=== PATIENT | male | born 1965 | race Caucasian/White ===

== ENCOUNTER → 2016-04-11 | Outpatient (REF) | payer MEDICARE, MEDICAID ==
[~2016-04-11] MED LIST: /MOXI40TA PO; /SODI15SS PO; ASPI81TA83 PO; ASPI81TA85 PO; CENTTAB16 PO; CLOP75TA2 PO; CORE12.5 PO; CORE25TA PO; HYDR-4267 PO; INSUN SC; INSUNSD SC; KAYE1POW5 PO; KAYEPOW; LASI80TA PO; LEVO175T2 PO; LIPI20TA PO; LIPI80TA PO; LOSA25TA8 PO; MULTTAB50 PO; MVI PO; NEXI40GR PO; NIAS1TAB PO; NIASPAN PO; NITR0.4D6 SL; NITR0.4D6 TD; NOVOLIN; NOVOLIN N; NPH INSULIN; PLAV75TA38 PO; RANI150C; SYNT175T PO; THERGRAN; TRIC145T PO; TRIC145T19 PO; TYLE325T5 PO; VITA500046 PO; VITAMIN D50000 UNT PO; ZANTTAB9 PO; [UNRECOGNIZED DRUG - CODE] PO; [UNRECOGNIZED DRUG - OTHER]; [UNRECOGNIZED DRUG - OTHER] SC
== END ==
LOC: M LAB REF 12:46
PROVIDERS: ATTEND Internal Medicine Nephrology
DX: N18.9 Chronic kidney disease, unspecified (principal); D63.1 Anemia in chronic kidney disease

== ENCOUNTER 2016-05-26 21:39 | Inpatient (IN) | payer MEDICARE, MEDICAID ==
[~2016-05-26] VITALS: Ht 172.7 cm; Wt 78.6 kg
[2016-05-26] MEDS ORDERED: NS 1,000 ML IV ONE (22:15)
[2016-05-26] MEDS ORDERED: TORS20TA2 PO (22:25)
[2016-05-26] MEDS ORDERED: CHLO25TA PO (22:25)
[2016-05-26] MEDS ORDERED: AMLO5TAB2 PO (22:25)
[2016-05-26] MEDS ORDERED: INSUH10VL SC (22:25)
[2016-05-26 22:38] LABS: BASO # 0.1 K/mm3 (0.0-0.2); BASO % 0.8 % (0.0-1.0); EOS # 0.5 K/mm3 (0.0-0.50); EOS % 3.7 % (0.0-3.0); LARGE UNSTAINED CELL # 0.1 K/mm3 (0.0-0.4); LYMPH # 0.5 K/mm3 (1.5-4.5); LYMPH % 3.8 % (24.0-44.0); MEAN CORPUSCULAR HEMOGLOBIN 29.6 pg (27.0-33.0); MEAN CORPUSCULAR HGB CONC 34.5 g/dl (32.0-36.5); MEAN CORPUSCULAR VOLUME 85.9 fl (80.0-96.0); MONO # 0.5 K/mm3 (0.0-0.8); MONO % 3.3 % (0.0-5.0); NEUTROPHILS % 87.5 % (36.0-66.0); PLATELET COUNT, AUTOMATED 259 k/mm3 (150-450); RED CELL DISTRIBUTION WIDTH 12.7 % (11.5-14.5); WHITE BLOOD COUNT 13.7 K/mm3 (4.0-10.0)
--- NOTE | 2016-05-26 22:40 | REPUSA ---
CLINICAL HISTORY: Altered mental status TECHNIQUE: Head CT without contrast COMPARISON: March 19, 2010. Brain: No intracranial hemorrhage, hydrocephalus, acute parenchymal edema or evident mass. Calvarium: Unremarkable. Sinuses (partially visualized): Mild ethmoid air cells mucosal thickening. Intracranial vessels: Atherosclerotic calcification of the anterior and posterior circulation. IMPRESSION: No acute intracranial findings. Premature atherosclerotic calcification of the carotid si phons. Consider further evaluation with carotid ultrasound on an outpatient basis.
[2016-05-26] MEDS ORDERED: ACETAMINOPHEN TAB 650MG DOSE (2X325MG) PO ONE (22:45)
[2016-05-26] MEDS ORDERED: ONDANSETRON 4MG/2ML VIAL (J2405) IV ONE (22:45)
[2016-05-26 22:51] LABS: ALBUMIN 3.4 GM/DL (3.2-5.2); ALBUMIN/GLOBULIN RATIO 1.21 (1.00-1.93); ALKALINE PHOSPHATASE 207 U/L (45-117); ALT/SGPT 77 U/L (12-78); ANION GAP 10 MEQ/L (8-16); AST/SGOT 59 U/L (15-37); BILIRUBIN,DIRECT 0.1 MG/DL (0.0-0.2); BILIRUBIN,TOTAL 0.4 MG/DL (0.2-1.0); BLOOD UREA NITROGEN 64 MG/DL (7-18); CARBON DIOXIDE LEVEL 25 MEQ/L (21-32); CHLORIDE LEVEL 102 MEQ/L (98-107); CREATININE FOR GFR 2.47 MG/DL (0.70-1.30); GLOMERULAR FILTRATION RATE 29.7 (>56); GLUCOSE, FASTING 377 MG/DL (70-105); OSMOLALITY SERUM 315 MOSM/KG (275-295); POTASSIUM SERUM 3.7 MEQ/L (3.5-5.1); SODIUM LEVEL 137 MEQ/L (136-145); TOTAL PROTEIN 6.2 GM/DL (6.4-8.2)
[2016-05-26 22:57] LABS: VENOUS BASE EXCESS 0.1 (-2.0-2.0); VENOUS O2 SATURATION 99.1 % (60.0-80.0); VENOUS PARTIAL PRESSURE CO2 34.2 mmHg (38.0-50.0); VENOUS STANDARD HCO3 24.6 MEQ/L; VENOUS TOTAL CO2 24.6 MEQ/L (24.0-28.0)
[2016-05-27 00:12] LABS: METHADONE URINE NEGATIVE (NEGATIVE)
[2016-05-27 01:46] LABS: GLUCOSE CSF 161 MG/DL (40-75)
[2016-05-27 01:50] LABS: APPEARANCE, CSF CLEAR (CLEAR); COLOR, CSF COLORLESS (COLORLESS); CSF DILUENT LOT # 6165; CSF TUBE# CELL CNT TUBE 4
[2016-05-27 01:56] LABS: RBC CSF AUTO 12 /mm3 (0-0); WBC CSF AUTO 1 /mm3 (0-10)
[2016-05-27 01:58] LABS: CSF DIFF IF INDICATED? NO (NO)
[2016-05-27] MEDS ORDERED: NS 1,000 ML IV ONE (03:30)
[2016-05-27] MEDS: NS 1,000 ML IV SCH ×2 (04:15→15:44)
[2016-05-27] MEDS ORDERED: DEXTROSE 50% 50 ML SYRINGE IV PRN (04:15)
[2016-05-27] MEDS ORDERED: NITROGLYCERIN 0.4 MG/HR PATCH TD PRN (04:15)
[2016-05-27] MEDS ORDERED: ACETAMINOPHEN 325 MG TAB PO PRN (04:15)
[2016-05-27] MEDS ORDERED: GLUCAGON FOR INJ 1 MG VIAL (J1610) SC PRN (04:15)
[2016-05-27] MEDS ORDERED: GLUCOSE 4 GM CHEW TABLET PO PRN (04:15)
[2016-05-27] MEDS ORDERED: ONDANSETRON 4MG/2ML VIAL (J2405) IV PRN (04:15)
[2016-05-27] MEDS ORDERED: GASTROGRAFIN SOLUTION 30ML (Q9963) PO ONE ×2 (04:30→05:10)
[2016-05-27] MEDS ORDERED: VITA50003 PO (04:31)
[2016-05-27] MEDS ORDERED: HYDR-4266 PO (04:33)
[2016-05-27] MEDS ORDERED: VITMTA PO (04:33)
[2016-05-27] MEDS ORDERED: NITR0.4S14 SL (05:08)
[2016-05-27] MEDS ORDERED: NITROGLYCERIN 0.4 MG SUBL TABLET SL PRN ×2 (05:30)
[2016-05-27] MEDS ORDERED: LEVOTHYROXINE 0.1 MG TAB (100 MCG) PO SCH (06:00)
[2016-05-27] MEDS ORDERED: LEVOTHYROXINE 0.075 MG TAB (75 MCG) PO SCH (06:00)
--- NOTE | 2016-05-27 06:07 | HPE ---
DATE OF ADMISSION: 05/27/2016 PRIMARY CARE PROVIDER: Dr. Deshawn Cano PROMPT CARE RN: Dr. Evan Barreto ACCOUNTS RECEIVABLE EXECUTIVE: Dr. Vaishali Otto CHIEF COMPLAINT: Fever. HISTORY OF PRESENT ILLNESS: The patient is a 50-year-old man who reports that he was in his usual state of health, his and his family went to [place] to eat dinner at [facility], shortly after returning, he began having rigors, having chills. He tried wrapping himself up with a blanket. He felt possibly that his blood sugar was low. He checked his fingerstick and it was actually 400. He progressively felt worse and worse with the chills and then feeling hot, covering himself with many blankets to the point that his family became concerned and his called an ambulance. Emergency medical services (EMS) brought the patient to the hospital here. Otherwise, the patient states that earlier in the day he was in his usual state of health. He denies change in urinary habits, cough, fevers prior to this. No other complaints prior to this episode. As per report from the emergency room doctor, he was rather slow and lethargic upon arrival, but has improved after receiving Tylenol. As per the , the patient does get slow and lethargic any time he feels this ill. At the present time, she states that he is back to his baseline. The patient, himself is awake, alert, oriented times three and feels just tired. The patient reported one episode of nausea and vomiting while in the emergency room. PAST MEDICAL HISTORY: 1. Chronic kidney disease. 2. Type 2 diabetes. 3. Coronary artery disease status post coronary artery bypass graft (CABG). 4. Peripheral vascular disease status post balloon. 5. Hypothyroidism. 6. Celiac disease. PAST SURGICAL HISTORY: 1. Carpal tunnel release bilaterally. 2. Tonsillectomy. 3. Appendectomy. 4. CABG. 5. Right cataract surgery. 6. Right shoulder surgery. SOCIAL HISTORY: He is a nonsmoker. His last alcoholic beverage was six months ago. He lives with his and son. FAMILY HISTORY: Noncontributory. REVIEW OF SYSTEMS: Negative other than history of present illness (HPI). ALLERGIES: SAIDA INHIBITORS, GLUTEN. HOME MEDICATIONS: - Norvasc 5 mg daily - chlorthalidone 25 mg daily - vitamin D 50,000 units once a week - hydralazine 25 mg by mouth twice a day - NovoLog sliding scale with meals - Novolin NPH 22 units in the morning, 55 units in the evening - torsemide 20 mg daily - Synthroid 175 mcg daily - Tylenol 650 mg every four hours as needed - aspirin 81 mg daily - atorvastatin 80 mg daily - Coreg 12.5 mg twice a day - Plavix 75 mg daily - multivitamin one tablet daily - niacin 500 mg at bedtime - nitroglycerin 0.4 mg/hour dissolvable patch daily as needed chest pain PHYSICAL EXAMINATION: T-max 101.8, heart rate 111, blood pressure 159/72, oxygen saturation 98% in room air. GENERAL: He is a middle-aged man lying flat in bed. He appears tired, but in no acute distress. HEENT: Cranial nerves II-XII are grossly intact. He has moist mucous membranes. No elevation of central venous pressure (CVP). CARDIOVASCULAR: S1, S2, tachycardic, but regular. RESPIRATORY EXAM: Clear. ABDOMEN: Soft, bowel sounds positive. There is some mild distention, but no obvious tenderness to palpation. EXTREMITIES: No clubbing, cyanosis, or edema. LABORATORY STUDIES: WBC 13.7, hemoglobin 11.5, hematocrit 33.3, platelet count 259. Chemistry panel: Sodium 137, potassium 3.7, chloride 102, bicarbonate 25, BUN 64, creatinine 2.4, baseline creatinine appears to be approximately 2, glucose 377, elevated AST of 59, CK elevated at 917, TSH slightly elevated at 4.3. ABG reveals a pH of 7.45, pCO2 of 34.2, and an pO2 of 157. Toxicology is negative. UA is positive for protein and glucose. CSF reveals 1 WBC, 12 RBC, glucose 161, and total protein 62.7. Blood cultures are pending. Urine culture is pending. Influenza swab is negative. CSF culture and gram stain is pending. IMAGING: The patient did have a CT scan of the head which reveals no acute intracranial findings. Premature atherosclerotic calcification in the product siphons and can consider outpatient ultrasound evaluation. A chest x-ray which report is unavailable, but there is no obvious infiltrate. ASSESSMENT AND PLAN: This is a 50-year-old man with sudden onset of sepsis syndrome with fever, tachycardia, leukocytosis, associated with nausea and vomiting. 1. Sepsis syndrome. At this time, it appears as though this may be a gastrointestinal (GI) illness. I will empirically cover him with metronidazole and levofloxacin. We will check a GI polymerase chain reaction (PCR) panel. Also check a respiratory PCR panel and a CT scan of the abdomen as at this time there is no clear source for his infection. I will also check a lipase and trend his troponin. He did receive IV fluids. I will continue with gentle IV fluid hydration and Tylenol as needed. We will provide him with IV Zofran as needed as well. For the time being, we will keep him nothing by mouth. He does not appear to be in significant pain. I will also check a serum alcohol level given that he has some mild liver function tests (LFT) abnormalities fairly chronically. 2. Chronic kidney disease, [id number] kidney injury. We will hold his diuretic and provide him with very gentle IV fluids. 3. Hypertension. We will monitor closely for the time being. We will continue his Coreg. If needed, we will provide him with his amlodipine and hydralazine. 4. Type 2 diabetes. Sliding scale insulin. He is nothing by mouth. We will check fingersticks every six hours, and insulin protocol. 5. Hypothyroidism. We will place him on Synthroid. 6. Coronary artery disease. The patient is on aspirin, statin, and beta sarabjit. We will admit him to the progressive care unit (PCU) and trend his cardiac enzymes. The patient is on Plavix and as needed nitroglycerin. 7. Dyslipidemia. He is on a statin and niacin. 8. Deep vein thrombosis (DVT) prophylaxis. The patient will be on heparin. DISPOSITION: The patient will be admitted to the progressive care unit (PCU). We will continue to follow this patient closely.
[2016-05-27] MEDS: HumaLOG INSULIN (NovoLOG) PER UNIT SC SCH ×4 (06:45→21:28)
--- NOTE | 2016-05-27 06:46 | ECGEPIP ---
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
--- NOTE | 2016-05-27 07:00 | REPUSA ---
CLINICAL HISTORY: Abdominal pain. TECHNIQUE: Multiple axial, sagittal and coronal CT images were obtained through the abdomen and pelvi s after administration of oral but not IV contrast material. COMMENTS: The liver is of uniform attenuation without mass or defect. There is no intra or extrahepatic biliary ductal dilatation. The spleen is normal. The gallbladder is within normal limits. The pancreas is of normal contour and attenuation characteristics. There is no evidence of adrenal mass. The kidneys are normal in size, shape and configuration. No renal or ureteral calculi are identified. There is no hydroureter or hydronephrosis. There is no evidence for appendicitis. There is severe wall thickening noted invoving small bowel seg ments compatibe with enteritis. No evidence for small or large bowel obstruction. There is no evidenc e of abdominal ascites or lymphadenopathy. There is no evidence of intrinsic or extrinsic bladder mass. There is no pelvic ascites or lymphadeno karon. Images of the lung bases show bibasilar consolidations compatible with pneumonia. There are no pleura l effusions. The bony structures are free of lytic or blastic lesions. Multilevel degenerative changes are seen in volving the thoracolumbar spine. Scattered calcifications are seen involving the aorta and major branches compatible with atherosclero sis. IMPRESSION: Severe enteritis. Consultation with GI service is recommended. Bibasilar pneumonia. Thank you for your kind referral of this patient.
[2016-05-27 07:40] LABS: MEAN CORPUSCULAR HEMOGLOBIN 30.4 pg (27.0-33.0); MEAN CORPUSCULAR VOLUME 86.9 fl (80.0-96.0); RED CELL DISTRIBUTION WIDTH 12.6 % (11.5-14.5); WHITE BLOOD COUNT 13.7 K/mm3 (4.0-10.0)
[2016-05-27 07:59] LABS: ALBUMIN 2.7 GM/DL (3.2-5.2); ALBUMIN/GLOBULIN RATIO 1.04 (1.00-1.93); ALKALINE PHOSPHATASE 193 U/L (45-117); ALT/SGPT 80 U/L (12-78); ANION GAP 12 MEQ/L (8-16); AST/SGOT 83 U/L (15-37); BILIRUBIN,TOTAL 0.4 MG/DL (0.2-1.0); BLOOD UREA NITROGEN 56 MG/DL (7-18); CALCIUM LEVEL 7.3 MG/DL (8.5-10.1); CARBON DIOXIDE LEVEL 20 MEQ/L (21-32); CHLORIDE LEVEL 106 MEQ/L (98-107); CREATININE FOR GFR 2.24 MG/DL (0.70-1.30); GLOMERULAR FILTRATION RATE 33.2 (>56); GLUCOSE, FASTING 375 MG/DL (70-105); POTASSIUM SERUM 3.5 MEQ/L (3.5-5.1); SODIUM LEVEL 138 MEQ/L (136-145); TOTAL PROTEIN 5.3 GM/DL (6.4-8.2)
[2016-05-27] MEDS: LevoFLOXacin IV 500 MG in APPROPRIATE DILUENT 1 EA IV SCH (08:15)
[2016-05-27] MEDS ORDERED: amLODIPine 5 MG TAB PO SCH (09:00)
[2016-05-27] MEDS ORDERED: CHLORTHALIDONE 25 MG TAB PO SCH (09:00)
[2016-05-27] MEDS ORDERED: MULTIVITAMINS/MINERALS THERAP 1 TAB PO SCH (09:00)
[2016-05-27] MEDS: HEPARIN SOD (PORCINE) 5000 UNITS/ML VIAL SC SCH ×3 (09:00→21:26)
[2016-05-27] MEDS ORDERED: **hydrALAZINE HCL** 25 MG TAB PO SCH (09:00)
[2016-05-27] MEDS: metroNIDAZOLE 500 MG in APPROPRIATE DILUENT 1 EA IV SCH ×2 (09:16→17:52)
--- NOTE | 2016-05-27 10:49 | REP ---
REASON: Altered mental status. COMPARISON: 07/09/2015 The technique utilized in obtaining the radiograph has magnified the cardiac silhouette and accentuated the interstitial markings. Note is again made of previous median sternotomy. The cardiomediastinal silhouette is unchanged. The lung celaya are hypo-expanded. No acute patchy parenchymal opacities or pleural effusions have developed. There is no change in the osseous structures. IMPRESSION: No evidence of acute disease. Technique as described above. Signed by George Blank DO 05/27/2016 11:25 A
[2016-05-27] MEDS: ACETAMINOPHEN 500 MG TAB PO SCH ×3 (12:06→21:26)
[2016-05-27] MEDS: CARVedilol 12.5 MG TAB PO SCH ×2 (12:14→21:27)
[2016-05-27] MEDS: CLOPIDOGREL 75 MG TAB PO SCH (12:22)
[2016-05-27] MEDS: amLODIPine 5 MG TAB PO SCH ×2 (12:26→21:27)
[2016-05-27 15:00] VITALS: BP 148/71
[2016-05-27] MEDS ORDERED: HumuLIN N INSULIN (NovoLIN N) PER UNIT SC SCH (21:00)
[2016-05-27] MEDS ORDERED: NIACIN SR (NIASPAN) 500 MG TAB PO SCH (21:00)
[2016-05-27] MEDS ORDERED: **NOTE PATIENT COMMENT** MISC XX SCH (21:00)
[2016-05-27] MEDS: ATORVASTATIN 20 MG TAB PO SCH (21:26)
[2016-05-27] MEDS: LEVOTHYROXINE 0.075 MG TAB (75 MCG) PO SCH (21:27)
[2016-05-27] MEDS: LEVOTHYROXINE 0.1 MG TAB (100 MCG) PO SCH (21:27)
[2016-05-27] MEDS: ASPIRIN 81 MG ENTERIC TAB PO SCH (21:27)
[2016-05-27 22:00] VITALS: BP 162/77
[2016-05-28] MEDS: metroNIDAZOLE 500 MG in APPROPRIATE DILUENT 1 EA IV SCH ×3 (00:49→16:38)
[2016-05-28] MEDS: NS 1,000 ML IV SCH ×3 (02:42→21:06)
[2016-05-28 06:00] VITALS: BP 159/78
[2016-05-28 07:25] LABS: MEAN CORPUSCULAR HEMOGLOBIN 30.2 pg (27.0-33.0); MEAN CORPUSCULAR HGB CONC 34.8 g/dl (32.0-36.5); MEAN CORPUSCULAR VOLUME 86.9 fl (80.0-96.0); RED CELL DISTRIBUTION WIDTH 12.9 % (11.5-14.5)
[2016-05-28 07:28] LABS: CREATININE FOR GFR 1.64 MG/DL (0.70-1.30); GLOMERULAR FILTRATION RATE 47.6 (>56); POTASSIUM SERUM 3.6 MEQ/L (3.5-5.1)
--- NOTE | 2016-05-28 07:44 | IPNPDOC ---
Subjective Date Seen The patient was seen on 05/28/16. Subjective Chief Complaint/HPI The patient is a 50-year-old male admitted with a reason for visit of Sepsis. Events since last encounter patient became hypoglycemic this am down to 44 will hold am insulin. no fever or chills, no chest pain or sob , no abdominal pain or nausea or vomiting. Objective Physical Examination General Exam: Positive: Alert, No Acute Distress Eye Exam: Positive: Conjunctiva & lids normal, EOMI, PERRLA, Negative: Sclera icteric ENT Exam: Positive: Atraumatic, Mucous membr. moist/pink, Pharynx Normal Neck Exam: Positive: Supple, Negative: JVD, thyromegaly Chest Exam: Positive: Clear to auscultation, Normal air movement Heart Exam: Positive: Normal S1, Normal S2, Rate Normal, Regular Rhythm, Negative: Murmurs, Rubs Abdomen Exam: Positive: Normal bowel sounds, Soft, Negative: Hepatospenomegaly, Tenderness Extremity Exam: Positive: Normal pulses, Negative: Clubbing, Cyanosis, Edema Skin Exam: Positive: Nl turgor and temperature, Negative: Breakdown, Rash Assessment /Plan Problems (1) Gastroenteritis Status: Acute Problem Text: will continue with metronidazole and levofloxacin. Blood cultures in progress, No further diarrhea so no GI panel available. Had CSF study did not no any meningitis. Cells 3 had mildly elevated protein of 65. (2) Acute kidney injury superimposed on CKD Status: Acute Problem Text: will continue with gentle hydration. (3) Diabetes Status: Chronic Problem Text: Had hypoglycemia this am will reduce dose of nph insulin in pm and hold moring NPH dose. continue with the sliding scale. (4) CAD (coronary artery disease) Status: Chronic (5) Hx of CABG Status: Chronic (6) PVD (peripheral vascular disease) Status: Chronic (7) Hypertension Status: Chronic (8) Hyperlipidemia Status: Chronic (9) Hypothyroid Status: Chronic (10) Celiac disease Status: Chronic Plan/VTE VTE Prophylaxis Ordered?: Yes VS, I&O, 24H, Fishbone Vital Signs/I&O Vital Signs Date Time Temp Pulse Resp B/P Pulse Ox O2 Delivery O2 Flow Rate FiO2 05/28/16 06:00 97.1 61 20 159/78 96 Room Air I&O- Last 24 Hours up to 6 AM 05/28/16 06:00 Intake Total 1160 ml Output Total 500 ml Balance 660 ml Laboratory Data 24H LABS Laboratory Tests 2 05/27/16 12:03: Bedside Glucose (Misc Panel) 302H 05/27/16 17:46: Bedside Glucose (Misc Panel) 439H 05/27/16 21:16: Bedside Glucose (Misc Panel) 480H 05/28/16 06:51: Microbiology Microbiology 05/26/16 Blood Culture - Preliminary, Resulted No growth after 24 hours . All specim... 05/26/16 Blood Culture - Preliminary, Resulted No growth after 24 hours . All specim... 05/27/16 Gram Stain - Final, Resulted 05/27/16 CSF Culture, Resulted Pending 05/28/16 Gastrointestinal Tract Panel (PCR), Received Pending 05/26/16 Respiratory Virus Panel (PCR) (DORENE) - Final, Complete 05/26/16 Influenza Virus Type A Antigen - Final, Complete 05/26/16 Influenza Virus Type B Antigen - Final, Complete 05/26/16 Urine Culture, Received Pending BRYSON HOOKS MD May 28, 2016 07:44
[2016-05-28 08:25] LABS: CALCIUM LEVEL 8.5 MG/DL (8.5-10.1)
[2016-05-28] MEDS: HEPARIN SOD (PORCINE) 5000 UNITS/ML VIAL SC SCH ×2 (09:00→21:00)
[2016-05-28] MEDS: LevoFLOXacin IV 500 MG in APPROPRIATE DILUENT 1 EA IV SCH (09:51)
[2016-05-28] MEDS: HumaLOG INSULIN (NovoLOG) PER UNIT SC SCH ×4 (09:51→21:05)
[2016-05-28] MEDS: ACETAMINOPHEN 500 MG TAB PO SCH ×3 (09:52→21:03)
[2016-05-28] MEDS: CARVedilol 12.5 MG TAB PO SCH ×2 (09:52→21:04)
[2016-05-28] MEDS: CLOPIDOGREL 75 MG TAB PO SCH (09:53)
[2016-05-28] MEDS: amLODIPine 5 MG TAB PO SCH ×2 (09:53→21:04)
[2016-05-28 10:00] VITALS: BP 165/74
[2016-05-28 14:00] VITALS: BP 164/79
[2016-05-28] MEDS: ATORVASTATIN 20 MG TAB PO SCH (21:03)
[2016-05-28] MEDS: ASPIRIN 81 MG ENTERIC TAB PO SCH (21:04)
[2016-05-28] MEDS: LEVOTHYROXINE 0.1 MG TAB (100 MCG) PO SCH (21:04)
[2016-05-28] MEDS: LEVOTHYROXINE 0.075 MG TAB (75 MCG) PO SCH (21:04)
[2016-05-28] MEDS: HumuLIN N INSULIN (NovoLIN N) PER UNIT SC SCH (21:05)
[2016-05-28 22:00] VITALS: BP 162/70
[2016-05-29] MEDS: metroNIDAZOLE 500 MG in APPROPRIATE DILUENT 1 EA IV SCH ×2 (01:21→09:41)
[2016-05-29 06:00] VITALS: BP 162/75
[2016-05-29 07:10] LABS: MEAN CORPUSCULAR HEMOGLOBIN 30.8 pg (27.0-33.0); MEAN CORPUSCULAR VOLUME 88.2 fl (80.0-96.0); RED CELL DISTRIBUTION WIDTH 13.2 % (11.5-14.5); WHITE BLOOD COUNT 6.1 K/mm3 (4.0-10.0)
[2016-05-29 07:30] LABS: CALCIUM LEVEL 8.1 MG/DL (8.5-10.1); CREATININE FOR GFR 1.59 MG/DL (0.70-1.30); GLOMERULAR FILTRATION RATE 49.3 (>56); POTASSIUM SERUM 3.8 MEQ/L (3.5-5.1)
[2016-05-29] MEDS: HumaLOG INSULIN (NovoLOG) PER UNIT SC SCH ×4 (07:30→21:00)
[2016-05-29] MEDS: LevoFLOXacin IV 500 MG in APPROPRIATE DILUENT 1 EA IV SCH (08:25)
[2016-05-29] MEDS: ACETAMINOPHEN 500 MG TAB PO SCH ×4 (08:26→20:56)
[2016-05-29] MEDS: amLODIPine 5 MG TAB PO SCH ×2 (08:27→20:55)
[2016-05-29] MEDS: CARVedilol 12.5 MG TAB PO SCH ×2 (08:27→20:54)
[2016-05-29] MEDS: HumuLIN N INSULIN (NovoLIN N) PER UNIT SC SCH ×2 (08:28→20:56)
[2016-05-29] MEDS: NS 1,000 ML IV SCH (08:42)
[2016-05-29] MEDS: HEPARIN SOD (PORCINE) 5000 UNITS/ML VIAL SC SCH ×2 (09:00→21:00)
[2016-05-29] MEDS: CLOPIDOGREL 75 MG TAB PO SCH (09:00)
[2016-05-29 14:00] VITALS: BP 169/78
[2016-05-29] MEDS ORDERED: CHLORTHALIDONE 25 MG TAB PO ONE (15:45)
[2016-05-29] MEDS: metroNIDAZOLE (FLAGYL) 500 MG TAB PO SCH ×2 (16:21→21:03)
[2016-05-29] MEDS: TORSEMIDE 20 MG TAB PO SCH (16:21)
--- NOTE | 2016-05-29 18:06 | REP ---
Bilateral lower extremity deep vein duplex ultrasound: The deep veins demonstrate normal compression, normal Doppler color flow and normal Doppler waveforms with respiration and augmentation at multiple levels from the popliteal veins to the common femoral veins. There is no evidence of deep vein thrombus on the right on the left. Bilateral inguinal lymph nodes are incidentally noted. Soft tissue edema is noted in the soft tissues posterior to the left knee. Signed by Kraig Palmer MD 05/29/2016 05:58 P
--- NOTE | 2016-05-29 19:04 | IPNPDOC ---
Subjective Date Seen The patient was seen on 05/29/16. Subjective Chief Complaint/HPI The patient is a 50-year-old male admitted with a reason for visit of Sepsis. Objective Physical Examination General Exam: Positive: Alert, No Acute Distress Eye Exam: Positive: Conjunctiva & lids normal, EOMI, PERRLA, Negative: Sclera icteric ENT Exam: Positive: Atraumatic, Mucous membr. moist/pink, Pharynx Normal Neck Exam: Positive: Supple, Negative: JVD, thyromegaly Chest Exam: Positive: Clear to auscultation, Normal air movement Heart Exam: Positive: Normal S1, Normal S2, Rate Normal, Regular Rhythm, Negative: Murmurs, Rubs Abdomen Exam: Positive: Normal bowel sounds, Soft, Negative: Hepatospenomegaly, Tenderness Extremity Exam: Positive: Normal pulses, Negative: Clubbing, Cyanosis, Edema Skin Exam: Positive: Nl turgor and temperature, Negative: Breakdown, Rash Assessment /Plan Problems (1) Gastroenteritis Status: Acute Problem Text: will continue with metronidazole and levofloxacin. Blood cultures in progress, No further diarrhea so no GI panel available. Had CSF study did not no any meningitis. Cells 3 had mildly elevated protein of 65. (2) Acute kidney injury superimposed on CKD Status: Acute Problem Text: will continue with gentle hydration. (3) Diabetes Status: Chronic Problem Text: Had hypoglycemia this am will reduce dose of nph insulin in pm and hold moring NPH dose. continue with the sliding scale. (4) CAD (coronary artery disease) Status: Chronic (5) Hx of CABG Status: Chronic (6) PVD (peripheral vascular disease) Status: Chronic (7) Hypertension Status: Chronic (8) Hyperlipidemia Status: Chronic (9) Hypothyroid Status: Chronic (10) Celiac disease Status: Chronic Plan/VTE VTE Prophylaxis Ordered?: Yes VS, I&O, 24H, Fishbone Vital Signs/I&O Vital Signs Date Time Temp Pulse Resp B/P Pulse Ox O2 Delivery O2 Flow Rate FiO2 05/29/16 14:00 99.4 78 16 169/78 96 Room Air I&O- Last 24 Hours up to 6 AM 05/29/16 06:00 Intake Total 3380 ml Output Total 2100 ml Balance 1280 ml Laboratory Data 24H LABS Laboratory Tests 2 05/28/16 20:13: Bedside Glucose (Misc Panel) 327H 05/29/16 06:43: Anion Gap 11, Blood Urea Nitrogen 31H, Creatinine 1.59H, Sodium Level 145, Potassium Level 3.8, Chloride Level 114H, Carbon Dioxide Level 20L, Calcium Level 8.1L, Glomerular Filtration Rate 49.3L 05/29/16 11:53: Bedside Glucose (Misc Panel) 225H 05/29/16 16:16: Bedside Glucose (Misc Panel) 115H CBC/BMP Laboratory Tests 05/29/16 06:43 Calcium Level 8.1 L, Red Blood Count 3.42 L, Mean Corpuscular Volume 88.2, Mean Corpuscular Hemoglobin 30.8, Mean Corpuscular Hemoglobin Concent 35.0, Red Cell Distribution Width 13.2 Microbiology Microbiology 05/26/16 Blood Culture - Preliminary, Resulted No Growth after 48 hours. All Specime... 05/26/16 Blood Culture - Preliminary, Resulted No Growth after 48 hours. All Specime... 05/27/16 Gram Stain - Final, Complete 05/27/16 CSF Culture - Final, Complete 05/28/16 Gastrointestinal Tract Panel (PCR) - Final, Complete 05/26/16 Respiratory Virus Panel (PCR) (DORENE) - Final, Complete 05/26/16 Influenza Virus Type A Antigen - Final, Complete 05/26/16 Influenza Virus Type B Antigen - Final, Complete 05/26/16 Urine Culture - Final, Complete HELIO FLORES DO May 29, 2016 19:04
[2016-05-29] MEDS: ATORVASTATIN 20 MG TAB PO SCH (20:54)
[2016-05-29] MEDS: ASPIRIN 81 MG ENTERIC TAB PO SCH (20:55)
[2016-05-29] MEDS: LEVOTHYROXINE 0.1 MG TAB (100 MCG) PO SCH (21:03)
[2016-05-29] MEDS: LEVOTHYROXINE 0.075 MG TAB (75 MCG) PO SCH (21:04)
[2016-05-29 22:00] VITALS: BP 142/88
[2016-05-30] MEDS: metroNIDAZOLE (FLAGYL) 500 MG TAB PO SCH ×2 (05:26→13:24)
[2016-05-30 06:00] VITALS: BP 167/82
[2016-05-30] MEDS ORDERED: LevoFLOXacin 500 MG TABLET PO SCH (06:00)
[2016-05-30] MEDS: HumaLOG INSULIN (NovoLOG) PER UNIT SC SCH ×2 (07:30→12:27)
[2016-05-30 08:30] LABS: CREATININE FOR GFR 1.6 MG/DL (0.70-1.30); POTASSIUM SERUM 3.7 MEQ/L (3.5-5.1)
[2016-05-30] MEDS: HumuLIN N INSULIN (NovoLIN N) PER UNIT SC SCH (08:41)
[2016-05-30] MEDS: CLOPIDOGREL 75 MG TAB PO SCH (08:41)
[2016-05-30 08:42] VITALS: BP 167/82
[2016-05-30] MEDS: TORSEMIDE 20 MG TAB PO SCH (08:42)
[2016-05-30] MEDS: CARVedilol 12.5 MG TAB PO SCH (08:42)
[2016-05-30] MEDS: amLODIPine 5 MG TAB PO SCH (08:42)
[2016-05-30] MEDS: HEPARIN SOD (PORCINE) 5000 UNITS/ML VIAL SC SCH (08:43)
[2016-05-30 08:53] LABS: MEAN CORPUSCULAR HEMOGLOBIN 30.3 pg (27.0-33.0); MEAN CORPUSCULAR HGB CONC 34.8 g/dl (32.0-36.5); RED CELL DISTRIBUTION WIDTH 13.1 % (11.5-14.5); WHITE BLOOD COUNT 5.1 K/mm3 (4.0-10.0)
[2016-05-30] MEDS ORDERED: LEVA500T PO (11:18)
[2016-05-30] MEDS ORDERED: FLAG500T PO (11:18)
--- NOTE | 2016-06-07 12:15 | DSES ---
DATE OF ADMISSION: 05/27/2016 DATE OF DISCHARGE: 05/30/2016 REASON FOR ADMISSION: Questionable sepsis. FINAL DIAGNOSES: 1. Gastroenteritis. 2. Severe enteritis. 3. Inguinal lymph node. 4. Hypoglycemia. 5. Acute on chronic kidney disease. 6. History of CABG. 7. History of peripheral vascular disease. 8. Hypertension. 9. Hyperlipidemia. 10. Hypothyroidism. 11. Celiac disease. HISTORY OF PRESENT ILLNESS (HPI): Patient is a 50-year-old male, presented to the emergency room after going to eat at [employer] and then started to have shaking and chills, wrapping himself in blanket. He thought he had low blood sugar; however, his blood sugar was 400. He continued to feel worse and presented to the emergency room. He denied any worsening urinary habits, cough, fevers or chills. He had no prior episodes. He was admitted under hospitalist service. HOSPITAL COURSE: CT scan of the abdomen and pelvis showed severe enteritis. Patient was started on antibiotics, initially intravenous (IV) and then it was switched to oral. Once the patient's symptoms had improved, he was started on metronidazole and Levaquin, as well as IV fluids. Blood and urine were negative. Cerebrospinal fluid (CSF) was also done and it was negative. Urine culture was negative. Gastrointestinal (GI) panel was negative. Once the patient's symptoms had resolved, he was discharged home. He is to followup with primary care provider in 1 week. He is to repeat ultrasound of inguinal lymph nodes. Diet is regular. Activity is as tolerated. Discharge medications include: - Levaquin 500 mg by mouth daily for seven more days - Flagyl 500 mg by mouth every 8 hours for seven more days - Tylenol 650 mg every four hours as needed - amlodipine 5 mg by mouth daily - aspirin 81 mg by mouth at night - Lipitor 80 mg at night - carvedilol 12.5 mg by mouth twice a day - chlorthalidone 25 mg by mouth daily - Plavix 75 mg by mouth daily - vitamin D 50,000 units by mouth - hydralazine 25 mg by mouth twice a day - insulin sliding scale and NPH 22 units in the morning and 55 units at night - Synthroid 175 at night - multivitamin one tablet by mouth daily - niacin 500 mg at bedtime - nitroglycerin as needed for angina - torsemide 20 mg by mouth daily Patient has a primary care appointment on 06/08/2016 at 2:30 p.m. Discharge condition was stable.
== END 2016-05-30 13:50 | disposition home or self-care (01) | DRG 392 ==
LOC: M ED 21:56 → M ED INP 05-27 04:15 → M MS5PR 05-27 14:55
PROVIDERS: ADMIT Internal Medicine; ATTEND Internal Medicine Nephrology
DX: K52.9 Noninfective gastroenteritis and colitis, unspecified (principal); N17.9 Acute kidney failure, unspecified; E03.9 Hypothyroidism, unspecified; E78.5 Hyperlipidemia, unspecified; K90.0 Celiac disease; I12.9 Hypertensive chronic kidney disease with stage 1 through stage 4 chronic kidney disease, or unspecified chronic kidney disease; I73.9 Peripheral vascular disease, unspecified; Z79.899 Other long term (current) drug therapy; Z79.4 Long term (current) use of insulin; N18.9 Chronic kidney disease, unspecified; E11.65 Type 2 diabetes mellitus with hyperglycemia; Z88.8 Allergy status to other drugs, medicaments and biological substances; Z79.82 Long term (current) use of aspirin

== ENCOUNTER → 2016-06-13 | Outpatient (CLI) | payer MEDICARE, MEDICAID ==
[~2016-06-13] MED LIST changes: +AMLO5TAB2 PO; +CHLO25TA PO; +FLAG500T PO; +HYDR-4266 PO; +INSUH10VL SC; +LEVA500T PO; +NITR0.4S14 SL; +TORS20TA2 PO; +VITA50003 PO; +VITMTA PO
== END ==
LOC: M SMT 11:08
PROVIDERS: ATTEND Internal Medicine Gastroenterology
DX: K90.0 Celiac disease (principal)

== ENCOUNTER → 2016-06-18 | Outpatient (CLI) | payer MEDICARE, MEDICAID ==
[~2016-06-18] MED LIST changes: +E-Z PAQUE 60% w/v SUSP 355ML BOTTLE As Ordered ONE; +ENTERO VU 24% w/v SUSP BTL 600ML As Ordered ONE
--- NOTE | 2016-06-18 13:34 | REP ---
SMALL BOWEL SERIES: [facility] film of abdomen and pelvis demonstrates diffuse vascular calcifications without an obstructive bowel gas pattern. Single contrast barium was ingested. Stomach and duodenal bulb appear well distended on initial images. The jejunum and ileum display normal mucosal folds with no thickening or nodularity. There are no persistent filling defects or strictures seen. There is normal transit time of barium through the small bowel, with the right colon visualized between 130 and 160 minutes. Terminal ileum demonstrates no stricture or other abnormality. Manual compression under fluoroscopy demonstrate freely mobile small bowel loops with no tethering or fistula. IMPRESSION: Unremarkable small bowel series. Fluoroscopy time 5 minutes. Signed by Kraig Hyatt MD 06/18/2016 03:55 P
== END ==
LOC: M RAD 08:30
PROVIDERS: ATTEND Internal Medicine Gastroenterology
DX: K90.0 Celiac disease (principal)

== ENCOUNTER → 2016-06-29 | Outpatient (CLI) | payer MEDICARE, MEDICAID ==
[~2016-06-29] VITALS: Ht 172.7 cm; Wt 69.4 kg
[~2016-06-29] MED LIST changes: -E-Z PAQUE 60% w/v SUSP 355ML BOTTLE As Ordered ONE; -ENTERO VU 24% w/v SUSP BTL 600ML As Ordered ONE; +NS 1,000 ML IV SCH; +PROPOFOL 200 MG/20 ML VIAL As Ordered ONE
--- NOTE | 2016-06-29 15:01 | ROOR ---
Patient Name: Jonny Aguilera Procedure Date: 06/29/2016 2:46 PM Date of : 1965 Age: 50 Room: [facility] Gender: Male Note Status: Finalized Procedure: Upper GI endoscopy Indications: Surveillance procedure, , Epigastric abdominal distress, Follow-up of celiac disease. (normal serology ttg IgA) with [facility] strict gluten free diet. abdominal pain has resolved. Providers: Jose BOTELLO MD Referring MD: ALEJANDRA BHAKTA MD Requesting Provider: Medicines: Monitored Anesthesia Care Complications: No immediate complications. Procedure: Pre-Anesthesia Assessment: - The heart rate, respiratory rate, oxygen saturations, blood pressure, adequacy of pulmonary ventilation, and response to care were monitored throughout the procedure. The Endoscope was introduced through the mouth, and advanced to the second part of duodenum. The upper GI endoscopy was accomplished without difficulty. The patient tolerated the procedure well. Findings: The esophagus was normal. The stomach was normal. The examined duodenum was normal. Biopsies for histology were taken with a cold forceps for evaluation of celiac disease. Impression: - Normal esophagus. - Normal stomach. - Normal examined duodenum. Biopsied. Recommendation: - Gluten free diet. - Telephone endoscopist for pathology results in 2 weeks. - Return to my office PRN. Jose Botello MD Jose BOTELLO MD 06/29/2016 3:01:46 PM This report has been signed electronically. Number of Addenda: 0 Note Initiated On: 06/29/2016 2:46 PM Estimated Blood Loss: Estimated blood loss: none.
[2016-06-29 15:20] VITALS: BP 160/72
== END | disposition home or self-care (01) ==
LOC: M OPP 13:10
PROVIDERS: ATTEND Internal Medicine Gastroenterology
DX: K90.0 Celiac disease (principal); I25.10 Atherosclerotic heart disease of native coronary artery without angina pectoris; I25.2 Old myocardial infarction; I12.9 Hypertensive chronic kidney disease with stage 1 through stage 4 chronic kidney disease, or unspecified chronic kidney disease; E78.5 Hyperlipidemia, unspecified; R60.0 Localized edema; I99.9 Unspecified disorder of circulatory system; E10.9 Type 1 diabetes mellitus without complications; E03.9 Hypothyroidism, unspecified; K31.84 Gastroparesis; R12 Heartburn; N18.9 Chronic kidney disease, unspecified; Z95.1 Presence of aortocoronary bypass graft; Z88.8 Allergy status to other drugs, medicaments and biological substances; Z88.5 Allergy status to narcotic agent; Z91.018 Allergy to other foods; Z79.82 Long term (current) use of aspirin; Z79.4 Long term (current) use of insulin; Z79.899 Other long term (current) drug therapy; Z79.01 Long term (current) use of anticoagulants

== ENCOUNTER → 2016-07-31 | Outpatient (REF) ==
[~2016-07-31] MED LIST changes: -NS 1,000 ML IV SCH; -PROPOFOL 200 MG/20 ML VIAL As Ordered ONE
--- NOTE | 2016-07-31 15:17 | REP ---
RIGHT SHOULDER SERIES: Four views. HISTORY: Degenerative disease. Comparison study March 29, 2006. FINDINGS: The right glenohumeral and acromioclavicular joints are normally aligned. Periarticular soft tissues are unremarkable. No bony erosive or destructive lesion is seen. IMPRESSION: Negative right shoulder views. Signed by Franco Frankel MD 07/31/2016 03:17 P
== END ==
LOC: M SMT 14:34
PROVIDERS: ATTEND Internal Medicine
DX: M54.5 Low back pain (principal)

== ENCOUNTER → 2016-09-04 | Outpatient (CLI) | payer MEDICARE, MEDICAID ==
[2016-09-04 12:29] LABS: PERCENT SATURATION 27.2 % (19.7-37.4); TOTAL IRON BINDING CAPACITY 305 UG/DL (250-450)
== END ==
LOC: M LAB 11:19
PROVIDERS: ATTEND Internal Medicine Gastroenterology
DX: R74.8 Abnormal levels of other serum enzymes (principal)

== ENCOUNTER → 2016-10-01 | Outpatient (CLI) | payer MEDICARE, MEDICAID ==
[~2016-10-01] MED LIST changes: +HYDR-3910 PO; +HYDR-3911 PO; -HYDR-4266 PO; -HYDR-4267 PO; +LEVA1TAB2 PO; -LEVA500T PO; +PLAV1TAB2 PO; -PLAV75TA38 PO; +TERA2CAP3 PO; -TRIC145T PO; +TRIC145T22 PO; +VITA1CAP40 PO; -VITA50003 PO
[2016-10-01 13:48] LABS: ALBUMIN 3.5 GM/DL (3.2-5.2); ALBUMIN/GLOBULIN RATIO 1.25 (1.00-1.93); ALKALINE PHOSPHATASE 220 U/L (45-117); ALT/SGPT 63 U/L (12-78); AST/SGOT 37 U/L (15-37); BILIRUBIN,DIRECT < 0.1 MG/DL (0.0-0.2); BILIRUBIN,TOTAL 0.4 MG/DL (0.2-1.0); GAMMA GLUTAMYLTRANSPEPTIDASE 419 U/L (15-85); TOTAL PROTEIN 6.3 GM/DL (6.4-8.2)
== END ==
LOC: M SMT 09:34
PROVIDERS: ATTEND Internal Medicine Gastroenterology
DX: R74.8 Abnormal levels of other serum enzymes (principal)

== ENCOUNTER → 2016-10-11 | Outpatient (CLI) | payer MEDICARE, MEDICAID ==
[2016-10-11 14:16] LABS: BASO # 0.1 K/mm3 (0.0-0.2); BASO % 1.7 % (0.0-1.0); EOS # 0.4 K/mm3 (0.0-0.50); EOS % 5.2 % (0.0-3.0); LARGE UNSTAINED CELL # 0.1 K/mm3 (0.0-0.4); LARGE UNSTAINED CELL % 1.2 % (0.0-4.0); LYMPH # 1.2 K/mm3 (1.5-4.5); LYMPH % 14.5 % (24.0-44.0); MEAN CORPUSCULAR HEMOGLOBIN 29.9 pg (27.0-33.0); MEAN CORPUSCULAR HGB CONC 33.6 g/dl (32.0-36.5); MEAN CORPUSCULAR VOLUME 88.9 fl (80.0-96.0); MONO # 0.5 K/mm3 (0.0-0.8); MONO % 6.2 % (0.0-5.0); NEUTROPHILS # 5.3 K/mm3 (1.8-7.7); NEUTROPHILS % 71.2 % (36.0-66.0); PLATELET COUNT, AUTOMATED 283 k/mm3 (150-450); RED CELL DISTRIBUTION WIDTH 12.7 % (11.5-14.5); WHITE BLOOD COUNT 7.5 K/mm3 (4.0-10.0)
[2016-10-11 14:21] LABS: INR 0.91
== END ==
LOC: M SMT 10:13
PROVIDERS: ATTEND Internal Medicine Gastroenterology
DX: R74.8 Abnormal levels of other serum enzymes (principal)

== ENCOUNTER → 2016-10-16 | Outpatient (CLI) | payer MEDICARE, MEDICAID ==
[~2016-10-16] MED LIST changes: +LIDOCAINE 1% MDV 20ML VIAL As Ordered ONE
--- NOTE | 2016-10-16 14:07 | REP ---
ULTRASOUND-GUIDED LIVER BIOPSY: The procedure was performed under the direct supervision of Dr. Blood. The risks and benefits of the procedure were explained to the patient, and informed consent was obtained. The left lobe of the liver was localized using ultrasound guidance. The skin was prepped and draped in a sterile fashion. 1% lidocaine was used as a local anesthetic. Using ultrasound guidance, a 19/20-gauge coaxial needle biopsy system was inserted and advanced into the liver. Three core biopsy samples were obtained and sent to the lab. The patient tolerated the procedure well, and there were no immediate complications. After the appropriate amount of monitored convalescence, the patient was discharged from the department. Reviewed by GUERA Grullon 10/16/2016 03:03 PEdited and Signed by Art Blood MD 10/16/2016 07:16 P
== END ==
LOC: M RADPRO 08:40
PROVIDERS: ATTEND Internal Medicine Gastroenterology
DX: R74.8 Abnormal levels of other serum enzymes (principal); I25.2 Old myocardial infarction; Z95.1 Presence of aortocoronary bypass graft; Z79.899 Other long term (current) drug therapy; Z88.8 Allergy status to other drugs, medicaments and biological substances; Z91.018 Allergy to other foods

== ENCOUNTER → 2016-12-20 | Outpatient (REF) | payer MEDICARE, MEDICAID ==
[~2016-12-20] MED LIST changes: -LIDOCAINE 1% MDV 20ML VIAL As Ordered ONE
[2016-12-20 14:38] LABS: FOLATE 18.6 NG/ML
[2016-12-20 14:47] LABS: PERCENT SATURATION 36.9 % (19.7-50.0)
== END ==
LOC: M LAB REF 13:35
PROVIDERS: ATTEND Internal Medicine Nephrology
DX: N18.9 Chronic kidney disease, unspecified (principal); D63.1 Anemia in chronic kidney disease

== ENCOUNTER 2017-02-06 12:45 | Inpatient (IN) | payer MEDICARE, MEDICAID ==
[~2017-02-06] VITALS: Ht 172.7 cm; Wt 70.2 kg
[2017-02-06] MEDS ORDERED: NS 1,000 ML IV SCH (14:06)
[2017-02-06] MEDS ORDERED: LABETALOL HCL 100 MG/20 ML VIAL IV STA (14:15)
[2017-02-06] MEDS ORDERED: METOCLOPRAMIDE INJ 10MG/2ML VIAL (J2765) IV ONE (14:15)
--- NOTE | 2017-02-06 14:48 | REP ---
Clinical: Hypertension and abdominal pain. Comparison: 05/27/2016. Findings: Lung bases demonstrate minimal dependent changes. Visualized portions of the heart and pericardium are grossly normal. Liver, spleen, pancreas, gallbladder, bilateral adrenal glands and kidneys are normal for noncontrast evaluation. Mild renovascular calcifications are noted bilaterally along with atherosclerotic changes to the aorta and branch vessels without aneurysm. The enteric system is without obstruction or acute inflammatory process. Moderate fecal stasis cannot be excluded. Pelvis demonstrates normal bladder. The prostate gland is mildly enlarged measuring approximately 5 cm transverse diameter. No ascites. No adenopathy. No free air. Musculoskeletal structures demonstrate age-related degenerative changes. Impression: 1. Moderate atherosclerotic disease including renovascular calcifications. 2. Mildly prominent prostate gland. 3. No acute abdominopelvic pathology appreciated. Signed by Cordell Mehta MD 02/06/2017 02:39 P
[2017-02-06 15:20] LABS: BASO # 0.1 10^3/uL (0.0-0.2); BASO % 1.8 % (0.0-1.0); EOS # 0.3 10^3/uL (0.0-0.50); EOS % 4.8 % (0.0-3.0); IMMATURE GRANULOCYTE % 0.2 % (0-0); LYMPH # 1.1 10^3/uL (1.5-4.5); LYMPH % 17.4 % (24.0-44.0); MEAN CORPUSCULAR HEMOGLOBIN 29.5 pg (27.0-33.0); MEAN CORPUSCULAR HGB CONC 35.2 g/dl (32.0-36.5); MONO # 0.5 10^3/uL (0.0-0.8); MONO % 8.7 % (0.0-5.0); NEUTROPHILS # 4.2 10^3/uL (1.8-7.7); NEUTROPHILS % 67.1 % (36.0-66.0); PLATELET COUNT, AUTOMATED 289 10^3/uL (150-450); RED CELL DISTRIBUTION WIDTH 11.9 % (11.5-14.5); WHITE BLOOD COUNT 6.2 10^3/uL (4.0-10.0)
[2017-02-06 15:47] LABS: ALBUMIN 3.2 GM/DL (3.2-5.2); ALBUMIN/GLOBULIN RATIO 1.23 (1.00-1.93); ALKALINE PHOSPHATASE 184 U/L (45-117); ALT/SGPT 40 U/L (12-78); ANION GAP 9 MEQ/L (8-16); AST/SGOT 27 U/L (7-37); BILIRUBIN,DIRECT 0.1 MG/DL (0.0-0.2); BILIRUBIN,TOTAL 0.4 MG/DL (0.2-1.0); BLOOD UREA NITROGEN 71 MG/DL (7-18); CALCIUM LEVEL 8.8 MG/DL (8.5-10.1); CARBON DIOXIDE LEVEL 26 MEQ/L (21-32); CHLORIDE LEVEL 100 MEQ/L (98-107); CREATININE FOR GFR 3.26 MG/DL (0.70-1.30); GLOMERULAR FILTRATION RATE 21.4 (>56); GLUCOSE, FASTING 345 MG/DL (70-105); SODIUM LEVEL 135 MEQ/L (136-145); TOTAL PROTEIN 5.8 GM/DL (6.4-8.2)
[2017-02-06 15:48] LABS: METHADONE URINE NEGATIVE (NEGATIVE)
[2017-02-06] MEDS ORDERED: SYNT100T PO (16:43)
[2017-02-06] MEDS ORDERED: TERA10CA3 PO (16:43)
[2017-02-06] MEDS ORDERED: SYNT88TA2 PO (16:43)
[2017-02-06] MEDS ORDERED: PERCOCET 5MG/325MG TAB PO PRN (16:45)
[2017-02-06] MEDS ORDERED: traMADol 50 MG TAB PO PRN (16:45)
[2017-02-06] MEDS ORDERED: ONDANSETRON 4MG/2ML VIAL (J2405) IV PRN (16:45)
[2017-02-06] MEDS: NS 1,000 ML IV SCH (17:00)
[2017-02-06] MEDS ORDERED: GLUCAGON FOR INJ 1 MG VIAL (J1610) SC PRN (17:00)
[2017-02-06] MEDS ORDERED: GLUCOSE 4 GM CHEW TABLET PO PRN (17:00)
[2017-02-06] MEDS ORDERED: DEXTROSE 50% 50 ML SYRINGE IV PRN (17:00)
--- NOTE | 2017-02-06 17:35 | HPE ---
DATE OF ADMISSION: 02/06/2017 PRIMARY CARE PROVIDER: Dr. Deshawn Cano MAGICIAN/ILLUSIONIST: Dr. Evan Barreto BACK END WEB DEVELOPER: Dr. Vaishali Otto, covered by Dr. Beavers CHIEF COMPLAINT: Headache and hypertension. HISTORY OF PRESENT ILLNESS: This is a 51-year-old male patient with underlying medical history of chronic kidney disease (CKD), stage IV, type 2 diabetes, coronary artery disease with coronary artery bypass graft (CABG) year 1999, peripheral vascular disease with balloon angioplasty, hypothyroidism, celiac disease. As per patient, has been developing headache. As per patient, occipital and temporal, consistent, constant for the past 3 weeks that is progressively worsening, at its worst 6/10, worsened with bending forward or lying flat. No relieving factor. Taking Tylenol at home with no improvement. Found to have BP of 217 today over 100. Subsequently presented to the emergency department (ED). In the emergency room patient was found to have worsening of kidney function, acute on chronic renal failure with increasing creatinine. Patient making urine. Denies any sick contact. Reported chills but no fever. Reported generalized weakness with throbbing headache and reported wobbly when ambulating. Denies any nausea, vomiting, coughing, urinary complaints, dysuria, hematuria. No sick contacts. No recent travel. Patient given labetalol in the emergency room with improvement of blood pressure. C-reactive protein has been negative. Denies any chest pain, pressure, or discomfort, vision change, hearing change. ALLERGIES: Allergic to ANGIOTENSIN-CONVERTING ENZYME (SAIDA) INHIBITORS and gluten. PAST MEDICAL HISTORY: 1. CKD, stage IV. 2. Type 2 diabetes. 3. Coronary artery disease with CABG, year 1999. 4. Peripheral vascular disease with balloon angioplasty. 5. Hypothyroidism. 6. Celiac disease. PAST SURGICAL HISTORY: 1. Carpal tunnel release bilaterally. 2. Tonsillectomy. 3. Appendectomy. 4. CABG, year 1999. 5. Right cataract. 6. Right shoulder surgery. 7. Angioplasty. SOCIAL HISTORY: Patient does not smoke, drinks alcoholic beverages only a few times a year. Lives at home with . FAMILY HISTORY: Reported grandfather with heart disease in age 60s; otherwise negative. REVIEW OF SYSTEMS: Report of throbbing occipital and bitemporal headache that is not photosensitive and generalized weakness, wobbly when ambulating. Also report of hypertension. All other review of systems has been negative. HOME MEDICATIONS: - acetaminophen 650 mg by mouth every 4 hours as needed - aspirin 81 mg by mouth at bedtime - Lipitor 20 mg by mouth at bedtime - Coreg 12.5 mg by mouth twice a day - chlorthalidone 12.5 mg by mouth daily - Plavix 75 mg by mouth daily - vitamin D 50,000 units by mouth every weekly on Saturday - hydralazine 50 mg by mouth twice a day - NovoLog insulin before meals and at bedtime - NPH insulin 10 units subcutaneous in the morning and 50 units subcutaneous at bedtime - levothyroxine 188 mcg by mouth at bedtime - multivitamin one tablet by mouth daily - sublingual nitroglycerine 0.4 as needed - terazosin 10 mg by mouth at bedtime - torsemide 20 mg by mouth daily VITAL SIGNS: Temperature 98.7, pulse 76, respirations 16, blood pressure 165/90, pulse oximetry 97% on room air. GENERAL: Patient alert and oriented times three in no acute distress. HEENT: Normocephalic, atraumatic. PULMONARY: Bilaterally clear to auscultation. CARDIAC: Regular rate and rhythm. Normal S1, S2. A 2/6 systolic murmur. ABDOMEN: Soft and nontender. Positive bowel sounds. EXTREMITIES: No clubbing, cyanosis, or edema. NEUROLOGIC: Cranial nerves II-XII grossly intact. [id number] intact. Able to move bilateral upper and lower extremities. Follows commands. Alert and oriented times three. No focal deficits. Sensation to light touch intact. EKG pending. LABORATORY DATA: WBC 6.2, hemoglobin and hematocrit 10.9/31.0, platelets 289. Chemistry: Sodium 135, potassium 4, chloride 100, bicarbonate 26, BUN 71, creatinine 3.26, lactic acid negative. C-reactive protein negative. Cardiac enzymes negative. Lipase negative. CT of the head that was done on January [address] of the abdomen appreciated showing calcification of renal artery. Renal vasculature calcification. ASSESSMENT AND PLAN: This is a 51-year-old male patient with underlying medical history of chronic kidney disease (CKD), stage IV, type 2 diabetes, coronary artery disease with coronary artery bypass graft (CABG), peripheral vascular disease with balloon angioplasty, hypothyroidism, celiac disease, admitted with hypertension, headache, and acute on chronic renal failure. 1. Acute on chronic renal failure, unknown etiology. Possibly diabetic nephropathy, hypertensive nephropathy. Consulted nephrology. Urine study has been sent. Renal ultrasound with Doppler has been ordered. Will continue to follow. Holding diuretics. Intravenous (IV) fluids for gentle hydration. Patient currently euvolemic to hypovolemic. Avoiding angiotensin receptor blockers (ARBs). Continue to monitor strict intake and output, daily weight, monitor electrolytes. 2. Hypertensive urgency. Hydralazine has been increased. Blood pressure has much improved. Blood pressure systolic in the 140s to 160s. Continue Coreg. Hydralazine dose is increased. Additional labetalol as needed. Pain medication is prescribed. 3. Type 2 diabetes. Insulin basal bolus. Will give Levemir 20 units subcutaneous twice a day, adjust as needed, along with mealtime protocol, adjust as needed. Followup A1c. 4. Coronary artery disease with CABG. Will get EKGs, serial cardiac enzymes. Continue beta blockers, statin, aspirin, Plavix, and hydralazine. Avoid nitrate given headache and avoid SAIDA and ARBs given elevated kidney function. Will continue to monitor. Telemetry monitoring. 5. Headache, unknown etiology, possible sinusitis versus cluster headache. Symptoms are not consistent with migraine. Pain medication as prescribed. Will get MRI/MRA of the brain, carotid Dopplers. C-reactive protein negative. Will get erythrocyte sedimentation rate (ESR), control blood pressure, respiratory panel. Possibly secondary to sinusitis. Will place the patient on Flonase and saline nasal spray. 6. Hypothyroidism. Followup thyroid panel. Continue Synthroid. 7. Celiac disease. Outpatient followup. Continue to monitor. 8. Deep vein thrombosis (DVT) prophylaxis. Heparin subcutaneous. DISPOSITION PLANNING: Pending improved blood pressure control, resolution of headache, workup for headache, and workup for acute on chronic renal failure. Nephrology has been consulted. OCTAVIA
[2017-02-06] MEDS: HumaLOG INSULIN (NovoLOG) PER UNIT SC SCH ×2 (19:40→21:00)
--- NOTE | 2017-02-06 20:30 | REPUSA ---
CLINICAL HISTORY: Headache, hypertension. TECHNIQUE: MRI of the Brain without gadolinium. Multiplanar T1 and T2 weighted images of the brain we re obtained. COMPARISON: CT head May 26, 2016. T1 and T2: No hydrocephalus, mass effect or midline shift. FLAIR: No foci of parenchymal edema to suggest ischemic disease or encephalomalacia Vascular flow voids: Preserved, without visible stricture or aneurysm on this non-angiographic exam. Midline: Pituitary normal size. Brain stem and corpus callosum appear normal. Sinuses: Partially visualized sinuses and mastoid aircells are clear. Diffusion Imaging: No regions of abnormal hyperintensity to suggest acute ischemia. Gradient Echo: No evidence of calcium or sequelae of hemorrhagic blood products. IMPRESSION: No acute intracranial abnormalities.
--- NOTE | 2017-02-06 20:40 | REPUSA ---
CLINICAL HISTORY: Headache, hypertension. TECHNIQUE: Head MRA without contrast COMPARISON: No study for comparison is available at the time of interpretation. Right anterior circulation: Right carotid siphon is narrowed by atherosclerosis but otherwise patent. Right anterior cerebral artery is patent. Right middle cerebral artery is patent. No aneurysms are s een. The right posterior communicating artery is patent. Left anterior circulation: Left carotid siphon is narrowed by atherosclerosis but otherwise patent. L eft anterior cerebral artery is patent. Left middle cerebral artery is patent. No aneurysms are seen. The left posterior communicating artery is diminutive but patent. Right posterior circulation: Right brainstem arteries are patent. The right posterior inferior cerebe llar artery is dominant, and contributes to the left cerebellar circulation. The right anterior infer ior cerebellar artery is diminutive. Right posterior cerebral artery is patent. Left posterior circulation: The left posterior inferior cerebellar artery is diminutive. The left ant erior inferior cerebellar artery is dominant. The left brainstem arteries are otherwise patent. Left posterior cerebral artery is patent. IMPRESSION: Bilateral atherosclerotic narrowing of the carotid siphons. Normal variants noted in the posterior circulation. Otherwise patent intracranial vasculature without aneurysm or critical strictu re.
[2017-02-06] MEDS ORDERED: CARVedilol 12.5 MG TAB PO SCH (21:00)
[2017-02-06] MEDS: LEVEMIR (INSULIN DETEMIR) 1 UNITS/0.01ML SC SCH (21:00)
[2017-02-06] MEDS: SODIUM CHLORIDE NASAL 0.65% SPRAY BTL (OCEAN) SCH (21:00)
[2017-02-06] MEDS: FLUTICASONE PROP 0.05% NASAL SPRAY 16 GM (FLONASE) SCH (21:00)
[2017-02-06] MEDS ORDERED: HumuLIN R (REGULAR) INSULIN (NovoLIN R) **100U/ML** PER UNIT IV ONE (21:15)
--- NOTE | 2017-02-06 21:46 | ECGEPIP ---
Stationary ECG Study [facility] Test Date: 2017-02-06 Pat Name: BRYAN AMBRIZ Department: Room: [place] [address] Gender: M Outreach Team Member: ZELDA : 1965 Requested By: CHASE SCRUGGS Order Number: [id number] Reading MD: Alvaro Ozuna Measurements Intervals [place] Rate: 85 P: 73 MT: 171 QRS: 45 QRSD: 94 T: 72 QT: 393 QTc: 468 Interpretive Statements Normal sinus rhythm Delayed anterior R wave progression No significant change when compared to prior tracing of 01/18/2017 Electronically Signed On 02-06-2017 21:45:53 EST by Alvaro Ozuna
[2017-02-06] MEDS: HEPARIN SOD (PORCINE) 5000 UNITS/ML VIAL SC SCH (22:29)
[2017-02-06] MEDS: ASPIRIN 81 MG ENTERIC TAB PO SCH (22:30)
[2017-02-06] MEDS: **hydrALAZINE HCL** 25 MG TAB PO SCH (22:31)
[2017-02-06] MEDS: ATORVASTATIN 20 MG TAB PO SCH (22:31)
[2017-02-06] MEDS: SENOKOT S TAB PO SCH (22:31)
[2017-02-06] MEDS: ACETAMINOPHEN TAB 650MG DOSE (2X325MG) PO PRN (22:36)
[2017-02-06] MEDS: LEVOTHYROXINE 100MCG TABLET (0.1MG) PO SCH (22:50)
[2017-02-06] MEDS: LEVOTHYROXINE 88MCG TABLET (0.088 MG) PO SCH (22:50)
[2017-02-06] MEDS: TERAZOSIN 5 MG CAP PO SCH (22:51)
[2017-02-07 03:25] LABS: MEAN CORPUSCULAR HEMOGLOBIN 29.2 pg (27.0-33.0); MEAN CORPUSCULAR HGB CONC 34.4 g/dl (32.0-36.5); MEAN CORPUSCULAR VOLUME 84.9 fl (80.0-96.0); PLATELET COUNT, AUTOMATED 244 10^3/uL (150-450); RED CELL DISTRIBUTION WIDTH 11.9 % (11.5-14.5); WHITE BLOOD COUNT 5.4 10^3/uL (4.0-10.0)
[2017-02-07 03:49] LABS: ALBUMIN 2.6 GM/DL (3.2-5.2); ALBUMIN/GLOBULIN RATIO 0.9 (1.00-1.93); BILIRUBIN,TOTAL 0.3 MG/DL (0.2-1.0); CALCIUM LEVEL 7.9 MG/DL (8.5-10.1); CREATININE FOR GFR 3.27 MG/DL (0.70-1.30); GLOMERULAR FILTRATION RATE 21.4 (>56); MAGNESIUM LEVEL 2.2 MG/DL (1.8-2.4); PHOSPHORUS LEVEL 5.1 MG/DL (2.5-4.9); POTASSIUM SERUM 3.5 MEQ/L (3.5-5.1); TOTAL PROTEIN 5.5 GM/DL (6.4-8.2)
[2017-02-07] MEDS: NS 1,000 ML IV SCH (05:30)
--- NOTE | 2017-02-07 06:08 | IPNPDOC ---
Text Note Date of Service NOTE Patient with very High glucose at beginning of Night, > 500 before any insulin Tx. Received ordered doses + 24 Units extra before midnight. Trended Down Overnight. Now at 250 VS,Jomarbone, I+O VS, Fishbone, I+O Laboratory Tests 02/06/17 15:11 Red Blood Count 3.69 L, Mean Corpuscular Volume 84.0, Mean Corpuscular Hemoglobin 29.5, Mean Corpuscular Hemoglobin Concent 35.2, Red Cell Distribution Width 11.9, Neutrophils (%) (Auto) 67.1 H, Lymphocytes (%) (Auto) 17.4 L, Monocytes (%) (Auto) 8.7 H, Eosinophils (%) (Auto) 4.8 H, Basophils (%) (Auto) 1.8 H, Neutrophils # (Auto) 4.2, Lymphocytes # (Auto) 1.1 L, Monocytes # (Auto) 0.5, Eosinophils # (Auto) 0.3, Basophils # (Auto) 0.1 02/07/17 03:11 Red Blood Count 3.25 L, Mean Corpuscular Volume 84.9, Mean Corpuscular Hemoglobin 29.2, Mean Corpuscular Hemoglobin Concent 34.4, Red Cell Distribution Width 11.9, Calcium Level 7.9 L, Phosphorus Level 5.1 H, Aspartate Amino Transf (AST/SGOT) 22, Alanine Aminotransferase (ALT/SGPT) 34, Total Creatine Kinase 188, Alkaline Phosphatase 160 H, Total Bilirubin 0.3, Total Protein 5.5 L, Albumin 2.6 L Vital Signs Date Time Temp Pulse Resp B/P (MAP) Pulse Ox O2 Delivery O2 Flow Rate FiO2 02/07/17 05:24 20 99 Room Air 02/07/17 05:22 70 02/07/17 03:43 97.6 I&O- Last 24 Hours up to 6 AM 02/08/17 06:00 Intake Total 1000 ml Balance 1000 ml TOBIAS TRIANA MD Feb 07, 2017 06:08
[2017-02-07 09:00] VITALS: BP 190/90
[2017-02-07] MEDS: FLUTICASONE PROP 0.05% NASAL SPRAY 16 GM (FLONASE) SCH ×2 (09:00→21:00)
[2017-02-07] MEDS: SODIUM CHLORIDE NASAL 0.65% SPRAY BTL (OCEAN) SCH ×2 (09:00→21:00)
--- NOTE | 2017-02-07 09:35 | REP ---
Clinical: Headache and hypertension. Comparison: 01/02/2013. Technique: Hyatt scale and color Doppler evaluation using linear high frequency transducer Findings: Two-dimensional hyatt scale and color images demonstrate normal arterial lumen with laminar flow and no appreciable narrowing. Color Doppler interrogation demonstrates normal arterial wave patterns and velocities with no significant spectral broadening. Normal flow direction is appreciated in the bilateral vertebral arteries. RIGHT (cm/s) LEFT (cm/s) ICA peak systolic velocity 58.7 63.4 ICA diastolic velocity 18.1 22.4 ECA peak systolic velocity 134.0 128.7 CCA peak systolic velocity 133.3 101.7 ICA/CCA ratio 0.44 0.62 Impression: No hemodynamically significant areas of narrowing or stenosis appreciated. Based on set standards narrowing falls within the less than 50% range. Signed by Cordell Mehta MD 02/07/2017 09:27 A
[2017-02-07] MEDS: CARVedilol 12.5 MG TAB PO SCH ×2 (09:47→22:05)
[2017-02-07] MEDS: SENOKOT S TAB PO SCH ×2 (09:47→22:08)
[2017-02-07] MEDS: MULTIVITAMINS/MINERALS THERAP 1 TAB PO SCH (09:47)
[2017-02-07] MEDS: CLOPIDOGREL 75 MG TAB PO SCH (09:47)
[2017-02-07] MEDS: **hydrALAZINE HCL** 25 MG TAB PO SCH (09:48)
[2017-02-07] MEDS: HumaLOG INSULIN (NovoLOG) PER UNIT SC SCH ×4 (09:48→21:00)
[2017-02-07] MEDS: LEVEMIR (INSULIN DETEMIR) 1 UNITS/0.01ML SC SCH ×2 (09:49→22:10)
[2017-02-07] MEDS: HEPARIN SOD (PORCINE) 5000 UNITS/ML VIAL SC SCH ×2 (09:49→21:00)
[2017-02-07 11:03] VITALS: BP 157/72
[2017-02-07] MEDS: ACETAMINOPHEN TAB 650MG DOSE (2X325MG) PO PRN (11:08)
[2017-02-07] MEDS ORDERED: POTASSIUM CHLORIDE 10 MEQ SR TABLET PO ONE (11:45)
[2017-02-07 12:00] VITALS: BP 168/76
[2017-02-07 12:22] LABS: PERCENT SATURATION 45.3 % (19.7-50.0); THYROXINE (T4) 10.4 UG/DL (4.5-12.0)
[2017-02-07] MEDS: MINOXIDIL 2.5 MG TAB PO SCH ×2 (13:39→22:07)
[2017-02-07 16:00] VITALS: BP 143/67
[2017-02-07] MEDS: cloNIDine 0.1 MG TAB PO SCH ×2 (16:13→22:04)
[2017-02-07 18:06] LABS: FREE T4 1.36 NG/DL (0.76-1.46)
[2017-02-07 20:30] VITALS: BP 134/62
[2017-02-07] MEDS: SLF 3 ML SYR IV SCH (20:39)
[2017-02-07 21:45] VITALS: BP 148/70
[2017-02-07] MEDS: ASPIRIN 81 MG ENTERIC TAB PO SCH (22:05)
[2017-02-07] MEDS: TERAZOSIN 5 MG CAP PO SCH (22:07)
[2017-02-07] MEDS: ATORVASTATIN 20 MG TAB PO SCH (22:07)
[2017-02-07] MEDS: LEVOTHYROXINE 100MCG TABLET (0.1MG) PO SCH (22:08)
[2017-02-07] MEDS: LEVOTHYROXINE 88MCG TABLET (0.088 MG) PO SCH (22:08)
[2017-02-08] VITALS (7 sets, daily range): BP systolic 120–142; BP diastolic 62–78
--- NOTE | 2017-02-08 01:25 | IPN ---
DATE OF SERVICE: 02/07/2017 SUBJECTIVE: Patient seen and examined in the room today. Patient stated he is continuing to have the headache from the bilateral suboccipital region radiating to the bilateral temporal region. Since admission, patient also noted there is a trend whenever he has an elevated blood pressure, he will have those kinds of headaches. Blood pressure is under better control. His headache will improve. Patient stated he has been measuring blood pressure at home and he started to have uncontrolled blood pressure in the last approximately 3 weeks. OBJECTIVE: VITAL SIGNS: Temperature is 98.3, pulse 80, respirations 20, blood pressure 190/90, pulse oximetry is 97% in room air. GENERAL: No sign of acute distress. Alert and oriented times three. HEENT: Normocephalic, atraumatic. Extraocular motor grossly intact. CARDIOVASCULAR: Positive S1, S2, regular rate. Positive systolic murmur. LUNGS: Clear to auscultation bilaterally. ABDOMEN: Soft, nontender, nondistended, bowel sounds present. EXTREMITIES: No edema. No cyanosis. LABORATORY DATA: WBC 5.4, hemoglobin 9.5, hematocrit 27.6, platelet count is 244. Sodium is 137, potassium 3.5, chloride 102, carbon dioxide 27, BUN 71, creatinine 3.27, GFR is 21.4, fasting glucose 333, calcium 7.9, phosphorus 5.1, magnesium 2.2. Iron is 102, TIBC is 225. AST 22, ALT 34, alkaline phosphatase 160, troponin I is 0.05, total protein 5.5, albumin 2.6. TSH is 15, free T4 index is 4.7, T4 is 10.4. ASSESSMENT AND PLAN: 1. Hypertensive urgency. Patient's blood pressure medication is being adjusted. Dr. Otto, the concrete mason, has been assisting adjusting the patient's blood pressure medications. Patient continuing monitoring on telemetry. 2. Acute on chronic kidney disease. At the baseline, patient has chronic kidney disease (CKD) stage IV. Currently, patient has a creatinine of 3.27 with a glomerular filtration rate (GFR) 21.4. Patient does have uncontrolled diabetes with A1c of 9.4. Patient also has uncontrolled blood pressure for several weeks. Currently, we have been adjusting patient's blood pressure medications. Patient is on sliding scale for his glucose control. Radar Technician, Dr. Otto, has been assisting on the case. 3. Hypothyroidism. On Synthroid. Patient does have elevated thyroid-stimulating hormone (TSH). 4. Type 2 diabetes, uncontrolled. On consistent carbohydrate diet. On insulin sliding scale. 5. Coronary artery disease status post coronary artery bypass graft (CABG) in 1999. 6. Peripheral vascular disease with balloon angioplasty. 7. History of celiac disease. 8. Deep venous thrombosis (DVT) prophylaxis. On heparin.
[2017-02-08] MEDS: SLF 3 ML SYR IV SCH ×3 (04:39→21:23)
[2017-02-08 05:21] LABS: MEAN CORPUSCULAR HEMOGLOBIN 30.1 pg (27.0-33.0); MEAN CORPUSCULAR VOLUME 86.1 fl (80.0-96.0); PLATELET COUNT, AUTOMATED 239 10^3/uL (150-450); WHITE BLOOD COUNT 5.5 10^3/uL (4.0-10.0)
[2017-02-08 05:47] LABS: ALBUMIN 2.4 GM/DL (3.2-5.2); ALBUMIN/GLOBULIN RATIO 0.89 (1.00-1.93); BILIRUBIN,TOTAL 0.3 MG/DL (0.2-1.0); CALCIUM LEVEL 7.9 MG/DL (8.5-10.1); CREATININE FOR GFR 3.28 MG/DL (0.70-1.30); GLOMERULAR FILTRATION RATE 21.3 (>56); MAGNESIUM LEVEL 2.3 MG/DL (1.8-2.4); POTASSIUM SERUM 3.6 MEQ/L (3.5-5.1); TOTAL PROTEIN 5.1 GM/DL (6.4-8.2)
[2017-02-08] MEDS: HumaLOG INSULIN (NovoLOG) PER UNIT SC SCH ×4 (07:30→21:20)
[2017-02-08] MEDS: ACETAMINOPHEN TAB 650MG DOSE (2X325MG) PO PRN (08:48)
[2017-02-08] MEDS: SODIUM CHLORIDE NASAL 0.65% SPRAY BTL (OCEAN) SCH ×3 (09:00→21:00)
[2017-02-08] MEDS: FLUTICASONE PROP 0.05% NASAL SPRAY 16 GM (FLONASE) SCH ×2 (09:00→21:00)
[2017-02-08] MEDS: HEPARIN SOD (PORCINE) 5000 UNITS/ML VIAL SC SCH ×2 (09:00→21:00)
[2017-02-08] MEDS ORDERED: METOCLOPRAMIDE INJ 10MG/2ML VIAL (J2765) IV PRN (09:30)
[2017-02-08] MEDS ORDERED: MORPHINE 2 MG/ML 1ML SYRINGE IV PRN (09:30)
[2017-02-08] MEDS ORDERED: SUMAtriptan SUCCINATE 6 MG/0.5 ML VIAL SC PRN (09:45)
[2017-02-08] MEDS: MINOXIDIL 2.5 MG TAB PO SCH ×2 (10:35→21:15)
[2017-02-08] MEDS: LEVEMIR (INSULIN DETEMIR) 1 UNITS/0.01ML SC SCH ×2 (10:36→21:19)
[2017-02-08] MEDS: CARVedilol 12.5 MG TAB PO SCH ×2 (11:05→21:14)
[2017-02-08] MEDS: CLOPIDOGREL 75 MG TAB PO SCH (11:05)
[2017-02-08] MEDS: MULTIVITAMINS/MINERALS THERAP 1 TAB PO SCH (11:05)
[2017-02-08] MEDS: SENOKOT S TAB PO SCH ×2 (11:05→21:14)
--- NOTE | 2017-02-08 11:08 | CR ---
DATE OF CONSULTATION: 02/07/2017 REQUESTING PHYSICIAN: Huyen Sloan DO REASON FOR CONSULTATION: Hypertensive crisis and acute renal failure. HISTORY OF PRESENT ILLNESS: Mr. Aguilera is a 51-year-old gentleman with multiple chronic medical problems including a history of hypertension, type 2 diabetes, peripheral vascular disease with lower extremity angioplasty, coronary artery disease with prior history of coronary artery bypass grafting (CABG) in year the 1999, hypothyroidism and celiac disease. He is admitted to [facility] with a complaint of uncontrolled hypertension for 2 weeks and severe headache. His blood pressure on admission was about 217/100 mmHg. He was also noticed to have worsening kidney function. A nephrology consultation was requested last evening and the patient is seen this morning in the progressive care unit. The patient still has headache, but denies any dyspnea or chest pain. PAST MEDICAL AND SURGICAL HISTORY: Significant for 1. Longstanding hypertension. 2. Type 2 diabetes. 3. Stage IV chronic kidney disease. 4. Coronary artery disease with prior CABG. 5. Peripheral vascular disease. 6. Hypothyroidism. 7. History of celiac disease. 8. Hypercholesterolemia. 9. History of congestive heart failure. PAST SURGICAL HISTORY: Significant for: 1. Carpal tunnel release. 2. Tonsillectomy. 3. Appendectomy. 4. CABG. 5. Cataract with right eye surgery. 6. Right shoulder surgery. 7. Lower extremity angioplasty. PERSONAL AND SOCIAL HISTORY: The patient does not smoke. He drinks alcohol occasionally. He denies any recreational drug use. He is and lives with his . FAMILY HISTORY: There is a significant history of heart disease in the family; otherwise, there is no known history of kidney disease in the family. MEDICATIONS: His home medications include: - aspirin 81 mg daily - Lipitor 20 mg daily - Coreg 12.5 mg twice a day - chlorthalidone 12.5 mg daily - Plavix 75 mg daily - vitamin D 50,000 units once a week - hydralazine 50 mg twice a day - NovoLog insulin per sliding scale - NPH insulin 10 units in the morning and 50 units at bedtime - levothyroxine 188 mcg daily - multivitamin one tablet daily - terazosin 10 mg at bedtime - torsemide 20 mg daily ALLERGIES: 1. There is reported allergy to SAIDA INHIBITOR, however, the patient tells me SAIDA inhibitors cause hyperkalemia, but he does not have any allergy to it. REVIEW OF SYSTEMS: The patient reports headache 7/10 on the scale, but denies any sinus problems or nosebleed. Ears, eyes, throat are unremarkable. Cardiovascular system is significant for uncontrolled hypertension and lower extremity edema. He denies any chest pain or dyspnea. Respiratory system is negative for cough or hemoptysis. Gastrointestinal (GI) system is negative for nausea, vomiting, diarrhea, abdominal pain, rectal bleeding or black colored stools. Genitourinary () system is negative for dysuria, hematuria, kidney stones. Endocrine system is significant for type 2 diabetes and hypothyroidism. Musculoskeletal system is significant for lower extremity edema, but denies any arthritis. Skin has no rash or ulcers. Neurological system is negative for seizures or stroke. He does report headache. Psychosocial system is negative for depression or anxiety. PHYSICAL EXAMINATION: Patient is awake and alert at the time of my visit. He is sitting in the bed with head end elevated at about 60 degrees. His is present in the room. Blood pressure 190/90 mmHg and heart rate 72 per minute. Respiratory rate 16 per minute and temperature 97 degrees Fahrenheit. Oxygen saturation is 97% on room air. Head is atraumatic. Pupils are equal and reactive to light and sclera is anicteric. Ears, nose and throat are unremarkable. Tongue is moist and without any thrush or ulcers. Neck is supple and without any JVD or thyroid enlargement. Carotids are equal bilaterally and without any bruit. Heart sounds are regular with a systolic murmur grade 1/6. There is no pericardial friction rub. Lungs sound clear to auscultation bilaterally without any wheezing or rales. Abdomen is soft and nontender and without any palpable organomegaly. Bowel sounds are normal. A distended urinary bladder is not palpable. Extremities have no cyanosis or clubbing. Skin has no rash or ulcers. Neurologically, he is awake, alert and oriented times three without a focal deficit. Musculoskeletal system is negative for any rash or lower extremity edema. He has no joint effusions. LABORATORY DATA: On admission WBC count was 6.2, hemoglobin 10.9 and hematocrit 31. Today, WBC 5.4, hemoglobin 9.5 and hematocrit 27.6. Sodium is 137 and potassium 3.5. BUN 71 and creatinine 3.27. Glucose 333 and hemoglobin A1c 9.4%. Calcium 7.9 and phosphorus 5.1. Urinalysis showed 2+ protein and 1+ glucose, but no blood. Toxicology screen showed ethyl alcohol level less 0.003, acetaminophen 3.4 and salicylate less than 1.7. The patient had a CAT scan of abdomen and pelvis done which did not show any significant problems other than moderate atherosclerotic disease and mildly prominent prostate gland. Brain MRI was negative for acute infarct or significant vascular problem. PROBLEMS: 1. Hypertensive crisis. The patient did come in with very high blood pressure and headache for about 2 weeks duration. He still has headache, which he rates at about 7/10. Most likely, this is related to uncontrolled hypertension and we will try to control the blood pressure as quickly and has effectively as possible. I am going to switch his hydralazine to minoxidil 5 mg twice a day for better compliance with taking only twice a day. We will add clonidine 0.1 mg t.i.d. for now with a plan to switch him to transdermal clonidine patch later on. We will continue with labetalol and terazosin at the same dose. Further adjustments in his antihypertensives will be made over next 24 hours. His IV fluid is being stopped as this may also be contributing to his uncontrolled hypertension. He is not dehydrated clinically. 2. Acute renal failure superimposed on chronic kidney disease. The patient is known to have stage III to stage IV chronic kidney disease at baseline. Slight worsening kidney function is most likely related to hypertensive issue. He is certainly not dehydrated. On CAT scan of abdomen and pelvis his bladder was distended; however, I do not feel a distended bladder now on clinical exam. The patient denies any difficulty voiding. We will continue to monitor his kidney function closely. Electrolytes are stable and there is no emergent indication for dialysis. 3. Hypokalemia most likely related to poor oral intake and diuretic use. Currently his diuretic is on hold and I will replace his potassium with oral dose of 40 mEq. 4. Anemia. His anemia is moderate in severity and probably related to advanced renal dysfunction. We will check iron studies to ensure adequate iron stores. Once his blood pressure is better controlled then we can consider adding Aranesp. If iron deficiency identified, then the patient will be treated with iron supplement. 5. Diabetes. His diabetes seems to be reasonable now in the hospital though still had high readings. On admission his blood sugar was above 500. His A1c level is elevated at 9.4, which indicates poor control of over the last several months. It is important for the patient to control his diabetes optimally in order to protect his kidney function. We will continue with diabetic education and aggressive control efforts. 6. Possible urinary retention. The patient is now on high-dose terazosin. If clinically indicated, then we can consider a bladder scan to assess for postvoid residual. I thank you for involving me in the care of Mr. Aguilera. We will follow him along with you.
--- NOTE | 2017-02-08 17:11 | IPNPDOC ---
Text Note Date of Service The patient was seen on 02/08/17. NOTE SUBJECTIVE: Patient seen and examined in the room today. This morning patient is complaining about recurrence of severe headache while the blood pressure is in satisfactory range (measure BP 140/80). Patient also experience severe nausea and vomiting resulted poor oral intake. OBJECTIVE: VITAL SIGNS: Listed below GENERAL: Moderate to severe acute distress from headache.. Alert and oriented times three. HEENT: Normocephalic, atraumatic. Extraocular motor grossly intact. CARDIOVASCULAR: Positive S1, S2, regular rate. Positive systolic murmur. LUNGS: Clear to auscultation bilaterally. ABDOMEN: Soft, nontender, nondistended, bowel sounds present. EXTREMITIES: No edema. No cyanosis. LABORATORY DATA: Listed below ASSESSMENT AND PLAN: 1. Severe headache. Patient presented with severe headache since admission. MRI and MRA on 02/06/17 were negative for any acute finding. Initially headache showed significant improvement with better BP control. However, this morning patient has recurrence of headache while BP was in good range. Per patient, patient had average SBP of 180-200 for at least 3 weeks prior to current hospitalization. Will loosen the BP control. Will use PRN pain medication for symptomatic control. 2. Nausea and vomiting. Patient does have diabetes with A1C of 9.4. IV zofran did not help patient this AM. Will start trial of IV reglan. 3. Hypertensive urgency. Patient's blood pressure medication is being adjusted. Dr. Otto, the landman, has been assisting adjusting the patient's blood pressure medications. Blood pressure has been improving. Will adjust holding parameter according to patient's clinical symptoms. 4. Acute on chronic kidney disease. At the baseline, patient has chronic kidney disease (CKD) stage IV. Currently, patient has a creatinine of 3.27 with a glomerular filtration rate (GFR) 21.4. Patient does have uncontrolled diabetes with A1c of 9.4. Patient also has uncontrolled blood pressure for several weeks. Currently, we have been adjusting patient's blood pressure medications. Patient is on sliding scale for his glucose control. Road Driver, Dr. Otto, has been assisting on the case. 5. Hypothyroidism. On Synthroid. Patient does have elevated thyroid-stimulating hormone (TSH). 6. Type 2 diabetes, uncontrolled. On consistent carbohydrate diet. On insulin sliding scale. 7. Coronary artery disease status post coronary artery bypass graft (CABG) in 1999. 8. Peripheral vascular disease with balloon angioplasty. 9. History of celiac disease. 10. Deep venous thrombosis (DVT) prophylaxis. On heparin. VS,Fishbone, I+O VS, Fishbone, I+O Laboratory Tests 02/08/17 04:55 Red Blood Count 3.02 L, Mean Corpuscular Volume 86.1, Mean Corpuscular Hemoglobin 30.1, Mean Corpuscular Hemoglobin Concent 35.0, Red Cell Distribution Width 12.0, Calcium Level 7.9 L, Aspartate Amino Transf (AST/SGOT) 26, Alanine Aminotransferase (ALT/SGPT) 31, Alkaline Phosphatase 149 H, Total Bilirubin 0.3, Total Protein 5.1 L, Albumin 2.4 L Vital Signs Date Time Temp Pulse Resp B/P (MAP) Pulse Ox O2 Delivery O2 Flow Rate FiO2 02/08/17 16:00 Room Air 02/08/17 12:00 98.0 67 16 128/67 (53) 98 I&O- Last 24 Hours up to 6 AM 02/09/17 06:00 Output Total 100 ml Balance -100 ml JOSELITO FERNANDO DO Feb 08, 2017 17:11
[2017-02-08] MEDS: LEVOTHYROXINE 88MCG TABLET (0.088 MG) PO SCH (21:12)
[2017-02-08] MEDS: LEVOTHYROXINE 100MCG TABLET (0.1MG) PO SCH (21:12)
[2017-02-08] MEDS: ASPIRIN 81 MG ENTERIC TAB PO SCH (21:14)
[2017-02-08] MEDS: ATORVASTATIN 20 MG TAB PO SCH (21:14)
[2017-02-08] MEDS: TERAZOSIN 5 MG CAP PO SCH (21:16)
[2017-02-09] VITALS (7 sets, daily range): BP systolic 121–168; BP diastolic 58–70
[2017-02-09 05:26] LABS: MEAN CORPUSCULAR HEMOGLOBIN 29.9 pg (27.0-33.0); MEAN CORPUSCULAR HGB CONC 34.3 g/dl (32.0-36.5); PLATELET COUNT, AUTOMATED 246 10^3/uL (150-450); RED CELL DISTRIBUTION WIDTH 11.9 % (11.5-14.5)
[2017-02-09] MEDS: SLF 3 ML SYR IV SCH ×3 (05:45→21:26)
[2017-02-09 05:48] LABS: ALBUMIN 2.5 GM/DL (3.2-5.2); ALBUMIN/GLOBULIN RATIO 1.04 (1.00-1.93); BILIRUBIN,TOTAL 0.2 MG/DL (0.2-1.0); CALCIUM LEVEL 8.1 MG/DL (8.5-10.1); CREATININE FOR GFR 3.34 MG/DL (0.70-1.30); GLOMERULAR FILTRATION RATE 20.9 (>56); MAGNESIUM LEVEL 2.4 MG/DL (1.8-2.4); POTASSIUM SERUM 4.1 MEQ/L (3.5-5.1); TOTAL PROTEIN 4.9 GM/DL (6.4-8.2)
[2017-02-09] MEDS: HumaLOG INSULIN (NovoLOG) PER UNIT SC SCH ×4 (07:30→21:23)
[2017-02-09] MEDS: MINOXIDIL 2.5 MG TAB PO SCH ×2 (09:00→21:24)
[2017-02-09] MEDS: HEPARIN SOD (PORCINE) 5000 UNITS/ML VIAL SC SCH ×2 (09:00→21:00)
[2017-02-09] MEDS: CARVedilol 12.5 MG TAB PO SCH ×2 (09:00→21:26)
[2017-02-09] MEDS: SODIUM CHLORIDE NASAL 0.65% SPRAY BTL (OCEAN) SCH ×3 (09:00→21:00)
[2017-02-09] MEDS: FLUTICASONE PROP 0.05% NASAL SPRAY 16 GM (FLONASE) SCH ×2 (09:00→21:00)
[2017-02-09] MEDS: CLOPIDOGREL 75 MG TAB PO SCH (09:01)
[2017-02-09] MEDS: SENOKOT S TAB PO SCH ×2 (09:01→21:25)
[2017-02-09] MEDS: MULTIVITAMINS/MINERALS THERAP 1 TAB PO SCH (09:01)
[2017-02-09] MEDS: LEVEMIR (INSULIN DETEMIR) 1 UNITS/0.01ML SC SCH ×2 (10:11→21:00)
[2017-02-09] MEDS ORDERED: MIRALAX *UNIT DOSE* 17GM PACKET PO PRN (13:00)
--- NOTE | 2017-02-09 15:40 | IPN ---
DATE: 02/08/2017 Mr. Aguilera is seen this morning on his bedside. He is not feeling well and is currently sitting at the edge of bed. He seems quite confused and reports severe headache. He also reports some numbness in his right hand, which was transient and had already improved. The patient is also quite nauseated and received a dose of Zofran, which did not help much. He is very weak and just does not feel well. He has no fever or chills and denies any dyspnea or chest pain. He received first dose of minoxidil last evening along with clonidine, and blood pressure has improved significantly since. PHYSICAL EXAMINATION: His temperature is 98 degrees Fahrenheit, heart rate 68 per minute, respiratory rate 16 per minute, blood pressure 142/78 mm of mercury, and oxygen saturation 98% on room air. Intake and output records from yesterday show total intake 2320 and output 1550 mL. Head is atraumatic. Neck is supple and without jugular venous distention (JVD) or thyroid enlargement. Pupils equal and reactive to light, and sclerae are anicteric. Nose and throat are unremarkable. Heart sounds are regular, and lungs sound clear to auscultation. Abdomen soft and nontender and without a palpable organomegaly. Bowel sounds are normal. Extremities have no cyanosis or clubbing. Skin has no rash or ulcers. Neurologically, he is awake, alert and without a focal neurological deficit. Today's labs show WBC count 5.5, hemoglobin 9.1, and hematocrit 26.0. Sodium 142 and potassium 3.6. BUN 71 and creatinine 3.28. PROBLEMS: 1. Acute renal failure superimposed on chronic kidney disease. No significant change in kidney function over last 24 hours. We anticipate slow improvement in his kidney function over next several days. The patient has no uremic symptoms at this point. 2. Uncontrolled hypertension. Blood pressure control has improved significantly since yesterday. He did receive minoxidil and clonidine. There is a concern that his symptoms might be related to too rapid drop in his blood pressure while he has history of very high blood pressure previously. I will cut down his minoxidil dose to 2.5 mg three times a day and stop the clonidine for now. We will continue with Coreg and use clonidine 0.1 mg only as needed. Will also put a hold parameter on the dose of minoxidil 2.5 mg three times a day. 3. Headache and weakness. His headache does not seem to be related to hypertension, as blood pressure has improved significantly. This could be medication side effect though, and minoxidil can cause it. We are we are cutting down the dose of minoxidil 2.5 mg three times a day. 4. Anemia. No significant change, and anemia remained stable. No intervention is indicated at this point.
--- NOTE | 2017-02-09 16:32 | IPNPDOC ---
Text Note Date of Service The patient was seen on 02/09/17. NOTE SUBJECTIVE: Patient seen and examined in the room today. Patient states his headache showed significant improvement. Nausea and vomiting were also resolved. Oral intake improves after the resolution of nausea and vomiting. Blood pressure remains in satisfactory range. No event is recorded on cardiac telemetry. OBJECTIVE: VITAL SIGNS: Listed below GENERAL: No acute distress. Alert and oriented times three. HEENT: Normocephalic, atraumatic. Extraocular motor grossly intact. CARDIOVASCULAR: Positive S1, S2, regular rate. Positive systolic murmur. LUNGS: Clear to auscultation bilaterally. ABDOMEN: Soft, nontender, nondistended, bowel sounds present. EXTREMITIES: No edema. No cyanosis. LABORATORY DATA: Listed below ASSESSMENT AND PLAN: 1. Severe headache. Patient presented with severe headache since admission. MRI and MRA on 02/06/17 were negative for any acute finding. Initially headache showed significant improvement with better BP control. However, this morning patient has recurrence of headache while BP was in good range. Per patient, patient had average SBP of 180-200 for at least 3 weeks prior to current hospitalization. Headache improved. 2. Nausea and vomiting and lightheadedness. Patient does have diabetes with A1C of 9.4. IV zofran did not help patient this AM. On PRN IV reglan. Improved in the last 24 hours. 3. Hypertensive urgency. Patient's blood pressure medications are being adjusted. Dr. Otto, the table worker, has been assisting adjusting the patient 's blood pressure medications. Blood pressure has been improving. Will adjust holding parameter according to patient's clinical symptoms. 4. Acute on chronic kidney disease. At the baseline, patient has chronic kidney disease (CKD) stage IV. Currently, patient has a creatinine of 3.27 with a glomerular filtration rate (GFR) 21.4. Patient does have uncontrolled diabetes with A1c of 9.4. Patient also has uncontrolled blood pressure for several weeks. Currently, we have been adjusting patient's blood pressure medications. Patient is on sliding scale for his glucose control. Cattle Producers, Dr. Otto, has been assisting on the case. 5. Hypothyroidism. On Synthroid. Patient does have elevated thyroid-stimulating hormone (TSH). 6. Type 2 diabetes, uncontrolled. On consistent carbohydrate diet. On insulin sliding scale. 7. Coronary artery disease status post coronary artery bypass graft (CABG) in 1999. 8. Peripheral vascular disease with balloon angioplasty. 9. History of celiac disease. 10. Deep venous thrombosis (DVT) prophylaxis. On heparin. VS,Fishbone, I+O VS, Fishbone, I+O Laboratory Tests 02/09/17 04:58 Red Blood Count 3.08 L, Mean Corpuscular Volume 87.0, Mean Corpuscular Hemoglobin 29.9, Mean Corpuscular Hemoglobin Concent 34.3, Red Cell Distribution Width 11.9, Calcium Level 8.1 L, Aspartate Amino Transf (AST/SGOT) 28, Alanine Aminotransferase (ALT/SGPT) 33, Alkaline Phosphatase 144 H, Total Bilirubin 0.2, Total Protein 4.9 L, Albumin 2.5 L Vital Signs Date Time Temp Pulse Resp B/P (MAP) Pulse Ox O2 Delivery O2 Flow Rate FiO2 02/09/17 12:00 98.1 70 18 164/70 (101) 98 Room Air I&O- Last 24 Hours up to 6 AM 02/10/17 06:00 Intake Total 600 ml Output Total 600 ml Balance 0 ml JOSELITO FERNANDO DO Feb 09, 2017 16:32
--- NOTE | 2017-02-09 18:34 | IPN ---
DATE: 02/09/2017 Mr. Aguilera is seen this morning on his bedside. He is feeling much better today compared to yesterday. His headache has resolved and nausea and vomiting has also completely resolved. He is looking very comfortable in the bed today. He denies any fever or chills. PHYSICAL EXAMINATION: Temperature 98 degrees Fahrenheit, heart rate 70 per minute and respiratory rate 18 per minute. Blood pressure 152/68 mmHg and oxygen saturation 97% on room air. Head is atraumatic. Pupils equal and reactive to light and sclerae is anicteric. Ears, nose and throat are unremarkable. Neck is supple and without JVD or thyroid enlargement. Heart sounds are regular and lungs sound clear to auscultation. Abdomen soft and nontender and bowel sounds are normal. There is no palpable organomegaly. Extremities have no cyanosis or clubbing. Skin has no rash or ulcers. Neurologically he is awake, alert and oriented times three. Today's labs show WBC count 6.0, hemoglobin 9.2 and hematocrit 26.8. Sodium 142 and potassium 4.1. BUN 80 and creatinine 3.34. Glucose 99 and calcium 8.1. PROBLEMS: 1. Uncontrolled hypertension. The patient was admitted with uncontrolled hypertension. However, blood pressure has improved and remained stable for the last 36 hours. Yesterday we cut back on his antihypertensive medications due to worsening symptoms and he seems to be doing much better. At present we will continue with current antihypertensive medications and consider increasing his minoxidil dose if needed later on. 2. Acute renal failure superimposed on chronic kidney disease. Most likely related to uncontrolled hypertensive episode. Slight worsening is noted over the last 24 hours. No changes are being made today. We will not put him on SAIDA inhibitor or angiotensin receptor sarabjit at this point. His diuretic has been on hold. 3. Headache. Most likely this was related to uncontrolled hypertension and medication side effects. Headache has completely resolved now. We will continue with current antihypertensives and monitor him for next 24 hours. 4. Anemia, probably related to advanced chronic kidney disease. His iron studies were appropriate and now his blood pressure has improved. We will give him a dose of Aranesp 100 mcg on Saturday morning. This will be further managed as an outpatient. DISPOSITION: The patient is likely to be ready for discharge in next 24 hours. I will discuss with hospitalist service about his medication adjustments and followup in the clinic.
[2017-02-09] MEDS: LEVOTHYROXINE 100MCG TABLET (0.1MG) PO SCH (21:24)
[2017-02-09] MEDS: ASPIRIN 81 MG ENTERIC TAB PO SCH (21:25)
[2017-02-09] MEDS: ATORVASTATIN 20 MG TAB PO SCH (21:25)
[2017-02-09] MEDS: LEVOTHYROXINE 88MCG TABLET (0.088 MG) PO SCH (21:25)
[2017-02-09] MEDS: TERAZOSIN 5 MG CAP PO SCH (21:25)
[2017-02-10] MEDS: SLF 3 ML SYR IV SCH ×3 (05:12→22:00)
[2017-02-10 06:00] VITALS: BP 172/79
[2017-02-10 06:06] LABS: MEAN CORPUSCULAR HEMOGLOBIN 29.5 pg (27.0-33.0); MEAN CORPUSCULAR HGB CONC 34.5 g/dl (32.0-36.5); MEAN CORPUSCULAR VOLUME 85.7 fl (80.0-96.0); PLATELET COUNT, AUTOMATED 234 10^3/uL (150-450); RED CELL DISTRIBUTION WIDTH 12.1 % (11.5-14.5); WHITE BLOOD COUNT 4.5 10^3/uL (4.0-10.0)
[2017-02-10 06:29] LABS: ALBUMIN 2.6 GM/DL (3.2-5.2); ALBUMIN/GLOBULIN RATIO 1.08 (1.00-1.93); BILIRUBIN,TOTAL 0.3 MG/DL (0.2-1.0); CALCIUM LEVEL 7.9 MG/DL (8.5-10.1); CREATININE FOR GFR 3.02 MG/DL (0.70-1.30); GLOMERULAR FILTRATION RATE 23.4 (>56); MAGNESIUM LEVEL 2.4 MG/DL (1.8-2.4); POTASSIUM SERUM 4.4 MEQ/L (3.5-5.1)
[2017-02-10] MEDS: HumaLOG INSULIN (NovoLOG) PER UNIT SC SCH ×4 (07:30→20:57)
[2017-02-10] MEDS: MULTIVITAMINS/MINERALS THERAP 1 TAB PO SCH (08:41)
[2017-02-10] MEDS: CLOPIDOGREL 75 MG TAB PO SCH (08:41)
[2017-02-10] MEDS: MINOXIDIL 2.5 MG TAB PO SCH ×2 (08:42→21:00)
[2017-02-10] MEDS: SENOKOT S TAB PO SCH ×2 (08:42→20:59)
[2017-02-10] MEDS: CARVedilol 12.5 MG TAB PO SCH ×2 (08:43→21:01)
[2017-02-10] MEDS: HEPARIN SOD (PORCINE) 5000 UNITS/ML VIAL SC SCH ×2 (08:44→21:00)
[2017-02-10] MEDS: LEVEMIR (INSULIN DETEMIR) 1 UNITS/0.01ML SC SCH ×2 (08:45→20:58)
[2017-02-10] MEDS: ACETAMINOPHEN TAB 650MG DOSE (2X325MG) PO PRN (08:47)
[2017-02-10] MEDS: FLUTICASONE PROP 0.05% NASAL SPRAY 16 GM (FLONASE) SCH ×2 (09:00→21:00)
[2017-02-10] MEDS ORDERED: DARBEPOETIN 100 MCG/0.5 ML *NON-DIALYSIS* SYRINGE (J0881) SC SCH (09:00)
[2017-02-10] MEDS: SODIUM CHLORIDE NASAL 0.65% SPRAY BTL (OCEAN) SCH ×3 (09:00→21:00)
[2017-02-10] MEDS ORDERED: MINOXIDIL 2.5 MG TAB PO ONE (10:00)
--- NOTE | 2017-02-10 11:02 | REP ---
Clinical: Transaminase. Technique: Real time samuel scale ultrasound examination using curved array transducer. Findings: Mild fatty infiltration to the liver suggested without focal hepatic lesion. The pancreas is incompletely evaluated due to interposed bowel gas but visualized portions appear normal. Gallbladder demonstrates benign cholesterolosis without gallstones, wall thickening, or pericholecystic fluid. No biliary ductal dilatation is appreciated and the common bile duct measures 3.6 mm diameter. The right kidney demonstrates renovascular calcifications without hydronephrosis and measures 11.8 x 7.8 x 5.4 cm. Small amount of perihepatic ascites. Impression: Mild fatty infiltration to the liver without focal hepatic lesion identified. Signed by Cordell Mehta MD 02/10/2017 10:54 A
[2017-02-10 11:30] VITALS: BP 178/88
[2017-02-10] MEDS ORDERED: TORSEMIDE 20 MG TAB PO ONE (13:00)
[2017-02-10 14:00] VITALS: BP 129/68
--- NOTE | 2017-02-10 15:12 | IPN ---
DATE: 02/10/2017 Mr. Aguilera is seen this afternoon on his bedside. He reports mild headache this morning which has now improved. He denies any nausea or vomiting. He has no dyspnea or chest pain. He does have some leg edema. He has been off his diuretic due to acute renal failure. PHYSICAL EXAMINATION: Temperature 98.8 degrees Fahrenheit, heart rate 78 per minute and respiratory rate 18 per minute. Blood pressure 172/79 mmHg and oxygen saturation 97% on room air. His head is atraumatic. Neck is supple and without JVD or thyroid enlargement. Pupils equal and reactive to light and sclerae is anicteric. Heart sounds are regular and lungs clear to auscultation. Abdomen soft and nontender and bowel sounds are normal. Extremities have no cyanosis or clubbing. Musculoskeletal system show 1+ leg edema. There is no rash. There is no joint effusions. Skin has no rash or ulcers. Neurological system is negative for any acute deficit. He is awake, alert and oriented times three. Today's labs show WBC count 4.5, hemoglobin 9.1 and hematocrit 26.4. Sodium 143 and potassium 4.4. BUN 75 and creatinine 3.02. His AST went up to 510, ALT 356 and alkaline phosphatase 252. Total bilirubin is 0.3. PROBLEMS: 1. Acute renal failure superimposed on chronic kidney disease. Improvement in kidney function is noticed. The patient has no uremic symptoms and electrolytes are within normal range. Renal profile will be checked again tomorrow morning. 2. Uncontrolled hypertension. His blood pressure control is suboptimal once again. He did respond very well to minoxidil and I am going to increase the dose to 5 mg twice a day. I will also add torsemide 20 mg daily that he was taking at home prior to admission. 3. Anemia. His anemia is stable and we already gave him a dose of Aranesp this morning. We will continue to monitor. 4. Abnormal LFTs. The patient has sudden increase in transaminases. He did have liver ultrasound this morning which showed mild fatty infiltration and no hepatic lesions. We will monitor his LFTs again tomorrow morning.
--- NOTE | 2017-02-10 16:52 | IPNPDOC ---
Text Note Date of Service The patient was seen on 02/10/17. NOTE SUBJECTIVE: Patient seen and examined in the room today. Patient had episode of headache exacerbation this morning. Since the BP med adjustments, his headache is completely resolved. Denies any abdominal pain. OBJECTIVE: VITAL SIGNS: Listed below GENERAL: No acute distress. Alert and oriented times three. HEENT: Normocephalic, atraumatic. Extraocular motor grossly intact. CARDIOVASCULAR: Positive S1, S2, regular rate. Positive systolic murmur. LUNGS: Clear to auscultation bilaterally. ABDOMEN: Soft, nontender, nondistended, bowel sounds present. EXTREMITIES: No edema. No cyanosis. LABORATORY DATA: Listed below ASSESSMENT AND PLAN: 1. Severe headache. Patient presented with severe headache since admission. MRI and MRA on 02/06/17 were negative for any acute finding. Initially headache showed significant improvement with better BP control. However, this morning patient has recurrence of headache while BP was in good range. Per patient, patient had average SBP of 180-200 for at least 3 weeks prior to current hospitalization. Headache improved with BP med adjustments. 2. Hypertensive urgency. Patient's blood pressure medications are being adjusted. Dr. Otto, the jewelry racker, has been assisting adjusting the patient 's blood pressure medications. This morning blood pressure became very uncontrolled. SBP increased to 180. Medications were adjusted. Later blood pressure stay in normal range. 3. Elevated liver enzyme. etiology is unknown at this moment. Liver US is ordered. Will follow with repeated liver profile tomorrow. Current medications are reviewed. 4. Acute on chronic kidney disease. At the baseline, patient has chronic kidney disease (CKD) stage IV. Currently, patient has a creatinine of 3.27 with a glomerular filtration rate (GFR) 21.4. Patient does have uncontrolled diabetes with A1c of 9.4. Patient also has uncontrolled blood pressure for several weeks. Currently, we have been adjusting patient's blood pressure medications. Patient is on sliding scale for his glucose control. Linoleum Layer Apprentice, Dr. Otto, has been assisting on the case. 5. Hypothyroidism. On Synthroid. Patient does have elevated thyroid-stimulating hormone (TSH). 6. Type 2 diabetes, uncontrolled. On consistent carbohydrate diet. On insulin sliding scale. 7. Coronary artery disease status post coronary artery bypass graft (CABG) in 1999. 8. Peripheral vascular disease with balloon angioplasty. 9. History of celiac disease. 10. Deep venous thrombosis (DVT) prophylaxis. On heparin. VS,Fishbone, I+O VS, Fishbone, I+O Laboratory Tests 02/10/17 05:39 Red Blood Count 3.08 L, Mean Corpuscular Volume 85.7, Mean Corpuscular Hemoglobin 29.5, Mean Corpuscular Hemoglobin Concent 34.5, Red Cell Distribution Width 12.1, Calcium Level 7.9 L, Aspartate Amino Transf (AST/SGOT) 510 H, Alanine Aminotransferase (ALT/SGPT) 356 H, Alkaline Phosphatase 252 H, Total Bilirubin 0.3, Total Protein 5.0 L, Albumin 2.6 L Vital Signs Date Time Temp Pulse Resp B/P (MAP) Pulse Ox O2 Delivery O2 Flow Rate FiO2 02/10/17 14:00 99.0 76 18 129/68 (88) 97 Room Air I&O- Last 24 Hours up to 6 AM 02/11/17 06:00 Intake Total 240 ml Output Total 750 ml Balance -510 ml JOSELITO FERNANDO DO Feb 10, 2017 16:52
[2017-02-10] MEDS: LEVOTHYROXINE 100MCG TABLET (0.1MG) PO SCH (20:58)
[2017-02-10] MEDS: ASPIRIN 81 MG ENTERIC TAB PO SCH (20:59)
[2017-02-10] MEDS: ATORVASTATIN 20 MG TAB PO SCH (20:59)
[2017-02-10] MEDS: LEVOTHYROXINE 88MCG TABLET (0.088 MG) PO SCH (20:59)
[2017-02-10] MEDS: TERAZOSIN 5 MG CAP PO SCH (20:59)
[2017-02-10 22:00] VITALS: BP 152/79
[2017-02-11 06:00] VITALS: BP 132/62
[2017-02-11] MEDS: SLF 3 ML SYR IV SCH (06:00)
[2017-02-11 06:39] LABS: MEAN CORPUSCULAR HEMOGLOBIN 29.6 pg (27.0-33.0); MEAN CORPUSCULAR VOLUME 85.2 fl (80.0-96.0); WHITE BLOOD COUNT 3.4 10^3/uL (4.0-10.0)
[2017-02-11 06:40] LABS: MEAN CORPUSCULAR HGB CONC 34.7 g/dl (32.0-36.5); PLATELET COUNT, AUTOMATED 235 10^3/uL (150-450)
[2017-02-11 07:01] LABS: ALBUMIN 2.7 GM/DL (3.2-5.2); ALBUMIN/GLOBULIN RATIO 0.96 (1.00-1.93); BILIRUBIN,TOTAL 0.2 MG/DL (0.2-1.0); CALCIUM LEVEL 8.1 MG/DL (8.5-10.1); CREATININE FOR GFR 2.96 MG/DL (0.70-1.30); MAGNESIUM LEVEL 2.3 MG/DL (1.8-2.4); POTASSIUM SERUM 3.9 MEQ/L (3.5-5.1); TOTAL PROTEIN 5.5 GM/DL (6.4-8.2)
[2017-02-11] MEDS: HumaLOG INSULIN (NovoLOG) PER UNIT SC SCH ×2 (07:30→11:28)
[2017-02-11] MEDS: LEVEMIR (INSULIN DETEMIR) 1 UNITS/0.01ML SC SCH (09:00)
[2017-02-11] MEDS: FLUTICASONE PROP 0.05% NASAL SPRAY 16 GM (FLONASE) SCH (09:00)
[2017-02-11] MEDS ORDERED: TORSEMIDE 20 MG TAB PO SCH (09:00)
[2017-02-11] MEDS: SODIUM CHLORIDE NASAL 0.65% SPRAY BTL (OCEAN) SCH (09:00)
--- NOTE | 2017-02-11 09:13 | REP ---
Clinical: Hypertension. Technique: Hyatt scale and color Doppler evaluation of the kidneys and renal vasculature using curved array transducer. Findings: The kidneys are essentially normal in contour size and echogenicity and reniform shape without hydronephrosis, nephrolithiasis, cystic or renal mass lesion. Right kidney measures 10.8 x 5.4 x 5.0 cm. Left kidney measures 11.8 x 4.8 x 5.3 cm. Bladder is incompletely distended and grossly normal by current evaluation. Prostate gland measures 4.8 x 3.6 x 4.8 cm. Color Doppler evaluation of the renal vasculature demonstrates normal arterial wave patterns, intra-renal velocities, and acceleration time. Elevated left renal arterial velocity and renal aortic ratio were demonstrated. Renal vein is patent. Right Kidney: Peak arterial velocity: 114.8 cm/sec . Renal aortic ratio: 1.41 . Resistive indices: 0.79 - 0.85 . Acceleration times: 0.03 - 0.04 . Left kidney: Peak arterial velocity: 299 . Renal aortic ratio: 3.7 . Resistive indices: 0.79 - 0.85 . Acceleration times: 0.03 - 0.056 . Impression: 1. Mildly elevated renal resistive indices as well as elevated left renal aortic ratio and left renal arterial velocity suggest left renal arterial stenosis. Signed by Cordell Mehta MD 02/11/2017 09:05 A
[2017-02-11] MEDS ORDERED: CARV12.5 PO (10:21)
[2017-02-11] MEDS ORDERED: MINO2.5T PO (10:21)
[2017-02-11] MEDS: MINOXIDIL 2.5 MG TAB PO SCH (10:42)
[2017-02-11 10:43] VITALS: BP 132/62
[2017-02-11] MEDS: CARVedilol 12.5 MG TAB PO SCH (10:43)
[2017-02-11] MEDS: MULTIVITAMINS/MINERALS THERAP 1 TAB PO SCH (10:43)
[2017-02-11] MEDS: CLOPIDOGREL 75 MG TAB PO SCH (10:43)
[2017-02-11] MEDS: SENOKOT S TAB PO SCH (10:43)
[2017-02-11] MEDS: HEPARIN SOD (PORCINE) 5000 UNITS/ML VIAL SC SCH (10:44)
--- NOTE | 2017-02-11 12:08 | IPN ---
DATE: 02/11/2017 Mr. Aguilera is seen this morning on his bedside. He is feeling better and denies any headache, dyspnea or chest pain. His blood pressure has been well controlled since his medications were adjusted yesterday. The patient had abnormal liver enzymes for which he underwent ultrasound which did not show any significant problems other than fatty infiltration. On physical exam 98.6 degrees Fahrenheit, heart is 76 per minute and respiratory of 18 per minute. Blood pressure 132/62 mmHg and oxygen saturation 97% on room air. His head is atraumatic. Neck is supple and without jugular venous distention or thyroid enlargement. Heart sounds are regular. Lungs clear to auscultation. Abdomen soft and benign. Extremities without any cyanosis or clubbing. Skin without any rash or ulcers. Neurologically he is awake, alert, and oriented times three. TODAY'S LABS: Show a WBC count 3.4, hemoglobin 9.4, and hematocrit 27.1. Sodium 143, potassium 3.9. BUN 73 and creatinine 2.96. AST 456, ALT 422 and alkaline phosphatase 333. Total protein 5.5 and albumin 2.7. Total bilirubin 0.2. PROBLEMS: 1. Acute renal failure super imposed on chronic kidney disease. Kidney function is improving nicely and is almost back to baseline. 2. Uncontrolled hypertension: Blood pressure control has improved with adjustment in his medications. I recommend to continue with current antihypertensives until the patient follows up in our office in the first week of February. 3. Anemia: Most likely related to chronic kidney disease as his iron studies are adequate. The patient was given Aranesp 100 mcg on Saturday. He might need to continue Procrit as an outpatient. 4. Abnormal liver enzymes: The patient has significant increase in transaminases. Otherwise, he is asymptomatic. I do not feel that any of the hypertensive medications are causing the problem. The patient is going to followup with his primary physician as an outpatient. DISPOSITION: The patient is going to be discharged to home today and will followup in the outpatient clinic.
--- NOTE | 2017-02-11 19:00 | DSES ---
DATE OF ADMISSION: 02/06/2017 DATE OF DISCHARGE: 02/11/2017 CONSULTANTS: Nephrology. PROCEDURES: None. PRIMARY CARE PROVIDER: Deshawn Cano MD DISCHARGE DIAGNOSES: 1. Severe headache secondary to hypertensive urgency. 2. Acute on chronic kidney disease. 3. Elevated liver functions. 4. Hypothyroidism. 5. Uncontrolled type 2 diabetes. 6. Coronary artery disease status post bypass. 7. Peripheral vascular disease, status post balloon angioplasty. 8. History of celiac disease. HOSPITALIZATION COURSE: The patient is a 51-year-old male who presented to [facility] with excruciating headache with hypertensive urgency. The patient was also found to have acute on chronic renal failure. Therefore, the patient was admitted to the progressive care unit (PCU). Nephrology consulted. The patient was started on multiple blood pressure agents and initially with better blood pressure control. The patient showed briefly resolution of the headache. Later on the patient started to feel lightheadedness and dizziness. The blood pressure medication was continued to be adjusted based on the patient's symptoms. Later, the patient was able to maintain good blood pressure control and severe headaches completely resolved with resolution of the hypertensive urgency. The patient's renal function was continued to be monitored and started to show little improvement with better control of the blood pressures. In the last few days of the hospitalization, the patient acute peak of the liver enzymes without any clinical symptoms. Imaging studies were performed, which came back negative. It was suspected that the patient's acute elevated liver enzymes were due to medication induced. The patient's medication was also being adjusted. On 02/11/2017, the patient is determined medically stable for discharge with recommendations to follow with primary care provider in 1 week. The patient is recommended to follow with science analyst in 1 week. The patient's repeat blood tests include complete blood count (CBC), basic metabolic panel (BMP), liver function tests and TSH, which was given to the patient. The patient is instructed to have laboratory tests performed before the physician's visit. OBJECTIVE: VITAL SIGNS: Temperature 98.6, pulse 76, respirations 18, blood pressure is 132/62, pulse oximetry is 97% on room air. Blood pressure on the day of admission is 209/96. LABORATORY DATA: On the day of discharge, WBC is 3.4, hemoglobin 9.4, hematocrit 37.1, platelet count is 235. Sodium is 143, potassium 3.9, chloride 107, carbon dioxide 27, BUN is 73, creatinine is 2.96, GFR is 24, fasting glucose is 86, calcium is 8.1, magnesium 2.3, A1/c is 9.4, AST is 456, ALT is 422, alkaline phosphatase 333, total protein 5.5, albumin 2.7. Hepatitis panel is negative. Microbiology: Blood cultures with no growth after 5 days. Respiratory panel is negative. IMAGING STUDIES: CT of the abdomen and pelvis without contrast on 02/06/2017 showed moderate atherosclerotic disease, including renal vascular calcifications. Mildly prominent prostate gland. No acute abdominal or pelvic pathology. Carotid duplex on 02/06/2017 showed no hemodynamically significant area of narrowing or stenosis appreciated. MRA of the brain without contrast on 02/06/2017 showed bilateral atherosclerotic narrowing of the carotid siphons. No variant noted in the posterior circulation. Otherwise, patent intracranial vasculature without aneurysm or critical strictures. MRI of the brain without contrast on 02/06/2017 showed no acute intracranial abnormalities. Renal ultrasound on 02/07/2017 showed mildly elevated renal resistive index, as well as elevated left renal aortic ratio and left renal arterial velocity, suggestive of renal arterial stenosis. Liver ultrasound on 02/10/2017 showed mild fatty infiltrate to the liver without focal hepatic lesion. DISCHARGE MEDICATIONS: - Carvedilol 25 mg by mouth every 12 hours - minoxidil 5 mg by mouth twice a day - aspirin 81 mg by mouth at night - Plavix 75 mg by mouth daily - vitamin D 50,000 units by mouth weekly - NovoLog subcutaneously before food and nightly - Novolin 10 units subcutaneous daily - Novolin 15 units subcutaneous at night - Synthroid 188 mcg by mouth at night - multivitamin one tablet by mouth daily - terazosin 10 mg by mouth at night - torsemide 20 mg by mouth daily DISCHARGE INSTRUCTIONS: Discontinue line. Discharge home. Activity as tolerated. Low salt, consistent carbohydrate diet as tolerated. The patient should follow with primary care provider, Deshawn Cano, on 02/15/2017. The patient will follow with Dr. Beavers on 02/15/2017. The patient was instructed on obtaining the repeat laboratories prior to the primary care provider's visit and laboratory results will be sent the science analyst and primary care provider's office. Discharge condition is stable. Discharge time was greater than 30 minutes.
[2017-02-13] MEDS ORDERED: VITAMIN D 50,000 UNITS CAPSULE (ERGOCALCIFEROL 1.25MG) PO SCH (09:00)
== END 2017-02-11 12:04 | disposition home or self-care (01) | DRG 305 ==
LOC: M ED 12:45 → M ED INP 16:43 → M PCU 02-07 09:00 → M MSPAV 02-09 16:46
PROVIDERS: ADMIT Hospitalist; ATTEND Internal Medicine
DX: I16.0 Hypertensive urgency (principal); N17.9 Acute kidney failure, unspecified; N18.4 Chronic kidney disease, stage 4 (severe); K90.41 Non-celiac gluten sensitivity; I13.10 Hypertensive heart and chronic kidney disease without heart failure, with stage 1 through stage 4 chronic kidney disease, or unspecified chronic kidney disease; R51 Headache; I73.9 Peripheral vascular disease, unspecified; E03.9 Hypothyroidism, unspecified; I25.10 Atherosclerotic heart disease of native coronary artery without angina pectoris; E11.65 Type 2 diabetes mellitus with hyperglycemia; K90.0 Celiac disease; R74.8 Abnormal levels of other serum enzymes; Z79.899 Other long term (current) drug therapy; Z79.82 Long term (current) use of aspirin; Z79.4 Long term (current) use of insulin; Z88.8 Allergy status to other drugs, medicaments and biological substances; E87.6 Hypokalemia; D63.8 Anemia in other chronic diseases classified elsewhere

== ENCOUNTER → 2017-02-14 | Outpatient (CLI) | payer MEDICARE, MEDICAID ==
[~2017-02-14] MED LIST changes: +CARV12.5 PO; +MINO2.5T PO; +SYNT100T PO; +SYNT88TA2 PO; +TERA10CA3 PO
[2017-02-14 13:46] LABS: MEAN CORPUSCULAR HEMOGLOBIN 29.9 pg (27.0-33.0); MEAN CORPUSCULAR HGB CONC 34.1 g/dl (32.0-36.5); MEAN CORPUSCULAR VOLUME 87.6 fl (80.0-96.0); PLATELET COUNT, AUTOMATED 319 10^3/uL (150-450); RED CELL DISTRIBUTION WIDTH 12.4 % (11.5-14.5); WHITE BLOOD COUNT 6.4 10^3/uL (4.0-10.0)
[2017-02-14 14:27] LABS: ALBUMIN 2.9 GM/DL (3.2-5.2); BILIRUBIN,TOTAL 0.3 MG/DL (0.2-1.0); CALCIUM LEVEL 8.5 MG/DL (8.5-10.1); CREATININE FOR GFR 3.32 MG/DL (0.70-1.30); FREE T4 1.32 NG/DL (0.76-1.46); POTASSIUM SERUM 4.7 MEQ/L (3.5-5.1); TOTAL PROTEIN 5.8 GM/DL (6.4-8.2)
== END ==
LOC: M SMT 08:54
PROVIDERS: ATTEND Internal Medicine
DX: N17.9 Acute kidney failure, unspecified (principal); K72.00 Acute and subacute hepatic failure without coma; Z79.899 Other long term (current) drug therapy

== ENCOUNTER 2017-02-27 17:15 | Inpatient (IN) | payer MEDICARE, MEDICAID ==
[~2017-02-27] VITALS: Ht 172.7 cm; Wt 70.9 kg
[2017-02-27 18:24] LABS: SPECIFIC GRAVITY UR AUTO RFX 1.011 (1.002-1.035); SQUAM EPITHELIAL CELL UR AURFX 0 /HPF (0-6)
[2017-02-27 18:39] LABS: BASO % 0.6 % (0.0-1.0); EOS # 0.3 10^3/uL (0.0-0.50); EOS % 4.7 % (0.0-3.0); IMMATURE GRANULOCYTE % 0.1 % (0-0); LYMPH # 0.6 10^3/uL (1.5-4.5); LYMPH % 9.2 % (24.0-44.0); MEAN CORPUSCULAR HEMOGLOBIN 28.4 pg (27.0-33.0); MEAN CORPUSCULAR HGB CONC 33.3 g/dl (32.0-36.5); MEAN CORPUSCULAR VOLUME 85.1 fl (80.0-96.0); MONO # 0.7 10^3/uL (0.0-0.8); MONO % 9.9 % (0.0-5.0); NEUTROPHILS # 5.2 10^3/uL (1.8-7.7); NEUTROPHILS % 75.5 % (36.0-66.0); PLATELET COUNT, AUTOMATED 271 10^3/uL (150-450); RED CELL DISTRIBUTION WIDTH 12.4 % (11.5-14.5); WHITE BLOOD COUNT 6.9 10^3/uL (4.0-10.0)
[2017-02-27 19:06] LABS: ALBUMIN 3.3 GM/DL (3.2-5.2); ALBUMIN/GLOBULIN RATIO 1.03 (1.00-1.93); ALKALINE PHOSPHATASE 332 U/L (45-117); ALT/SGPT 110 U/L (12-78); ANION GAP 14 MEQ/L (8-16); AST/SGOT 85 U/L (7-37); BILIRUBIN,DIRECT 0.2 MG/DL (0.0-0.2); BILIRUBIN,TOTAL 0.6 MG/DL (0.2-1.0); BLOOD UREA NITROGEN 85 MG/DL (7-18); CALCIUM LEVEL 8.4 MG/DL (8.5-10.1); CARBON DIOXIDE LEVEL 24 MEQ/L (21-32); CHLORIDE LEVEL 99 MEQ/L (98-107); CREATININE FOR GFR 4.21 MG/DL (0.70-1.30); GLUCOSE, FASTING 397 MG/DL (70-105); MAGNESIUM LEVEL 2.2 MG/DL (1.8-2.4); PHOSPHORUS LEVEL 4.2 MG/DL (2.5-4.9); SODIUM LEVEL 137 MEQ/L (136-145); TOTAL PROTEIN 6.5 GM/DL (6.4-8.2)
[2017-02-27] MEDS ORDERED: CARV12.5 PO (20:43)
[2017-02-27] MEDS ORDERED: MINO2.5T PO (20:43)
[2017-02-27] MEDS ORDERED: MINO10TA PO (20:44)
[2017-02-27] MEDS: HumuLIN N INSULIN (NovoLIN N) PER UNIT SC SCH (21:00)
[2017-02-27] MEDS: ASPIRIN 81 MG ENTERIC TAB PO SCH ×2 (21:00→23:54)
[2017-02-27] MEDS: MINOXIDIL 10 MG TAB PO SCH (21:00)
[2017-02-27] MEDS: CARVedilol 12.5 MG TAB PO SCH ×2 (21:00→23:56)
[2017-02-27] MEDS ORDERED: DEXTROSE 50% 50 ML SYRINGE IV PRN (21:30)
[2017-02-27] MEDS ORDERED: GLUCOSE 4 GM CHEW TABLET PO PRN (21:30)
[2017-02-27] MEDS ORDERED: GLUCAGON FOR INJ 1 MG VIAL (J1610) SC PRN (21:30)
[2017-02-27] MEDS: NS 1,000 ML IV SCH (21:42)
[2017-02-27 23:12] VITALS: BP 160/64
[2017-02-27] MEDS: LEVOTHYROXINE 88MCG TABLET (0.088 MG) PO SCH (23:54)
[2017-02-27] MEDS: LEVOTHYROXINE 100MCG TABLET (0.1MG) PO SCH (23:54)
[2017-02-27] MEDS: HumaLOG INSULIN (NovoLOG) PER UNIT SC SCH (23:57)
[2017-02-28] VITALS (10 sets, daily range): BP systolic 138–172; BP diastolic 62–77
[2017-02-28] MEDS: NORCO, ANEXSIA 5/325MG TABLET (HYDROcodone/ACETAMINOPHEN) PO PRN ×2 (00:03→22:32)
[2017-02-28] MEDS: HumuLIN N INSULIN (NovoLIN N) PER UNIT SC SCH ×3 (02:44→20:27)
[2017-02-28] MEDS: MINOXIDIL 10 MG TAB PO SCH ×3 (03:15→20:29)
--- NOTE | 2017-02-28 04:49 | ECGEPIP ---
Stationary ECG Study 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
[2017-02-28 07:07] LABS: CREATININE FOR GFR 4.07 MG/DL (0.70-1.30); GLOMERULAR FILTRATION RATE 16.6 (>56); POTASSIUM SERUM 4.8 MEQ/L (3.5-5.1)
--- NOTE | 2017-02-28 07:55 | HPE ---
DATE OF ADMISSION: 02/27/2017 PRIMARY CARE PROVIDER: Dr. Deshawn Cano COMMUNITY CULTURAL DEVELOPMENT OFFICER: Dr. Evan Barreto CORN CUTTER: Dr. Vaishali Otto ATTENDING PHYSICIAN: Dr. Rasta Leavitt CHIEF COMPLAINT: Abnormal blood test. HISTORY OF PRESENT ILLNESS: The patient is a 51-year-old white male with several chronic medical conditions including chronic kidney disease (CKD) stage IV, who came to the emergency room (ER) for evaluation of increased and worsening creatinine. The history is provided by himself as well as by review of the chart. Per the medical record, the patient had been hospitalized here recently due to poorly controlled blood pressure at that time his creatinine was about 3. After discharge from the hospital 2 days ago, he went to followup with his primary care provider, Dr. Deshawn Cano, and underwent blood tests. He was called and asked him to come to the ER for a full evaluation due to his increased creatinine, worsened per patient, so he saw Dr. Dominguez, the vascular surgeon, in the office today and set up the angioplasty for renal artery stenosis next week. In the ER, his repeated creatinine is up to 4.3 and sonography technician machine baster was contacted per ER provider and recommended to admit to the hospital for the full evaluation and machine baster will consult tomorrow. Otherwise, he does not have any other symptoms. REVIEW OF SYSTEMS: Denies fever. No chills. No headache. No blurred vision. No shortness of breath. No chest pain. No cough. No abdominal pain. No diarrhea. No tingling, numbness, or weakness in the arms or lower extremities. He also mentioned he may have sinus infection on his right side. All other systems reviewed, but negative. PAST MEDICAL HISTORY: 1. CKD stage IV. His baseline creatinine is around 3. 2. Type 1 diabetes. 3. Coronary artery disease. Coronary artery bypass graft (CABG) in 1999. 4. Peripheral vascular disease with bilateral angioplasty in bilateral lower extremities. 5. Hypertension. 6. Dyslipidemia. 7. Hypothyroidism. 8. Celiac disease. PAST SURGICAL HISTORY: 1. Carpal tunnel surgery. 2. Tonsillectomy. 3. Appendectomy. 4. CABG in 1999. 5. Bilateral lower extremities angioplasty. ALLERGIES: Allergic to ANGIOTENSIN-CONVERTING ENZYME (SAIDA) INHIBITOR. SOCIAL HISTORY: Denies tobacco abuse. Denies alcohol abuse. Denies illicit drug abuse. He is on disability and living at home with a . FAMILY HISTORY: His father had a history of diabetes and hypertension. MEDICATIONS: Reviewed. PHYSICAL EXAMINATION: VITAL SIGNS: Temperature 98.9, pulse 93, respirations 16, blood pressure 166/76, oxygen saturation 99% on room air. GENERAL: He is awake and alert, oriented times three. He is not in acute distress. HEENT: Atraumatic. Pupils equal, round, reactive to light. No jaundice. Orbital muscles are intact. Ears, nose, and throat are normal. Mouth mucus a little bit dry. NECK: No jugular venous distention (JVD), but positive bruits bilateral. LUNGS: Clear. No wheezing. No crackles. HEART: S1, S2, regular, no murmur. ABDOMEN: Soft. Bowel sounds positive. Nontender. There is a positive murmur in the left kidney area and also there is a positive murmur in his right groin area. SKIN: No rash. LOWER EXTREMITIES: Trace edema in bilateral lower extremities. NEUROLOGIC: Nonfocal. PSYCHOLOGICAL: No acute psychosis. DIAGNOSTIC AND LABORATORY STUDIES: Include the following: CBC and differential: WBC 6.9, hemoglobin and hematocrit 11.2/33.3, platelets 271. Sodium 137, potassium 5.0, chloride 99, bicarbonate 24, BUN 85, creatinine 4.2, glucose 397. IMPRESSION: 1. Acute on chronic kidney disease (CKD) stage IV. 2. Type 1 diabetes. 3. Hypertension. 4. Peripheral vascular disease. 5. Coronary artery disease. 6. Hypothyroidism. PLAN: He will be admitted to medical/surgical floor. I will hold his torsemide and will gentle hydrate him with normal saline at 75 mL/hour. Will repeat basic metabolic profile tomorrow morning. Will continue his home medications except torsemide. Manager Account Management will consult tomorrow.
[2017-02-28] MEDS: HumaLOG INSULIN (NovoLOG) PER UNIT SC SCH ×4 (08:34→20:28)
[2017-02-28] MEDS: CARVedilol 12.5 MG TAB PO SCH ×2 (08:34→20:28)
[2017-02-28] MEDS: CLOPIDOGREL 75 MG TAB PO SCH (08:34)
[2017-02-28] MEDS: MULTIVITAMINS/MINERALS THERAP 1 TAB PO SCH (08:34)
[2017-02-28] MEDS: AUGMENTIN 500 MG TAB PO SCH ×2 (08:34→20:29)
[2017-02-28] MEDS: NS 1,000 ML IV SCH (10:40)
--- NOTE | 2017-02-28 11:53 | CR ---
DATE OF CONSULTATION: 02/28/2017 REQUESTING PHYSICIAN: Dr. Rasta Leavitt CONSULTING PHYSICIAN: Dr. Beavers REASON FOR CONSULTATION: Management of acute kidney injury superimposed on chronic kidney disease Stage IV. CHIEF COMPLAINT: Patient was sent from primary care physician's office yesterday to the emergency room because of abnormal labs. HISTORY OF PRESENT ILLNESS: Mr. Jonny Aguilera is a 51-year-old male with past medical history of diabetes mellitus type 1 for many years, chronic kidney disease Stage IV with a best baseline creatinine of around 2.7 as of early last month, history of peripheral vascular disease, and history of coronary artery disease status post coronary artery bypass graft (CABG) with multiple other comorbidities as mentioned below. The patient was admitted last month to the hospital because of worsening renal function. His nephrotoxic medications were held. He got an ultrasound with a Doppler done which showed stenosis of the left renal artery. The patient was referred to Dr. Dominguez as an outpatient for angiogram and possible stenting of the left renal artery; however, that angiogram has been scheduled for next week and patient got his labs done at the primary care physician's office and he was found to have worsening renal function. On arrival in the emergency room, he was found to have a creatinine of 4.2 with a GFR of 16. The patient also reported that he has been feeling weak, tired, fatigued with decreased appetite. The patient also reported that he possibly has sinus infection on the right side. He was having sinus heaviness and pain and some postnasal drip for the last few days. The patient's labs were discussed by me with the emergency room (ER) physician yesterday and the patient was admitted overnight for further management and observation because of rapidly worsening renal function. I saw the patient today morning. He was on IV fluid hydration. There is very little improvement in his renal function as compared with yesterday. Creatinine is 4 with a GFR of still around 16. PAST MEDICAL HISTORY (Patient has a past medical history of): 1. chronic kidney disease Stage IV, best baseline creatinine as of last month is 2.7. 2. Diabetes mellitus type 1. 3. Coronary artery disease status post coronary artery bypass grafting in 1999. 4. Peripheral vascular disease. 5. History of angioplasty to bilateral lower extremities. 6. Hypertension. 7. Hyperlipidemia. 8. Hypothyroidism. 9. Celiac disease. 10. Diabetic retinopathy. PAST SURGICAL HISTORY: 1. Status post carpal tunnel surgery. 2. Status post tonsillectomy. 3. History of appendectomy. 4. CABG in 1999. 5. Bilateral lower extremity angioplasty. ALLERGIES (Patient is allergic to): - SAIDA INHIBITORS - GLUTEN - OXYCODONE FAMILY HISTORY: No significant family history of end stage renal disease requiring hemodialysis. Positive history of diabetes and hypertension in the father. SOCIAL HISTORY: Patient is disabled at this time. He denies any illicit drug abuse or alcohol abuse. The patient lives with his . REVIEW OF SYSTEMS: CONSTITUTIONAL: The patient reports low grade temperatures because of his sinusitis. He reports feeling weak and tired. EYES: He denies any blurry vision or double vision. ENT: He denies any dysphagia, odynophagia or ear discharge. The patient reports right sided sinus tenderness. CARDIOVASCULAR: He denies any chest pain or palpitations. He reports minimal lower extremity edema. RESPIRATORY: He denies any shortness of breath or wheezing. ABDOMEN: The patient reports decreased appetite. He did not feel like eating yesterday. He denies any constipation or diarrhea. MUSCULOSKELETAL: The patient denies any muscle aches and pains. CENTRAL NERVOUS SYSTEM: He denies any seizures or strokes. He does report mild weakness. PSYCHIATRIC: He denies any depression or anxiety. SKIN: He denies any rashes or ulcers. ENDOCRINE: Patient is type 1 diabetic. He has history of hypothyroidism. HEMATOLOGIC/ONCOLOGIC: He denies any easy bleeding or bruising tendency. All other review of systems is negative. PHYSICAL EXAMINATION: GENERAL: The patient is awake, alert and oriented times three, sitting in the bed, in no apparent distress. VITAL SIGNS: Temperature 98.9 degrees Fahrenheit, blood pressure 138/63, pulse 85, respiratory rate 16, saturating 96% on room air. INTAKE AND OUTPUT: Urine output is not recorded. Weight 70.9 kg yesterday. HEAD AND NECK EXAM: Extraocular muscles intact. Pupils equally round and reactive to light. Mucous membranes are moist. Neck is supple. There is no jugular venous distention (JVD). Patient has right sided maxillary sinus tenderness. CARDIOVASCULAR: S1, S2, regular rate. No murmur, rub or gallop. There is very trace edema of the bilateral lower extremities. RESPIRATORY: Chest is clear to auscultation bilaterally. Bilateral equal air entry. No rales. No rhonchi. ABDOMEN: Soft. Positive bowel sounds. Nontender. The patient has a left renal bruit. MUSCULOSKELETAL: No clubbing or cyanosis. Pulses are 2+. SKIN: No rashes or ulcers. PSYCHIATRIC: Normal mood and affect. LYMPH NODES: No significant cervical, axillary or inguinal lymphadenopathy. LAB REVIEW: CBC showed a WBC of 6.9, hemoglobin 11.2 and platelets of 271. Urinalysis done yesterday showed 3+ protein, 2+ glucose, trace ketones. BMP today morning showed sodium 135, potassium 4.8, chloride 102, bicarbonate 17, BUN 91, creatinine 4, GFR 16.6, glucose 373, A1c 7.9, calcium 8. CURRENT IMAGING: There is no imaging available from this admission. CURRENT INPATIENT MEDICATIONS: Patient was on IV normal saline at 75 mL/hr. I have stopped the fluids this morning. He is on [place] as needed. He has been started on Augmentin 500 mg by mouth twice a day. Aspirin 81 mg daily. Coreg 25 mg by mouth twice a day. Plavix 75 mg daily. Humalog sliding scale. Insulin NPH 45 units at night and 13 units in the morning. He is on levothyroxine 188 mcg daily. Minoxidil 10 mg by mouth twice a day. Multivitamin. Vitamin D 50,000 units once a week. I have started the patient on sodium bicarbonate 325 mg by mouth twice a day. Home medications included torsemide 20 mg by mouth daily as well which has been stopped on admission. ASSESSMENT: 51-year-old male with past medical history of chronic kidney disease Stage IV with a best baseline creatinine of 2.7, insulin dependent diabetes, hypertension, peripheral vascular disease, and recently diagnosed left renal artery stenosis admitted at this time because of acute renal failure and right sided sinusitis. PLAN: 1. Acute renal failure superimposed on chronic kidney disease Stage IV. Patient's creatinine has bumped up to 4 now. His baseline creatinine was 2.7 about one and a half months ago. Most likely, it is a combination of left renal artery stenosis and natural progression of his diabetic nephropathy. The patient's diuretics have been held. He was given gentle IV hydration overnight. There is no significant improvement in the renal function. I do not see any utility of further IV fluid hydration. It will make his edema worse. I would get in touch with vascular surgery to see if we can get his left renal artery stenting done during this admission. If not, will have to wait for another week. There is no urgent need to start hemodialysis in his patient; however, if I do not see any signs of improvement of his renal function after the renal artery stenting, then patient would have to get AV fistula and tunneled hemodialysis catheter placed to start hemodialysis in the next few weeks. 2. Metabolic acidosis. It is secondary to acute renal failure. I have started the patient on sodium bicarbonate 325 mg by mouth twice a day. 3. Hyponatremia. It is secondary to hypervolemia. Patient was given IV fluid hydration overnight. I am stopping the IV fluids now. 4. Right sided maxillary sinusitis. Patient was started on Augmentin 500 mg by mouth twice a day which is helping with his sinusitis. 5. Hypertension. Blood pressure is acceptable at this time. Continue current dose of Coreg 25 mg by mouth twice a day and minoxidil 10 mg by mouth twice a day. 6. Lower extremity edema. Patient was on torsemide 20 mg daily. Because of worsening renal function, diuretics are on hold. Continue to monitor the patient off diuretics for now. 7. Type 1 diabetes mellitus. Continue insulin sliding scale and insulin NPH as per home regimen. A1c is within acceptable range. 8. Coronary artery disease. Continue aspirin 81 mg daily, Plavix 75 mg by mouth daily. 9. Hypothyroidism. Continue home dose of levothyroxine 188 mcg by mouth daily. 10. Peripheral vascular disease. Patient has history of angioplasty of the lower extremities as well. Continue aspirin and Plavix. Dr. Dominguez also plans to do angiogram of the lower extremities sometime in the future as well. Thank you for involving us in the care of this patient. We shall be happy to follow the patient along with you tomorrow morning. Plan of care was discussed with the hospitalist team, Dr. Rasta Leavitt, today morning.
[2017-02-28] MEDS: SODIUM BICARBONATE 325 MG TAB PO SCH ×2 (13:24→20:28)
--- NOTE | 2017-02-28 14:42 | IPNPDOC ---
Date Seen The patient was seen on 02/28/17. Progress Note HISTORY OF PRESENT ILLNESS: The patient is a 51-year-old white male past medical history of diabetes type 1, chronic kidney disease stage IV, coronary artery disease, hypertension, dyslipidemia, hypothyroidism, and left renal artery stenosis. Presents to the ED with instructions from his PCP due to increasing creatinine levels. Review records indicate the patient had been hospitalized recently due to poorly controlled blood on02/07/2017 On that visit his creatinine was 3. Patient was diagnosed with left renal artery stenosis via ultrasound and has an appointment with the vascular surgeon, Dr. Dominguez for angioplasty for his renal stenosis next week. Patient is also followed by photolith operator Dr. Otto for his kidney disease, most likely stemming from his left renal artery stenosis or diabetic nephropathy PHYSICAL EXAMINATION: VITAL SIGNS: See below GENERAL: He is awake and alert,He is not in acute distress. NECK: No jugular venous distention (JVD), LUNGS: Clear. No wheezing. No crackles. HEART: S1, S2, regular, no murmur. ABDOMEN: Soft. Bowel sounds positive. Nontender. SKIN: No rash. LOWER EXTREMITIES: Trace edema in bilateral lower extremities. NEUROLOGIC: Nonfocal. PSYCHOLOGICAL: No acute psychosis. IMAGING Renal ultrasound: Left renal artery stenosis Assessment: An 51-year-old male presenting with chronic kidney disease stage IV. Chronic kidney disease stage -Nephrology has been consulted, Dr. Beavers - Creatinine 4, his baseline was 2.7. -IV hydration has been discontinued. Diabetes type 1 -Management insulin.. -Is a contributing factor to patient's chronic kidney disease Renal artery stenosis -Contacted Dr. Dominguez to see if restenosis surgery could be performed on admission. If not patient will follow-up with him as an outpatient basis Metabolic acidosis. -It is secondary to acute renal failure. -sodium bicarbonate 325 mg by mouth twice a day. Hyponatremia. -Fluids administered overnight fluids have been discontinued Right sided maxillary sinusitis. -Augmentin 500 mg Hypertension. -Coreg 25 mg by mouth twice a day and minoxidil 10 mg by mouth twice a day. Lower extremity edema. - hold diuretics Type 1 diabetes mellitus. -Insulin sliding scale regiment Coronary artery disease. -Continue aspirin 81 mg daily, Plavix 75 mg by mouthdaily. Hypothyroidism. -Continue home dose of levothyroxine 188 mcg by mouth daily. Peripheral vascular disease. -Continue aspirin and Plavix. VS, I&O, 24H, Fishbone Vital Signs/I&O Vital Signs Date Time Temp Pulse Resp B/P (MAP) Pulse Ox O2 Delivery O2 Flow Rate FiO2 02/28/17 08:34 85 138/63 02/28/17 06:00 98.9 16 96 Room Air I&O- Last 24 Hours up to 6 AM 03/01/17 06:00 Intake Total 1240 ml Output Total 500 ml Balance 740 ml Laboratory Data 24H LABS Laboratory Tests 2 02/27/17 18:05: Urine Color YELLOW, Urine Appearance HAZY, Urine pH 5.0, Urine Specific [place] 1.011, Urine Protein 3+H, Urine Glucose (UA) 2+H, Urine Ketones TRACEH, Urine Blood NEGATIVE, Urine Nitrite NEGATIVE, Urine Bilirubin NEGATIVE, Urine Urobilinogen 0.2, Urine Leukocyte Esterase NEGATIVE, Urine WBC (Auto) 1, Urine RBC (Auto) 1, Urine Hyaline Casts (Auto) 0, Urine Bacteria (Auto) NEGATIVE, Urine Squamous Epithelial Cells 0, Urine Sperm (Auto) 02/27/17 18:27: Immature Granulocyte % (Auto) 0.1H, White Blood Count 6.9, Red Blood Count 3.95L , Hemoglobin 11.2L, Hematocrit 33.6L, Mean Corpuscular Volume 85.1, Mean Corpuscular Hemoglobin 28.4, Mean Corpuscular Hemoglobin Concent 33.3, Red Cell Distribution Width 12.4, Platelet Count 271, Neutrophils (%) (Auto) 75.5H, Lymphocytes (%) (Auto) 9.2L, Monocytes (%) (Auto) 9.9H, Eosinophils (%) (Auto) 4.7H, Basophils (%) (Auto) 0.6, Neutrophils # (Auto) 5.2, Lymphocytes # (Auto) 0.6L, Monocytes # (Auto) 0.7, Eosinophils # (Auto) 0.3, Basophils # (Auto) 0.0, Immature Granulocyte # (Auto) 0.0, Nucleated Red Blood Cells % (auto) 0.0, Anion Gap 14, Glomerular Filtration Rate 16.0L, Calcium Level 8.4L, Phosphorus Level 4.2, Magnesium Level 2.2, Aspartate Amino Transf (AST/SGOT) 85H, Alanine Aminotransferase (ALT/SGPT) 110H, Alkaline Phosphatase 332H, Total Bilirubin 0.6 , Direct Bilirubin 0.2, Total Creatine Kinase 231, Creatine Kinase MB 7.1H, Creatine Kinase MB Relative Index 3.07, Troponin I < 0.02, Total Protein 6.5, Albumin 3.3, Albumin/Globulin Ratio 1.03 02/27/17 23:24: Bedside Glucose (Misc Panel) 435H 02/28/17 06:35: Anion Gap 16, Glomerular Filtration Rate 16.6L, Calcium Level 8.0L, Estimated Mean Plasma Glucose 180H, Hemoglobin A1c 7.9, Blood Urea Nitrogen 91H, Creatinine 4.07H, Sodium Level 135L, Potassium Level 4.8, Chloride Level 102, Carbon Dioxide Level 17L, Triglycerides Level 224H, LDL Cholesterol 72.2, Total Cholesterol 146, Non-HDL Cholesterol (LDL + VLDL) 117, Total HDL Cholesterol 29L , Cholesterol/HDL Ratio 5.034H 02/28/17 11:39: Bedside Glucose (Misc Panel) 439H CBC/BMP Laboratory Tests 02/27/17 18:27 Red Blood Count 3.95 L, Mean Corpuscular Volume 85.1, Mean Corpuscular Hemoglobin 28.4, Mean Corpuscular Hemoglobin Concent 33.3, Red Cell Distribution Width 12.4, Neutrophils (%) (Auto) 75.5 H, Lymphocytes (%) (Auto) 9.2 L, Monocytes (%) (Auto) 9.9 H, Eosinophils (%) (Auto) 4.7 H, Basophils (%) ( Auto) 0.6, Neutrophils # (Auto) 5.2, Lymphocytes # (Auto) 0.6 L, Monocytes # ( Auto) 0.7, Eosinophils # (Auto) 0.3, Basophils # (Auto) 0.0 02/28/17 06:35 Calcium Level 8.0 L GME ATTESTATION GME ATTESTATION My faculty preceptor for this patient encounter was physically present during the encounter and was fully available. All aspects of the patient interview, examination, medical decision making process, and medical care plan development were reviewed and approved by the faculty preceptor. The faculty preceptor is aware and concurs with the plan as stated in the body of this note and will attest to such by his/her cosignature. VIVIAN ANDRES DO Feb 28, 2017 14:42
[2017-02-28] MEDS ORDERED: fentaNYL 100 MCG/2 ML INJECTION (J3010) As Ordered ONE (16:26)
[2017-02-28] MEDS ORDERED: ISOVUE-300 61% 50ML VIAL (Q9967) As Ordered ONE (16:27)
[2017-02-28] MEDS ORDERED: MIDAZOLAM INJ 2 MG/2 ML VIAL (J2250) As Ordered ONE (16:27)
[2017-02-28] MEDS ORDERED: HEPARIN 1,000 UNITS/ML 10ML VIAL (FOR RADIOLOGY& DIALYSIS ONLY) As Ordered ONE (16:27)
[2017-02-28] MEDS: LEVOTHYROXINE 88MCG TABLET (0.088 MG) PO SCH (20:28)
[2017-02-28] MEDS: LEVOTHYROXINE 100MCG TABLET (0.1MG) PO SCH (20:28)
[2017-02-28] MEDS: ASPIRIN 81 MG ENTERIC TAB PO SCH (20:28)
[2017-02-28] MEDS ORDERED: HumaLOG INSULIN (NovoLOG) PER UNIT SC SCH (21:00)
[2017-03-01] VITALS (8 sets, daily range): BP systolic 120–173; BP diastolic 52–78
[2017-03-01] MEDS: NORCO, ANEXSIA 5/325MG TABLET (HYDROcodone/ACETAMINOPHEN) PO PRN ×2 (06:25→17:38)
[2017-03-01] MEDS: AUGMENTIN 500 MG TAB PO SCH ×2 (08:19→20:56)
[2017-03-01] MEDS: MINOXIDIL 10 MG TAB PO SCH ×2 (08:19→20:55)
[2017-03-01] MEDS: CLOPIDOGREL 75 MG TAB PO SCH (08:20)
[2017-03-01] MEDS: SODIUM BICARBONATE 325 MG TAB PO SCH ×2 (08:20→20:55)
[2017-03-01] MEDS: CARVedilol 12.5 MG TAB PO SCH ×2 (08:20→20:56)
[2017-03-01] MEDS: HumaLOG INSULIN (NovoLOG) PER UNIT SC SCH ×4 (08:20→20:58)
[2017-03-01] MEDS: MULTIVITAMINS/MINERALS THERAP 1 TAB PO SCH (08:20)
[2017-03-01 08:26] LABS: MEAN CORPUSCULAR HEMOGLOBIN 28.4 pg (27.0-33.0); MEAN CORPUSCULAR HGB CONC 33.8 g/dl (32.0-36.5); MEAN CORPUSCULAR VOLUME 84.1 fl (80.0-96.0); PLATELET COUNT, AUTOMATED 266 10^3/uL (150-450); RED CELL DISTRIBUTION WIDTH 12.4 % (11.5-14.5)
[2017-03-01 08:53] LABS: CALCIUM LEVEL 8.2 MG/DL (8.5-10.1); CREATININE FOR GFR 3.79 MG/DL (0.70-1.30); MAGNESIUM LEVEL 2.4 MG/DL (1.8-2.4); POTASSIUM SERUM 4.2 MEQ/L (3.5-5.1)
[2017-03-01 10:37] LABS: HEPATITIS B SURFACE ANTIBODY NEGATIVE (POSITIVE)
[2017-03-01] MEDS: HumuLIN N INSULIN (NovoLIN N) PER UNIT SC SCH ×2 (10:46→20:57)
--- NOTE | 2017-03-01 13:52 | IPNPDOC ---
Date Seen The patient was seen on 03/01/17. Progress Note SUBJECTIVE: Patient is a 51-year-old male with acute on chronic renal failure. He is evaluated at bedside this morning. His is present during my evaluation. He underwent an abdominal angiogram yesterday with patient reporting that renal vessels were patent and without stenosis. According to the patient no stenting was required. With patient's worsening renal function he is aware that a fistula will need to be placed for impending dialysis. Patient states that he should be undergoing fistula placement in the beginning of 2018 with the vascular surgeon. The patient currently offers no complaints. Renal function actually improved slightly. REVIEW OF SYSTEMS: Denies chest pain, shortness of breath, fever, night sweats , chills, abdominal pain, peripheral edema, numbness, tingling, nausea, vomiting. OBJECTIVE PHYSICAL EXAMINATION: VITAL SIGNS: Please see below. GENERAL: Pleasant male, appears stated age, well nourished, well developed, no acute distress HEENT: Atraumatic, normocephalic, PERRL, EOMI, wear spectacles, oral mucosa appears pink and moist, nasal septum appears midline, nares are patent CARDIOVASCULAR: Regular rate and rhythm, normal S1 and S2, no murmur, rub, click RESPIRATORY: Clear to auscultation bilaterally, adequate inspiratory and expiratory airway excursion, no wheeze, rhonchi, crackles ABDOMINAL: Flat, soft, non-tender, non-distended, bowel sounds appreciated EXTREMITIES: Warm, dry, intact, pulses equal and symmetrical, without peripheral edema NEUROLOGICAL: CN II-XII grossly intact PSYCHOLOGICAL: Alert and conversant, pleasant LABORATORY DATA: Please see below. CURRENT INPATIENT MEDICATIONS: All medications were reviewed by myself and my attending. No changes were made at this time. ASSESSMENT AND PLAN: 51-year-old male with past medical history of chronic kidney disease Stage IV with a best baseline creatinine of 2.7, insulin dependent diabetes, hypertension, peripheral vascular disease, and recently diagnosed left renal artery stenosis admitted at this time because of acute renal failure and right sided sinusitis. PROBLEMS: 1. Acute renal failure superimposed on chronic kidney disease Stage IV: Creatinine today is 3.97, slightly improved from yesterday, but still not close to baseline of 2.7 Abdominal angiogram performed yesterday did not reveal any strictures of stenosis. Worsening renal function likely a result of patient's diabetic nephropathy. No urgent need for hemodialysis at this time; however, have advised patient to proceed with placement of AV fistula for possible hemodialysis in the near future as an outpatient. Have discontinued IV access in right antecubital region. Patient had vein graft along left forearm so AV fistula placement would potentially be on the right. Recommend no peripheral access/lab draws from the right arm as this would be the potential site for future AV fistula. Obtaining bilateral venous doppler ultrasounds of the upper extremities. Would recommend follow-up with nephrology after AV fistula placement. Continue to hold diuretics at this time. 2. Metabolic acidosis: It is secondary to acute renal failure. Continue with sodium bicarbonate 325mg orally twice a day. Bicarbonate level has improved to 22. 3. Hyponatremia: It is secondary to hypervolemia. Normalized. 4. Right sided maxillary sinusitis: Remains of oral Augmentin 500mg twice a day. 5. Hypertension: Blood pressure is acceptable at this time. Continue current dose of Coreg 25 mg by mouth twice a day and minoxidil 10 mg by mouth twice a day. 6. Lower extremity edema: On Torsemide outpatient. Currently on hold due to worsening renal function. Monitor with daily BMP. 7. Type 1 diabetes mellitus: Continue insulin sliding scale and insulin NPH as per home regimen. A1c is within acceptable range. 8. Coronary artery disease: Continue aspirin 81 mg daily, Plavix 75 mg by mouth daily. 9. Hypothyroidism: Continue home dose of levothyroxine 188 mcg by mouth daily. 10. Peripheral vascular disease: Patient has history of angioplasty of the lower extremities as well. Continue aspirin and Plavix. Abdominal angiogram performed yesterday which did not reveal stenosis or stricture of renal vessels. Will obtain duplex ultrasound of bilateral upper extremities to evaluate for AV fistular placement. DISPOSITION: Bilateral upper extremities duplex ultrasound. Improving renal function. Continue to hold diuretics. VS, I&O, 24H, Fishbone Vital Signs/I&O Vital Signs Date Time Temp Pulse Resp B/P (MAP) Pulse Ox O2 Delivery O2 Flow Rate FiO2 03/01/17 08:20 76 118/60 03/01/17 06:56 18 03/01/17 06:30 98.7 96 Room Air Laboratory Data 24H LABS Laboratory Tests 2 02/28/17 18:00: Bedside Glucose (Misc Panel) 456H 02/28/17 20:14: Bedside Glucose (Misc Panel) 423H 03/01/17 07:14: Bedside Glucose (Misc Panel) 51L 03/01/17 07:59: Bedside Glucose (Misc Panel) 73 03/01/17 08:05: Nucleated Red Blood Cells % (auto) 0.0, Anion Gap 9, Glomerular Filtration Rate 18.0L, Blood Urea Nitrogen 87H, Creatinine 3.79H, Sodium Level 139, Potassium Level 4.2, Chloride Level 108H, Carbon Dioxide Level 22, Calcium Level 8.2L, Magnesium Level 2.4 CBC/BMP Laboratory Tests 03/01/17 08:05 Red Blood Count 3.52 L, Mean Corpuscular Volume 84.1, Mean Corpuscular Hemoglobin 28.4, Mean Corpuscular Hemoglobin Concent 33.8, Red Cell Distribution Width 12.4, Calcium Level 8.2 L CATERINA ESPOSITO DO Mar 01, 2017 13:52
[2017-03-01] MEDS ORDERED: INSUN SC (14:24)
[2017-03-01] MEDS ORDERED: TORS20TA2 PO (14:24)
--- NOTE | 2017-03-01 17:34 | REP ---
BILATERAL UPPER EXTREMITY DUPLEX DOPPLER VENOUS ULTRASOUND WITH VEIN MAPPING: Real-time compression and duplex Doppler interrogation of bilateral upper extremity deep vein systems is performed. Bilaterally, the jugular, subclavian, axillary, brachial, cephalic and basilic veins are fully compressible with transducer pressure and demonstrate normal spontaneous and phasic flow without evidence of deep venous thrombosis. Vein mapping on the right demonstrates the basilic vein to measure 4 mm at the level of the humerus, 3 mm at the antecubital region and throughout the forearm to the wrist, median cubital vein 2 mm. The right cephalic vein measures 2 mm at the upper humerus and 1 mm distal to that. Right axillary artery measures 6 mm, brachial artery 5 mm, radial artery 3 mm and ulnar artery 4 mm with normal flow velocities. On the left, basilic vein at the upper humerus measures 7 mm, at the lower humerus 5 mm, antecubital region 3 mm, upper forearm 2 mm, lower forearm and wrist 3 mm, median cubital vein 3 mm. Left cephalic vein measures 1 mm from upper humerus to upper forearm and is not seen distal to that. Right axillary artery measures 6 mm, brachial artery 5 mm and ulnar artery 3 mm. The left radial artery has been previously surgically removed. Normal flow velocities are seen in the arteries of the left upper extremity. Signed by Kraig Hyatt MD 03/04/2017 05:52 P
[2017-03-01] MEDS: ASPIRIN 81 MG ENTERIC TAB PO SCH (20:55)
[2017-03-01] MEDS: LEVOTHYROXINE 88MCG TABLET (0.088 MG) PO SCH (20:55)
[2017-03-01] MEDS: LEVOTHYROXINE 100MCG TABLET (0.1MG) PO SCH (20:55)
[2017-03-02 02:00] VITALS: BP 122/62
[2017-03-02 05:46] LABS: MEAN CORPUSCULAR HEMOGLOBIN 27.9 pg (27.0-33.0); MEAN CORPUSCULAR HGB CONC 33.1 g/dl (32.0-36.5); MEAN CORPUSCULAR VOLUME 84.2 fl (80.0-96.0); PLATELET COUNT, AUTOMATED 235 10^3/uL (150-450); RED CELL DISTRIBUTION WIDTH 12.6 % (11.5-14.5); WHITE BLOOD COUNT 4.7 10^3/uL (4.0-10.0)
[2017-03-02] MEDS: NORCO, ANEXSIA 5/325MG TABLET (HYDROcodone/ACETAMINOPHEN) PO PRN (05:55)
[2017-03-02 06:00] VITALS: BP 138/58
[2017-03-02 06:05] LABS: CALCIUM LEVEL 8.4 MG/DL (8.5-10.1); CREATININE FOR GFR 3.28 MG/DL (0.70-1.30); GLOMERULAR FILTRATION RATE 21.3 (>56); MAGNESIUM LEVEL 2.5 MG/DL (1.8-2.4); POTASSIUM SERUM 4.3 MEQ/L (3.5-5.1)
[2017-03-02] MEDS: HumaLOG INSULIN (NovoLOG) PER UNIT SC SCH (07:30)
[2017-03-02] MEDS: HumuLIN N INSULIN (NovoLIN N) PER UNIT SC SCH (08:06)
[2017-03-02] MEDS: MINOXIDIL 10 MG TAB PO SCH (08:14)
[2017-03-02] MEDS: MULTIVITAMINS/MINERALS THERAP 1 TAB PO SCH (08:14)
[2017-03-02] MEDS: SODIUM BICARBONATE 325 MG TAB PO SCH (08:14)
[2017-03-02 08:15] VITALS: BP 138/58
[2017-03-02] MEDS: AUGMENTIN 500 MG TAB PO SCH (08:15)
[2017-03-02] MEDS: CLOPIDOGREL 75 MG TAB PO SCH (08:15)
[2017-03-02] MEDS: CARVedilol 12.5 MG TAB PO SCH (08:15)
[2017-03-02] MEDS ORDERED: MOXI1TAB PO (08:31)
[2017-03-02] MEDS ORDERED: SODIUM CHLORIDE NASAL 0.65% SPRAY BTL (OCEAN) SCH (09:00)
[2017-03-02 10:00] VITALS: BP 153/70
--- NOTE | 2017-03-02 14:00 | IPNPDOC ---
Date Seen The patient was seen on 03/02/17. Progress Note HISTORY OF PRESENT ILLNESS: The patient is a 51-year-old white male past medical history of diabetes type 1, chronic kidney disease stage IV, coronary artery disease, hypertension, dyslipidemia, hypothyroidism, and left renal artery stenosis. Presents to the ED with instructions from his PCP due to increasing creatinine levels. She was assessed by vascular surgeon, neurologist as well as medicine team. Was determined that his chronic kidney disease was most likely stemming from his diabetic retinopathy after Abdominal angiography yesterday did not reveal any strictures or stenosis. At that time it was determined that there was no need for urgent hemodialysis however he was advised to proceed with placement of AV fistula for possible hemodialysis in the future as an outpatient. Patient subsequently had a vein graft along the left forearm for placement of AV fistula on the right. Patient remained in hospital for 1 more night. This morning he complained of increase in symptoms of nasal congestion, and sinus pain. This was attributed to bacterial sinusitis. PHYSICAL EXAMINATION: VITAL SIGNS: See below GENERAL: He is awake and alert,He is not in acute distress. Pleasant HEENT: Maxillofacial tenderness pain to palpation on left lower ear NECK: No jugular venous distention (JVD), supple LUNGS: Clear. No wheezing. No crackles. HEART: S1, S2, regular, no murmur. ABDOMEN: Soft. Bowel sounds positive. Nontender. LOWER EXTREMITIES: Trace edema in bilateral lower extremities. PSYCHOLOGICAL: No acute psychosis. IMAGING Renal ultrasound: Left renal artery stenosis Assessment: An 51-year-old male presenting with chronic kidney disease stage IV. Chronic kidney disease stage -Nephrology has been consulted, Dr. Beavers - Creatinine 4, his baseline was 2.7. -IV hydration has been discontinued. Sinusitis -Switch from Augmentin to meloxicam 400 mg by mouth for 7 days. -Also instructed to use Flonase daily for congestion Renal artery stenosis (resolved) - abdominal angiogram did not find any stenosis or strictures Metabolic acidosis. -It is secondary to acute renal failure. -sodium bicarbonate 325 mg by mouth twice a day. Hyponatremia. -Fluids administered overnight fluids have been discontinued Right sided maxillary sinusitis. -Augmentin 500 mg Hypertension. -Coreg 25 mg by mouth twice a day and minoxidil 10 mg by mouth twice a day. Lower extremity edema. - hold diuretics Type 1 diabetes mellitus. -Insulin sliding scale regiment Coronary artery disease. -Continue aspirin 81 mg daily, Plavix 75 mg by mouthdaily. Hypothyroidism. -Continue home dose of levothyroxine 188 mcg by mouth daily. Peripheral vascular disease. -Continue aspirin and Plavix. Disposition Patient was discharged see discharge summary from 03/01/2017 VS, I&O, 24H, Fishbone Vital Signs/I&O Vital Signs Date Time Temp Pulse Resp B/P (MAP) Pulse Ox O2 Delivery O2 Flow Rate FiO2 03/02/17 10:00 97.9 74 20 153/70 (97) 97 Room Air I&O- Last 24 Hours up to 6 AM 03/03/17 06:00 Intake Total 240 ml Output Total 0 ml Balance 240 ml Laboratory Data 24H LABS Laboratory Tests 2 03/02/17 05:33: Nucleated Red Blood Cells % (auto) 0.0, Anion Gap 5L, Glomerular Filtration Rate 21.3L, Blood Urea Nitrogen 85H, Creatinine 3.28H, Sodium Level 142, Potassium Level 4.3, Chloride Level 109H, Carbon Dioxide Level 28, Calcium Level 8.4L, Magnesium Level 2.5H CBC/BMP Laboratory Tests 03/02/17 05:33 Red Blood Count 3.48 L, Mean Corpuscular Volume 84.2, Mean Corpuscular Hemoglobin 27.9, Mean Corpuscular Hemoglobin Concent 33.1, Red Cell Distribution Width 12.6, Calcium Level 8.4 L GME ATTESTATION GME ATTESTATION My faculty preceptor for this patient encounter was physically present during the encounter and was fully available. All aspects of the patient interview, examination, medical decision making process, and medical care plan development were reviewed and approved by the faculty preceptor. The faculty preceptor is aware and concurs with the plan as stated in the body of this note and will attest to such by his/her cosignature. VIVIAN ANDRES DO Mar 02, 2017 13:31
--- NOTE | 2017-03-03 17:22 | DSES ---
DATE OF ADMISSION: 02/27/2017 DATE OF DISCHARGE: 03/02/2017 PRIMARY CARE PROVIDER: Dr. Deshawn Cano SUPERVISOR DITCHING: Dr. Evan Barreto METAL FURNITURE ASSEMBLER: Dr. Vaishali Otto ATTENDING PHYSICIAN: Dr. Rasta Leavitt DISCHARGE DIAGNOSES: 1. Chronic kidney disease stage IV. 2. Type 1 diabetes. 3. Coronary artery disease. 4. Hypertension. HISTORY OF PRESENT ILLNESS/HOSPITAL COURSE: The patient is a 51-year-old male with several medical conditions, including chronic kidney disease stage IV, who came to the emergency department for evaluation for increasing worsening creatinine levels. The patient's creatinine level was baseline of 3, but the patient presented to the emergency department with a creatinine level of 4.07. At the time of presentation, the patient had a standing appointment with Dr. Dominguez, the vascular surgeon, for angioplasty for his renal artery stenosis next week. The patient is also being followed by nephrology for his chronic kidney disease. On day one of admission, nephrology was consulted, and vascular surgery was also consulted. Nephrology recommended discontinuing of his overnight gentle hydration because there was improvement in his renal function. We also attempted to get a hold of vascular surgeon to determine if his vascular restenosis could be done inpatient during this admission, with a contingency planned for the following week. On initial assessment, there was no need urgent desire to start hemodialysis as the plan was to have the patient undergo vascular restenosis. The patient was started on bicarbonate 325 mg by mouth to correct the patient's metabolic acidosis that was secondary to his renal failure. He was also started on torsemide 20 mg daily for lower extremity edema; however, that was discontinued by nephrology due to the worsening of his renal function. On day two of admission, the patient was reassessed and it was determined that his creatinine was 3.9, so slight improvement from the previous day, but it was no where near his baseline. An abdominal angiogram performed did not reveal any stricture or stenosis of the renal arteries. It was determined that the worsening of the renal function was most likely due to the patient's diabetic nephropathy as opposed to a non existent renal artery stenosis. The patient was told that there was no urgent need for hemodialysis at this time, however, he was advised to proceed with the placement of AV fistula for possible hemodialysis in the near future as an outpatient. His IV in his right arm was discontinued. The patient had a vein graft along the left forearm so AV fistula placement could be placed. The patient was discharged in high spirits with instruction to followup with nephrology after the placement of the AV fistula. He was also instructed to hold his diuretics at home. PHYSICAL EXAMINATION: On discharge: GENERAL: The patient is alert, oriented, and in no apparent distress. CARDIOVASCULAR: Regular rate and rhythm. No rubs. No murmurs. No gallops. RESPIRATORY: Clear to auscultation bilaterally. No wheeze, rales or rhonchi. ABDOMEN: Soft, nontender. Bowel sounds present in all four quadrants. No tenderness to palpation. EXTREMITIES: No clubbing or edema noted. 2+ pulses bilaterally. DISPOSITION: The patient will be discharged to home in stable condition with instructions to followup with nephrology and vascular surgeon. DISCHARGE INSTRUCTIONS: Followup with primary care provider in 2 to 3 weeks. Also, followup with Dr. Dominguez and Dr. Beavers, the vascular surgeon and senior interactive developer as directed. Return to the emergency department if symptoms worsen. DISCHARGE MEDICATIONS: Continue taking: - aspirin 81 mg tablet at night - carvedilol 12.5 mg tablet - clopidogrel bisulfate 75 mg tablet - vitamin D - NovoLog 100 unit injection - Novolin 13 units subcutaneous daily - levothyroxine 88 mcg by mouth at night - levothyroxine 100 mcg - minoxidil 10 mcg tablets by mouth daily - multivitamin - nitroglycerin 0.4 mg sublingual New medication: - Novolin 1 mL dispense 45 units subcutaneous at night - torsemide 20 mg tablet Items for outpatient followup: Chronic kidney disease: Followup with nephrology. My faculty preceptor for this patient encounter was physically present during the encounter and was fully available. All aspects of the patient interview, examination, medical decision making process, and medical care plan development were reviewed and approved by the faculty preceptor. The faculty preceptor is aware and concurs with the plan as stated in the body of this note and will attest to such by his/her co-signature.
[2017-03-06] MEDS ORDERED: VITAMIN D 50,000 UNITS CAPSULE (ERGOCALCIFEROL 1.25MG) PO SCH (09:00)
--- NOTE | 2017-03-07 08:54 | REPIR ---
DATE OF PROCEDURE: 02/28/2017 ATTENDING SURGEON: Dr. Karine Dominguez AUXILIARY POWERPLANT OPERATOR: Noa Barakat PREOPERATIVE DIAGNOSIS: Chronic renal insufficiency nearing end-stage renal disease, left renal artery stenosis via ultrasound evaluation. POSTOPERATIVE DIAGNOSIS: Chronic renal insufficiency nearing end-stage renal disease, left renal artery stenosis via ultrasound evaluation. PROCEDURE: Selective left renal artery catheter placement with angiogram and pressure measurements, Selective right renal artery catheter placement with angiogram and pressure measurements, selective common femoral arterial cannulation, Mynx closure of the right femoral arteriotomy. INDICATION: Patient is a 51-year-old male with chronic renal insufficiency nearing end-stage renal disease who underwent an ultrasound which showed high grade stenosis of the left renal artery. The patient has had worsening renal function and the request was made to perform and angiogram with possible angioplasty and stent in order to flow and possibly reverse the worsening renal function. Risks, benefits, and alternative treatment options have been discussed with the patient. Alternative treatment options included, but were not limited to no intervention. Benefits included, but were not limited to treatment of the renal artery stenosis with possible improvement of renal function. Risks included, but were not limited to infection, bleeding, worsening renal failure requiring hemodialysis, possible need for further open surgical intervention, cerebrovascular accident, myocardial infarction, pulmonary embolism, deep venous thrombosis (DVT), loss of limb, loss of life, retroperitoneal hematoma and poor outcome. Patient's questions were answered. Patient voices understands of these risks, benefits, and alternative treatment options and excepts these risks and agrees to proceed. I discussed in detail with the patient that even he did have renal artery stenosis and it was treated that it may not resolve in improvement in his renal function and may actually result in worsening his need for hemodialysis. ANESTHESIA: Was local with sedation with 2 mg versed, 100 mcg of fentanyl and 10 mL of 2% lidocaine. SEDATION TIME: Was from 1705 to 1735 for a total of 30 minutes with the sedation and cardiopulmonary monitoring performed by the RN in the room under my direct supervision. I was present for and directed the entire case. FLUOROSCOPIC TIME: 2.1 minutes. CONTRAST: 1 mL. HEPARIN: None. COMPLICATIONS: None. DRAINS: None. SPECIMENS: None. IMPLANTS: Right femoral arteriotomy closed with Mynx closure devise. PROCEDURE: Patient was taken to the angiography suite, placed supine on the angiography room table and then prepped and draped in a standard surgical fashion. A time-out was performed confirming the correct patient, procedure, and laterality. The right common femoral artery was then cannulated with a micropuncture needle after anesthetizing the overlying skin with 2% lidocaine. The micropuncture wire was advanced through the micropuncture needle which was upsized to a micropuncture sheath. A Bentson wire was advanced through the micropuncture sheath which was upsized to a 5-Comor[place] sheath. The catheter was then used to selectively cannulate the left renal artery and the angiogram was performed showing no renal artery stenosis. Pressure measurements were obtained which showed the pressure in the left renal artery to be 169 over 69 with a mean of 104 while the catheter was then placed into the aorta and the aorta pressure was 159 over 70 with a mean of 104. The right renal artery was then selectively cannulated and angiogram performed showing no stenosis noted by angiogram and again pressure measurements were obtained in the right renal artery showing the right renal artery pressure to be 159 over 70 with a mean of 105. The catheter was again taken from the renal artery and placed in the aorta and the aortic pressure at that time was 160 over 70 with a mean of 106. Catheters and wires were removed and a Mynx closure devise was used to close the arteriotomy and the right femoral artery with an additional 10 minutes for adjunctive pressure applied for hemostasis. Dressings were then applied. Patient tolerated the procedure well. All instruments, sponge, and needle counts were correct at the end of the case. There were no complications. Dr. Dominguez was present for and directed the entire case. The patient was transferred to the holding area and then subsequently discharged to the floor in stable condition. RADIOLOGIC SUPERVISION INTERPRETATION: The right common femoral artery was cannulated and catheter was placed in the aort and then selectively placed within the left renal artery. Angiography showed no evidence of stenosis and pressure measurements showed no significant gradient across the origin of the left renal artery. The right renal artery was then selectively cannulated and angiogram performed showing no stenosis and again pressure measurements were obtained and the renal artery and the aorta showing no significant pressure gradient across the origin of the right renal artery. A Mynx closure devise was used to close the arteriotomy in the right common femoral artery.
== END 2017-03-02 11:52 | disposition home or self-care (01) | DRG 699 ==
LOC: M ED 17:15 → M ED INP 21:14 → M MSPAV 23:11
PROVIDERS: ADMIT Hospitalist; ATTEND Internal Medicine
PROC: B418YZZ Fluoroscopy of Bilateral Renal Arteries using Other Contrast (ICD-10-PCS; principal; 2017-02-28)
DX: I70.1 Atherosclerosis of renal artery (principal); N18.4 Chronic kidney disease, stage 4 (severe); E87.2 Acidosis; N17.9 Acute kidney failure, unspecified; K90.41 Non-celiac gluten sensitivity; E87.1 Hypo-osmolality and hyponatremia; I25.10 Atherosclerotic heart disease of native coronary artery without angina pectoris; I12.9 Hypertensive chronic kidney disease with stage 1 through stage 4 chronic kidney disease, or unspecified chronic kidney disease; E10.9 Type 1 diabetes mellitus without complications; Z79.82 Long term (current) use of aspirin; Z79.899 Other long term (current) drug therapy; Z79.4 Long term (current) use of insulin; I73.9 Peripheral vascular disease, unspecified; E78.5 Hyperlipidemia, unspecified; E03.9 Hypothyroidism, unspecified; K90.0 Celiac disease; Z88.8 Allergy status to other drugs, medicaments and biological substances; E10.319 Type 1 diabetes mellitus with unspecified diabetic retinopathy without macular edema; Z88.5 Allergy status to narcotic agent; J32.0 Chronic maxillary sinusitis; E87.70 Fluid overload, unspecified

== ENCOUNTER 2017-03-23 16:47 | Inpatient (IN) | payer MEDICARE, MEDICAID ==
[2017-03-23 17:13] LABS: ABG BASE EXCESS -7.3 (-2.0-2.0); ABG HCO3 16.9 MEQ/L (22.0-26.0); ABG O2 SATURATION 99.3 % (95.0-99.0); ABG PARTIAL PRESSURE CO2 29.7 mmHg (35.0-45.0); ABG STANDARD HCO3 18.5 MEQ/L (22.0-26.0); ABG TOTAL CO2 17.8 MEQ/L (22.0-29.0); ABG pH (ARTERIAL) 7.372 UNITS (7.350-7.450)
[2017-03-23 17:17] LABS: BASO % 0.3 % (0.0-1.0); EOS # 0.4 10^3/uL (0.0-0.50); EOS % 4.7 % (0.0-3.0); HEMATOCRIT 29.5 % (42.0-52.0); HEMOGLOBIN 9.9 g/dl (14.0-18.0); IMMATURE GRANULOCYTE % 0.4 % (0-0); LYMPH # 0.8 10^3/uL (1.5-4.5); LYMPH % 10.2 % (24.0-44.0); MEAN CORPUSCULAR HEMOGLOBIN 27.7 pg (27.0-33.0); MEAN CORPUSCULAR HGB CONC 33.6 g/dl (32.0-36.5); MEAN CORPUSCULAR VOLUME 82.6 fl (80.0-96.0); MONO # 0.6 10^3/uL (0.0-0.8); MONO % 7.9 % (0.0-5.0); NEUTROPHILS # 5.7 10^3/uL (1.8-7.7); NEUTROPHILS % 76.5 % (36.0-66.0); PLATELET COUNT, AUTOMATED 271 10^3/uL (150-450); RED BLOOD COUNT 3.57 10^6/uL (4.30-6.10); RED CELL DISTRIBUTION WIDTH 12.6 % (11.5-14.5); WHITE BLOOD COUNT 7.5 10^3/uL (4.0-10.0)
[2017-03-23] MEDS: IPRATROPIUM 0.5MG/ALBUTEROL 2.5MG INH SOL UD 3ML (DUONEB)(J7620) NEB (17:22)
[2017-03-23 17:28] LABS: INR 0.94; PROTHROMBIN TIME 12.6 SECONDS (12.4-14.5)
[2017-03-23 17:38] LABS: LACTIC ACID SEPSIS PROTOCOL 0.8 MMOL/L (0.4-2.0)
[2017-03-23 17:41] LABS: ALBUMIN 3.1 GM/DL (3.2-5.2); ALBUMIN/GLOBULIN RATIO 1.07 (1.00-1.93); ALKALINE PHOSPHATASE 266 U/L (45-117); ALT/SGPT 33 U/L (12-78); ANION GAP 10 MEQ/L (8-16); AST/SGOT 30 U/L (7-37); BILIRUBIN,DIRECT < 0.1 MG/DL (0.0-0.2); BILIRUBIN,TOTAL 0.3 MG/DL (0.2-1.0); BLOOD UREA NITROGEN 68 MG/DL (7-18); CALCIUM LEVEL 7.7 MG/DL (8.5-10.1); CARBON DIOXIDE LEVEL 21 MEQ/L (21-32); CHLORIDE LEVEL 107 MEQ/L (98-107); CPK CREATINE PHOSPHOKINASE 253 U/L (39-308); GLOMERULAR FILTRATION RATE 19.1 (>56); GLUCOSE, FASTING 223 MG/DL (70-105); MAGNESIUM LEVEL 2.1 MG/DL (1.8-2.4); PHOSPHORUS LEVEL 4.3 MG/DL (2.5-4.9); SODIUM LEVEL 138 MEQ/L (136-145); TROPONIN I < 0.02 NG/ML (< 0.10)
[2017-03-23 17:46] LABS: CK-MB VALUE MASS 2.3 NG/ML (0.0-3.6); NT-PRO BNP 2179 PG/ML (<125)
[2017-03-23] MEDS ORDERED: cefTRIAXone SOD 1 GM VIAL (J0696) As Ordered (18:06)
[2017-03-23] MEDS: CEFTRIAXONE SOD 1 GM in APPROPRIATE DILUENT 1 EA IV (18:13)
[2017-03-23] MEDS: ACETAMINOPHEN TAB 650MG DOSE (2X325MG) PO (18:35)
[2017-03-23] MEDS: AZITHROMYCIN INJ 500 MG, VIAL MATE ADAPTER 1 EACH in D5W 250 ML IV (18:45)
[2017-03-23] MEDS ORDERED: DEXTROSE 50% 50 ML SYRINGE IV (19:00)
[2017-03-23] MEDS ORDERED: GLUCOSE 4 GM CHEW TABLET PO (19:00)
[2017-03-23] MEDS ORDERED: GLUCAGON FOR INJ 1 MG VIAL (J1610) SC (19:00)
[2017-03-23] MEDS ORDERED: ONDANSETRON 4MG/2ML VIAL (J2405) IV (19:00)
[2017-03-23] MEDS ORDERED: IPRATROPIUM 0.5MG/ALBUTEROL 2.5MG INH SOL UD 3ML (DUONEB)(J7620) NEB (19:15)
[2017-03-23 19:37] LABS: BEDSIDE GLUCOSE 266 MG/DL (70-105)
[2017-03-23] MEDS: FUROSEMIDE 100 MG/10 ML VIAL (J1940) IV (19:40)
[2017-03-23] MEDS: HEPARIN SOD (PORCINE) 5000 UNITS/ML VIAL SC ×2 (21:49→21:59)
[2017-03-23] MEDS: ASPIRIN 81 MG ENTERIC TAB PO (21:49)
[2017-03-23] MEDS: LEVOTHYROXINE 88MCG TABLET (0.088 MG) PO (21:51)
[2017-03-23] MEDS: CARVedilol 12.5 MG TAB PO (21:51)
[2017-03-23] MEDS: LEVOTHYROXINE 100MCG TABLET (0.1MG) PO (21:51)
[2017-03-23] MEDS: LEVEMIR (INSULIN DETEMIR) 1 UNITS/0.01ML SC (21:53)
[2017-03-23] MEDS: HumaLOG INSULIN (NovoLOG) PER UNIT SC (21:57)
[2017-03-23] MEDS: SENOKOT S TAB PO (21:59)
[2017-03-23] MEDS: MINOXIDIL 10 MG TAB PO (22:16)
[2017-03-23 22:23] LABS: CK-MB VALUE MASS 1.2 NG/ML (0.0-3.6); CPK CREATINE PHOSPHOKINASE 221 U/L (39-308); MB/CK RELATIVE INDEX 0.54 (< OR =4); TROPONIN I < 0.02 NG/ML (< 0.10)
[2017-03-23 22:26] LABS: BEDSIDE GLUCOSE 412 MG/DL (70-105)
[2017-03-24 05:38] LABS: HEMATOCRIT 27.8 % (42.0-52.0); HEMOGLOBIN 9.3 g/dl (14.0-18.0); MEAN CORPUSCULAR HEMOGLOBIN 27.8 pg (27.0-33.0); MEAN CORPUSCULAR HGB CONC 33.5 g/dl (32.0-36.5); PLATELET COUNT, AUTOMATED 228 10^3/uL (150-450); RED BLOOD COUNT 3.35 10^6/uL (4.30-6.10); RED CELL DISTRIBUTION WIDTH 12.4 % (11.5-14.5)
[2017-03-24 06:00] LABS: ALBUMIN 2.7 GM/DL (3.2-5.2); ANION GAP 6 MEQ/L (8-16); BLOOD UREA NITROGEN 77 MG/DL (7-18); C REACTIVE PROTEIN QUANTITATIV 3.39 MG/DL (0.00-0.30); CALCIUM LEVEL 7.7 MG/DL (8.5-10.1); CARBON DIOXIDE LEVEL 24 MEQ/L (21-32); CHLORIDE LEVEL 109 MEQ/L (98-107); CREATININE FOR GFR 4.29 MG/DL (0.70-1.30); FREE THYROXINE INDEX 3.7 % (1.4-3.8); GLOMERULAR FILTRATION RATE 15.6 (>56); GLUCOSE, FASTING 183 MG/DL (70-105); MAGNESIUM LEVEL 2.2 MG/DL (1.8-2.4); PHOSPHORUS LEVEL 5.4 MG/DL (2.5-4.9); SODIUM LEVEL 139 MEQ/L (136-145); T UPTAKE 37 % (33-40)
[2017-03-24 07:52] LABS: ESTIMATED AVERAGE GLUCOSE 180 MG/DL (60-110); HEMOGLOBIN A1c 7.9 %
[2017-03-24] MEDS: IPRATROPIUM 0.5MG/ALBUTEROL 2.5MG INH SOL UD 3ML (DUONEB)(J7620) NEB ×3 (08:39→20:48)
[2017-03-24] MEDS: HEPARIN SOD (PORCINE) 5000 UNITS/ML VIAL SC ×2 (09:00→20:20)
[2017-03-24] MEDS: SENOKOT S TAB PO ×2 (09:00→20:20)
[2017-03-24] MEDS: LEVEMIR (INSULIN DETEMIR) 1 UNITS/0.01ML SC ×2 (09:08→20:19)
[2017-03-24] MEDS: HumaLOG INSULIN (NovoLOG) PER UNIT SC ×4 (09:08→20:19)
[2017-03-24] MEDS: MULTIVITAMINS/MINERALS THERAP 1 TAB PO (09:09)
[2017-03-24] MEDS: CLOPIDOGREL 75 MG TAB PO (09:09)
[2017-03-24] MEDS: MINOXIDIL 10 MG TAB PO ×2 (09:09→20:26)
[2017-03-24] MEDS: TORSEMIDE 20 MG TAB PO (09:09)
[2017-03-24] MEDS: CARVedilol 12.5 MG TAB PO ×2 (09:10→20:27)
[2017-03-24 11:16] LABS: CHOLESTEROL LEVEL 120 MG/DL (<200); FERRITIN 65 NG/ML (26-388); HDL CHOLESTEROL 25 MG/DL (>40); IRON (FE) 12 UG/DL (65-175); LDL CHOLESTEROL 65.8 MG/DL (<100); NON-HDL-C 95 MG/DL; PERCENT SATURATION 5.7 % (19.7-50.0); TOTAL IRON BINDING CAPACITY 211 UG/DL (250-450); TRIGLYCERIDES LEVEL 146 MG/DL (<150)
[2017-03-24 12:14] LABS: BEDSIDE GLUCOSE 188 MG/DL (70-105)
[2017-03-24] MEDS ORDERED: IRON SUCROSE 100MG 5ML VIAL (J1756 PER 1MG) IV (14:15)
[2017-03-24] MEDS: IRON SUCROSE 100 MG in NS 100 ML IV (15:39)
[2017-03-24] MEDS: CEFTRIAXONE SOD 1 GM in APPROPRIATE DILUENT 1 EA IV (17:47)
[2017-03-24 17:59] LABS: BEDSIDE GLUCOSE 158 MG/DL (70-105)
[2017-03-24] MEDS: ASPIRIN 81 MG ENTERIC TAB PO (20:20)
[2017-03-24] MEDS: AZITHROMYCIN INJ 500 MG, VIAL MATE ADAPTER 1 EACH in D5W 250 ML IV (20:21)
[2017-03-24] MEDS: LEVOTHYROXINE 100MCG TABLET (0.1MG) PO (20:26)
[2017-03-24] MEDS: LEVOTHYROXINE 88MCG TABLET (0.088 MG) PO (20:26)
[2017-03-24 21:20] LABS: BEDSIDE GLUCOSE 129 MG/DL (70-105)
[2017-03-25] MEDS: IPRATROPIUM 0.5MG/ALBUTEROL 2.5MG INH SOL UD 3ML (DUONEB)(J7620) NEB ×3 (02:00→13:49)
[2017-03-25 04:03] LABS: HEMATOCRIT 29.3 % (42.0-52.0); HEMOGLOBIN 9.8 g/dl (14.0-18.0); MEAN CORPUSCULAR HEMOGLOBIN 27.3 pg (27.0-33.0); MEAN CORPUSCULAR HGB CONC 33.4 g/dl (32.0-36.5); MEAN CORPUSCULAR VOLUME 81.6 fl (80.0-96.0); PLATELET COUNT, AUTOMATED 264 10^3/uL (150-450); RED BLOOD COUNT 3.59 10^6/uL (4.30-6.10); RED CELL DISTRIBUTION WIDTH 12.3 % (11.5-14.5); WHITE BLOOD COUNT 6.1 10^3/uL (4.0-10.0)
[2017-03-25 04:14] LABS: BEDSIDE GLUCOSE CONFIRMATION 44 MG/DL (LESS THAN 200)
[2017-03-25 04:19] LABS: ALBUMIN 2.8 GM/DL (3.2-5.2); ANION GAP 7 MEQ/L (8-16); BLOOD UREA NITROGEN 77 MG/DL (7-18); C REACTIVE PROTEIN QUANTITATIV 3.78 MG/DL (0.00-0.30); CALCIUM LEVEL 7.9 MG/DL (8.5-10.1); CARBON DIOXIDE LEVEL 23 MEQ/L (21-32); CHLORIDE LEVEL 111 MEQ/L (98-107); CREATININE FOR GFR 4.03 MG/DL (0.70-1.30); GLOMERULAR FILTRATION RATE 16.8 (>56); GLUCOSE, FASTING 44 MG/DL (70-105); MAGNESIUM LEVEL 2.2 MG/DL (1.8-2.4); PHOSPHORUS LEVEL 4.9 MG/DL (2.5-4.9); SODIUM LEVEL 141 MEQ/L (136-145)
[2017-03-25 04:24] LABS: BEDSIDE GLUCOSE 43 MG/DL (70-105)
[2017-03-25 04:24] LABS: BEDSIDE GLUCOSE 39 MG/DL (70-105)
[2017-03-25 04:24] LABS: BEDSIDE GLUCOSE 70 MG/DL (70-105)
[2017-03-25 04:24] LABS: BEDSIDE GLUCOSE 60 MG/DL (70-105)
[2017-03-25 06:56] LABS: BEDSIDE GLUCOSE 102 MG/DL (70-105)
[2017-03-25] MEDS: HumaLOG INSULIN (NovoLOG) PER UNIT SC ×2 (07:30→12:46)
[2017-03-25 08:31] LABS: PTH INTACT 118.8 PG/ML (14.0-72.0)
[2017-03-25 08:56] LABS: HEPATITIS B SURFACE ANTIBODY NEGATIVE (POSITIVE)
[2017-03-25] MEDS: SENOKOT S TAB PO (09:00)
[2017-03-25] MEDS: HEPARIN SOD (PORCINE) 5000 UNITS/ML VIAL SC (09:00)
[2017-03-25 09:02] LABS: HEPATITIS B SURFACE ANTIGEN NEGATIVE (NEGATIVE)
[2017-03-25] MEDS: MULTIVITAMINS/MINERALS THERAP 1 TAB PO (09:15)
[2017-03-25] MEDS: CLOPIDOGREL 75 MG TAB PO (09:16)
[2017-03-25] MEDS: CARVedilol 12.5 MG TAB PO (09:16)
[2017-03-25] MEDS: TORSEMIDE 20 MG TAB PO (09:18)
[2017-03-25] MEDS: MINOXIDIL 10 MG TAB PO (09:19)
[2017-03-25 09:28] LABS: HEPATITIS B CORE ANTIBODY IGM NEGATIVE (NEGATIVE); HEPATITIS C VIRUS ABY INDEX 0.1 INDEX (<0.8)
[2017-03-25] MEDS: LEVEMIR (INSULIN DETEMIR) 1 UNITS/0.01ML SC (09:28)
[2017-03-25 12:01] LABS: BEDSIDE GLUCOSE 329 MG/DL (70-105)
[2017-03-25] MEDS: IRON SUCROSE 100 MG in NS 100 ML IV (13:40)
[2017-03-26 08:10] LABS: HEPATITIS B CORE ANTIBODY IGG Negative (Negative)
[2017-03-26] MEDS ORDERED: FERROUS GLUCONATE 324 MG TAB PO (09:00)
[2017-03-27] MEDS ORDERED: VITAMIN D 50,000 UNITS CAPSULE (ERGOCALCIFEROL 1.25MG) PO (09:00)
== END 2017-03-25 17:25 | disposition home or self-care (01) | DRG 194 ==
LOC: M ED 16:47 → M ED INP 18:53 → M PCU 20:06
DX: J18.9 Pneumonia, unspecified organism (principal); N18.4 Chronic kidney disease, stage 4 (severe); N17.9 Acute kidney failure, unspecified; K90.41 Non-celiac gluten sensitivity; E10.9 Type 1 diabetes mellitus without complications; E87.70 Fluid overload, unspecified; E03.9 Hypothyroidism, unspecified; I25.10 Atherosclerotic heart disease of native coronary artery without angina pectoris; I73.9 Peripheral vascular disease, unspecified; I12.9 Hypertensive chronic kidney disease with stage 1 through stage 4 chronic kidney disease, or unspecified chronic kidney disease; K90.0 Celiac disease; E78.5 Hyperlipidemia, unspecified; Z79.4 Long term (current) use of insulin; Z79.899 Other long term (current) drug therapy; Z79.82 Long term (current) use of aspirin; Z88.5 Allergy status to narcotic agent; Z88.8 Allergy status to other drugs, medicaments and biological substances; D50.9 Iron deficiency anemia, unspecified

== ENCOUNTER → 2017-05-07 | Outpatient (CLI) | payer MEDICARE, MEDICAID ==
[2017-05-07 17:43] LABS: ALBUMIN 3.7 GM/DL (3.2-5.2); ANION GAP 7 MEQ/L (8-16); BLOOD UREA NITROGEN 84 MG/DL (7-18); CALCIUM LEVEL 8.8 MG/DL (8.5-10.1); CARBON DIOXIDE LEVEL 26 MEQ/L (21-32); CHLORIDE LEVEL 105 MEQ/L (98-107); CREATININE FOR GFR 3.94 MG/DL (0.70-1.30); GLOMERULAR FILTRATION RATE 17.2 (>56); GLUCOSE, FASTING 332 MG/DL (70-100); PHOSPHORUS LEVEL 4.2 MG/DL (2.5-4.9); POTASSIUM SERUM 5.1 MEQ/L (3.5-5.1); SODIUM LEVEL 138 MEQ/L (136-145)
== END ==
LOC: M SMT 11:14
DX: I50.32 Chronic diastolic (congestive) heart failure (principal)
CPT/HCPCS: 80069

== ENCOUNTER → 2017-05-13 | Outpatient (REF) | payer MEDICARE, MEDICAID | LOC: M LAB REF 15:57 | DX: N18.6 End stage renal disease (principal) | CPT/HCPCS: 87507 ==

== ENCOUNTER 2017-05-14 10:34 | Day surgery (SDC) | payer MEDICARE, MEDICAID ==
[2017-05-14] MEDS ORDERED: LIDOCAINE 1% SDV INJ 30 ML VIAL As Ordered (11:08)
[2017-05-14] MEDS ORDERED: BUPIVACAINE HCL 0.5% 30 ML VIAL As Ordered (11:08)
[2017-05-14] MEDS ORDERED: HEPARIN SOD (PORCINE) 5000 UNITS/ML VIAL As Ordered (11:08)
[2017-05-14] MEDS: D5W/0.2% SODIUM CHLORIDE 1,000 ML IV (11:10)
[2017-05-14 11:44] LABS: BEDSIDE GLUCOSE 139 MG/DL (70-105)
[2017-05-14] MEDS ORDERED: PROPOFOL 200 MG/20 ML VIAL As Ordered ×2 (11:46→12:33)
[2017-05-14] MEDS ORDERED: LIDOCAINE 2% INJ 100 MG/5 ML SDV (FOR ANES.) As Ordered (11:47)
[2017-05-14] MEDS ORDERED: MIDAZOLAM INJ 2 MG/2 ML VIAL (J2250) As Ordered (11:48)
[2017-05-14] MEDS ORDERED: fentaNYL 100 MCG/2 ML INJECTION (J3010) As Ordered (11:50)
[2017-05-14 11:53] LABS: POTASSIUM SERUM 4.9 MEQ/L (3.5-5.1)
== END 2017-05-14 14:30 | disposition home or self-care (01) ==
LOC: M SDC 10:34
DX: N18.5 Chronic kidney disease, stage 5 (principal); E03.9 Hypothyroidism, unspecified; I13.2 Hypertensive heart and chronic kidney disease with heart failure and with stage 5 chronic kidney disease, or end stage renal disease; I50.32 Chronic diastolic (congestive) heart failure; E78.5 Hyperlipidemia, unspecified; E10.22 Type 1 diabetes mellitus with diabetic chronic kidney disease; I25.10 Atherosclerotic heart disease of native coronary artery without angina pectoris; I25.2 Old myocardial infarction; R60.0 Localized edema; I73.9 Peripheral vascular disease, unspecified; D64.9 Anemia, unspecified; R51 Headache; R56.9 Unspecified convulsions; N40.0 Benign prostatic hyperplasia without lower urinary tract symptoms; Z88.5 Allergy status to narcotic agent; Z88.8 Allergy status to other drugs, medicaments and biological substances; Z91.018 Allergy to other foods; Z79.899 Other long term (current) drug therapy; Z79.82 Long term (current) use of aspirin; Z79.4 Long term (current) use of insulin; Z79.01 Long term (current) use of anticoagulants; Z87.19 Personal history of other diseases of the digestive system; Z96.1 Presence of intraocular lens
CPT/HCPCS: 36821

== ENCOUNTER 2017-06-29 15:09 | Emergency (ER) | payer MEDICARE, MEDICAID ==
[2017-06-29 16:30] LABS: BASO # 0.1 10^3/uL (0.0-0.2); BASO % 0.8 % (0.0-1.0); EOS # 0.5 10^3/uL (0.0-0.50); EOS % 3.3 % (0.0-3.0); HEMATOCRIT 30.3 % (42.0-52.0); HEMOGLOBIN 10.3 g/dl (13.5-17.5); IMMATURE GRANULOCYTE % 0.3 % (0-3.0); LYMPH # 0.8 10^3/uL (1.5-4.5); LYMPH % 5.7 % (24.0-44.0); MEAN CORPUSCULAR HEMOGLOBIN 27.8 pg (27.0-33.0); MEAN CORPUSCULAR VOLUME 81.9 fl (80.0-96.0); MONO # 0.7 10^3/uL (0.0-0.8); MONO % 5.1 % (0.0-5.0); NEUTROPHILS # 11.8 10^3/uL (1.8-7.7); NEUTROPHILS % 84.8 % (36.0-66.0); PLATELET COUNT, AUTOMATED 269 10^3/uL (150-450); RED CELL DISTRIBUTION WIDTH 14.3 % (11.5-14.5); WHITE BLOOD COUNT 13.9 10^3/uL (4.0-10.0)
[2017-06-29 16:44] LABS: VENOUS HCO3 29.6 MEQ/L (23.0-27.0); VENOUS O2 SATURATION 83.2 % (60.0-80.0); VENOUS PARTIAL PRESSURE CO2 55.2 mmHg (38.0-50.0); VENOUS PARTIAL PRESSURE O2 50.5 mmHg (30.0-50.0); VENOUS PH 7.347 UNITS (7.330-7.430); VENOUS STANDARD HCO3 26.9 MEQ/L; VENOUS TOTAL CO2 31.3 MEQ/L (24.0-28.0)
[2017-06-29 16:47] LABS: ANION GAP 5 MEQ/L (8-16); BLOOD UREA NITROGEN 78 MG/DL (7-18); CALCIUM LEVEL 8.6 MG/DL (8.5-10.1); CARBON DIOXIDE LEVEL 30 MEQ/L (21-32); CHLORIDE LEVEL 105 MEQ/L (98-107); CREATININE FOR GFR 4.33 MG/DL (0.70-1.30); GLOMERULAR FILTRATION RATE 15.5 (>56); GLUCOSE, FASTING 174 MG/DL (70-100); LIPASE 143 U/L (73-393); SODIUM LEVEL 140 MEQ/L (136-145)
[2017-06-29 16:51] LABS: ETHYL ALCOHOL (ETHANOL) < 0.003 % (0.000-0.010)
[2017-06-29 17:02] LABS: ESTIMATED AVERAGE GLUCOSE 157 MG/DL (60-110); HEMOGLOBIN A1c 7.1 %
[2017-06-29 17:30] LABS: BEDSIDE GLUCOSE 94 MG/DL (70-105)
[2017-06-29 19:14] LABS: BEDSIDE GLUCOSE 167 MG/DL (70-105)
== END 2017-06-29 18:17 | disposition home or self-care (01) ==
LOC: M ED 15:09
DX: B34.9 Viral infection, unspecified (principal); E11.649 Type 2 diabetes mellitus with hypoglycemia without coma; I10 Essential (primary) hypertension; Z95.1 Presence of aortocoronary bypass graft; Z79.82 Long term (current) use of aspirin; Z79.4 Long term (current) use of insulin; Z79.899 Other long term (current) drug therapy; Z88.8 Allergy status to other drugs, medicaments and biological substances; Z88.5 Allergy status to narcotic agent; Z91.018 Allergy to other foods
CPT/HCPCS: G0480

== ENCOUNTER → 2017-08-02 | Outpatient (CLI) | payer MEDICARE, MEDICAID ==
[~2017-08-02] MED LIST changes: -/MOXI40TA PO; -/SODI15SS PO; -AMLO5TAB2 PO; -ASPI81TA83 PO; -ASPI81TA85 PO; -CARV12.5 PO; -CENTTAB16 PO; -CHLO25TA PO; -CLOP75TA2 PO; -CORE12.5 PO; -CORE25TA PO; -FLAG500T PO; -HYDR-3910 PO; -HYDR-3911 PO; -INSUH10VL SC; -INSUN SC; -INSUNSD SC; +ISOVUE-300 61% 50ML VIAL (Q9967) As Ordered; -KAYE1POW5 PO; -KAYEPOW; -LASI80TA PO; -LEVA1TAB2 PO; -LEVO175T2 PO; -LIPI20TA PO; -LIPI80TA PO; -LOSA25TA8 PO; +MIDAZOLAM INJ 2 MG/2 ML VIAL (J2250) As Ordered; -MINO2.5T PO; -MULTTAB50 PO; -MVI PO; -NEXI40GR PO; -NIAS1TAB PO; -NIASPAN PO; -NITR0.4D6 SL; -NITR0.4D6 TD; -NITR0.4S14 SL; -NOVOLIN; -NOVOLIN N; -NPH INSULIN; -PLAV1TAB2 PO; -RANI150C; -SYNT100T PO; -SYNT175T PO; -SYNT88TA2 PO; -TERA10CA3 PO; -TERA2CAP3 PO; -THERGRAN; -TORS20TA2 PO; -TRIC145T19 PO; -TRIC145T22 PO; -TYLE325T5 PO; -VITA1CAP40 PO; -VITA500046 PO; -VITAMIN D50000 UNT PO; -VITMTA PO; -ZANTTAB9 PO; -[UNRECOGNIZED DRUG - CODE] PO; -[UNRECOGNIZED DRUG - OTHER]; -[UNRECOGNIZED DRUG - OTHER] SC; +fentaNYL 100 MCG/2 ML INJECTION (J3010) As Ordered
== END | disposition home or self-care (01) ==
LOC: M IRPRO 07:46
DX: T82.590A Other mechanical complication of surgically created arteriovenous fistula, initial encounter (principal); I82.611 Acute embolism and thrombosis of superficial veins of right upper extremity; N18.9 Chronic kidney disease, unspecified
CPT/HCPCS: 36901

== ENCOUNTER 2017-08-13 11:39 | Day surgery (SDC) | payer MEDICARE, MEDICAID ==
[2017-08-13 12:35] LABS: POTASSIUM SERUM 5.1 MEQ/L (3.5-5.1)
[2017-08-13 12:37] LABS: BEDSIDE GLUCOSE 132 MG/DL (70-105)
[2017-08-13] MEDS ORDERED: MIDAZOLAM INJ 2 MG/2 ML VIAL (J2250) As Ordered (12:59)
[2017-08-13] MEDS ORDERED: fentaNYL 100 MCG/2 ML INJECTION (J3010) As Ordered (12:59)
[2017-08-13] MEDS ORDERED: ROCURONIUM BROMIDE 50 MG/5 ML VIAL As Ordered (13:00)
[2017-08-13] MEDS ORDERED: ONDANSETRON 4MG/2ML VIAL (J2405) As Ordered (13:01)
[2017-08-13] MEDS ORDERED: dexameTHASONE 4 MG/ML 1ML VIAL (J1100) As Ordered (13:01)
[2017-08-13] MEDS ORDERED: PROPOFOL 200 MG/20 ML VIAL As Ordered (13:01)
[2017-08-13] MEDS ORDERED: LIDOCAINE 2% INJ 100 MG/5 ML SDV (FOR ANES.) As Ordered (13:01)
[2017-08-13] MEDS: HEPARIN SOD (PORCINE) 5000 UNITS/ML VIAL As Ordered (13:19)
[2017-08-13] MEDS: LIDOCAINE 1% SDV INJ 30 ML VIAL As Ordered (13:53)
[2017-08-13] MEDS: BUPIVACAINE HCL 0.5% 30 ML VIAL As Ordered (13:53)
[2017-08-13] MEDS ORDERED: SUGAMMADEX SODIUM 500 MG/5 ML VIAL (BRIDION) As Ordered (13:59)
[2017-08-13 14:40] LABS: BEDSIDE GLUCOSE 137 MG/DL (70-105)
[2017-08-13] MEDS ORDERED: NS 1,000 ML IV (14:45)
[2017-08-13] MEDS ORDERED: ONDANSETRON 4MG/2ML VIAL (J2405) IV (14:45)
[2017-08-13] MEDS: NORCO, ANEXSIA 5/325MG TABLET (HYDROcodone/ACETAMINOPHEN) PO ×2 (14:50→15:33)
[2017-08-13] MEDS: fentaNYL 100 MCG/2 ML INJECTION (J3010) IV ×4 (15:05→15:25)
== END 2017-08-13 17:44 | disposition home or self-care (01) ==
LOC: M SDC 11:39
DX: N18.6 End stage renal disease (principal); T82.590S Other mechanical complication of surgically created arteriovenous fistula, sequela; E10.9 Type 1 diabetes mellitus without complications; Z79.4 Long term (current) use of insulin; Z79.82 Long term (current) use of aspirin; Z79.02 Long term (current) use of antithrombotics/antiplatelets; Z88.8 Allergy status to other drugs, medicaments and biological substances; E03.9 Hypothyroidism, unspecified; N40.0 Benign prostatic hyperplasia without lower urinary tract symptoms; Z79.899 Other long term (current) drug therapy; D64.9 Anemia, unspecified; Z95.1 Presence of aortocoronary bypass graft
CPT/HCPCS: 49324

== ENCOUNTER → 2017-08-22 | Outpatient (REF) | payer MEDICARE, MEDICAID ==
[2017-08-23 13:43] LABS: HEPATITIS B SURFACE ANTIBODY NEGATIVE (POSITIVE)
[2017-08-23 13:53] LABS: CHOLESTEROL LEVEL 110 MG/DL (<200); CHOLESTEROL RISK RATIO 3.666 (<5); HDL CHOLESTEROL 30 MG/DL (>40); HEPATITIS B SURFACE ANTIGEN NEGATIVE (NEGATIVE); LDL CHOLESTEROL 54.4 MG/DL (<100); NON-HDL-C 80 MG/DL; TRIGLYCERIDES LEVEL 128 MG/DL (<150)
[2017-08-23 14:19] LABS: ESTIMATED AVERAGE GLUCOSE 169 MG/DL (60-110); HEMOGLOBIN A1c 7.5 %
[2017-08-23 14:22] LABS: HEPATITIS B CORE ANTIBODY IGM NEGATIVE (NEGATIVE)
== END ==
LOC: M LAB REF 13:14
DX: N18.5 Chronic kidney disease, stage 5 (principal); E10.22 Type 1 diabetes mellitus with diabetic chronic kidney disease; I15.0 Renovascular hypertension

== ENCOUNTER 2017-08-23 07:15 | Inpatient (IN) | payer MEDICARE, MEDICAID ==
[2017-08-23 08:00] LABS: BASO % 0.3 % (0.0-1.0); EOS # 0.2 10^3/uL (0.0-0.50); EOS % 1.5 % (0.0-3.0); HEMATOCRIT 30.8 % (42.0-52.0); HEMOGLOBIN 10.6 g/dl (13.5-17.5); IMMATURE GRANULOCYTE % 0.3 % (0-3.0); LYMPH # 0.8 10^3/uL (1.5-4.5); LYMPH % 8.4 % (24.0-44.0); MEAN CORPUSCULAR HEMOGLOBIN 28.6 pg (27.0-33.0); MEAN CORPUSCULAR HGB CONC 34.4 g/dl (32.0-36.5); MONO # 0.6 10^3/uL (0.0-0.8); NEUTROPHILS # 8.2 10^3/uL (1.8-7.7); NEUTROPHILS % 83.5 % (36.0-66.0); PLATELET COUNT, AUTOMATED 263 10^3/uL (150-450); RED BLOOD COUNT 3.71 10^6/uL (4.30-6.10); RED CELL DISTRIBUTION WIDTH 13.1 % (11.5-14.5); WHITE BLOOD COUNT 9.9 10^3/uL (4.0-10.0)
[2017-08-23] MEDS: ACETAMINOPHEN 325 MG TAB PO (08:04)
[2017-08-23] MEDS: ONDANSETRON 4MG/2ML VIAL (J2405) IV ×2 (08:05→08:41)
[2017-08-23] MEDS: MORPHINE 2 MG/ML 1ML SYRINGE (J2270) IV (08:06)
[2017-08-23] MEDS: PIPERACILLIN/TAZOBACTAM SOD 3.375 GM in D5W MINI-BAG PLUS 50 ML IV (08:13)
[2017-08-23 08:20] LABS: LACTIC ACID SEPSIS PROTOCOL 0.7 MMOL/L (0.4-2.0)
[2017-08-23 08:22] LABS: ALBUMIN 4.1 GM/DL (3.2-5.2); ALBUMIN/GLOBULIN RATIO 1.05 (1.00-1.93); ALKALINE PHOSPHATASE 297 U/L (45-117); ALT/SGPT 60 U/L (12-78); AMYLASE 59 U/L (25-115); ANION GAP 11 MEQ/L (8-16); AST/SGOT 39 U/L (7-37); BILIRUBIN,DIRECT 0.2 MG/DL (0.0-0.2); BILIRUBIN,TOTAL 0.7 MG/DL (0.2-1.0); BLOOD UREA NITROGEN 96 MG/DL (7-18); CALCIUM LEVEL 9.2 MG/DL (8.5-10.1); CARBON DIOXIDE LEVEL 24 MEQ/L (21-32); CHLORIDE LEVEL 103 MEQ/L (98-107); CPK CREATINE PHOSPHOKINASE 135 U/L (39-308); CREATININE FOR GFR 4.69 MG/DL (0.70-1.30); GLUCOSE, FASTING 159 MG/DL (70-100); INR 0.83; LIPASE 146 U/L (73-393); POTASSIUM SERUM 4.2 MEQ/L (3.5-5.1); PROTHROMBIN TIME 11.4 SECONDS (12.4-14.5); SODIUM LEVEL 138 MEQ/L (136-145); TROPONIN I 0.02 NG/ML (< 0.10)
[2017-08-23 08:23] LABS: CK-MB VALUE MASS 1.5 NG/ML (<3.6); MB/CK RELATIVE INDEX 1.11 (< OR =4)
[2017-08-23] MEDS: MINOXIDIL 10 MG TAB PO ×2 (09:00→21:47)
[2017-08-23] MEDS: FEBUXOSTAT 40 MG TABLET (ULORIC) PO (09:00)
[2017-08-23] MEDS: NS 1,000 ML IV (09:10)
[2017-08-23 09:26] LABS: KETONE, URINE AUTO RFX TRACE mg/dL (NEGATIVE); LEUKOCYTE ESTERASE UR AUTO RFX NEGATIVE (NEGATIVE); NITRITE, URINE AUTO RFX NEGATIVE (NEGATIVE); RBC, URINE AUTO RFX 3 /HPF (0-3); SPECIFIC GRAVITY UR AUTO RFX 1.008 (1.002-1.035); SQUAM EPITHELIAL CELL UR AURFX 0 /HPF (0-6); WBC, URINE AUTO RFX 1 /HPF (0-3)
[2017-08-23 10:38] LABS: C REACTIVE PROTEIN QUANTITATIV 0.48 MG/DL (0.00-0.30)
[2017-08-23] MEDS ORDERED: NS 1,000 ML IV (10:50)
[2017-08-23 11:02] LABS: ERYTHROCYTE SEDIMENTATION RATE 56 mm/hr (0-20)
[2017-08-23] MEDS: VANCOMYCIN 1000 MG/20 ML VIAL (J3370) IP (12:34)
[2017-08-23] MEDS: GENTAMICIN SULF INJ 80MG/2ML VIAL (J1580) IP (12:35)
[2017-08-23 12:41] LABS: BF MONONUCLEAR CELL % 8.6 % (0-0); BF POLYMORPHONUCLEAR CELL % 91.4 % (0-0); RBC BODY FLUID 16 10^3/uL (<2)
[2017-08-23 12:48] LABS: APPEARANCE, BODY FLUID CLOUDY (CLEAR); PERITONEAL DIALYSATE FL COLOR RED (COLORLESS); SOURCE, BODY FLUID PERITONEAL DIALYSATE
[2017-08-23 12:49] LABS: BF DIFF IF INDICATED? YES (NO); WBC BODY FLUID 26165 /uL (0-10)
[2017-08-23] MEDS ORDERED: VANCOMYCIN 1000 MG/20 ML VIAL (J3370) IP (13:00)
[2017-08-23] MEDS ORDERED: DEXTROSE 50% 50 ML SYRINGE IV (13:15)
[2017-08-23] MEDS ORDERED: GLUCAGON FOR INJ 1 MG VIAL (J1610) SC (13:15)
[2017-08-23] MEDS ORDERED: GLUCOSE 4 GM CHEW TABLET PO (13:15)
[2017-08-23] MEDS ORDERED: MORPHINE 4 MG/ML 1ML VIAL/SYRINGE (J2270) IV (13:30)
[2017-08-23] MEDS: metroNIDAZOLE 500 MG in APPROPRIATE DILUENT 1 EA IV ×2 (13:46→21:48)
[2017-08-23] MEDS ORDERED: MINOXIDIL 10 MG TAB PO (14:00)
[2017-08-23] MEDS: CLOPIDOGREL 75 MG TAB PO (14:00)
[2017-08-23] MEDS ORDERED: FEBUXOSTAT 40 MG TABLET (ULORIC) PO (14:00)
[2017-08-23] MEDS: cloNIDine 0.1 MG TAB PO ×2 (14:21→21:54)
[2017-08-23] MEDS: CARVedilol 12.5 MG TAB PO ×2 (14:21→21:54)
[2017-08-23] MEDS: ACETAMINOPHEN TAB 650MG DOSE (2X325MG) PO (14:22)
[2017-08-23] MEDS ORDERED: HYDROMORPHONE HCL 0.5 MG/ 0.5 ML SYRINGE (J1170 PER 1) IV (14:30)
[2017-08-23] MEDS: HYDROMORPHONE HCL 0.5 MG/ 0.5 ML SYRINGE (J1170 PER 1) IV (14:53)
[2017-08-23] MEDS: PIPERACILLIN/TAZOBACTAM SOD 2.25 GM in D5W MINI-BAG PLUS 50 ML IV ×2 (14:57→22:54)
[2017-08-23 17:40] LABS: BEDSIDE GLUCOSE 388 MG/DL (70-105)
[2017-08-23] MEDS: HumaLOG INSULIN (NovoLOG) PER UNIT SC ×2 (18:11→23:44)
[2017-08-23] MEDS: LEVOTHYROXINE 75MCG TABLET (0.075MG) PO (21:47)
[2017-08-23] MEDS: LEVOTHYROXINE 100MCG TABLET (0.1MG) PO (21:47)
[2017-08-23] MEDS: ASPIRIN 81 MG ENTERIC TAB PO (21:48)
[2017-08-23] MEDS: SLF 3 ML SYR IV (21:55)
[2017-08-23 22:01] LABS: BEDSIDE GLUCOSE 295 MG/DL (70-105)
[2017-08-23] MEDS: HumuLIN N INSULIN (NovoLIN N) PER UNIT SC (22:01)
[2017-08-23 23:42] LABS: BEDSIDE GLUCOSE 347 MG/DL (70-105)
[2017-08-24] MEDS: metroNIDAZOLE 500 MG in APPROPRIATE DILUENT 1 EA IV ×3 (04:25→21:35)
[2017-08-24] MEDS: PIPERACILLIN/TAZOBACTAM SOD 2.25 GM in D5W MINI-BAG PLUS 50 ML IV ×3 (05:29→22:41)
[2017-08-24] MEDS: SLF 3 ML SYR IV ×3 (05:29→21:36)
[2017-08-24 05:35] LABS: BEDSIDE GLUCOSE 263 MG/DL (70-105)
[2017-08-24] MEDS: HumaLOG INSULIN (NovoLOG) PER UNIT SC ×4 (05:35→21:35)
[2017-08-24 05:53] LABS: HEMATOCRIT 25.4 % (42.0-52.0); HEMOGLOBIN 8.7 g/dl (13.5-17.5); MEAN CORPUSCULAR HEMOGLOBIN 28.5 pg (27.0-33.0); MEAN CORPUSCULAR HGB CONC 34.3 g/dl (32.0-36.5); MEAN CORPUSCULAR VOLUME 83.3 fl (80.0-96.0); PLATELET COUNT, AUTOMATED 222 10^3/uL (150-450); RED BLOOD COUNT 3.05 10^6/uL (4.30-6.10); RED CELL DISTRIBUTION WIDTH 13.2 % (11.5-14.5); WHITE BLOOD COUNT 8.6 10^3/uL (4.0-10.0)
[2017-08-24] MEDS ORDERED: LEVOTHYROXINE 150MCG TABLET (0.15MG) PO (06:00)
[2017-08-24 06:07] LABS: ANION GAP 10 MEQ/L (8-16); BLOOD UREA NITROGEN 103 MG/DL (7-18); CALCIUM LEVEL 8.3 MG/DL (8.5-10.1); CARBON DIOXIDE LEVEL 24 MEQ/L (21-32); CHLORIDE LEVEL 103 MEQ/L (98-107); CREATININE FOR GFR 5.64 MG/DL (0.70-1.30); GLOMERULAR FILTRATION RATE 11.3 (>56); GLUCOSE, FASTING 245 MG/DL (70-100); MAGNESIUM LEVEL 2.1 MG/DL (1.8-2.4); POTASSIUM SERUM 4.4 MEQ/L (3.5-5.1); SODIUM LEVEL 137 MEQ/L (136-145)
[2017-08-24] MEDS: FEBUXOSTAT 40 MG TABLET (ULORIC) PO (08:50)
[2017-08-24] MEDS: CLOPIDOGREL 75 MG TAB PO (08:50)
[2017-08-24] MEDS: MINOXIDIL 10 MG TAB PO ×2 (08:50→21:35)
[2017-08-24] MEDS: cloNIDine 0.1 MG TAB PO ×2 (08:51→21:36)
[2017-08-24] MEDS: CARVedilol 12.5 MG TAB PO ×2 (08:52→21:36)
[2017-08-24 12:13] LABS: BEDSIDE GLUCOSE 171 MG/DL (70-105)
[2017-08-24 17:32] LABS: BEDSIDE GLUCOSE 342 MG/DL (70-105)
[2017-08-24 21:31] LABS: BEDSIDE GLUCOSE 412 MG/DL (70-105)
[2017-08-24] MEDS: HumuLIN N INSULIN (NovoLIN N) PER UNIT SC (21:34)
[2017-08-24] MEDS: LEVOTHYROXINE 100MCG TABLET (0.1MG) PO (21:35)
[2017-08-24] MEDS: ASPIRIN 81 MG ENTERIC TAB PO (21:35)
[2017-08-24] MEDS: LEVOTHYROXINE 75MCG TABLET (0.075MG) PO (21:36)
[2017-08-24 23:39] LABS: BF MONONUCLEAR CELL % 19.4 % (0-0); BF POLYMORPHONUCLEAR CELL % 80.6 % (0-0)
[2017-08-24 23:40] LABS: RBC BODY FLUID 6 10^3/uL (<2); WBC BODY FLUID 10138 /uL (0-10)
[2017-08-24 23:41] LABS: BF DIFF IF INDICATED? YES (NO)
[2017-08-24 23:47] LABS: APPEARANCE, BODY FLUID CLOUDY (CLEAR); PERITONEAL DIALYSATE FL COLOR PALE YELLOW (COLORLESS); SOURCE, BODY FLUID PERITONEAL DIALYSATE
[2017-08-25] MEDS: metroNIDAZOLE 500 MG in APPROPRIATE DILUENT 1 EA IV ×2 (04:36→12:15)
[2017-08-25 04:40] LABS: HEMATOCRIT 24.7 % (42.0-52.0); HEMOGLOBIN 8.4 g/dl (13.5-17.5); MEAN CORPUSCULAR HEMOGLOBIN 28.1 pg (27.0-33.0); MEAN CORPUSCULAR VOLUME 82.6 fl (80.0-96.0); PLATELET COUNT, AUTOMATED 231 10^3/uL (150-450); RED BLOOD COUNT 2.99 10^6/uL (4.30-6.10); WHITE BLOOD COUNT 6.6 10^3/uL (4.0-10.0)
[2017-08-25 04:52] LABS: ANION GAP 7 MEQ/L (8-16); BLOOD UREA NITROGEN 107 MG/DL (7-18); CALCIUM LEVEL 8.3 MG/DL (8.5-10.1); CARBON DIOXIDE LEVEL 26 MEQ/L (21-32); CHLORIDE LEVEL 103 MEQ/L (98-107); CREATININE FOR GFR 5.96 MG/DL (0.70-1.30); GLOMERULAR FILTRATION RATE 10.6 (>56); GLUCOSE, FASTING 273 MG/DL (70-100); MAGNESIUM LEVEL 2.3 MG/DL (1.8-2.4); POTASSIUM SERUM 4.2 MEQ/L (3.5-5.1); SODIUM LEVEL 136 MEQ/L (136-145)
[2017-08-25] MEDS: PIPERACILLIN/TAZOBACTAM SOD 2.25 GM in D5W MINI-BAG PLUS 50 ML IV (05:56)
[2017-08-25] MEDS: SLF 3 ML SYR IV ×3 (05:56→21:20)
[2017-08-25] MEDS: HumaLOG INSULIN (NovoLOG) PER UNIT SC ×4 (08:05→21:18)
[2017-08-25] MEDS: LEVEMIR (INSULIN DETEMIR) 1 UNITS/0.01ML SC ×2 (08:05→21:18)
[2017-08-25] MEDS: CLOPIDOGREL 75 MG TAB PO (08:06)
[2017-08-25] MEDS: MINOXIDIL 10 MG TAB PO ×2 (08:06→21:18)
[2017-08-25] MEDS: FEBUXOSTAT 40 MG TABLET (ULORIC) PO (08:06)
[2017-08-25] MEDS: CARVedilol 12.5 MG TAB PO ×2 (08:07→21:19)
[2017-08-25] MEDS: cloNIDine 0.1 MG TAB PO ×2 (08:07→21:19)
[2017-08-25 11:50] LABS: BEDSIDE GLUCOSE 192 MG/DL (70-105)
[2017-08-25 15:57] LABS: FERRITIN 124 NG/ML (26-388); IRON (FE) 30 UG/DL (65-175); PERCENT SATURATION 13.6 % (19.7-50.0); TOTAL IRON BINDING CAPACITY 220 UG/DL (250-450)
[2017-08-25] MEDS ORDERED: GENTAMICIN SULF INJ 80MG/2ML VIAL (J1580) IP (16:00)
[2017-08-25 17:07] LABS: BEDSIDE GLUCOSE 128 MG/DL (70-105)
[2017-08-25] MEDS: GENTAMICIN SULF INJ 80MG/2ML VIAL (J1580) IP (17:28)
[2017-08-25 21:10] LABS: BEDSIDE GLUCOSE 265 MG/DL (70-105)
[2017-08-25] MEDS: LEVOTHYROXINE 100MCG TABLET (0.1MG) PO (21:18)
[2017-08-25] MEDS: LEVOTHYROXINE 75MCG TABLET (0.075MG) PO (21:18)
[2017-08-25] MEDS: ASPIRIN 81 MG ENTERIC TAB PO (21:19)
[2017-08-26 05:41] LABS: HEMATOCRIT 23.8 % (42.0-52.0); HEMOGLOBIN 8.1 g/dl (13.5-17.5); MEAN CORPUSCULAR HEMOGLOBIN 28.1 pg (27.0-33.0); MEAN CORPUSCULAR VOLUME 82.6 fl (80.0-96.0); PLATELET COUNT, AUTOMATED 231 10^3/uL (150-450); RED BLOOD COUNT 2.88 10^6/uL (4.30-6.10); RED CELL DISTRIBUTION WIDTH 13.1 % (11.5-14.5); WHITE BLOOD COUNT 4.7 10^3/uL (4.0-10.0)
[2017-08-26 05:55] LABS: ANION GAP 7 MEQ/L (8-16); BLOOD UREA NITROGEN 97 MG/DL (7-18); CALCIUM LEVEL 8.3 MG/DL (8.5-10.1); CARBON DIOXIDE LEVEL 28 MEQ/L (21-32); CHLORIDE LEVEL 107 MEQ/L (98-107); CREATININE FOR GFR 5.42 MG/DL (0.70-1.30); GLOMERULAR FILTRATION RATE 11.9 (>56); GLUCOSE, FASTING 105 MG/DL (70-100); MAGNESIUM LEVEL 2.2 MG/DL (1.8-2.4); POTASSIUM SERUM 3.6 MEQ/L (3.5-5.1); SODIUM LEVEL 142 MEQ/L (136-145)
[2017-08-26] MEDS: SLF 3 ML SYR IV ×4 (06:00→21:38)
[2017-08-26] MEDS: HumaLOG INSULIN (NovoLOG) PER UNIT SC ×4 (07:30→21:00)
[2017-08-26] MEDS ORDERED: GENTAMICIN SULF INJ 80MG/2ML VIAL (J1580) IP (09:00)
[2017-08-26] MEDS: LEVEMIR (INSULIN DETEMIR) 1 UNITS/0.01ML SC ×2 (09:40→21:37)
[2017-08-26] MEDS: MINOXIDIL 10 MG TAB PO ×2 (09:41→21:52)
[2017-08-26] MEDS: CARVedilol 12.5 MG TAB PO ×2 (09:42→21:37)
[2017-08-26] MEDS: FEBUXOSTAT 40 MG TABLET (ULORIC) PO (09:42)
[2017-08-26] MEDS: cloNIDine 0.1 MG TAB PO ×2 (09:42→21:36)
[2017-08-26] MEDS: LevoFLOXacin IV 250 MG in APPROPRIATE DILUENT 1 EA IV (09:43)
[2017-08-26] MEDS: CLOPIDOGREL 75 MG TAB PO (09:43)
[2017-08-26] MEDS: HEPARIN SOD (PORCINE) 5000 UNITS/ML VIAL PD ×2 (10:28→12:01)
[2017-08-26 11:53] LABS: BEDSIDE GLUCOSE 211 MG/DL (70-105)
[2017-08-26 13:03] LABS: BF MONONUCLEAR CELL % 38.7 % (0-0); BF POLYMORPHONUCLEAR CELL % 61.3 % (0-0); RBC BODY FLUID < 2 10^3/uL (<2); WBC BODY FLUID 3105 /uL (0-10)
[2017-08-26 13:04] LABS: APPEARANCE, BODY FLUID HAZY (CLEAR); PERITONEAL DIALYSATE FL COLOR PALE YELLOW (COLORLESS); SOURCE, BODY FLUID PERITONEAL DIALYSATE
[2017-08-26 13:05] LABS: BF DIFF IF INDICATED? YES (NO)
[2017-08-26 16:22] LABS: HEMATOCRIT 27.9 % (42.0-52.0); HEMOGLOBIN 9.7 g/dl (13.5-17.5)
[2017-08-26 17:05] LABS: BEDSIDE GLUCOSE 183 MG/DL (70-105)
[2017-08-26] MEDS: GENTAMICIN SULF INJ 80MG/2ML VIAL (J1580) IP (17:41)
[2017-08-26] MEDS ORDERED: IRON SUCROSE 100MG 5ML VIAL (J1756 PER 1MG) IV (19:00)
[2017-08-26 20:59] LABS: BEDSIDE GLUCOSE 176 MG/DL (70-105)
[2017-08-26] MEDS: ASPIRIN 81 MG ENTERIC TAB PO (21:36)
[2017-08-26] MEDS: LEVOTHYROXINE 100MCG TABLET (0.1MG) PO (21:36)
[2017-08-26] MEDS: LEVOTHYROXINE 75MCG TABLET (0.075MG) PO (21:36)
[2017-08-26] MEDS: IRON SUCROSE 25 MG in NS 50 ML IV (22:13)
[2017-08-26] MEDS: IRON SUCROSE 375 MG in NS 250 ML IV (23:39)
[2017-08-27 06:01] LABS: BEDSIDE GLUCOSE 62 MG/DL (70-105)
[2017-08-27 06:17] LABS: HEMATOCRIT 27.2 % (42.0-52.0); HEMOGLOBIN 9.3 g/dl (13.5-17.5); MEAN CORPUSCULAR HEMOGLOBIN 28.3 pg (27.0-33.0); MEAN CORPUSCULAR HGB CONC 34.2 g/dl (32.0-36.5); MEAN CORPUSCULAR VOLUME 82.7 fl (80.0-96.0); PLATELET COUNT, AUTOMATED 257 10^3/uL (150-450); RED BLOOD COUNT 3.29 10^6/uL (4.30-6.10); WHITE BLOOD COUNT 4.6 10^3/uL (4.0-10.0)
[2017-08-27 06:36] LABS: ANION GAP 5 MEQ/L (8-16); BLOOD UREA NITROGEN 84 MG/DL (7-18); CALCIUM LEVEL 8.4 MG/DL (8.5-10.1); CARBON DIOXIDE LEVEL 28 MEQ/L (21-32); CHLORIDE LEVEL 108 MEQ/L (98-107); CREATININE FOR GFR 4.38 MG/DL (0.70-1.30); GLOMERULAR FILTRATION RATE 15.2 (>56); GLUCOSE, FASTING 66 MG/DL (70-100); MAGNESIUM LEVEL 2.2 MG/DL (1.8-2.4); POTASSIUM SERUM 4.3 MEQ/L (3.5-5.1); SODIUM LEVEL 141 MEQ/L (136-145)
[2017-08-27] MEDS: SLF 3 ML SYR IV ×3 (06:50→20:41)
[2017-08-27 07:25] LABS: BF MONONUCLEAR CELL % 69.9 % (0-0); BF POLYMORPHONUCLEAR CELL % 30.1 % (0-0); RBC BODY FLUID < 2 10^3/uL (<2); SOURCE, BODY FLUID PERITONEAL DIALYSATE; WBC BODY FLUID 1100 /uL (0-10)
[2017-08-27 07:26] LABS: APPEARANCE, BODY FLUID HAZY (CLEAR); PERITONEAL DIALYSATE FL COLOR PALE YELLOW (COLORLESS)
[2017-08-27 07:27] LABS: BF DIFF IF INDICATED? YES (NO)
[2017-08-27] MEDS: HumaLOG INSULIN (NovoLOG) PER UNIT SC ×4 (07:30→19:54)
[2017-08-27] MEDS: CARVedilol 12.5 MG TAB PO ×2 (08:08→20:40)
[2017-08-27] MEDS: cloNIDine 0.1 MG TAB PO ×2 (08:08→20:41)
[2017-08-27] MEDS: CLOPIDOGREL 75 MG TAB PO (08:08)
[2017-08-27] MEDS: LEVEMIR (INSULIN DETEMIR) 1 UNITS/0.01ML SC (08:09)
[2017-08-27] MEDS: MINOXIDIL 10 MG TAB PO ×2 (08:09→20:40)
[2017-08-27] MEDS: FEBUXOSTAT 40 MG TABLET (ULORIC) PO (08:09)
[2017-08-27 11:24] LABS: BEDSIDE GLUCOSE 258 MG/DL (70-105)
[2017-08-27 16:57] LABS: BEDSIDE GLUCOSE 183 MG/DL (70-105)
[2017-08-27] MEDS: GENTAMICIN SULF INJ 80MG/2ML VIAL (J1580) IP (17:51)
[2017-08-27 19:52] LABS: BEDSIDE GLUCOSE 196 MG/DL (70-105)
[2017-08-27] MEDS: LEVOTHYROXINE 75MCG TABLET (0.075MG) PO (20:40)
[2017-08-27] MEDS: LEVOTHYROXINE 100MCG TABLET (0.1MG) PO (20:41)
[2017-08-27] MEDS: ASPIRIN 81 MG ENTERIC TAB PO (20:41)
[2017-08-27] MEDS: HumuLIN N INSULIN (NovoLIN N) PER UNIT SC (23:32)
[2017-08-28] MEDS: HEPARIN SOD (PORCINE) 5000 UNITS/ML VIAL XX
[2017-08-28] MEDS: SLF 3 ML SYR IV ×3 (05:56→22:24)
[2017-08-28 07:20] LABS: BEDSIDE GLUCOSE 186 MG/DL (70-105)
[2017-08-28 08:06] LABS: HEMATOCRIT 30.1 % (42.0-52.0); HEMOGLOBIN 10.4 g/dl (13.5-17.5); MEAN CORPUSCULAR HEMOGLOBIN 28.2 pg (27.0-33.0); MEAN CORPUSCULAR HGB CONC 34.6 g/dl (32.0-36.5); MEAN CORPUSCULAR VOLUME 81.6 fl (80.0-96.0); PLATELET COUNT, AUTOMATED 328 10^3/uL (150-450); RED BLOOD COUNT 3.69 10^6/uL (4.30-6.10); RED CELL DISTRIBUTION WIDTH 12.8 % (11.5-14.5); WHITE BLOOD COUNT 5.9 10^3/uL (4.0-10.0)
[2017-08-28 08:07] LABS: APPEARANCE, BODY FLUID CLEAR (CLEAR); BF DIFF IF INDICATED? YES (NO); BF MONONUCLEAR CELL % 88.7 % (0-0); BF POLYMORPHONUCLEAR CELL % 11.3 % (0-0); PERITONEAL DIALYSATE FL COLOR COLORLESS (COLORLESS); RBC BODY FLUID < 2 10^3/uL (<2); SOURCE, BODY FLUID PERITONEAL DIALYSATE; WBC BODY FLUID 538 /uL (0-10)
[2017-08-28 08:11] LABS: ANION GAP 8 MEQ/L (8-16); BLOOD UREA NITROGEN 66 MG/DL (7-18); CALCIUM LEVEL 8.3 MG/DL (8.5-10.1); CARBON DIOXIDE LEVEL 27 MEQ/L (21-32); CHLORIDE LEVEL 105 MEQ/L (98-107); CREATININE FOR GFR 4.02 MG/DL (0.70-1.30); GLOMERULAR FILTRATION RATE 16.8 (>56); GLUCOSE, FASTING 187 MG/DL (70-100); MAGNESIUM LEVEL 2.2 MG/DL (1.8-2.4); POTASSIUM SERUM 4.5 MEQ/L (3.5-5.1); SODIUM LEVEL 140 MEQ/L (136-145)
[2017-08-28] MEDS: HumaLOG INSULIN (NovoLOG) PER UNIT SC ×4 (09:22→21:00)
[2017-08-28] MEDS: CLOPIDOGREL 75 MG TAB PO (09:23)
[2017-08-28] MEDS: MINOXIDIL 10 MG TAB PO ×2 (09:23→21:27)
[2017-08-28] MEDS: HumuLIN N INSULIN (NovoLIN N) PER UNIT SC ×2 (09:23→21:29)
[2017-08-28] MEDS: FEBUXOSTAT 40 MG TABLET (ULORIC) PO (09:23)
[2017-08-28] MEDS: cloNIDine 0.1 MG TAB PO ×2 (09:26→21:26)
[2017-08-28] MEDS: CARVedilol 12.5 MG TAB PO ×2 (09:26→21:28)
[2017-08-28] MEDS: LevoFLOXacin IV 250 MG in APPROPRIATE DILUENT 1 EA IV (09:28)
[2017-08-28 11:46] LABS: BEDSIDE GLUCOSE 242 MG/DL (70-105)
[2017-08-28] MEDS: HEPARIN SOD (PORCINE) 5000 UNITS/ML VIAL IV (14:28)
[2017-08-28 16:46] LABS: BEDSIDE GLUCOSE 125 MG/DL (70-105)
[2017-08-28 20:39] LABS: BEDSIDE GLUCOSE 118 MG/DL (70-105)
[2017-08-28] MEDS: LEVOTHYROXINE 75MCG TABLET (0.075MG) PO (21:25)
[2017-08-28] MEDS: ASPIRIN 81 MG ENTERIC TAB PO (21:25)
[2017-08-28] MEDS: LEVOTHYROXINE 100MCG TABLET (0.1MG) PO (21:27)
[2017-08-28] MEDS: GENTAMICIN SULF INJ 80MG/2ML VIAL (J1580) IP (22:23)
[2017-08-29] MEDS: FUROSEMIDE 100 MG/10 ML VIAL (J1940) IV ×3 (01:52→17:39)
[2017-08-29] MEDS: SLF 3 ML SYR IV ×3 (01:53→22:07)
[2017-08-29 06:39] LABS: HEMATOCRIT 28.8 % (42.0-52.0); HEMOGLOBIN 10.1 g/dl (13.5-17.5); MEAN CORPUSCULAR HEMOGLOBIN 28.7 pg (27.0-33.0); MEAN CORPUSCULAR HGB CONC 35.1 g/dl (32.0-36.5); MEAN CORPUSCULAR VOLUME 81.8 fl (80.0-96.0); PLATELET COUNT, AUTOMATED 316 10^3/uL (150-450); RED BLOOD COUNT 3.52 10^6/uL (4.30-6.10); RED CELL DISTRIBUTION WIDTH 13.1 % (11.5-14.5); WHITE BLOOD COUNT 5.9 10^3/uL (4.0-10.0)
[2017-08-29 06:57] LABS: ANION GAP 7 MEQ/L (8-16); BLOOD UREA NITROGEN 57 MG/DL (7-18); CALCIUM LEVEL 8.1 MG/DL (8.5-10.1); CARBON DIOXIDE LEVEL 28 MEQ/L (21-32); CHLORIDE LEVEL 108 MEQ/L (98-107); CREATININE FOR GFR 3.95 MG/DL (0.70-1.30); GLOMERULAR FILTRATION RATE 17.1 (>56); GLUCOSE, FASTING 118 MG/DL (70-100); POTASSIUM SERUM 4.3 MEQ/L (3.5-5.1); SODIUM LEVEL 143 MEQ/L (136-145)
[2017-08-29 07:13] LABS: BF MONONUCLEAR CELL % 93.3 % (0-0); BF POLYMORPHONUCLEAR CELL % 6.7 % (0-0); RBC BODY FLUID < 2 10^3/uL (<2); WBC BODY FLUID 194 /uL (0-10)
[2017-08-29 07:17] LABS: APPEARANCE, BODY FLUID CLEAR (CLEAR); BF DIFF IF INDICATED? YES (NO); PERITONEAL DIALYSATE FL COLOR COLORLESS (COLORLESS); SOURCE, BODY FLUID PERITONEAL DIALYSATE
[2017-08-29] MEDS: HumaLOG INSULIN (NovoLOG) PER UNIT SC ×4 (07:30→21:00)
[2017-08-29] MEDS: FEBUXOSTAT 40 MG TABLET (ULORIC) PO (10:09)
[2017-08-29] MEDS: MINOXIDIL 10 MG TAB PO ×2 (10:09→21:39)
[2017-08-29] MEDS: CLOPIDOGREL 75 MG TAB PO (10:09)
[2017-08-29] MEDS: CARVedilol 12.5 MG TAB PO ×2 (10:10→21:40)
[2017-08-29] MEDS: cloNIDine 0.1 MG TAB PO ×2 (10:10→21:39)
[2017-08-29] MEDS: HumuLIN N INSULIN (NovoLIN N) PER UNIT SC ×2 (10:12→21:41)
[2017-08-29 12:16] LABS: BEDSIDE GLUCOSE 264 MG/DL (70-105)
[2017-08-29 16:41] LABS: BEDSIDE GLUCOSE 163 MG/DL (70-105)
[2017-08-29 20:26] LABS: BEDSIDE GLUCOSE 116 MG/DL (70-105)
[2017-08-29] MEDS: LEVOTHYROXINE 100MCG TABLET (0.1MG) PO (21:39)
[2017-08-29] MEDS: ASPIRIN 81 MG ENTERIC TAB PO (21:39)
[2017-08-29] MEDS: LEVOTHYROXINE 75MCG TABLET (0.075MG) PO (21:40)
[2017-08-29] MEDS: GENTAMICIN SULF INJ 80MG/2ML VIAL (J1580) IP (22:06)
[2017-08-30] MEDS: SLF 3 ML SYR IV ×3 (06:21→21:58)
[2017-08-30 07:59] LABS: RBC BODY FLUID < 2 10^3/uL (<2); WBC BODY FLUID 136 /uL (0-10)
[2017-08-30 08:00] LABS: APPEARANCE, BODY FLUID CLEAR (CLEAR); BF DIFF IF INDICATED? NO (NO); PERITONEAL FL COLOR COLORLESS (COLORLESS); SOURCE, BODY FLUID PERITONEAL
[2017-08-30] MEDS ORDERED: LevoFLOXacin IV 250 MG in APPROPRIATE DILUENT 1 EA IV (09:00)
[2017-08-30] MEDS ORDERED: IRON SUCROSE 100MG 5ML VIAL (J1756 PER 1MG) IV (09:00)
[2017-08-30 09:17] LABS: HEMATOCRIT 30.2 % (42.0-52.0); HEMOGLOBIN 10.1 g/dl (13.5-17.5); MEAN CORPUSCULAR HEMOGLOBIN 27.9 pg (27.0-33.0); MEAN CORPUSCULAR HGB CONC 33.4 g/dl (32.0-36.5); MEAN CORPUSCULAR VOLUME 83.4 fl (80.0-96.0); PLATELET COUNT, AUTOMATED 347 10^3/uL (150-450); RED BLOOD COUNT 3.62 10^6/uL (4.30-6.10); RED CELL DISTRIBUTION WIDTH 13.1 % (11.5-14.5)
[2017-08-30 09:47] LABS: ANION GAP 8 MEQ/L (8-16); BLOOD UREA NITROGEN 51 MG/DL (7-18); CALCIUM LEVEL 8.2 MG/DL (8.5-10.1); CARBON DIOXIDE LEVEL 29 MEQ/L (21-32); CHLORIDE LEVEL 104 MEQ/L (98-107); CREATININE FOR GFR 4.14 MG/DL (0.70-1.30); GLOMERULAR FILTRATION RATE 16.2 (>56); GLUCOSE, FASTING 254 MG/DL (70-100); MAGNESIUM LEVEL 2.1 MG/DL (1.8-2.4); SODIUM LEVEL 141 MEQ/L (136-145)
[2017-08-30] MEDS: FEBUXOSTAT 40 MG TABLET (ULORIC) PO (09:59)
[2017-08-30] MEDS: cloNIDine 0.1 MG TAB PO ×2 (10:00→21:57)
[2017-08-30] MEDS: FERROUS GLUCONATE 324 MG TAB PO (10:00)
[2017-08-30] MEDS: CARVedilol 12.5 MG TAB PO ×2 (10:00→21:57)
[2017-08-30] MEDS: MINOXIDIL 10 MG TAB PO ×2 (10:00→21:56)
[2017-08-30] MEDS: DARBEPOETIN 100 MCG/0.5 ML *NON-DIALYSIS* SYRINGE (J0881) SC (10:01)
[2017-08-30] MEDS: FUROSEMIDE 100 MG/10 ML VIAL (J1940) IV ×2 (10:02→17:16)
[2017-08-30] MEDS: HumaLOG INSULIN (NovoLOG) PER UNIT SC ×4 (10:03→23:18)
[2017-08-30] MEDS: HumuLIN N INSULIN (NovoLIN N) PER UNIT SC ×2 (10:03→23:25)
[2017-08-30] MEDS: CLOPIDOGREL 75 MG TAB PO (10:05)
[2017-08-30] MEDS: LevoFLOXacin IV 250 MG in APPROPRIATE DILUENT 1 EA IV (11:11)
[2017-08-30 12:02] LABS: BEDSIDE GLUCOSE 264 MG/DL (70-105)
[2017-08-30] MEDS: IRON SUCROSE 200 MG in NS 100 ML IV (12:18)
[2017-08-30 16:47] LABS: BEDSIDE GLUCOSE 128 MG/DL (70-105)
[2017-08-30 20:32] LABS: BEDSIDE GLUCOSE 78 MG/DL (70-105)
[2017-08-30] MEDS: LEVOTHYROXINE 100MCG TABLET (0.1MG) PO (21:57)
[2017-08-30] MEDS: LEVOTHYROXINE 75MCG TABLET (0.075MG) PO (21:57)
[2017-08-30] MEDS: ASPIRIN 81 MG ENTERIC TAB PO (21:57)
[2017-08-30] MEDS: GENTAMICIN SULF INJ 80MG/2ML VIAL (J1580) IP (21:58)
[2017-08-30 22:48] LABS: BEDSIDE GLUCOSE 168 MG/DL (70-105)
[2017-08-31] MEDS: SLF 3 ML SYR IV ×3 (05:43→22:05)
[2017-08-31 06:15] LABS: BASO # 0.1 10^3/uL (0.0-0.2); BASO % 1.6 % (0.0-1.0); EOS # 0.6 10^3/uL (0.0-0.50); EOS % 8.6 % (0.0-3.0); HEMOGLOBIN 10.4 g/dl (13.5-17.5); IMMATURE GRANULOCYTE % 0.3 % (0-3.0); LYMPH # 1.3 10^3/uL (1.5-4.5); LYMPH % 18.3 % (24.0-44.0); MEAN CORPUSCULAR HEMOGLOBIN 28.1 pg (27.0-33.0); MEAN CORPUSCULAR HGB CONC 33.5 g/dl (32.0-36.5); MEAN CORPUSCULAR VOLUME 83.8 fl (80.0-96.0); MONO # 0.7 10^3/uL (0.0-0.8); MONO % 10.3 % (0.0-5.0); NEUTROPHILS # 4.2 10^3/uL (1.8-7.7); NEUTROPHILS % 60.9 % (36.0-66.0); PLATELET COUNT, AUTOMATED 374 10^3/uL (150-450); RED CELL DISTRIBUTION WIDTH 13.1 % (11.5-14.5); WHITE BLOOD COUNT 6.9 10^3/uL (4.0-10.0)
[2017-08-31 06:30] LABS: ANION GAP 3 MEQ/L (8-16); BLOOD UREA NITROGEN 54 MG/DL (7-18); CALCIUM LEVEL 8.3 MG/DL (8.5-10.1); CARBON DIOXIDE LEVEL 32 MEQ/L (21-32); CHLORIDE LEVEL 105 MEQ/L (98-107); CREATININE FOR GFR 4.47 MG/DL (0.70-1.30); GLOMERULAR FILTRATION RATE 14.8 (>56); GLUCOSE, FASTING 123 MG/DL (70-100); MAGNESIUM LEVEL 2.1 MG/DL (1.8-2.4); POTASSIUM SERUM 4.5 MEQ/L (3.5-5.1); SODIUM LEVEL 140 MEQ/L (136-145)
[2017-08-31 07:21] LABS: BF MONONUCLEAR CELL % 92.8 % (0-0); BF POLYMORPHONUCLEAR CELL % 7.2 % (0-0); RBC BODY FLUID < 2 10^3/uL (<2); WBC BODY FLUID 69 /uL (0-10)
[2017-08-31 07:22] LABS: APPEARANCE, BODY FLUID CLEAR (CLEAR); PERITONEAL DIALYSATE FL COLOR COLORLESS (COLORLESS); SOURCE, BODY FLUID PERITONEAL DIALYSATE
[2017-08-31 07:23] LABS: BF DIFF IF INDICATED? YES (NO)
[2017-08-31] MEDS: HumaLOG INSULIN (NovoLOG) PER UNIT SC ×4 (08:56→21:00)
[2017-08-31] MEDS: IRON SUCROSE 200 MG in NS 100 ML IV (08:56)
[2017-08-31] MEDS: FEBUXOSTAT 40 MG TABLET (ULORIC) PO (08:57)
[2017-08-31] MEDS: HumuLIN N INSULIN (NovoLIN N) PER UNIT SC ×2 (08:57→21:26)
[2017-08-31] MEDS: MINOXIDIL 10 MG TAB PO ×2 (08:57→21:27)
[2017-08-31] MEDS: CARVedilol 12.5 MG TAB PO ×2 (08:58→21:27)
[2017-08-31] MEDS: TORSEMIDE 20 MG TAB PO ×2 (08:59→17:24)
[2017-08-31] MEDS: CLOPIDOGREL 75 MG TAB PO (08:59)
[2017-08-31] MEDS: cloNIDine 0.1 MG TAB PO ×2 (08:59→21:28)
[2017-08-31] MEDS: FERROUS GLUCONATE 324 MG TAB PO (09:00)
[2017-08-31] MEDS: LevoFLOXacin IV 250 MG in APPROPRIATE DILUENT 1 EA IV (11:55)
[2017-08-31 12:26] LABS: BEDSIDE GLUCOSE 230 MG/DL (70-105)
[2017-08-31 16:52] LABS: BEDSIDE GLUCOSE 158 MG/DL (70-105)
[2017-08-31 20:42] LABS: BEDSIDE GLUCOSE 127 MG/DL (70-105)
[2017-08-31] MEDS: LEVOTHYROXINE 100MCG TABLET (0.1MG) PO (21:28)
[2017-08-31] MEDS: LEVOTHYROXINE 75MCG TABLET (0.075MG) PO (21:28)
[2017-08-31] MEDS: ASPIRIN 81 MG ENTERIC TAB PO (21:28)
[2017-08-31] MEDS: GENTAMICIN SULF INJ 80MG/2ML VIAL (J1580) IP (22:05)
[2017-09-01] MEDS: SLF 3 ML SYR IV (06:02)
[2017-09-01 06:10] LABS: BASO # 0.1 10^3/uL (0.0-0.2); BASO % 1.6 % (0.0-1.0); EOS # 0.6 10^3/uL (0.0-0.50); EOS % 8.7 % (0.0-3.0); HEMATOCRIT 31.4 % (42.0-52.0); HEMOGLOBIN 10.6 g/dl (13.5-17.5); IMMATURE GRANULOCYTE % 0.8 % (0-3.0); LYMPH # 1.2 10^3/uL (1.5-4.5); MEAN CORPUSCULAR HEMOGLOBIN 28.1 pg (27.0-33.0); MEAN CORPUSCULAR HGB CONC 33.8 g/dl (32.0-36.5); MEAN CORPUSCULAR VOLUME 83.3 fl (80.0-96.0); MONO # 0.7 10^3/uL (0.0-0.8); MONO % 10.1 % (0.0-5.0); NEUTROPHILS # 3.8 10^3/uL (1.8-7.7); NEUTROPHILS % 59.8 % (36.0-66.0); PLATELET COUNT, AUTOMATED 396 10^3/uL (150-450); RED BLOOD COUNT 3.77 10^6/uL (4.30-6.10); RED CELL DISTRIBUTION WIDTH 13.2 % (11.5-14.5); WHITE BLOOD COUNT 6.4 10^3/uL (4.0-10.0)
[2017-09-01 06:39] LABS: ANION GAP 8 MEQ/L (8-16); BLOOD UREA NITROGEN 50 MG/DL (7-18); CALCIUM LEVEL 8.5 MG/DL (8.5-10.1); CARBON DIOXIDE LEVEL 30 MEQ/L (21-32); CHLORIDE LEVEL 104 MEQ/L (98-107); CREATININE FOR GFR 4.94 MG/DL (0.70-1.30); GLOMERULAR FILTRATION RATE 13.2 (>56); GLUCOSE, FASTING 82 MG/DL (70-100); MAGNESIUM LEVEL 2.2 MG/DL (1.8-2.4); POTASSIUM SERUM 3.9 MEQ/L (3.5-5.1); SODIUM LEVEL 142 MEQ/L (136-145)
[2017-09-01 07:47] LABS: BF MONONUCLEAR CELL % 95.7 % (0-0); BF POLYMORPHONUCLEAR CELL % 4.3 % (0-0); RBC BODY FLUID < 2 10^3/uL (<2); WBC BODY FLUID 46 /uL (0-10)
[2017-09-01 07:49] LABS: APPEARANCE, BODY FLUID CLEAR (CLEAR); BF DIFF IF INDICATED? YES (NO); PERITONEAL DIALYSATE FL COLOR COLORLESS (COLORLESS); SOURCE, BODY FLUID PERITONEAL DIALYSATE
[2017-09-01] MEDS: HumaLOG INSULIN (NovoLOG) PER UNIT SC (07:54)
[2017-09-01] MEDS: FERROUS GLUCONATE 324 MG TAB PO (09:51)
[2017-09-01] MEDS: HumuLIN N INSULIN (NovoLIN N) PER UNIT SC (09:51)
[2017-09-01] MEDS: CLOPIDOGREL 75 MG TAB PO (09:52)
[2017-09-01] MEDS: MINOXIDIL 10 MG TAB PO (09:52)
[2017-09-01] MEDS: FEBUXOSTAT 40 MG TABLET (ULORIC) PO (09:52)
[2017-09-01] MEDS: TORSEMIDE 20 MG TAB PO (09:52)
[2017-09-01] MEDS: cloNIDine 0.1 MG TAB PO (09:53)
[2017-09-01] MEDS: CARVedilol 12.5 MG TAB PO (09:53)
[2017-09-01] MEDS: LevoFLOXacin IV 250 MG in APPROPRIATE DILUENT 1 EA IV (09:53)
== END 2017-09-01 11:12 | disposition home or self-care (01) | DRG 371 ==
LOC: M MSPAV 08-26 20:39 → M ED 07:15 → M ED INP 10:50 → M PCU 13:56
DX: K65.9 Peritonitis, unspecified (principal); I50.33 Acute on chronic diastolic (congestive) heart failure; N18.5 Chronic kidney disease, stage 5; K90.41 Non-celiac gluten sensitivity; I13.2 Hypertensive heart and chronic kidney disease with heart failure and with stage 5 chronic kidney disease, or end stage renal disease; E10.22 Type 1 diabetes mellitus with diabetic chronic kidney disease; I15.0 Renovascular hypertension; B96.1 Klebsiella pneumoniae [K. pneumoniae] as the cause of diseases classified elsewhere; I25.10 Atherosclerotic heart disease of native coronary artery without angina pectoris; I73.9 Peripheral vascular disease, unspecified; E78.5 Hyperlipidemia, unspecified; E03.9 Hypothyroidism, unspecified; K90.0 Celiac disease; Z95.1 Presence of aortocoronary bypass graft; Z79.899 Other long term (current) drug therapy; Z88.5 Allergy status to narcotic agent; Z79.82 Long term (current) use of aspirin; Z79.4 Long term (current) use of insulin; D63.1 Anemia in chronic kidney disease

== ENCOUNTER → 2017-09-30 | Outpatient (CLI) | payer MEDICARE, MEDICAID ==
[~2017-09-30] MED LIST changes: -MIDAZOLAM INJ 2 MG/2 ML VIAL (J2250) As Ordered; -fentaNYL 100 MCG/2 ML INJECTION (J3010) As Ordered
== END ==
LOC: M IRPRO 09:08
DX: N18.6 End stage renal disease (principal); Z53.8 Procedure and treatment not carried out for other reasons

== ENCOUNTER 2017-10-01 18:55 | Inpatient (IN) | payer MEDICARE, MEDICAID ==
[2017-10-01 19:52] LABS: BASO # 0.1 10^3/uL (0.0-0.2); BASO % 0.8 % (0.0-1.0); EOS # 0.5 10^3/uL (0.0-0.50); EOS % 4.7 % (0.0-3.0); HEMATOCRIT 33.6 % (42.0-52.0); HEMOGLOBIN 11.5 g/dl (13.5-17.5); IMMATURE GRANULOCYTE % 0.4 % (0-3.0); LYMPH # 1.2 10^3/uL (1.5-4.5); LYMPH % 12.5 % (24.0-44.0); MEAN CORPUSCULAR HEMOGLOBIN 28.1 pg (27.0-33.0); MEAN CORPUSCULAR HGB CONC 34.2 g/dl (32.0-36.5); MEAN CORPUSCULAR VOLUME 82.2 fl (80.0-96.0); MONO # 1.1 10^3/uL (0.0-0.8); MONO % 10.8 % (0.0-5.0); NEUTROPHILS % 70.8 % (36.0-66.0); PLATELET COUNT, AUTOMATED 365 10^3/uL (150-450); RED BLOOD COUNT 4.09 10^6/uL (4.30-6.10); RED CELL DISTRIBUTION WIDTH 12.8 % (11.5-14.5); WHITE BLOOD COUNT 9.9 10^3/uL (4.0-10.0)
[2017-10-01] MEDS: ONDANSETRON 4MG/2ML VIAL (J2405) IV (19:54)
[2017-10-01] MEDS: HYDROMORPHONE HCL 0.5 MG/ 0.5 ML SYRINGE (J1170 PER 1) IV ×2 (19:54→20:38)
[2017-10-01 19:55] LABS: INR 0.87; PROTHROMBIN TIME 11.9 SECONDS (12.1-14.4)
[2017-10-01 19:56] LABS: PARTIAL THROMBOPLASTIN TIME 29.6 SECONDS (25.4-37.6)
[2017-10-01 20:07] LABS: ALBUMIN 2.9 GM/DL (3.2-5.2); ALBUMIN/GLOBULIN RATIO 0.85 (1.00-1.93); ALKALINE PHOSPHATASE 478 U/L (45-117); ALT/SGPT 82 U/L (12-78); AMYLASE 47 U/L (25-115); ANION GAP 9 MEQ/L (8-16); AST/SGOT 36 U/L (7-37); BILIRUBIN,DIRECT < 0.1 MG/DL (0.0-0.2); BILIRUBIN,TOTAL 0.3 MG/DL (0.2-1.0); BLOOD UREA NITROGEN 71 MG/DL (7-18); CALCIUM LEVEL 8.3 MG/DL (8.5-10.1); CARBON DIOXIDE LEVEL 30 MEQ/L (21-32); CHLORIDE LEVEL 102 MEQ/L (98-107); CREATININE FOR GFR 6.57 MG/DL (0.70-1.30); GLOMERULAR FILTRATION RATE 9.5 (>56); GLUCOSE, FASTING 110 MG/DL (70-100); LIPASE 151 U/L (73-393); POTASSIUM SERUM 4.1 MEQ/L (3.5-5.1); SODIUM LEVEL 141 MEQ/L (136-145); TOTAL PROTEIN 6.3 GM/DL (6.4-8.2); TROPONIN I < 0.02 NG/ML (< 0.10)
[2017-10-01 20:07] LABS: LACTIC ACID SEPSIS PROTOCOL 0.9 MMOL/L (0.4-2.0)
[2017-10-01 20:09] LABS: CK-MB VALUE MASS 4.5 NG/ML (<3.6); CPK CREATINE PHOSPHOKINASE 164 U/L (39-308); MB/CK RELATIVE INDEX 2.74 (< OR =4)
[2017-10-02] MEDS ORDERED: ONDANSETRON 4MG/2ML VIAL (J2405) IV (01:30)
[2017-10-02 01:37] LABS: KETONE, URINE AUTO RFX NEGATIVE (NEGATIVE); LEUKOCYTE ESTERASE UR AUTO RFX NEGATIVE (NEGATIVE); NITRITE, URINE AUTO RFX NEGATIVE (NEGATIVE); RBC, URINE AUTO RFX 3 /HPF (0-3); SQUAM EPITHELIAL CELL UR AURFX 0 /HPF (0-6); WBC, URINE AUTO RFX 0 /HPF (0-3)
[2017-10-02] MEDS ORDERED: NITROGLYCERIN 0.4 MG SUBL TABLET SL (01:45)
[2017-10-02] MEDS: MORPHINE 4 MG/ML 1ML VIAL/SYRINGE (J2270) IV ×2 (01:48→07:25)
[2017-10-02] MEDS ORDERED: GLUCAGON FOR INJ 1 MG VIAL (J1610) SC (03:00)
[2017-10-02] MEDS ORDERED: GLUCOSE 4 GM CHEW TABLET PO (03:00)
[2017-10-02] MEDS ORDERED: DEXTROSE 50% 50 ML SYRINGE IV (03:00)
[2017-10-02] MEDS: LEVOTHYROXINE 88MCG TABLET (0.088 MG) PO ×2 (03:04→21:17)
[2017-10-02] MEDS: LEVOTHYROXINE 100MCG TABLET (0.1MG) PO ×2 (03:04→21:16)
[2017-10-02] MEDS: ASPIRIN 81 MG ENTERIC TAB PO ×2 (03:04→21:16)
[2017-10-02] MEDS: CARVedilol 12.5 MG TAB PO ×3 (03:05→21:16)
[2017-10-02] MEDS: cloNIDine 0.1 MG TAB PO ×3 (03:05→21:17)
[2017-10-02] MEDS: TORSEMIDE 20 MG TAB PO ×3 (03:05→21:16)
[2017-10-02] MEDS: HumaLOG INSULIN (NovoLOG) PER UNIT SC ×4 (07:30→21:00)
[2017-10-02 07:47] LABS: BEDSIDE GLUCOSE 252 MG/DL (70-105)
[2017-10-02 08:03] LABS: APPEARANCE, URINE CLEAR (CLEAR); BACTERIA, URINE AUTO 1+ (NEGATIVE); BILIRUBIN, URINE AUTO NEGATIVE (NEGATIVE); BLOOD, URINE BLOOD NEGATIVE (NEGATIVE); COLOR, URINE YELLOW (YELLOW); GLUCOSE, URINE (UA) AUTO NEGATIVE (NEGATIVE); KETONE, URINE AUTO NEGATIVE (NEGATIVE); LEUKOCYTE ESTERASE, URINE AUTO NEGATIVE (NEGATIVE); NITRITE, URINE AUTO NEGATIVE (NEGATIVE); PROTEIN, URINE AUTO 1+ mg/dL (NEGATIVE); RBC, URINE AUTO 2 /HPF (0-3); SPECIFIC GRAVITY URINE AUTO 1.009 (1.002-1.035); SQUAMOUS EPITHELIAL CELL UR AU 0 /HPF (0-6); UROBILINOGEN, URINE AUTO 0.2 mg/dL (0.0-2.0); WBC, URINE AUTO 1 /HPF (0-3)
[2017-10-02 08:29] LABS: BF MONONUCLEAR CELL % 94.4 % (0-0); BF POLYMORPHONUCLEAR CELL % 5.6 % (0-0); RBC BODY FLUID < 2 10^3/uL (<2); WBC BODY FLUID 18 /uL (0-10)
[2017-10-02 08:30] LABS: APPEARANCE, BODY FLUID CLEAR (CLEAR); BF DIFF IF INDICATED? YES (NO); PERITONEAL DIALYSATE FL COLOR COLORLESS (COLORLESS); SOURCE, BODY FLUID PERITONEAL DIALYSATE
[2017-10-02] MEDS: FEBUXOSTAT 40 MG TABLET (ULORIC) PO (08:50)
[2017-10-02] MEDS: HumuLIN N INSULIN (NovoLIN N) PER UNIT SC ×2 (08:50→17:16)
[2017-10-02] MEDS: CLOPIDOGREL 75 MG TAB PO (08:52)
[2017-10-02] MEDS: FERROUS SULFATE 325MG TAB PO (08:52)
[2017-10-02] MEDS: MULTIVITAMINS/MINERALS THERAP 1 TAB PO (08:52)
[2017-10-02] MEDS: HEPARIN SOD (PORCINE) 5000 UNITS/ML VIAL SC ×3 (08:52→21:00)
[2017-10-02] MEDS ORDERED: SLF 3 ML SYR IV (10:45)
[2017-10-02 11:45] LABS: BEDSIDE GLUCOSE 327 MG/DL (70-105)
[2017-10-02] MEDS: SLF 3 ML SYR IV ×2 (12:06→21:15)
[2017-10-02 16:41] LABS: BEDSIDE GLUCOSE 172 MG/DL (70-105)
[2017-10-02 19:48] LABS: BEDSIDE GLUCOSE 82 MG/DL (70-105)
[2017-10-02] MEDS: ACETAMINOPHEN 500 MG TAB PO (22:27)
[2017-10-02 23:26] LABS: BEDSIDE GLUCOSE 83 MG/DL (70-105)
[2017-10-03] MEDS: SLF 3 ML SYR IV ×3 (05:19→21:40)
[2017-10-03 05:38] LABS: BASO # 0.1 10^3/uL (0.0-0.2); BASO % 1.2 % (0.0-1.0); EOS # 0.5 10^3/uL (0.0-0.50); EOS % 7.4 % (0.0-3.0); HEMATOCRIT 31.9 % (42.0-52.0); IMMATURE GRANULOCYTE % 0.3 % (0-3.0); LYMPH # 1.3 10^3/uL (1.5-4.5); LYMPH % 19.5 % (24.0-44.0); MEAN CORPUSCULAR HEMOGLOBIN 27.8 pg (27.0-33.0); MEAN CORPUSCULAR HGB CONC 34.5 g/dl (32.0-36.5); MEAN CORPUSCULAR VOLUME 80.6 fl (80.0-96.0); MONO # 0.8 10^3/uL (0.0-0.8); MONO % 11.1 % (0.0-5.0); NEUTROPHILS # 4.1 10^3/uL (1.8-7.7); NEUTROPHILS % 60.5 % (36.0-66.0); PLATELET COUNT, AUTOMATED 342 10^3/uL (150-450); RED BLOOD COUNT 3.96 10^6/uL (4.30-6.10); RED CELL DISTRIBUTION WIDTH 12.5 % (11.5-14.5); WHITE BLOOD COUNT 6.8 10^3/uL (4.0-10.0)
[2017-10-03 06:00] LABS: ANION GAP 8 MEQ/L (8-16); BLOOD UREA NITROGEN 65 MG/DL (7-18); CALCIUM LEVEL 8.2 MG/DL (8.5-10.1); CARBON DIOXIDE LEVEL 30 MEQ/L (21-32); CHLORIDE LEVEL 102 MEQ/L (98-107); CREATININE FOR GFR 5.91 MG/DL (0.70-1.30); GLOMERULAR FILTRATION RATE 10.8 (>56); GLUCOSE, FASTING 81 MG/DL (70-100); POTASSIUM SERUM 3.5 MEQ/L (3.5-5.1); SODIUM LEVEL 140 MEQ/L (136-145)
[2017-10-03] MEDS: HumaLOG INSULIN (NovoLOG) PER UNIT SC ×4 (07:28→21:00)
[2017-10-03] MEDS: HumuLIN N INSULIN (NovoLIN N) PER UNIT SC ×3 (07:30→18:47)
[2017-10-03] MEDS: CLOPIDOGREL 75 MG TAB PO (08:32)
[2017-10-03] MEDS: MULTIVITAMINS/MINERALS THERAP 1 TAB PO (08:32)
[2017-10-03] MEDS: TORSEMIDE 20 MG TAB PO ×2 (08:32→21:39)
[2017-10-03] MEDS: FEBUXOSTAT 40 MG TABLET (ULORIC) PO (08:32)
[2017-10-03] MEDS: POTASSIUM CHLORIDE 10 MEQ SR TABLET PO (08:33)
[2017-10-03] MEDS: FERROUS SULFATE 325MG TAB PO (08:33)
[2017-10-03] MEDS: cloNIDine 0.1 MG TAB PO ×2 (08:34→21:40)
[2017-10-03] MEDS: CARVedilol 12.5 MG TAB PO ×2 (08:34→21:40)
[2017-10-03] MEDS: ACETAMINOPHEN 500 MG TAB PO (08:34)
[2017-10-03] MEDS: HEPARIN SOD (PORCINE) 5000 UNITS/ML VIAL SC ×2 (08:35→21:00)
[2017-10-03] MEDS: LIDOCAINE 5% (LIDODERM) PATCH TD (10:40)
[2017-10-03 11:36] LABS: BEDSIDE GLUCOSE 141 MG/DL (70-105)
[2017-10-03 18:06] LABS: BEDSIDE GLUCOSE 220 MG/DL (70-105)
[2017-10-03] MEDS: **NOTE PATIENT COMMENT** MISC XX (21:00)
[2017-10-03 21:13] LABS: BEDSIDE GLUCOSE 149 MG/DL (70-105)
[2017-10-03] MEDS: LEVOTHYROXINE 88MCG TABLET (0.088 MG) PO (21:39)
[2017-10-03] MEDS: LEVOTHYROXINE 100MCG TABLET (0.1MG) PO (21:39)
[2017-10-03] MEDS: ASPIRIN 81 MG ENTERIC TAB PO (21:39)
[2017-10-04 05:55] LABS: BASO # 0.1 10^3/uL (0.0-0.2); BASO % 1.3 % (0.0-1.0); EOS # 0.5 10^3/uL (0.0-0.50); EOS % 7.9 % (0.0-3.0); HEMATOCRIT 32.2 % (42.0-52.0); IMMATURE GRANULOCYTE % 0.3 % (0-3.0); LYMPH # 1.3 10^3/uL (1.5-4.5); LYMPH % 18.8 % (24.0-44.0); MEAN CORPUSCULAR HEMOGLOBIN 27.7 pg (27.0-33.0); MEAN CORPUSCULAR HGB CONC 34.2 g/dl (32.0-36.5); MEAN CORPUSCULAR VOLUME 81.1 fl (80.0-96.0); MONO # 0.8 10^3/uL (0.0-0.8); MONO % 11.3 % (0.0-5.0); NEUTROPHILS # 4.1 10^3/uL (1.8-7.7); NEUTROPHILS % 60.4 % (36.0-66.0); PLATELET COUNT, AUTOMATED 369 10^3/uL (150-450); RED BLOOD COUNT 3.97 10^6/uL (4.30-6.10); RED CELL DISTRIBUTION WIDTH 12.6 % (11.5-14.5); WHITE BLOOD COUNT 6.8 10^3/uL (4.0-10.0)
[2017-10-04] MEDS: SLF 3 ML SYR IV (06:00)
[2017-10-04 06:14] LABS: ANION GAP 6 MEQ/L (8-16); BLOOD UREA NITROGEN 54 MG/DL (7-18); CARBON DIOXIDE LEVEL 32 MEQ/L (21-32); CHLORIDE LEVEL 103 MEQ/L (98-107); GLOMERULAR FILTRATION RATE 11.9 (>56); GLUCOSE, FASTING 198 MG/DL (70-100); POTASSIUM SERUM 3.7 MEQ/L (3.5-5.1); SODIUM LEVEL 141 MEQ/L (136-145)
[2017-10-04] MEDS: HumaLOG INSULIN (NovoLOG) PER UNIT SC (07:34)
[2017-10-04] MEDS: HEPARIN SOD (PORCINE) 5000 UNITS/ML VIAL SC (07:34)
[2017-10-04] MEDS: HumuLIN N INSULIN (NovoLIN N) PER UNIT SC (07:34)
[2017-10-04] MEDS: CLOPIDOGREL 75 MG TAB PO (08:02)
[2017-10-04] MEDS: FERROUS SULFATE 325MG TAB PO (08:02)
[2017-10-04] MEDS: CARVedilol 12.5 MG TAB PO (08:02)
[2017-10-04] MEDS: FEBUXOSTAT 40 MG TABLET (ULORIC) PO (08:02)
[2017-10-04] MEDS: cloNIDine 0.1 MG TAB PO (08:03)
[2017-10-04] MEDS: LIDOCAINE 5% (LIDODERM) PATCH TD (08:03)
[2017-10-04] MEDS: TORSEMIDE 20 MG TAB PO (08:03)
[2017-10-04] MEDS: MULTIVITAMINS/MINERALS THERAP 1 TAB PO (08:03)
[2017-10-04] MEDS ORDERED: ANALGESIC BALM CRM 120 GM TOP (08:15)
== END 2017-10-04 12:00 | disposition home or self-care (01) | DRG 551 ==
LOC: M ED INP 10-02 01:28 → M PCU 10-02 02:42 → M ED 18:55
DX: M51.26 Other intervertebral disc displacement, lumbar region (principal); N18.6 End stage renal disease; I12.0 Hypertensive chronic kidney disease with stage 5 chronic kidney disease or end stage renal disease; E78.5 Hyperlipidemia, unspecified; E03.9 Hypothyroidism, unspecified; E10.22 Type 1 diabetes mellitus with diabetic chronic kidney disease; M1A.30X0 Chronic gout due to renal impairment, unspecified site, without tophus (tophi); E87.6 Hypokalemia; I25.10 Atherosclerotic heart disease of native coronary artery without angina pectoris; D50.9 Iron deficiency anemia, unspecified; F32.9 Major depressive disorder, single episode, unspecified; K90.0 Celiac disease; D63.1 Anemia in chronic kidney disease; E10.51 Type 1 diabetes mellitus with diabetic peripheral angiopathy without gangrene; Z99.2 Dependence on renal dialysis; Z95.828 Presence of other vascular implants and grafts; Z95.1 Presence of aortocoronary bypass graft; Z95.820 Peripheral vascular angioplasty status with implants and grafts; Z79.82 Long term (current) use of aspirin; Z79.899 Other long term (current) drug therapy; Z88.5 Allergy status to narcotic agent; Z88.8 Allergy status to other drugs, medicaments and biological substances; M54.9 Dorsalgia, unspecified

== ENCOUNTER 2017-11-07 13:16 | Emergency (ER) | payer MEDICARE, MEDICAID ==
[2017-11-07] MEDS: DEXTROSE 50% 50 ML SYRINGE IV (13:25)
[2017-11-07 13:33] LABS: BEDSIDE GLUCOSE 130 MG/DL (70-105)
[2017-11-07 14:43] LABS: BEDSIDE GLUCOSE 101 MG/DL (70-105)
[2017-11-07 14:47] LABS: BASO # 0.1 10^3/uL (0.0-0.2); BASO % 2.1 % (0.0-1.0); EOS # 0.5 10^3/uL (0.0-0.50); EOS % 9.2 % (0.0-3.0); HEMATOCRIT 34.3 % (42.0-52.0); HEMOGLOBIN 11.7 g/dl (13.5-17.5); IMMATURE GRANULOCYTE % 0.5 % (0-3.0); LYMPH # 1.5 10^3/uL (1.5-4.5); LYMPH % 26.7 % (24.0-44.0); MEAN CORPUSCULAR HEMOGLOBIN 27.9 pg (27.0-33.0); MEAN CORPUSCULAR HGB CONC 34.1 g/dl (32.0-36.5); MEAN CORPUSCULAR VOLUME 81.9 fl (80.0-96.0); MONO # 0.7 10^3/uL (0.0-0.8); MONO % 12.7 % (0.0-5.0); NEUTROPHILS # 2.8 10^3/uL (1.8-7.7); NEUTROPHILS % 48.8 % (36.0-66.0); PLATELET COUNT, AUTOMATED 358 10^3/uL (150-450); RED BLOOD COUNT 4.19 10^6/uL (4.30-6.10); RED CELL DISTRIBUTION WIDTH 14.3 % (11.5-14.5); WHITE BLOOD COUNT 5.7 10^3/uL (4.0-10.0)
[2017-11-07 14:55] LABS: ALBUMIN/GLOBULIN RATIO 0.83 (1.00-1.93); ALKALINE PHOSPHATASE 183 U/L (45-117); ALT/SGPT 42 U/L (12-78); ANION GAP 11 MEQ/L (8-16); AST/SGOT 29 U/L (7-37); BILIRUBIN,TOTAL 0.3 MG/DL (0.2-1.0); BLOOD UREA NITROGEN 67 MG/DL (7-18); CARBON DIOXIDE LEVEL 26 MEQ/L (21-32); CHLORIDE LEVEL 103 MEQ/L (98-107); CREATININE FOR GFR 6.61 MG/DL (0.70-1.30); GLOMERULAR FILTRATION RATE 9.4 (>56); GLUCOSE, FASTING 138 MG/DL (70-100); POTASSIUM SERUM 3.9 MEQ/L (3.5-5.1); SODIUM LEVEL 140 MEQ/L (136-145); TOTAL PROTEIN 6.6 GM/DL (6.4-8.2)
[2017-11-07 15:34] LABS: BEDSIDE GLUCOSE 117 MG/DL (70-105)
== END 2017-11-07 16:16 | disposition home or self-care (01) ==
LOC: M ED 13:16
DX: E10.649 Type 1 diabetes mellitus with hypoglycemia without coma (principal); Z95.1 Presence of aortocoronary bypass graft
CPT/HCPCS: 80053

== ENCOUNTER 2018-05-19 11:39 | Observation (INO) | payer MEDICARE, MEDICAID ==
[~2018-05-19] VITALS: Ht 172.7 cm; Wt 64.5 kg
[~2018-05-19 11:39] MED LIST changes: +/MOXI40TA PO; +/SODI15SS PO; +AMLO5TAB6 PO; +ASPI81TA83 PO; +ASPI81TA85 PO; +ASPI81TAEC PO; +CARV12.5 PO; +CARV25TA PO; +CENTTAB16 PO; +CHLO25TA PO; +CINACALCET 30 MG TAB (SENSIPAR) PO SCH; +CLON-412 PO; +CLOP75TA2 PO; +CORE12.5 PO; +CORE25TA PO; +FERR325T16 PO; +FERR325T3 PO; +FLAG500T PO; +HYDR-3910 PO; +HYDR-3911 PO; +INSUH10VL SC; +INSUN SC; +INSUNSD SC; -ISOVUE-300 61% 50ML VIAL (Q9967) As Ordered; +KAYE1POW5 PO; +KAYEPOW; +LASI80TA PO; +LASI80TA3 PO; +LEVA1TAB2 PO; +LEVA250T13 PO; +LEVA750T7 PO; +LEVO100T5 PO; +LEVO175T2 PO; +LIPI20TA PO; +LIPI80TA PO; +LOSA25TA14 PO; +MINO10TA PO; +MINO2.5T PO; +MOXI1TAB PO; +MULTTAB50 PO; +MVI PO; +NEXI40GR PO; +NIAS500T23 PO; +NIASPAN PO; +NITR0.4D6 SL; +NITR0.4D6 TD; +NITR0.4S14 SL; +NITR4TASL SL; +NOVOLIN; +NOVOLIN N; +NPH INSULIN; +PLAV1TAB2 PO; +RANI150C; +SYNT100T PO; +SYNT175T PO; +SYNT88TA2 PO; +TERA10CA3 PO; +TERA2CAP3 PO; +THERGRAN; +TORS20TA2 PO; +TRIC145T19 PO; +TRIC145T22 PO; +TYLE325T5 PO; +ULOR80TA PO; +VITA500046 PO; +VITA50005 PO; +VITAMIN D50000 UNT PO; +VITMTA PO; +ZANTTAB9 PO; +[UNRECOGNIZED DRUG - CODE] PO; +[UNRECOGNIZED DRUG - OTHER]; +[UNRECOGNIZED DRUG - OTHER] SC
[2018-05-19] MEDS ORDERED: DEXTROSE 50% 50 ML SYRINGE IV STA (11:46)
[2018-05-19] MEDS ORDERED: NS 500 ML IV ONE (12:00)
[2018-05-19] MEDS ORDERED: ATOR1TAB21 PO (12:08)
[2018-05-19] MEDS ORDERED: LEVO150T7 PO (12:08)
[2018-05-19] MEDS ORDERED: CINA30TA PO (12:08)
[2018-05-19 12:11] LABS: ABG BASE EXCESS 2.6 (-2.0-2.0); ABG HCO3 26.5 MEQ/L (22.0-26.0); ABG O2 SATURATION 97.3 % (95.0-99.0); ABG PARTIAL PRESSURE CO2 38.6 mmHg (35.0-45.0); ABG STANDARD HCO3 26.8 MEQ/L (22.0-26.0); ABG TOTAL CO2 27.7 MEQ/L (22.0-29.0); ABG pH (ARTERIAL) 7.455 UNITS (7.350-7.450)
[2018-05-19 12:20] LABS: BASO # 0.1 10^3/uL (0.0-0.2); BASO % 1.8 % (0.0-1.0); EOS # 0.5 10^3/uL (0.0-0.50); EOS % 6.7 % (0.0-3.0); HEMATOCRIT 35.3 % (42.0-52.0); HEMOGLOBIN 12.8 g/dl (13.5-17.5); LYMPH # 1.6 10^3/uL (1.5-4.5); LYMPH % 23.8 % (24.0-44.0); MEAN CORPUSCULAR HEMOGLOBIN 30.6 pg (27.0-33.0); MEAN CORPUSCULAR HGB CONC 36.3 g/dl (32.0-36.5); MEAN CORPUSCULAR VOLUME 84.4 fl (80.0-96.0); MONO # 0.8 10^3/uL (0.0-0.8); MONO % 11.4 % (0.0-5.0); NEUTROPHILS # 3.9 10^3/uL (1.8-7.7); NEUTROPHILS % 56.2 % (36.0-66.0); PLATELET COUNT, AUTOMATED 334 10^3/uL (150-450); RED BLOOD COUNT 4.18 10^6/uL (4.30-6.10); WHITE BLOOD COUNT 6.9 10^3/uL (4.0-10.0)
--- NOTE | 2018-05-19 12:41 | REP ---
Portable chest x-ray: Single view. History: Altered mental status. Comparison study: October 02, 2017. Findings: The patient is status post prior median sternotomy. EKG monitoring electrodes overlie the chest. Pleural angles are sharp. Heart is not enlarged. Pulmonary vasculature is not increased. No significant bony abnormality. Impression: Prior sternotomy. Otherwise no acute disease. Electronically Signed by Franco Frankel MD 05/19/2018 12:33 P
[2018-05-19 12:44] LABS: ACETAMINOPHEN LEVEL < 2.0 UG/ML (10.0-30.0); ALBUMIN 3.2 GM/DL (3.2-5.2); ALT/SGPT 64 U/L (12-78); BILIRUBIN,DIRECT 0.1 MG/DL (0.0-0.2); BILIRUBIN,TOTAL 0.4 MG/DL (0.2-1.0); BLOOD UREA NITROGEN 52 MG/DL (7-18); CALCIUM LEVEL 8.1 MG/DL (8.5-10.1); CARBON DIOXIDE LEVEL 31 MEQ/L (21-32); CHLORIDE LEVEL 102 MEQ/L (98-107); CPK CREATINE PHOSPHOKINASE 129 U/L (39-308); CREATININE FOR GFR 5.08 MG/DL (0.70-1.30); ETHYL ALCOHOL (ETHANOL) < 0.003 % (0.000-0.010); GLOMERULAR FILTRATION RATE 12.8 (>56); GLUCOSE, FASTING 70 MG/DL (70-100); MB/CK RELATIVE INDEX 2.02 (< OR =4); SALICYLATE LEVEL < 1.7 MG/DL (5.0-30.0); SODIUM LEVEL 141 MEQ/L (136-145); THYROID STIMULATING HORMONE 0.688 uIU/ML (0.358-3.740); TOTAL PROTEIN 6.2 GM/DL (6.4-8.2); TROPONIN I < 0.02 NG/ML (< 0.10)
--- NOTE | 2018-05-19 13:45 | REP ---
CT BRAIN WITHOUT CONTRAST: HISTORY: Altered mental status. Comparison head CT study January 18, 2017. CT FINDINGS: Preliminary digital lot associate radiograph is unremarkable. Bone window settings demonstrate an intact bony calvarium. Visualized paranasal sinuses are clear. There is heavy vascular calcification in the carotid siphons bilaterally as before. No intraorbital abnormality is seen. On soft tissue window settings, there is minimal diffuse cerebral atrophy. There is no evidence of intracranial hemorrhage, extra-axial fluid collection, infarct, or mass. No midline shift is seen. IMPRESSION: Vascular calcification and minimal diffuse atrophy again noted. No acute intracranial abnormality. Electronically Signed by Franco Frankel MD 05/19/2018 03:19 P
[2018-05-19] MEDS ORDERED: INSUN SC (13:47)
[2018-05-19 14:15] LABS: AMPHETAMINES LEVEL URINE NEGATIVE (NEGATIVE); BARBITURATES URINE NEGATIVE (NEGATIVE); BENZODIAZEPINES URINE NEGATIVE (NEGATIVE); CANNABINOIDS URINE NEGATIVE (NEGATIVE); COCAINE METABOLITE URINE NEGATIVE (NEGATIVE); METHADONE URINE NEGATIVE (NEGATIVE); OPIATES URINE NEGATIVE (NEGATIVE); PHENCYCLIDINE URINE NEGATIVE (NEGATIVE)
[2018-05-19] MEDS ORDERED: NITROGLYCERIN 0.4 MG SUBL TABLET SL PRN (16:00)
[2018-05-19] MEDS ORDERED: ONDANSETRON 4MG/2ML VIAL (J2405) IV PRN (16:00)
[2018-05-19] MEDS: NS 1,000 ML IV SCH ×2 (16:09→20:01)
[2018-05-19] MEDS ORDERED: GLUCAGON FOR INJ 1 MG VIAL (J1610) SC PRN (16:15)
[2018-05-19] MEDS ORDERED: GLUCOSE 4 GM CHEW TABLET PO PRN (16:15)
[2018-05-19] MEDS ORDERED: DEXTROSE 50% 50 ML SYRINGE IV PRN (16:15)
--- NOTE | 2018-05-19 16:21 | HPE ---
DATE OF ADMISSION: 05/19/2018 A 52-year-old male with a past medical history of end-stage renal disease on peritoneal dialysis, history of type 1 diabetes, hypertension, hyperlipidemia, hypothyroidism, celiac disease, coronary artery disease, status post coronary artery bypass graft (CABG) who presents to the emergency room after suffering five days of decreased appetite and of those five, three days of explosive diarrhea. He also has had associated nausea but no vomiting. He claims that the diarrhea was watery, non-bloody, and foul smelling. He has not had any antibiotics in the last few months and it had subsided by Saturday. However, he did not improve in his intake, both fluid and food, and his generalized weakness persisted so he came to the emergency room (ER) for evaluation. In the ER, the patient was started on normal saline IV fluids and he is awake, alert, and oriented times three, however, lethargic. He denies any subjective feeling of fever, aches, or chills during the course of events and he will be admitted for further management. PAST MEDICAL HISTORY: 1. Hypertension. 2. Hyperlipidemia. 3. Hypothyroidism. 4. Celiac disease. 5. End-stage renal disease on peritoneal dialysis. 6. History of type 1 diabetes. 7. Coronary artery disease, status post coronary artery bypass graft (CABG). 8. Peripheral artery disease, status post bilateral angioplasty of the lower extremities. ALLERGIES: He has drug allergies to OXYCODONE and ANGIOTENSIN-CONVERTING ENZYME (SAIDA) INHIBITORS. FAMILY HISTORY: Noncontributory. SOCIAL HISTORY: The patient denies tobacco, alcohol or illicit drugs. MEDICATIONS: He takes at home are as follows: - aspirin 81 mg orally at bedtime - atorvastatin 20 mg orally at bedtime - Coreg 25 mg orally twice a day - cinacalcet 30 mg orally three times a week - clonidine 0.1 mg orally twice a day - Plavix 75 mg orally daily - ergocalciferol 50,000 units orally weekly - Uloric 40 mg orally daily - insulin aspart subcutaneously before meals and at bedtime - NPH 15 units subcutaneously in the evening and 10 units subcutaneously in the morning - Synthroid 150 mcg orally in the evening - multivitamin one tablet orally daily - nitroglycerin 0.4 mg sublingual as needed - torsemide 20 mg orally twice a day REVIEW OF SYSTEMS: Negative for all 10 major systems except for what is mentioned in the history of present illness (HPI). VITAL SIGNS: Blood pressure 157/77, heart rate is 71 and regular, respiratory rate is 16, temperature 98.5, oxygen saturation is 99% on room air. HEAD: Normocephalic, atraumatic. NECK: Supple without no jugular venous distention (JVD). LUNGS: Clear to auscultation. S1, S2 audible. No murmurs appreciated. ABDOMEN: Soft. Positive bowel sounds. No pedal edema. SKIN: Intact. NEUROLOGIC: The patient is awake, alert, and oriented times three. There is no asterixis. LABORATORY DATA: Urinalysis is negative for UTI. Chemistries: Sodium 141, potassium is 4.0, chloride 102, CO2 31, BUN 52, creatinine 5.08, glucose is 70, AST 34, ALT 64, ammonia level is 19, troponin is less than 0.02, TSH is 0.688. WBC 6.9, hemoglobin is 12.8, hematocrit 35.3, and platelets are 334,000. Blood gas and ABG showed pH of 7.455, pCO2 is 38.6, pO2 is 92. IMPRESSION: Acute viral gastroenteritis. PLAN: The patient will be admitted to the medical/surgical floor. I will continue all of his preadmission medications. I will start him on a clear liquid diet and Zofran 4 mg IV every four hours as needed for his nausea. I will give him IV fluids with normal saline 100 mL/hour. I will have nephrology consulted to continue the orders for the peritoneal dialysis and will continue his care on the medical/surgical floor.
[2018-05-19] MEDS: HumaLOG INSULIN (NovoLOG) PER UNIT SC SCH (18:05)
[2018-05-19 18:20] VITALS: BP 176/84
--- NOTE | 2018-05-19 19:52 | ECGEPIP ---
Stationary ECG Study [facility] - ED Test Date: 2018-05-19 Pat Name: BRYAN AMBRIZ Department: Room: - Gender: M [employer]: : 1965 Requested By: Deni Luna Order Number: [id number] Reading MD: Deni Luna Measurements Intervals [place] Rate: 76 P: 39 FL: 148 QRS: 56 QRSD: 100 T: 66 QT: 402 QTc: 454 Interpretive Statements SINUS RHYTHM POSSIBLE INFERIOR MYOCARDIAL INFARCTION, OF INDETERMINATE AGE DELAYED R WAVE PROGRESSION CW 10/01/[address] T WAVE CHANGES RATE DECREASED Electronically Signed On 05-19-2018 19:52:08 EST by Deni Luna
[2018-05-19] MEDS: cloNIDine 0.1 MG TAB PO SCH (20:23)
[2018-05-19] MEDS: CARVedilol 12.5 MG TAB PO SCH (20:23)
[2018-05-19] MEDS ORDERED: LEVOTHYROXINE 150MCG TABLET (0.15MG) PO SCH (21:00)
[2018-05-19] MEDS ORDERED: ASPIRIN 81 MG ENTERIC TAB PO SCH (21:00)
[2018-05-19] MEDS ORDERED: ATORVASTATIN 20 MG TAB PO SCH (21:00)
[2018-05-19 22:00] VITALS: BP 144/83
[2018-05-19 22:46] LABS: APPEARANCE, BODY FLUID CLEAR (CLEAR); PERITONEAL DIALYSATE FL COLOR PALE YELLOW (COLORLESS); SOURCE, BODY FLUID PERITONEAL DIALYSATE
[2018-05-20] MEDS: NS 1,000 ML IV SCH (05:54)
[2018-05-20 06:00] VITALS: BP 143/71
[2018-05-20 06:07] LABS: BASO # 0.1 10^3/uL (0.0-0.2); BASO % 2.1 % (0.0-1.0); EOS # 0.5 10^3/uL (0.0-0.50); EOS % 8.5 % (0.0-3.0); HEMATOCRIT 31.8 % (42.0-52.0); HEMOGLOBIN 11.2 g/dl (13.5-17.5); LYMPH # 1.3 10^3/uL (1.5-4.5); LYMPH % 22.4 % (24.0-44.0); MEAN CORPUSCULAR HEMOGLOBIN 29.9 pg (27.0-33.0); MEAN CORPUSCULAR HGB CONC 35.2 g/dl (32.0-36.5); MONO # 0.6 10^3/uL (0.0-0.8); MONO % 10.5 % (0.0-5.0); NEUTROPHILS # 3.2 10^3/uL (1.8-7.7); NEUTROPHILS % 56.3 % (36.0-66.0); PLATELET COUNT, AUTOMATED 278 10^3/uL (150-450); RED BLOOD COUNT 3.74 10^6/uL (4.30-6.10); WHITE BLOOD COUNT 5.6 10^3/uL (4.0-10.0)
[2018-05-20 06:36] LABS: CALCIUM LEVEL 7.3 MG/DL (8.5-10.1); CREATININE FOR GFR 4.39 MG/DL (0.70-1.30); GLOMERULAR FILTRATION RATE 15.2 (>56); POTASSIUM SERUM 3.8 MEQ/L (3.5-5.1)
[2018-05-20 08:30] VITALS: BP 175/83
[2018-05-20] MEDS ORDERED: MULTIVITAMINS/MINERALS THERAP 1 TAB PO SCH (09:00)
[2018-05-20] MEDS ORDERED: CLOPIDOGREL 75 MG TAB PO SCH (09:00)
[2018-05-20] MEDS ORDERED: FEBUXOSTAT 40 MG TABLET (ULORIC) PO SCH (09:00)
[2018-05-20] MEDS: HumaLOG INSULIN (NovoLOG) PER UNIT SC SCH ×2 (09:36→12:48)
[2018-05-20 09:38] VITALS: BP 175/83
[2018-05-20] MEDS: cloNIDine 0.1 MG TAB PO SCH (09:38)
[2018-05-20] MEDS: CARVedilol 12.5 MG TAB PO SCH (09:38)
--- NOTE | 2018-05-20 13:44 | DS.PDOC ---
Discharge Summary General Date of Admission May 19, 2018 at 15:46 Date of Discharge 05/20/2018 Discharge Summary PROCEDURES PERFORMED DURING STAY: [None]. ADMITTING DIAGNOSES / DISCHARGE DIAGNOSES: Diarrhea / Nausea - likely 2/2 acute viral gastroenteritis - Significant improvement in diarrhea, No electrolyte abnormalities, GI panel negative, Afebrile and hemodynamically stable Normocytic anemia CAD s/p CABG PAD s/p Bilateral angioplasty of LE HTN DLP IDDM1 with Hyperglycemia Hypothyroidism Celiac disease ESRD on PD DVT prophylaxis COMPLICATIONS/CHIEF COMPLAINT: Diarrhea HISTORY OF PRESENT ILLNESS / HOSPITAL COURSE: Patient is a 52-year-old male with a PMHx of CAD s/p CABG, PAD s/p Bilateral angioplasty of LE, HTN, DLP, IDDM1, Hypothyroidism, Celiac disease, ESRD on PD (Daily) who presented to the ER with complaints of profuse diarrhea associated with decreased appetite and nausea. Patient was admitted to hospitalist service for suspected viral gastroenteritis. Nephrology was called on consultation for management of peritoneal dialysis / fluid management. This morning patient noted improvement of his diarrhea and subsequent GI panel was negative for any infectious etiologies. Patient's lab work does not indicate any significant electrode abnormalities. Patient will be going home with follow-up with his primary care provider as well as nephrology. He's been advised to increase his oral hydration as needed. DISCHARGE MEDICATIONS: Please see below. ALLERGIES: Please see below. PHYSICAL EXAMINATION ON DISCHARGE: Vitals (See below) General: Lying in bed, no acute distress, comfortable, AAOx3 HEENT: NC, AT CVS: RRR, +S1S2 Lungs: Fair air entry b/l, -w/r/r Abdomen: Soft, ND, NT, +Peritoneal dialysis catheter Extremities: - Edema, - Calf tenderness LABORATORY DATA: Please see below. IMAGING: CT head 05/19: Vascular calcification and minimal diffuse atrophy again noted. No acute intracranial abnormality. CXR 3/4: Prior sternotomy. Otherwise no acute disease. ACTIVITY: [As tolerated]. DISCHARGE PLAN: Follow-up with Dr. Kenneth Cano and Dr. Otto within 7 days Remain compliant with treatments on a medications Return to the ER if you experience any problems DISPOSITION: Home, Self-Care. DISCHARGE CONDITION: [Stable]. TIME SPENT ON DISCHARGE: Greater than [35] minutes. Vital Signs/I&Os Vital Signs Date Time Temp Pulse Resp B/P (MAP) Pulse Ox O2 Delivery O2 Flow Rate FiO2 05/20/18 09:38 81 175/83 05/20/18 08:30 98.3 18 98 05/19/18 18:00 Room Air I&O- Last 24 Hours up to 6 AM 05/20/18 06:00 Intake Total 4050 ml Output Total 1025 ml Balance 3025 ml Laboratory Data Labs 24H Laboratory Tests 2 05/19/18 13:44: Urine Color YELLOW, Urine Appearance CLEAR, Urine pH 6.0, Urine Specific [place] 1.009, Urine Protein 1+H, Urine Glucose (UA) 1+H, Urine Ketones NEGATIVE, Urine Blood NEGATIVE, Urine Nitrite NEGATIVE, Urine Bilirubin NEGATIVE, Urine Urobilinogen 0.2, Urine Leukocyte Esterase NEGATIVE, Urine WBC (Auto) 1, Urine RBC (Auto) 1, Urine Hyaline Casts (Auto) 0, Urine Bacteria (Auto) NEGATIVE, Urine Squamous Epithelial Cells 0, Urine Sperm (Auto) SMALLH, Urine Amphetamines Screen NEGATIVE, Urine Benzodiazepines Screen NEGATIVE, Urine Opiates Screen NEGATIVE, Urine Methadone Screen NEGATIVE, Urine Barbiturates Screen NEGATIVE, Urine Phencyclidine Screen NEGATIVE, Urine Cocaine Metabolite Screen NEGATIVE, Urine Cannabinoids Screen NEGATIVE 05/19/18 14:09: Bedside Glucose (Misc Panel) 176H 05/19/18 17:57: Bedside Glucose (Misc Panel) 99 05/19/18 21:07: Bedside Glucose (Misc Panel) 158H 05/19/18 22:34: Body Fluid Source PERITONEAL DIALYSATE, Body Fluid WBC (Auto) 39H, Body Fluid RBC (Auto) < 2, Body Fluid Mononuclear Cells % Auto 97.5H, Fluid Polymorphonuclear Cell % Auto 2.5H, Peritoneal Fluid Color PALE YELLOW, Peritoneal Fluid Appearance CLEAR 05/20/18 05:56: Immature Granulocyte % (Auto) 0.2, White Blood Count 5.6, Red Blood Count 3.74L, Hemoglobin 11.2L, Hematocrit 31.8L, Mean Corpuscular Volume 85.0, Mean Corpuscular Hemoglobin 29.9, Mean Corpuscular Hemoglobin Concent 35.2, Red Cell Distribution Width 12.0, Platelet Count 278, Neutrophils (%) (Auto) 56.3, Lymphocytes (%) (Auto) 22.4L, Monocytes (%) (Auto) 10.5H, Eosinophils (%) (Auto) 8.5H, Basophils (%) (Auto) 2.1H, Neutrophils # (Auto) 3.2, Lymphocytes # (Auto) 1.3L, Monocytes # (Auto) 0.6, Eosinophils # (Auto) 0.5, Basophils # (Auto) 0.1, Nucleated Red Blood Cells % (auto) 0.0, Anion Gap 8, Glomerular Filtration Rate 15.2L, Blood Urea Nitrogen 47H, Creatinine 4.39H, Sodium Level 139, Potassium Level 3.8, Chloride Level 106, Carbon Dioxide Level 25, Calcium Level 7.3L 05/20/18 12:01: Bedside Glucose (Misc Panel) 395H CBC/BMP Laboratory Tests 05/20/18 05:56 Red Blood Count 3.74 L, Mean Corpuscular Volume 85.0, Mean Corpuscular Hemoglobin 29.9, Mean Corpuscular Hemoglobin Concent 35.2, Red Cell Distribution Width 12.0, Neutrophils (%) (Auto) 56.3, Lymphocytes (%) (Auto) 22.4 L, Monocytes (%) (Auto) 10.5 H, Eosinophils (%) (Auto) 8.5 H, Basophils (%) (Auto) 2.1 H, Neutrophils # (Auto) 3.2, Lymphocytes # (Auto) 1.3 L, Monocytes # (Auto) 0.6, Eosinophils # (Auto) 0.5, Basophils # (Auto) 0.1, Calcium Level 7.3 L FSBS Laboratory Tests Test 05/19/18 14:09 05/19/18 17:57 05/19/18 21:07 05/20/18 12:01 Range/Units Bedside Glucose (Misc Panel) 176 99 158 395 70-105 MG/DL Microbiology Microbiology 05/19/18 Blood Culture - Preliminary, Resulted No growth after 24 hours . All specim... 05/19/18 Blood Culture - Preliminary, Resulted No growth after 24 hours . All specim... 05/19/18 Gram Stain - Final, Resulted 05/19/18 Body Fluid Culture, Resulted Pending 05/20/18 Gastrointestinal Tract Panel (PCR) - Final, Complete Discharge Medications Scheduled Aspirin (Aspirin EC) 81 Mg Tabec, 81 MG PO QHS, (Reported) Atorvastatin Calcium (Atorvastatin Calcium) 20 Mg Tab, 20 MG PO QHS, (Reported) Carvedilol (Carvedilol) 25 Mg Tab, 25 MG PO BID, (Reported) Cinacalcet Hydrochloride (Sensipar) 30 Mg Tab, 30 MG PO 3XW, (Reported) SATURDAY, SATURDAY, SATURDAY Clonidine Hydrochloride (Clonidine HCl) 0.1 Mg Tab, 0.1 MG PO BID, (Reported) Clopidogrel Bisulfate (Plavix) 75 Mg Tab, 75 MG PO DAILY, (Reported) Ergocalciferol (Vitamin D) 50,000 Unit Cap, 50,000 UNIT PO QWEEK, (Reported) SATURDAY Febuxostat (Uloric) 80 Mg Tab, 40 MG PO DAILY, (Reported) Insulin Aspart (Novolog) 100 U/Ml Inj, 1 DOSE SC ACHS, (Reported) PER SLIDING SCALE Insulin Human NPH (Novolin N) 1 Ml Susp, 15 UNITS SC QPM, (Reported) Insulin Human NPH (Novolin N) 1 Ml Susp, 10 UNITS SC DAILY, (Reported) Levothyroxine Sodium (Synthroid) 150 Mcg Tab, 150 MCG PO QHS, (Reported) Multivitamins *[facility] STOCKED* (Thera M Plus *[facility] STOCKED*) 1 Tab Tab, 1 TAB PO DA JASMINE, (Reported) Torsemide (Torsemide) 20 Mg Tab, 20 MG PO BID, (Reported) Scheduled PRN Nitroglycerin (Nitrostat) 0.4 Mg Subl, 0.4 MG SL NITRO PRN for CHEST PAIN, (Reported) Allergies Coded Allergies: Gluten Flour (Verified Allergy, Unknown, 05/19/18) SAIDA Inhibitors (Verified Adverse Reaction, Intermediate, HYPERKALEMIA, 05/19/18) Oxycodone (Verified Adverse Reaction, Intermediate, "sick" dizzy, 05/19/18) NEIL HANDY MD May 20, 2018 13:44
--- NOTE | 2018-05-20 23:50 | CR ---
DATE OF CONSULTATION: 05/20/2018 REQUESTING PHYSICIAN: Dr. Bree Villasenor REASON FOR CONSULTATION: Management of end-stage renal disease, on peritoneal dialysis. HISTORY OF PRESENT ILLNESS: Jonny Aguilera is a 52-year-old male with a past medical history of end-stage renal disease, on peritoneal dialysis, history of type 1 diabetes, hypertension, dyslipidemia, hypothyroidism, coronary artery disease - status post coronary artery bypass graft (CABG), and other comorbid conditions mentioned below. The patient presented to the emergency room y essentially with complaint of generalized weakness and fatigue, which was associated by three days of large volume watery diarrhea and decreased appetite, nausea. He denied vomiting, fevers or chills. He denies any sick contacts and does not report that anyone else at home had similar symptoms. He denies any issues with his peritoneal dialysis. He reports that his diarrhea had improved by the weekend; however, he was still feeling very weak and fatigued and came to the emergency room (ER) for further evaluation. In the emergency room, the patient was noted to be afebrile and hemodynamically stable. He clinically appeared dry to the admitting team, and he was started on gentle intravenous (IV) fluids. The patient was seen and examined by myself this morning at the bedside. Reports he feels better, has not had any recurrent episodes of diarrhea, had a formed stool this morning, reports that his appetite is improving and that his weakness and fatigue have also improved. PAST MEDICAL AND SURGICAL HISTORY: Hypertension. Dyslipidemia. Hypothyroidism. Celiac disease. End-stage renal disease - on peritoneal dialysis. Type 1 diabetes. Coronary artery disease - status post CABG. Peripheral artery disease - status post bilateral angioplasty of the lower extremities. Status post arteriovenous (AV) fistula creation. Status post peritoneal dialysis catheter placement. History of shoulder rotator cuff repair. History of carpal tunnel release. Tonsillectomy. Appendectomy. PERSONAL AND SOCIAL HISTORY: Lives with his . Denies any tobacco, alcohol, or illicit drug use. FAMILY HISTORY: Negative for end-stage renal disease. ALLERGIES: OXYCODONE, ANGIOTENSIN-CONVERTING ENZYME (SAIDA) INHIBITORS and GLUTEN. HOME MEDICATIONS: Reviewed and include: - aspirin - atorvastatin - carvedilol - Sensipar - clonidine - Plavix - Uloric - insulin - Synthroid - torsemide REVIEW OF SYSTEMS: Constitutional: He denies fevers or chills. Reports improving weakness and fatigue. Eyes: He denies visual changes or blurring. ENT: He denies dysphagia or rhinorrhea, or any nose or throat problems. Cardiac: He denies chest pain or palpitations. He has a history of coronary artery disease. Respiratory: He denies any cough or hemoptysis. Gastrointestinal (GI): He reports resolved diarrhea and improving appetite. He denies vomiting. He is on a clear liquid diet at present. He reports peritoneal dialysis (PD) catheter. Genitourinary (): He makes urine. He denies dysuria or hematuria. Musculoskeletal: He reports a history of gout. He denies any new myalgias or arthralgias. Hematologic System: Significant for anemia of chronic kidney disease. Endocrine: Diabetic and hypothyroidism. Neurologic: He denies seizures or stroke. Skin: Negative for rash or ulcers. PHYSICAL EXAMINATION: Vital Signs: Temperature 98.3, pulse 81, respiratory rate 18, blood pressure 175/83, saturating 98% on room air. Intake yesterday was 2650. Weight on the bed scale today is not recorded. General: Patient is seen in bed, present at the bedside. He is awake, alert, oriented, conversational, smiling, no acute distress, comfortable. Extraocular muscles are intact. Tongue is moist. Neck is supple. Jugular veins are not elevated. Cardiac: S1, S2, regular rate and rhythm. Lungs: Show good air entry bilaterally. No crackles, rales, or wheeze. Abdomen: Soft, nontender. PD catheter exit site is clean, dry, and intact. Extremities: Negative for any edema or clubbing. Neurologic: There is no focal deficit. Skin: Normal turgor and temperature. LABORATORY: White count 5.6, hemoglobin 11.2. Sodium 139, potassium 3.8, bicarbonate 25. PD cell count is benign. Microbiology: Blood cultures are pending. INPATIENT MEDICATIONS: The patient was receiving normal saline at 100 mL an hour, which I discontinued. He is on aspirin 81 mg by mouth nightly, Lipitor 20 mg by mouth nightly, Coreg 25 mg by mouth twice a day, Sensipar 30 mg by mouth three times a week, clonidine 0.1 mg by mouth twice a day, Plavix 75 mg by mouth daily, Uloric 40 mg by mouth daily, insulin, Synthroid 150 mcg by mouth daily, Zofran as needed. PROBLEMS: 1. End-stage renal disease, on peritoneal dialysis. Patient is tolerating his PD exchanges without issue. His peritoneal fluid analysis is benign. He can continue on his usual cycler prescription and no changes are being made. 2. Status post diarrhea. Probably had viral gastroenteritis. His gastrointestinal (GI) PCR returned back negative. He reports his diarrhea has resolved. He had a formed stool today. He is tolerating diet. 3. Hypertension. Blood pressures are somewhat uncontrolled this morning, likely related to the normal saline he received. His IV fluids have been discontinued. He continues on his usual home regimen of carvedilol, clonidine, and torsemide. 4. One out of two sets positive blood culture. The patient had one set of blood culture return back positive after he was discharged, Gram-positive cocci and chains. This is possibly a contaminant. His other set of blood cultures is negative. He has not received any antibiotics during this admission. I have asked the outpatient peritoneal dialysis nurse to repeat a set of blood cultures for this patient as an outpatient for surveillance.
[2018-05-21] MEDS ORDERED: VITAMIN D 50,000 UNITS CAPSULE (ERGOCALCIFEROL 1.25MG) PO SCH (09:00)
== END 2018-05-20 13:24 | disposition home or self-care (01) ==
LOC: M ED 11:39 → EDBD 11:39 → M ED INP 15:46 → M MSPAV 18:20
PROVIDERS: ADMIT Internal Medicine; ATTEND Internal Medicine
DX: A08.4 Viral intestinal infection, unspecified (principal); D64.9 Anemia, unspecified; I25.10 Atherosclerotic heart disease of native coronary artery without angina pectoris; Z98.61 Coronary angioplasty status; E10.65 Type 1 diabetes mellitus with hyperglycemia; I73.9 Peripheral vascular disease, unspecified; E03.9 Hypothyroidism, unspecified; K90.0 Celiac disease; N18.6 End stage renal disease; Z79.899 Other long term (current) drug therapy; Z79.02 Long term (current) use of antithrombotics/antiplatelets; Z79.82 Long term (current) use of aspirin; Z79.4 Long term (current) use of insulin; Z88.8 Allergy status to other drugs, medicaments and biological substances
CPT/HCPCS: 36415; 36600; 70450; 71045; 80048; 80076; 80307; 82140; 82550; 82553; 82803; 84443; 84484; 85025; 87040; 87070; 87077; 87186; 87205; 87507; 89051; 93005; 93041; 96361; 96374; 96375; 99285; G0378; G0480

== ENCOUNTER → 2018-06-19 | Outpatient (CLI) | payer MEDICARE, MEDICAID ==
[~2018-06-19] MED LIST changes: -/MOXI40TA PO; -/SODI15SS PO; +ATOR1TAB21 PO; +AVEL1TAB2 PO; +CINA30TA PO; -CINACALCET 30 MG TAB (SENSIPAR) PO SCH; +LEVO150T7 PO; +SPS15SUS2 PO
--- NOTE | 2018-06-24 06:54 | SLEEPCENT ---
DATE OF PROCEDURE: 06/19/2018 ORDERED BY: Melanie Camarena Nocturnal polysomnography was performed for evaluation of sleep physiology in this patient with a history of excessive somnolence and snoring. 7 hours and 25 minutes of data were reviewed. There were 324 minutes of sleep identified. Sleep latency was short at 3.5 minutes. Rapid eye movement (REM) latency was delayed at 248 minutes. Sleep architecture showed very poor progression. Overall sleep efficiency was good at 77%, but REM time was severely reduced. The electrocardiogram showed a sinus rhythm with an average heart rate of 76 beats per minute. Electroencephalogram (EEG) showed normal waveforms for awake and sleep. There were 80 respiratory events identified of 10 seconds in duration or greater for an apnea-hypopnea index of 14.8. The events were primarily obstructive, not exclusive to sleep stage and more frequent in the supine posture. Arousals from respiratory events occurred 16.1 times per hour. Oxygen saturations were maintained at 90+. There was some limb activity, but arousals were few. IMPRESSION: Obstructive sleep apnea syndrome (G47.33). Apnea-hypopnea index 14.8. RECOMMENDATION: The patient should be encouraged to return to the sleep disorder center for pressure therapy. In the interim, alcohol and sedative avoidance should be practiced and caution exercised during the operation of motor vehicles.
== END ==
LOC: M SLEEP 19:24
PROVIDERS: ATTEND Nurse Practitioner Adult Health
DX: G47.30 Sleep apnea, unspecified (principal)

== ENCOUNTER → 2018-07-19 | Outpatient (CLI) | payer MEDICARE, MEDICAID ==
[~2018-07-19] MED LIST changes: -CINA30TA PO; +CINA30TA4 PO
--- NOTE | 2018-07-21 17:03 | SLEEPCENT ---
DATE OF PROCEDURE: 07/19/2018 ORDERED BY: Melanie Camarena Nocturnal polysomnography was performed for the titration of pressure therapy in this patient with obstructive sleep apnea syndrome. Apnea-hypopnea index 14.8. For testing a ResMed Quattro full face mask of medium size was used, 4 cm of water pressure were applied to the circuit and the lights were extinguished. 7 hours and 14 minutes of data were reviewed. There were 408 minutes of sleep identified. Sleep latency was short at 6.5 minutes. Rapid eye movement (REM) latency was mildly prolonged at 123 minutes. Sleep architecture was good with three REM cycles. Overall sleep efficiency 94.9%. The patient's electrocardiogram showed a sinus rhythm with an average heart rate of 80 beats per minute. EEG showed normal waveforms for awake and sleep. Respiratory events were fully palliated with continuous positive airway pressure (CPAP) at a pressure of +8 and remaining measures of sleep physiology were reasonably normal. IMPRESSION: Obstructive sleep apnea syndrome (G47.33). RECOMMENDATIONS: Nightly use of pressure therapy 8 cm of water.
== END ==
LOC: M SLEEP 20:00
PROVIDERS: ATTEND Nurse Practitioner Adult Health
DX: G47.33 Obstructive sleep apnea (adult) (pediatric) (principal)

== ENCOUNTER 2018-08-15 14:20 | Inpatient (IN) | payer MEDICARE, MEDICAID ==
[~2018-08-15] VITALS: Ht 172.7 cm; Wt 71.4 kg
[2018-08-15 15:02] LABS: BASO % 0.3 % (0.0-1.0); EOS # 0.4 10^3/uL (0.0-0.50); EOS % 3.3 % (0.0-3.0); HEMATOCRIT 35.4 % (42.0-52.0); HEMOGLOBIN 12.2 g/dl (13.5-17.5); LYMPH % 1.8 % (24.0-44.0); MEAN CORPUSCULAR HGB CONC 34.5 g/dl (32.0-36.5); MEAN CORPUSCULAR VOLUME 87.2 fl (80.0-96.0); MONO # 0.8 10^3/uL (0.0-0.8); MONO % 7.3 % (0.0-5.0); NEUTROPHILS # 9.6 10^3/uL (1.8-7.7); NEUTROPHILS % 86.8 % (36.0-66.0); PLATELET COUNT, AUTOMATED 286 10^3/uL (150-450); RED BLOOD COUNT 4.06 10^6/uL (4.30-6.10); VENOUS BASE EXCESS 2.3 (-2.0-2.0); VENOUS HCO3 29.7 MEQ/L (23.0-27.0); VENOUS O2 SATURATION 51.3 % (60.0-80.0); VENOUS PARTIAL PRESSURE CO2 58.4 mmHg (38.0-50.0); VENOUS PARTIAL PRESSURE O2 29.9 mmHg (30.0-50.0); VENOUS PH 7.324 UNITS (7.330-7.430); VENOUS STANDARD HCO3 25.5 MEQ/L; VENOUS TOTAL CO2 31.5 MEQ/L (24.0-28.0); WHITE BLOOD COUNT 11.1 10^3/uL (4.0-10.0)
--- NOTE | 2018-08-15 15:08 | REP ---
CT Head without contrast HISTORY: Altered mental status COMPARISON: 05/19/2018 There is no intraparenchymal hemorrhage, acute infarct, mass or midline shift. The ventricular system and cortical sulci are dilated consistent with minimal volume loss. There is no extra cerebral collection. There is no fracture. The visualized sinuses are clear. IMPRESSION: Minimal volume loss. Electronically Signed by Henri Evangelista MD 08/15/2018 02:59 P
--- NOTE | 2018-08-15 15:13 | REP ---
CT cervical spine without contrast HISTORY: Altered mental status COMPARISON: None There is no acute fracture or subluxation. Disc bulges are present at the C2-3 and C4-5 levels. A disc bulge with associated osteophyte formation is present at the C3-4 level. There is minimal narrowing of the spinal canal. Uncinate process hypertrophy is present at the C3-4 level. This produces minimal narrowing of the C3 neural foramina. There is no other disc bulge or herniation. The remaining neural foramina are patent. The C3-4 intervertebral disc is decreased in height consistent with disc degeneration. IMPRESSION: 1. There is no acute fracture or subluxation. 2. There is cervical spondylosis at the C2-3 through C4-5 levels. Electronically Signed by Henri Evangelista MD 08/15/2018 03:04 P
[2018-08-15 15:25] LABS: OSMOLALITY SERUM 311 MOSM/KG (275-295)
[2018-08-15 15:27] LABS: ACETONE/KETONE 1.41 MG/DL (<2.81); ALBUMIN 2.8 GM/DL (3.2-5.2); ALT/SGPT 50 U/L (12-78); BILIRUBIN,DIRECT 0.2 MG/DL (0.0-0.2); BILIRUBIN,TOTAL 0.4 MG/DL (0.2-1.0); BLOOD UREA NITROGEN 57 MG/DL (7-18); CALCIUM LEVEL 7.5 MG/DL (8.5-10.1); CARBON DIOXIDE LEVEL 30 MEQ/L (21-32); CHLORIDE LEVEL 102 MEQ/L (98-107); CPK CREATINE PHOSPHOKINASE 438 U/L (39-308); CREATININE FOR GFR 4.22 MG/DL (0.70-1.30); ETHYL ALCOHOL (ETHANOL) < 0.003 % (0.000-0.010); GLOMERULAR FILTRATION RATE 15.8 (>56); GLUCOSE, FASTING 282 MG/DL (70-100); LIPASE 173 U/L (73-393); MAGNESIUM LEVEL 2.1 MG/DL (1.8-2.4); MB/CK RELATIVE INDEX 1.67 (< OR =4); PHOSPHORUS LEVEL 2.7 MG/DL (2.5-4.9); POTASSIUM SERUM 3.4 MEQ/L (3.5-5.1); SODIUM LEVEL 141 MEQ/L (136-145); TROPONIN I < 0.02 NG/ML (< 0.10)
[2018-08-15] MEDS ORDERED: DEXTROSE 50% 50 ML SYRINGE IV STA (15:36)
[2018-08-15 15:49] LABS: HEMOGLOBIN A1c 8.3 %
[2018-08-15 15:51] LABS: LYMPH # 0.2 10^3/uL (1.5-4.5)
[2018-08-15 16:01] LABS: AMPHETAMINES LEVEL URINE NEGATIVE (NEGATIVE); BARBITURATES URINE NEGATIVE (NEGATIVE); BENZODIAZEPINES URINE NEGATIVE (NEGATIVE); CANNABINOIDS URINE NEGATIVE (NEGATIVE); COCAINE METABOLITE URINE NEGATIVE (NEGATIVE); METHADONE URINE NEGATIVE (NEGATIVE); OPIATES URINE NEGATIVE (NEGATIVE); PHENCYCLIDINE URINE NEGATIVE (NEGATIVE)
[2018-08-15] MEDS ORDERED: ACET-897 PO (16:03)
--- NOTE | 2018-08-15 16:27 | REP ---
Supine portable chest x-ray: Single view. History: Diabetic ketoacidosis. Comparison study: May 19, 2018. Findings: EKG monitoring electrodes overlie the chest. Heart is not enlarged. Pulmonary vasculature is not increased. Median sternotomy wires are seen. The pleural angles are sharp. No infiltrate is seen. No significant bony abnormality. Impression: Prior sternotomy. No acute disease. Electronically Signed by Franco Frankel MD 08/15/2018 04:18 P
[2018-08-15] MEDS: TORSEMIDE 20 MG TAB PO SCH (17:00)
[2018-08-15] MEDS ORDERED: GLUCAGON FOR INJ 1 MG VIAL (J1610) SC PRN (17:00)
[2018-08-15] MEDS ORDERED: NITROGLYCERIN 0.4 MG SUBL TABLET SL PRN (17:00)
[2018-08-15] MEDS ORDERED: ACETAMINOPHEN TAB 650MG DOSE (2X325MG) PO PRN (17:00)
[2018-08-15] MEDS ORDERED: DEXTROSE 50% 50 ML SYRINGE IV PRN (17:00)
[2018-08-15] MEDS ORDERED: GLUCOSE 4 GM CHEW TABLET PO PRN (17:00)
--- NOTE | 2018-08-15 17:17 | HPEPDOC ---
General Date of Admission 08/15/18 Date of Service: August 15, 2018 Chief Complaint The patient is a 53-year-old male admitted with a reason for visit of Low Blood Sugar. History of Present Illness 53-year-old male with past medical history of hypertension, dyslipidemia, diabetes mellitus, hypothyroidism, coronary artery disease status post CABG, diastolic congestive heart failure, end-stage renal disease on peritoneal dialysis, and peripheral vascular disease status post bilateral angioplasty of the lower extremities presented to the ER after he was found unresponsive by family. The extent of this HPI is limited given the patient's clinical condition. The patient's , who is at the bedside states that the patient recently had 6 teeth removed 2 days ago. Since then, his by mouth intake has bee n limited. The patient was found by his grandson on the couch and unresponsive. The patient's blood sugar level was noted to be 27. Also of note, the patient had noted to urinate on himself. There was no jerking activity of the limbs witnessed. Of note, the patient has had 5 episodes of hypoglycemic seizures over the last several years according to the patient's presenting in a similar fashion. In the ER, a CT scan of the head revealed no acute findings. The patient's mentation has improved since normalization of his blood sugar levels. He will be admitted to the hospitalist service for further evaluation and management. Home Medications Scheduled Aspirin (Aspirin EC) 81 Mg Tabec, 81 MG PO QHS, (Reported) Atorvastatin Calcium (Atorvastatin Calcium) 20 Mg Tab, 20 MG PO QHS, (Reported) Carvedilol (Carvedilol) 25 Mg Tab, 25 MG PO BID, (Reported) Cinacalcet (Sensipar) 30 Mg Tab, 30 MG PO 3XW, (Reported) SATURDAY, SATURDAY, SATURDAY Clonidine HCl (Clonidine HCl) 0.1 Mg Tab, 0.1 MG PO BID, (Reported) Clopidogrel Bisulfate (Plavix) 75 Mg Tab, 75 MG PO DAILY, (Reported) Ergocalciferol (Vitamin D2) (Vitamin D2) 50,000 Unit Cap, 50,000 UNIT PO QWEEK, (Reported) SATURDAY Febuxostat (Uloric) 80 Mg Tab, 40 MG PO DAILY, (Reported) Insulin Human Lispro (Novolog) 100 U/Ml Inj, 1 DOSE SC ACHS, (Reported) PER SLIDING SCALE Insulin Human NPH (Novolin N) 1 Ml Susp, 45 UNITS SC QPM, (Reported) Insulin Human NPH (Novolin N) 1 Ml Susp, 10-12 UNITS SC DAILY, (Reported) Levothyroxine Sodium (Levothyroxine Sodium) 150 Mcg Tab, 150 MCG PO QHS, (Reported) Multivitamins (Thera M Plus Tablet) 1 Tab Tab, 1 TAB PO DAILY, (Reported) Torsemide (Torsemide) 20 Mg Tab, 20 MG PO BID, (Reported) Scheduled PRN Acetaminophen (Tylenol Extra Strength) 500 Mg Tablet, 1,000 MG PO TID PRN for PA IN, (Reported) Nitroglycerin (Nitrostat) 0.4 Mg Subl, 0.4 MG SL NITRO PRN for CHEST PAIN, (Reported) Allergies Coded Allergies: Gluten Flour (Verified Allergy, Unknown, 05/19/18) SAIDA Inhibitors (Verified Adverse Reaction, Intermediate, hyperkalemia, 08/15/18) oxycodone (Verified Adverse Reaction, Mild, gi upset/dizziness, 08/15/18) Past Medical History Medical History As noted in HPI. Surgical History Status post coronary artery bypass grafting status post bilateral angioplasty of the lower extremities. Status post arteriovenous (AV) fistula creation. Status post peritoneal dialysis catheter placement. History of shoulder rotator cuff repair. History of carpal tunnel release. Tonsillectomy. Appendectomy Cataract Surgery Social History * Smoker: Denies Alcohol: Denies Drugs: denies Lives with his , is functionally independent at baseline. Review of Systems Other systems 10 point review of systems is limited secondary to the patient's clinical condition. Please refer to the HPI for the extent of the review of systems. Physical Examination General Exam: Positive: No Acute Distress, Other (patient opens eyes to command, however not verbal at this time) Eye Exam: Positive: PERRLA, Conjunctiva & lids normal; Negative: Sclera icteric, Ptosis ENT Exam: Positive: Atraumatic; Negative: Mucous membr. moist/pink (dry mucous membranes) Neck Exam: Negative: JVD Chest Exam: Positive: Clear to auscultation, Normal air movement Heart Exam: Positive: Rate Normal, Normal S1, Normal S2 Abdomen Exam: Positive: Soft, Other (+PD Catheter); Negative: Tenderness Extremity Exam: Negative: Tenderness, Swelling Neuro Exam: Positive: Other (moving all 4 extremities to turn himself in bed.) Vital Signs Vital Signs Date Time Temp Pulse Resp B/P (MAP) Pulse Ox O2 Delivery O2 Flow Rate FiO2 08/15/18 16:50 84 100 08/15/18 16:45 175/86 (115) 08/15/18 15:03 Nasal Cannula 3.0 08/15/18 14:41 96.8 08/15/18 14:31 30 Laboratory Data Labs 24H Laboratory Tests 2 08/15/18 14:41: Immature Granulocyte % (Auto) 0.5, White Blood Count 11.1H, Red Blood Count 4.06L, Hemoglobin 12.2L, Hematocrit 35.4L, Mean Corpuscular Volume 87.2, Mean Corpuscular Hemoglobin 30.0, Mean Corpuscular Hemoglobin Concent 34.5, Red Cell Distribution Width 12.0, Platelet Count 286, Neutrophils (%) (Auto) 86.8H, Lymphocytes (%) (Auto) 1.8L, Monocytes (%) (Auto) 7.3H, Eosinophils (%) (Auto) 3.3H, Basophils (%) (Auto) 0.3, Neutrophils # (Auto) 9.6H, Lymphocytes # (Auto) 0.2L, Monocytes # (Auto) 0.8, Eosinophils # (Auto) 0.4, Basophils # (Auto) 0.0, Nucleated Red Blood Cells % (auto) 0.0, Blood Gas Bicarbonate Standard 25.5, Venous Blood pH 7.324L, Venous Blood Partial Pressure CO2 58.4H, Venous Blood Partial Pressure O2 29.9L, Venous Blood Total Carbon Dioxide 31.5H, Venous Blood HCO3 29.7H, Venous Blood Oxygen Saturation 51.3L, Venous Blood Base Excess 2.3H, Anion Gap 9, Glomerular Filtration Rate 15.8L, Estimated Mean Plasma Glucose 192H, Hemoglobin A1c 8.3, Osmolality 311H, Calcium Level 7.5L, Phosphorus Level 2.7, Magnesium Level 2.1, Aspartate Amino Transf (AST/SGOT) 60H, Alanine Aminotransferase (ALT/SGPT) 50, Alkaline Phosphatase 245H, Total Bilirubin 0.4, Direct Bilirubin 0.2, Total Creatine Kinase 438H, Creatine Kinase MB 7.0H, Creatine Kinase MB Relative Index 1.67, Troponin I < 0.02, Total Protein 6.0L, Albumin 2.8L, Albumin/Globulin Ratio 0.88L, Lipase 173, Ethyl Alcohol Level < 0.003, B-Hydroxybutyrate 1.41 08/15/18 15:19: Urine Color YELLOW, Urine Appearance HAZY, Urine pH 5.0, Urine Specific [place] 1.013, Urine Protein 1+H, Urine Glucose (UA) 1+H, Urine Ketones TRACEH, Urine Blood NEGATIVE, Urine Nitrite NEGATIVE, Urine Bilirubin NEGATIVE, Urine Urobilinogen 0.2, Urine Leukocyte Esterase NEGATIVE, Urine WBC (Auto) 1, Urine RBC (Auto) 0, Urine Hyaline Casts (Auto) 0, Urine Bacteria (Auto) NEGATIVE, Urine Squamous Epithelial Cells 0, Urine Amorphous Sediment SMALLH, Urine Sperm (Auto) SMALLH, Urine Amphetamines Screen NEGATIVE, Urine Benzodiazepines Screen NEGATIVE, Urine Opiates Screen NEGATIVE, Urine Methadone Screen NEGATIVE, Urine Barbiturates Screen NEGATIVE, Urine Phencyclidine Screen NEGATIVE, Urine Cocaine Metabolite Screen NEGATIVE, Urine Cannabinoids Screen NEGATIVE CBC/BMP Laboratory Tests 08/15/18 14:41 Red Blood Count 4.06 L, Mean Corpuscular Volume 87.2, Mean Corpuscular Hemoglobin 30.0, Mean Corpuscular Hemoglobin Concent 34.5, Red Cell Distribution Width 12.0, Neutrophils (%) (Auto) 86.8 H, Lymphocytes (%) (Auto) 1.8 L, Monocytes (%) (Auto) 7.3 H, Eosinophils (%) (Auto) 3.3 H, Basophils (%) (Auto) 0.3, Neutrophils # (Auto) 9.6 H, Lymphocytes # (Auto) 0.2 L, Monocytes # (Auto) 0.8, Eosinophils # (Auto) 0.4, Basophils # (Auto) 0.0 Microbiology Microbiology 08/15/18 Blood Culture, Received Pending 08/15/18 Blood Culture, Received Pending Plan / VTE VTE Prophylaxis Ordered?: Yes Plan Plan Episode of Unresponsiveness 2/[address] Head with no acute findings Patient's mentation improving with normalization of blood glucose level--moving all extremities, and opens eyes to command. However, still not verbalizing. Otherwise no gross neurological deficits We will hold Insulin therapy at this time Q2H Fingersticks until we are able to confirm stabilization of his blood glucose levels Hypoglycemic protocol ordered Gentle IV fluid hydration with D5/0.45 NS ordered Diabetic Diet ordered once the patient is more awake, alert Seizure Precautions Serial Neurochecks We will cont to monitor ESRD on PD Nephrology consulted Hx of CAD s/p CABG, Peripheral Vascular Disease s/p B/L LE Angioplasty Cont ASA, Plavix, Statin, Coreg HTN, uncontrolled likely 2/2 Above Cont current regimen, Hydralazine added for PRN B/P control Dyslipidemia Continue statin Hypothyroidism Continue levothyroxine Diabetes mellitus Continue management as delineated above History of diastolic congestive heart failure The patient does appear to be on the dehydrated side Gentle IV fluid hydration has been ordered We will continue to monitor his volume status History of gout Continue Uloric DVT prophylaxis Heparin subcutaneously ALYSSIA WILCOX MD August 15, 2018 17:17
[2018-08-15] MEDS ORDERED: SODIUM CHLORIDE IV SCH (17:30)
[2018-08-15] MEDS ORDERED: D5W IV SCH (17:30)
[2018-08-15] MEDS: hydrALAZINE INJ 20 MG/ML VIAL IV SCH ×2 (17:35→23:35)
[2018-08-15] MEDS ORDERED: CINACALCET 30 MG TAB (SENSIPAR) PO SCH (18:00)
[2018-08-15] MEDS ORDERED: POTASSIUM CHLORIDE 10 MEQ SR TABLET PO ONE (19:30)
[2018-08-15] MEDS ORDERED: ACETAMINOPHEN 650 MG SUPP PR PRN (20:15)
--- NOTE | 2018-08-15 20:52 | REP ---
Clinical: Right lower quadrant pain. History of peritoneal dialysis. Technique: Axial noncontrast images from the lung bases to the pubic symphysis with coronal and sagittal re-formations. Comparison: 10/01/2017. Findings: Lung bases demonstrate chronic changes with minimal basilar atelectasis. Liver, spleen, pancreas, gallbladder, bilateral adrenal glands and kidneys are relatively normal / stable. Pelvis demonstrates normal bladder and age appropriate prostate/seminal vesicles. Peritoneal dialysis catheter and small amount of peritoneal fluid is appreciated which is nonspecific. Atherosclerotic disease involving the aorta and branch vessels including renovascular calcifications and calcifications of the seminal vesicles. No adenopathy. No free air. Musculoskeletal structures demonstrate degenerative changes including chronic spondylolysis without spondylolisthesis. Impression: 1. Small amount of intraperitoneal fluid is nonspecific given the evidence for peritoneal dialysis. 2. No obvious acute abdominopelvic pathology appreciated. 3. Atherosclerotic disease. 4. Minimal basilar atelectasis. Electronically Signed by Cordell Mehta MD 08/15/2018 08:43 P
[2018-08-15] MEDS: cloNIDine 0.1 MG TAB PO SCH (21:00)
[2018-08-15] MEDS: ATORVASTATIN 20 MG TAB PO SCH (21:00)
[2018-08-15] MEDS: ASPIRIN 81 MG ENTERIC TAB PO SCH (21:00)
[2018-08-15] MEDS: CARVedilol 12.5 MG TAB PO SCH (21:00)
[2018-08-15] MEDS: HEPARIN SOD (PORCINE) 5000 UNITS/ML VIAL SC SCH (21:00)
[2018-08-15] MEDS: LEVOTHYROXINE 150MCG TABLET (0.15MG) PO SCH (21:00)
[2018-08-15] MEDS: KCL 10MEQ/100ML SWI (KRUN) 10 MEQ in APPROPRIATE DILUENT 1 EA IV SCH ×2 (22:00→23:35)
--- NOTE | 2018-08-15 22:33 | ECGEPIP ---
[facility] - ED Test Date: 2018-08-15 Pat Name: BRYAN AMBRIZ Department: Room: - Gender: Male Chief Controller Station: GUILLERMO : [id number] Requested By: LULI Milton Order Number: [id number] Reading MD: Alfred Moore Measurements Intervals [place] Rate: 82 P: VA: 142 QRS: 43 QRSD: 96 T: 81 QT: 400 QTc: 469 Interpretive Statements SINUS RHYTHM POSSIBLE INFERIOR MYOCARDIAL INFARCTION, PROBABLY OLD SIMILAR TO 05/19/18 Electronically Signed on 08-15-2018 22:32:53 EDT by Alfred Moore
[2018-08-15 23:00] VITALS: BP 160/74
[2018-08-15 23:03] LABS: ABG HCO3 19.9 MEQ/L (22.0-26.0); ABG PARTIAL PRESSURE CO2 26.5 mmHg (35.0-45.0); ABG PARTIAL PRESSURE O2 84.8 mmHg (75.0-100.0); ABG STANDARD HCO3 22.8 MEQ/L (22.0-26.0); ABG TOTAL CO2 20.7 MEQ/L (22.0-29.0); ABG pH (ARTERIAL) 7.494 UNITS (7.350-7.450)
[2018-08-16] VITALS (10 sets, daily range): BP systolic 127–145; BP diastolic 61–74
[2018-08-16] MEDS ORDERED: PIPERACILLIN/TAZOBACTAM SOD 4.5 GM in D5W MINI-BAG PLUS 50 ML IV SCH ×2
[2018-08-16] MEDS: PIPERACILLIN/TAZOBACTAM SOD 3.375 GM in D5W MINI-BAG PLUS 50 ML IV SCH ×4 (02:15→17:03)
[2018-08-16 02:36] LABS: SPEC. GRAVITY BODY FLUIDS 1.011 (NOT ESTABLISHED)
[2018-08-16 02:41] LABS: APPEARANCE, BODY FLUID CLEAR (CLEAR); PERITONEAL FL COLOR PALE YELLOW (COLORLESS); SOURCE, BODY FLUID PERITONEAL
[2018-08-16 03:23] LABS: SOURCE, BODY FLUID ALBUMIN PERITONEAL; SOURCE, BODY FLUID GLUCOSE PERITONEAL; SOURCE, BODY FLUID TOT PROTEIN PERITONEAL; TOTAL PROTEIN, BODY FLUID 1.1 G/DL (NOT ESTABLISHED)
[2018-08-16] MEDS ORDERED: NS 600 ML IV SCH (04:25)
[2018-08-16] MEDS ORDERED: ONDANSETRON 4 MG TAB (S0181) PO PRN (04:30)
[2018-08-16] MEDS: hydrALAZINE INJ 20 MG/ML VIAL IV SCH ×3 (05:26→18:00)
[2018-08-16] MEDS: ACETAMINOPHEN TAB 650MG DOSE (2X325MG) PO PRN ×2 (05:27→11:25)
[2018-08-16] MEDS: HEPARIN SOD (PORCINE) 5000 UNITS/ML VIAL SC SCH ×2 (09:00→21:00)
[2018-08-16] MEDS: cloNIDine 0.1 MG TAB PO SCH ×2 (09:00→21:35)
[2018-08-16] MEDS: FEBUXOSTAT 40 MG TABLET (ULORIC) PO SCH (09:07)
[2018-08-16] MEDS: TORSEMIDE 20 MG TAB PO SCH ×2 (09:07→17:02)
[2018-08-16] MEDS: MULTIVITAMINS/MINERALS THERAP 1 TAB PO SCH (09:07)
[2018-08-16] MEDS: CLOPIDOGREL 75 MG TAB PO SCH (09:07)
[2018-08-16] MEDS: CARVedilol 12.5 MG TAB PO SCH ×2 (09:08→21:35)
[2018-08-16] MEDS: LEVEMIR (INSULIN DETEMIR) 1 UNITS/0.01ML SC SCH (09:25)
[2018-08-16 10:00] LABS: HEMATOCRIT 34.3 % (42.0-52.0); MEAN CORPUSCULAR HEMOGLOBIN 30.7 pg (27.0-33.0); MEAN CORPUSCULAR VOLUME 87.7 fl (80.0-96.0); PLATELET COUNT, AUTOMATED 276 10^3/uL (150-450); RED BLOOD COUNT 3.91 10^6/uL (4.30-6.10)
[2018-08-16 10:25] LABS: CALCIUM LEVEL 7.4 MG/DL (8.5-10.1); CREATININE FOR GFR 4.59 MG/DL (0.70-1.30); GLOMERULAR FILTRATION RATE 14.3 (>56); MAGNESIUM LEVEL 2.2 MG/DL (1.8-2.4); POTASSIUM SERUM 3.7 MEQ/L (3.5-5.1)
[2018-08-16] MEDS: HumaLOG INSULIN (NovoLOG) PER UNIT SC SCH ×2 (11:25→18:01)
--- NOTE | 2018-08-16 12:37 | IPNPDOC ---
Subjective Date Seen The patient was seen on 08/16/18. Subjective Chief Complaint/HPI Patient seen and examined at the bedside. He is much more awake, alert, and conversant. He denies any acute complaints of pain or discomfort. Objective Physical Examination General Exam: Positive: Alert, Cooperative, No Acute Distress Eye Exam: Positive: PERRLA, Conjunctiva & lids normal; Negative: Sclera icteric, Ptosis ENT Exam: Positive: Atraumatic, Mucous membr. moist/pink, Other ENT (tooth extractions noted from upper right jaw area. No surrounding erythema, induration, or drainage noted from site.) Neck Exam: Negative: JVD Chest Exam: Positive: Clear to auscultation, Normal air movement Heart Exam: Positive: Rate Normal, Normal S1, Normal S2 Abdomen Exam: Positive: Soft, Other (+PD Catheter); Negative: Tenderness Extremity Exam: Negative: Tenderness, Swelling Neuro Exam: Positive: Other (moving all 4 extremities to turn himself in bed.) Assessment /Plan Plan/VTE VTE Prophylaxis Ordered?: Yes Plan Uncontrolled Diabetes with Labile Blood Glucose levels We will continue to titrate the patient's insulin therapy based on his blood gl ucose readings and dietary intake. Continue frequent fingerstick monitoring Initial BMP this a.m. revealed an elevated blood sugar over 400, and an anion gap of 17 Insulin therapy has been ordered We will repeat a BMP later this afternoon and continue to monitor glucose levels Episode of Unresponsiveness 2/2 Hypoglycemia Seizure, resolved The patient's mentation has improved this morning following improvement of blood glucose levels Leukocytosis, Fever Possibly reactive from above vs underlying infectious etiology CXR with no acute disease CT Abd/pel with no obvious acute intra-abdominal pathology Peritoneal fluid analysis noted, fluid culture/Gram stain pending--- however, patient denies any abdominal pain at this time Blood cultures ordered overnight We will continue the patient on IV Zosyn at this time The patient has defervesced since administration of Tylenol and antibiotic therapy. We will continue to monitor ESRD on PD Nephrology on board Hx of CAD s/p CABG, Peripheral Vascular Disease s/p B/L LE Angioplasty Cont ASA, Plavix, Statin, Coreg HTN, uncontrolled likely 2/2 Above Cont current regimen, Hydralazine added for PRN B/P control Dyslipidemia Continue statin Hypothyroidism Continue levothyroxine History of diastolic congestive heart failure The patient does appear to be on the dehydrated side Gentle IV fluid hydration has been ordered We will continue to monitor his volume status History of gout Continue Uloric DVT prophylaxis Heparin subcutaneously VS, I&O, 24H, Karen Vital Signs/I&O Vital Signs Date Time Temp Pulse Resp B/P (MAP) Pulse Ox O2 Delivery O2 Flow Rate FiO2 08/16/18 11:26 136/65 08/16/18 09:08 91 08/16/18 06:00 99.6 18 100 08/15/18 15:03 Nasal Cannula 3.0 I&O- Last 24 Hours up to 6 AM 08/16/18 06:00 Intake Total 3760 ml Output Total 2160 ml Balance 1600 ml Laboratory Data 24H LABS Laboratory Tests 2 08/15/18 14:41: Immature Granulocyte % (Auto) 0.5, White Blood Count 11.1H, Red Blood Count 4.06L, Hemoglobin 12.2L, Hematocrit 35.4L, Mean Corpuscular Volume 87.2, Mean Corpuscular Hemoglobin 30.0, Mean Corpuscular Hemoglobin Concent 34.5, Red Cell Distribution Width 12.0, Platelet Count 286, Neutrophils (%) (Auto) 86.8H, Lymphocytes (%) (Auto) 1.8L, Monocytes (%) (Auto) 7.3H, Eosinophils (%) (Auto) 3.3H, Basophils (%) (Auto) 0.3, Neutrophils # (Auto) 9.6H, Lymphocytes # (Auto) 0.2L, Monocytes # (Auto) 0.8, Eosinophils # (Auto) 0.4, Basophils # (Auto) 0.0, Nucleated Red Blood Cells % (auto) 0.0, Blood Gas Bicarbonate Standard 25.5, Venous Blood pH 7.324L, Venous Blood Partial Pressure CO2 58.4H, Venous Blood Partial Pressure O2 29.9L, Venous Blood Total Carbon Dioxide 31.5H, Venous Blood HCO3 29.7H, Venous Blood Oxygen Saturation 51.3L, Venous Blood Base Excess 2.3H, Anion Gap 9, Glomerular Filtration Rate 15.8L, Estimated Mean Plasma Glucose 192H, Hemoglobin A1c 8.3, Osmolality 311H, Calcium Level 7.5L, Phosphorus Level 2.7, Magnesium Level 2.1, Aspartate Amino Transf (AST/SGOT) 60H, Alanine Aminotransferase (ALT/SGPT) 50, Alkaline Phosphatase 245H, Total Bilirubin 0.4, Direct Bilirubin 0.2, Total Creatine Kinase 438H, Creatine Kinase MB 7.0H, Creatine Kinase MB Relative Index 1.67, Troponin I < 0.02, Total Protein 6.0L, Albumin 2.8L, Albumin/Globulin Ratio 0.88L, Lipase 173, Ethyl Alcohol Level < 0.003, B-Hydroxybutyrate 1.41 08/15/18 15:19: Urine Color YELLOW, Urine Appearance HAZY, Urine pH 5.0, Urine Specific [place] 1.013, Urine Protein 1+H, Urine Glucose (UA) 1+H, Urine Ketones TRACEH, Urine Blood NEGATIVE, Urine Nitrite NEGATIVE, Urine Bilirubin NEGATIVE, Urine Urobilinogen 0.2, Urine Leukocyte Esterase NEGATIVE, Urine WBC (Auto) 1, Urine RBC (Auto) 0, Urine Hyaline Casts (Auto) 0, Urine Bacteria (Auto) NEGATIVE, Urine Squamous Epithelial Cells 0, Urine Amorphous Sediment SMALLH, Urine Sperm (Auto) SMALLH, Urine Amphetamines Screen NEGATIVE, Urine Benzodiazepines Screen NEGATIVE, Urine Opiates Screen NEGATIVE, Urine Methadone Screen NEGATIVE, Urine Barbiturates Screen NEGATIVE, Urine Phencyclidine Screen NEGATIVE, Urine Cocaine Metabolite Screen NEGATIVE, Urine Cannabinoids Screen NEGATIVE 08/15/18 18:20: Bedside Glucose (Misc Panel) 86 08/15/18 18:54: Bedside Glucose (Misc Panel) 124H 08/15/18 19:59: Bedside Glucose (Misc Panel) 113H 08/15/18 20:58: Lactic Acid Level 1.0 08/15/18 22:31: Bedside Glucose (Misc Panel) 94 08/15/18 22:52: Blood Gas Bicarbonate Standard 22.8, Arterial Blood pH 7.494H, Arterial Blood Partial Pressure CO2 26.5L, Arterial Blood Partial Pressure O2 84.8, Arterial Blood Total CO2 20.7L, Arterial Blood HCO3 19.9L, Arterial Blood Base Excess - 2.0, Arterial Blood Oxygen Saturation 97.0 08/15/18 23:40: Bedside Glucose (Misc Panel) 95 08/16/18 02:17: Body Fluid Specific [place] 1.011, Body Fluid WBC (Auto) 87H, Body Fluid RBC (Auto) < 2, Body Fluid Mononuclear Cells % Auto 82.7H, Fluid Polymorphonuclear Cell % Auto 17.3H, Body Fluid Glucose Source PERITONEAL, Body Fluid Glucose 286, Body Fluid Protein Source PERITONEAL, Body Fluid Total Protein 1.1, Body Fluid Albumin Source PERITONEAL, Body Fluid Albumin 0.7, Peritoneal Fluid Source PERITONEAL, Peritoneal Fluid Color PALE YELLOW, Peritoneal Fluid Appearance CLEAR 08/16/18 02:45: Bedside Glucose (Misc Panel) 197H 08/16/18 04:24: Bedside Glucose (Misc Panel) 292H 08/16/18 08:35: Bedside Glucose (Misc Panel) 403H 08/16/18 09:35: Nucleated Red Blood Cells % (auto) 0.0, Anion Gap 17H, Glomerular Filtration Rate 14.3L, Blood Urea Nitrogen 64H, Creatinine 4.59H, Sodium Level 136, Potassium Level 3.7, Chloride Level 99, Carbon Dioxide Level 20L, Calcium Level 7.4L, Magnesium Level 2.2 08/16/18 11:10: Bedside Glucose (Misc Panel) 481H CBC/BMP Laboratory Tests 08/15/18 14:41 Red Blood Count 4.06 L, Mean Corpuscular Volume 87.2, Mean Corpuscular Hemoglobin 30.0, Mean Corpuscular Hemoglobin Concent 34.5, Red Cell Distribution Width 12.0, Neutrophils (%) (Auto) 86.8 H, Lymphocytes (%) (Auto) 1.8 L, Monocytes (%) (Auto) 7.3 H, Eosinophils (%) (Auto) 3.3 H, Basophils (%) (Auto) 0.3, Neutrophils # (Auto) 9.6 H, Lymphocytes # (Auto) 0.2 L, Monocytes # (Auto) 0.8, Eosinophils # (Auto) 0.4, Basophils # (Auto) 0.0 08/16/18 09:35 Red Blood Count 3.91 L, Mean Corpuscular Volume 87.7, Mean Corpuscular Hemoglobin 30.7, Mean Corpuscular Hemoglobin Concent 35.0, Red Cell Distribution Width 12.4, Calcium Level 7.4 L Microbiology Microbiology 08/15/18 Blood Culture, Received Pending 08/15/18 Blood Culture, Received Pending 08/15/18 Blood Culture, Received Pending 08/15/18 Blood Culture, Received Pending 08/16/18 Acid Fast Stain, Received Pending 08/16/18 Mycobacterial Culture, Received Pending 08/16/18 Fungal Smear, Received Pending 08/16/18 Fungal Culture, Received Pending 08/16/18 Gram Stain - Final, Resulted 08/16/18 Body Fluid Culture, Resulted Pending 08/16/18 Anaerobic Culture, Resulted Pending ALYSSIA WILCOX MD Aug 16, 2018 12:37
[2018-08-16] MEDS ORDERED: NS 1,000 ML IV SCH (14:15)
[2018-08-16] MEDS ORDERED: HumaLOG INSULIN (NovoLOG) PER UNIT SC ONE (14:15)
[2018-08-16] MEDS ORDERED: LEVEMIR (INSULIN DETEMIR) 1 UNITS/0.01ML SC ONE (14:15)
[2018-08-16 16:21] LABS: CALCIUM LEVEL 7.6 MG/DL (8.5-10.1); CREATININE FOR GFR 4.98 MG/DL (0.70-1.30); POTASSIUM SERUM 3.1 MEQ/L (3.5-5.1)
[2018-08-16] MEDS ORDERED: POTASSIUM CHLORIDE 10 MEQ SR TABLET PO ONE (18:00)
[2018-08-16] MEDS ORDERED: POTASSIUM CHLORIDE 10% LIQ 20 MEQ/15 ML UDC PO ONE (18:00)
[2018-08-16] MEDS ORDERED: LEVEMIR (INSULIN DETEMIR) 1 UNITS/0.01ML SC SCH (21:00)
[2018-08-16] MEDS: LEVOTHYROXINE 150MCG TABLET (0.15MG) PO SCH (21:31)
[2018-08-16] MEDS: ASPIRIN 81 MG ENTERIC TAB PO SCH (21:35)
[2018-08-16] MEDS: ATORVASTATIN 20 MG TAB PO SCH (21:35)
[2018-08-17] VITALS (7 sets, daily range): BP systolic 119–175; BP diastolic 59–86
[2018-08-17] MEDS: PIPERACILLIN/TAZOBACTAM SOD 2.25 GM in D5W MINI-BAG PLUS 50 ML IV SCH ×3 (00:55→18:26)
[2018-08-17 04:15] LABS: HEMATOCRIT 29.6 % (42.0-52.0); HEMOGLOBIN 10.3 g/dl (13.5-17.5); MEAN CORPUSCULAR HEMOGLOBIN 30.6 pg (27.0-33.0); MEAN CORPUSCULAR HGB CONC 34.8 g/dl (32.0-36.5); MEAN CORPUSCULAR VOLUME 87.8 fl (80.0-96.0); PLATELET COUNT, AUTOMATED 235 10^3/uL (150-450); RED BLOOD COUNT 3.37 10^6/uL (4.30-6.10); WHITE BLOOD COUNT 9.1 10^3/uL (4.0-10.0)
--- NOTE | 2018-08-17 04:31 | CR ---
DATE OF SERVICE: 08/16/2018 REQUESTING PHYSICIAN: Olga Mederos MD CONSULTING PHYSICIAN: Dr. Beavers REASON FOR CONSULTATION: Management of end-stage renal disease and peritoneal dialysis. CHIEF COMPLAINT: The patient was brought to the emergency room yesterday for hypoglycemic seizures. HISTORY OF PRESENT ILLNESS: Mr. Jonny Aguilera is a 53-year-old male with past medical history of end-stage renal disease on peritoneal dialysis secondary to diabetic nephropathy, history of insulin dependent diabetes, hypothyroidism, coronary artery disease, diastolic congestive heart failure, multiple other comorbidities as mentioned below well-known to nephrology service from previous hospitalizations and from outpatient home hemodialysis center. The patient was brought to the emergency room yesterday with hypoglycemic seizures. Most of the history was obtained from . The reports that nobody was at home. The patient injected insulin and he was working at home and was he was mowing the lawn. He was found to be unresponsive on the couch by his grandson who called the patient's . When they arrived at the bedside he was found to have a glucose level of 27. They called 9--. The patient had incontinence of urine at that time as well. Family members do not know for how long the patient was unconscious. The patient was brought to the emergency room by emergency medical services (EMS) services. The patient was admitted to intensive care unit (ICU) last night under the hospitalist service. Nephrology service was called for further help in the management of end-stage renal disease on peritoneal dialysis. I saw and evaluated the patient today morning at the bedside. He was awake, he was slow to respond but he was able to answer questions. I also already ordered his peritoneal dialysis manual exchanges to be done overnight which he is tolerating well. PAST MEDICAL HISTORY: Past medical history of: 1. End-stage renal disease on peritoneal dialysis. 2. Hypertension. 3. Hyperlipidemia. 4. Insulin dependent diabetic. 5. Hypothyroidism. 6. Coronary artery disease status post coronary artery bypass grafting. 7. Chronic diastolic congestive heart failure. 8. Peripheral vascular disease status post bilateral angioplasty of the lower extremities. PAST SURGICAL HISTORY: 1. Status post peritoneal dialysis catheter placement. 2. Status post coronary artery bypass grafting. 3. Status post angioplasty of the bilateral lower extremities. 4. Status post arteriovenous (AV) fistula creation in the right forearm. 5. History of rotator cuff surgery. 6. Carpal tunnel surgery. 7. Status post appendectomy. 8. Tonsillectomy in the past. ALLERGIES: The patient is allergic to SAIDA INHIBITORS and GLUTEN FOODS and OXYCODONE. FAMILY HISTORY: None. No significant family history of end-stage renal disease requiring hemodialysis. SOCIAL HISTORY: The patient lives at home with his . He denies any smoking, illicit drug abuse or alcohol abuse. REVIEW OF SYSTEMS: CONSTITUTIONAL: The patient reports feeling weak and tired. EYES: He denies any blurry vision, double vision. ENT: Denies any dysphagia, odynophagia or ear discharge. CARDIOVASCULAR: He denies any chest pain or palpitations. RESPIRATORY: He denies any shortness of breath or cough. GASTROINTESTINAL (GI): He denies any nausea, vomiting. GENITOURINARY (): He denies any dysuria or hematuria. MUSCULOSKELETAL: He denies any muscle aches and pains. CENTRAL NERVOUS SYSTEM (STOCK BROKER): He denies any weakness at this time. ENDOCRINE: The patient is a brittle diabetic, insulin dependent. All other review of systems is negative. PHYSICAL EXAMINATION: GENERAL: The patient is awake, alert, oriented times two laying in bed in no apparent distress. VITAL SIGNS: Temperature is 99.2 degrees Fahrenheit, blood pressure 145/67, pulse is 77, respiratory rate of 20, saturating 97% on room air. His temperature maximum (T-max) during this hospitalization is 102.8 degrees Fahrenheit last night. HEAD AND NECK EXAM: Extraocular muscles intact. Pupils equally round and reactive to light. Mucous membranes are moist. Neck is supple. There is no jugular venous distention (JVD). Cardiovascular: S1, S2, regular rate. No edema of the bilateral lower extremities. RESPIRATORY: Chest is clear to auscultation bilaterally. Bilateral equal air entry. No rales or rhonchi. ABDOMEN: Soft. Positive bowel sounds. Nontender. He has a left lower quadrant peritoneal dialysis catheter. Exit site is clean. MUSCULOSKELETAL: No clubbing or cyanosis. Pulses are 2+. CENTRAL NERVOUS SYSTEM (STOCK BROKER): No focal deficit. He moves all extremities. Arteriovenous (AV) access: He has a right forearm AV fistula with positive thrill and bruit. ORAL EXAM: The patient has sutures in the right side of the upper jaw. He recently had dental extractions done. LABORATORY REVIEW: Complete blood count (CBC) showed a white blood cell (WBC) of 15, hemoglobin is 12, platelets of 276. Urinalysis done. Negative nitrite, negative leukocyte esterase. Basic metabolic panel (BMP) showed sodium 136, potassium 3.1, chloride 100, bicarbonate 25, BUN 61, creatinine is 4.9. Glucose 340. Calcium is 7.6. Procalcitonin is 6.85. Urine toxicology is negative. Microbiology: Blood cultures are negative so far. IMAGING STUDIES: CAT scan of the abdomen and pelvis showed no acute pathology. CAT scan of the cervical spine showed no acute fracture. CAT scan of the head showed no bleed or acute stroke. CURRENT INPATIENT MEDICATIONS: The patient's medications were all reviewed by me. He was on IV fluid hydration which has been stopped. He is currently on normal saline at 60 mL an hour which I am stopping now. - Zosyn - He is on Zosyn 3.375 grams IV every 6 hours. I have changed the Zosyn to 2.25 grams IV every 8 hours. - Tylenol - He is on Tylenol as needed - aspirin 81 mg daily - Lipitor 20 mg at bedtime - Coreg 25 mg by mouth twice a day - Sensipar 30 mg by mouth Saturday, Saturday and Saturday - clonidine tablet 0.1 mg by mouth twice a day - Plavix 75 mg by mouth daily - Uloric 40 mg by mouth daily - hydralazine 10 mg IV every 6 hours as needed - insulin Levemir 10 units subcutaneous daily today morning and 25 units subcutaneous at bedtime - insulin sliding scale - levothyroxine 150 mcg by mouth daily - multivitamin 1 tablet by mouth daily - Zofran as needed - potassium chloride - he was given potassium chloride 40 mEq by mouth x1 dose - torsemide - He is on torsemide 20 mg by mouth twice a day as well ASSESSMENT: A 53 years old male with insulin dependent diabetes and end-stage renal disease on hemodialysis, history of hypertension, coronary artery disease admitted this time with hypoglycemic seizure. PLAN: 1. End-stage renal disease on peritoneal dialysis. I already ordered peritoneal dialysis orders last night, five manual exchanges, all 2 liters, all 1.5%. 2. Hypoglycemic seizures. The patient is hyperglycemic at this point. He has been started on insulin sliding scale and insulin Levemir. Continue monitoring in the ICU. 3. Hypertension with hypertensive heart disease and end-stage renal disease. Continue current dose of carvedilol as needed, intravenous (IV) hydralazine. 4. Hypothyroidism. Continue current dose of levothyroxine 150 mg by mouth at bedtime. 5. Leukocytosis and fever. The patient has been empirically started on Zosyn. I have decreased the Zosyn dose according to peritoneal dialysis. 6. Chronic diastolic congestive heart failure. Volume status is being optimized with dialysis and oral dose of torsemide. Continue the home dose at this point. 7. Hypokalemia. The patient is getting oral potassium. 8. Chronic gout secondary to end-stage renal disease. Continue current dose of Uloric 40 mg by mouth daily. 9. Secondary hyperparathyroidism. Continue current dose of Sensipar 30 mg by mouth every Saturday, Saturday and Saturday. Thank you for involving me in the care of this patient. I shall be happy to follow the patient along with you tomorrow morning.
[2018-08-17 04:36] LABS: CALCIUM LEVEL 7.5 MG/DL (8.5-10.1); CREATININE FOR GFR 5.06 MG/DL (0.70-1.30); GLOMERULAR FILTRATION RATE 12.8 (>56); MAGNESIUM LEVEL 1.9 MG/DL (1.8-2.4); POTASSIUM SERUM 3.2 MEQ/L (3.5-5.1)
[2018-08-17] MEDS: HumaLOG INSULIN (NovoLOG) PER UNIT SC SCH ×4 (05:47→19:34)
[2018-08-17] MEDS: hydrALAZINE INJ 20 MG/ML VIAL IV SCH ×2 (05:50)
[2018-08-17] MEDS ORDERED: POTASSIUM CHLORIDE 10 MEQ SR TABLET PO ONE (06:00)
[2018-08-17 07:49] LABS: APPEARANCE, BODY FLUID CLEAR (CLEAR); PERITONEAL DIALYSATE FL COLOR COLORLESS (COLORLESS); SOURCE, BODY FLUID PERITONEAL DIALYSATE
[2018-08-17] MEDS: MULTIVITAMINS/MINERALS THERAP 1 TAB PO SCH (08:46)
[2018-08-17] MEDS: CLOPIDOGREL 75 MG TAB PO SCH (08:46)
[2018-08-17] MEDS: cloNIDine 0.1 MG TAB PO SCH ×2 (08:46→21:00)
[2018-08-17] MEDS: FEBUXOSTAT 40 MG TABLET (ULORIC) PO SCH (08:47)
[2018-08-17] MEDS: LEVEMIR (INSULIN DETEMIR) 1 UNITS/0.01ML SC SCH (08:47)
[2018-08-17] MEDS: CARVedilol 12.5 MG TAB PO SCH ×2 (08:47→21:00)
[2018-08-17] MEDS: TORSEMIDE 20 MG TAB PO SCH ×2 (08:47→18:25)
[2018-08-17] MEDS: HEPARIN SOD (PORCINE) 5000 UNITS/ML VIAL SC SCH ×2 (08:47→20:59)
[2018-08-17] MEDS: **hydrALAZINE** 10 MG TAB PO SCH ×2 (12:00→18:26)
--- NOTE | 2018-08-17 13:05 | IPNPDOC ---
Subjective Date Seen The patient was seen on 08/17/18. Subjective Chief Complaint/HPI Patient seen and examined at the bedside. No acute overnight events noted. Objective Physical Examination General Exam: Positive: Alert, Cooperative, No Acute Distress Eye Exam: Positive: PERRLA, Conjunctiva & lids normal; Negative: Sclera icteric, Ptosis ENT Exam: Positive: Atraumatic, Mucous membr. moist/pink, Other ENT (tooth extractions noted from upper right jaw area. No surrounding erythema, induration, or drainage noted from site.) Neck Exam: Negative: JVD Chest Exam: Positive: Clear to auscultation, Normal air movement Heart Exam: Positive: Rate Normal, Normal S1, Normal S2 Abdomen Exam: Positive: Soft, Other (+PD Catheter); Negative: Tenderness Extremity Exam: Negative: Tenderness, Swelling Neuro Exam: Positive: Other (moving all 4 extremities to turn himself in bed.) Psych Exam: Positive: Oriented x 3 Assessment /Plan Plan/VTE VTE Prophylaxis Ordered?: Yes Plan Uncontrolled Diabetes with Labile Blood Glucose levels Blood glucose levels better controlled at this time Insulin regimen has been titrated Cont Carb Consistent Diet Episode of Unresponsiveness 2/2 Hypoglycemia Seizure, resolved The patient's mentation has improved this morning following improvement of blood glucose levels Leukocytosis, Fever, resolved WBC has normalized, and the patient has remained afebrile over the last 24 hrs CXR with no acute disease CT Abd/pel with no obvious acute intra-abdominal pathology Peritoneal fluid analysis noted with decrease/normalization of WBCs on repeat study from 08/17, fluid culture/Gram stain unrevealing--- however, patient denies any abdominal pain at this time Blood cultures also unrevealing at this time We will transition IV Zosyn to PO Coverage in the next 24 hrs We will continue to monitor ESRD on PD Nephrology on board Hx of CAD s/p CABG, Peripheral Vascular Disease s/p B/L LE Angioplasty Cont ASA, Plavix, Statin, Coreg HTN, uncontrolled likely 2/2 Above Cont current regimen, Hydralazine added for PRN B/P control Dyslipidemia Continue statin Hypothyroidism Continue levothyroxine History of diastolic congestive heart failure Does not appear decompensated We will continue to monitor his volume status History of gout Continue Uloric DVT prophylaxis Heparin subcutaneously Dispo--Patient downgraded from ICU today. Anticipate D/C home in 24-48hrs pending continued clinical improvement. VS, I&O, 24H, Fishbone Vital Signs/I&O Vital Signs Date Time Temp Pulse Resp B/P (MAP) Pulse Ox O2 Delivery O2 Flow Rate FiO2 08/17/18 12:00 149/70 08/17/18 08:47 74 08/17/18 08:44 98 08/17/18 07:21 98.4 17 08/15/18 15:03 Nasal Cannula 3.0 I&O- Last 24 Hours up to 6 AM 08/17/18 06:00 Intake Total 42887 ml Output Total 54405 ml Balance 2740 ml Laboratory Data 24H LABS Laboratory Tests 2 08/16/18 13:32: Bedside Glucose (Misc Panel) 416H 08/16/18 15:55: Anion Gap 11, Glomerular Filtration Rate 13.0L, Blood Urea Nitrogen 61H, Creatinine 4.98H, Sodium Level 136, Potassium Level 3.1L, Chloride Level 100, Carbon Dioxide Level 25, Calcium Level 7.6L 08/16/18 17:45: Bedside Glucose (Misc Panel) 230H 08/16/18 21:38: Bedside Glucose (Misc Panel) 155H 08/17/18 00:50: Bedside Glucose (Misc Panel) 182H 08/17/18 04:05: Nucleated Red Blood Cells % (auto) 0.0, Anion Gap 9, Glomerular Filtration Rate 12.8L, Blood Urea Nitrogen 62H, Creatinine 5.06H, Sodium Level 137, Potassium Level 3.2L, Chloride Level 100, Carbon Dioxide Level 28, Calcium Level 7.5L, Magnesium Level 1.9 08/17/18 06:52: Body Fluid Source PERITONEAL DIALYSATE, Body Fluid WBC (Auto) 10, Body Fluid RBC (Auto) < 2, Peritoneal Fluid Color COLORLESS, Peritoneal Fluid Appearance CLEAR 08/17/18 08:41: Bedside Glucose (Misc Panel) 189H 08/17/18 12:46: Bedside Glucose (Misc Panel) 407H CBC/BMP Laboratory Tests 08/16/18 15:55 Calcium Level 7.6 L 08/17/18 04:05 Calcium Level 7.5 L, Red Blood Count 3.37 L, Mean Corpuscular Volume 87.8, Mean Corpuscular Hemoglobin 30.6, Mean Corpuscular Hemoglobin Concent 34.8, Red Cell Distribution Width 12.5 Microbiology Microbiology 08/15/18 Blood Culture - Preliminary, Resulted No growth after 24 hours . All specim... 08/15/18 Blood Culture - Preliminary, Resulted No growth after 24 hours . All specim... 08/15/18 Blood Culture - Preliminary, Resulted No growth after 24 hours . All specim... 08/15/18 Blood Culture - Preliminary, Resulted No growth after 24 hours . All specim... 08/17/18 Gram Stain - Final, Resulted 08/17/18 Body Fluid Culture, Resulted Pending 08/16/18 Acid Fast Stain, Received Pending 08/16/18 Mycobacterial Culture, Received Pending 08/16/18 Fungal Smear, Received Pending 08/16/18 Fungal Culture, Received Pending 08/16/18 Gram Stain - Final, Resulted 08/16/18 Body Fluid Culture, Resulted Pending 08/16/18 Anaerobic Culture, Resulted Pending ALYSSIA WILCOX MD Aug 17, 2018 13:05
[2018-08-17] MEDS ORDERED: chlorproMAZINE 25 MG TAB (Q0161) PO PRN (14:30)
[2018-08-17] MEDS: ATORVASTATIN 20 MG TAB PO SCH (20:59)
[2018-08-17] MEDS: ASPIRIN 81 MG ENTERIC TAB PO SCH (20:59)
[2018-08-17] MEDS: LEVOTHYROXINE 150MCG TABLET (0.15MG) PO SCH (20:59)
[2018-08-17] MEDS ORDERED: LEVEMIR (INSULIN DETEMIR) 1 UNITS/0.01ML SC SCH (21:00)
[2018-08-17] MEDS ORDERED: HumaLOG INSULIN (NovoLOG) PER UNIT SC SCH (21:00)
[2018-08-18] MEDS: PIPERACILLIN/TAZOBACTAM SOD 2.25 GM in D5W MINI-BAG PLUS 50 ML IV SCH ×2 (00:43→08:14)
[2018-08-18 06:00] VITALS: BP 160/82
[2018-08-18] MEDS: **hydrALAZINE** 10 MG TAB PO SCH ×2 (06:06)
[2018-08-18 07:09] LABS: HEMATOCRIT 34.5 % (42.0-52.0); HEMOGLOBIN 12.1 g/dl (13.5-17.5); MEAN CORPUSCULAR HGB CONC 35.1 g/dl (32.0-36.5); MEAN CORPUSCULAR VOLUME 88.5 fl (80.0-96.0); PLATELET COUNT, AUTOMATED 280 10^3/uL (150-450); WHITE BLOOD COUNT 7.3 10^3/uL (4.0-10.0)
[2018-08-18 07:31] LABS: CALCIUM LEVEL 7.6 MG/DL (8.5-10.1); CREATININE FOR GFR 4.61 MG/DL (0.70-1.30); GLOMERULAR FILTRATION RATE 14.3 (>56); MAGNESIUM LEVEL 2.2 MG/DL (1.8-2.4); POTASSIUM SERUM 3.5 MEQ/L (3.5-5.1)
[2018-08-18] MEDS: LEVEMIR (INSULIN DETEMIR) 1 UNITS/0.01ML SC SCH (08:12)
[2018-08-18 08:13] VITALS: BP 144/76
[2018-08-18] MEDS: CLOPIDOGREL 75 MG TAB PO SCH (08:13)
[2018-08-18] MEDS: HumaLOG INSULIN (NovoLOG) PER UNIT SC SCH (08:13)
[2018-08-18] MEDS: CARVedilol 12.5 MG TAB PO SCH (08:13)
[2018-08-18] MEDS: FEBUXOSTAT 40 MG TABLET (ULORIC) PO SCH (08:13)
[2018-08-18] MEDS: MULTIVITAMINS/MINERALS THERAP 1 TAB PO SCH (08:14)
[2018-08-18] MEDS: TORSEMIDE 20 MG TAB PO SCH (08:14)
[2018-08-18] MEDS: cloNIDine 0.1 MG TAB PO SCH (08:14)
[2018-08-18] MEDS: HEPARIN SOD (PORCINE) 5000 UNITS/ML VIAL SC SCH (08:14)
--- NOTE | 2018-08-18 09:43 | IPN ---
DATE OF SERVICE: 08/17/2018 SUBJECTIVE: The patient is seen and examined this morning at the bedside in the intensive care unit. His is present. She states she finds him to be back at his the usual baseline mentation. There are no overnight events reported. He is anxious to go home. Vital signs: Temperature 98.4, pulse 74, respiratory rate 17, blood pressure 147/71, saturating 100% on room air. Review of intake and output yesterday shows a positive fluid balance of 3 liters, but this is likely inaccurate and due to the peritoneal output not being properly recorded. General: The patient is seen sitting out of bed to the chair in the ICU. Appears older than stated age, is awake, alert, oriented times three in no distress. Extraocular muscles are intact. Tongue is moist. Neck is supple. Jugular veins are not elevated. His dental extractions from the right upper jaw are noted. Cardiac S1, S2 regular rate and rhythm. Lungs are clear to auscultation bilaterally. No crackle rale or wheeze. Abdomen is soft and nontender. There is a PD catheter present with exit site that is clean, dry and intact. The extremities are negative for a any edema or clubbing. Neurologic: He is oriented times three, interactive and conversational. LABORATORY DATA: White count 9.1, hemoglobin 10.3, sodium 137, potassium 3.2, bicarbonate 28, glucose 154. PD fluid culture has been negative. Blood cultures have been negative. INPATIENT MEDICATIONS: Reviewed by myself. He received an additional dose of potassium this morning. He is off of IV fluids. His Zosyn was adjusted for renal function. His insulin was adjusted per the primary team. Remainder medications are unchanged from prior. PROBLEMS: 1. End-stage renal disease on peritoneal dialysis. Patient continues with unremarkable peritoneal dialysis treatments. His volume status is acceptable. He has no signs of peritonitis. He is receiving potassium supplementation. No changes are being made to his chronic prescription. 2. Diastolic congestive heart failure. No exacerbation. Volume status is well compensated. Intake and output yesterday are inaccurate. Continue present peritoneal dialysis prescription. He is also on torsemide at home which is continued as well. 3. Hypertension. Blood pressures of acceptable systolic 110s to 140s. I do not feel he needs as needed hydralazine at present. His IV fluids were stopped yesterday. He continues on carvedilol, clonidine and torsemide. 4. Hypokalemia. He is appropriately receiving potassium supplementation. His magnesium levels are adequate. 5. Poorly controlled insulin dependent diabetes. A1c 8.3% with recent hypoglycemic seizure. Insulin has been adjusted by the primary team. His mentation is back to baseline per his . DISPOSITION: The patient can likely be discharged home in the coming 24 hours.
--- NOTE | 2018-08-18 14:05 | IPN ---
DATE: 08/18/2018 SUBJECTIVE: Patient was seen and examined this morning at the bedside. He has discharge pending. He has no overnight events or complaints. He is anxious to go home, Vital signs: Temperature 97.1, pulse 69, respiratory rate 16, blood pressure 160/82, saturating 98% on room air. Intake yesterday and output yesterday were reviewed and show net positive 1 liter. Weight in the bed scale today is not documented. General: The patient is seen sitting in the chair, awake, alert, oriented, conversational, in no distress. is present at the bedside. Extraocular muscles are intact. Tongue is moist. Dental extractions in the right upper jaw are noted. Dentition is poor. Neck is supple. Jugular veins are not elevated. Cardiac: S1, S2 regular rate and rhythm. Lungs are clear to auscultation bilaterally. No crackle, rales or wheeze. Abdomen is soft and nontender. The PD catheter exit site was not examined today. The extremities are negative for edema or clubbing. Neurologic: He is oriented times three, interactive and conversational. No focal deficits. LABORATORY DATA: Sodium 138, potassium 3.5, glucose 124, white count 7.3, hemoglobin 12.1. MEDICATIONS: Inpatient medications were reviewed by myself and no changes from prior. PROBLEMS: 1. End stage renal disease on peritoneal dialysis. His peritoneal dialysis treatments have been unremarkable, volume status is acceptable, electrolytes are acceptable. There is nothing to suggest peritonitis. He will resume his cycler PD prescription tonight at home and he will follow up further in the peritoneal dialysis clinic. 2. Diastolic congestive heart failure, no exacerbation. Volume status is well compensated. He will continue on his chronic peritoneal dialysis prescription. He is also on torsemide at home, which will be continued as well. 3. Hypertension. Patient will continue on his chronic home antihypertensive regimen and he does monitor his home blood pressure daily. DISPOSITION: The patient is stable for discharge today from a nephrology point of view.
--- NOTE | 2018-08-18 16:37 | DS.PDOC ---
Discharge Summary General Date of Admission August 15, 2018 at 16:50 Date of Discharge 08/18/18 Specialist/Consultants Involve Dr. Beavers, Dr. Tasha Otto of Nephrology Discharge Summary PROCEDURES PERFORMED DURING STAY: None. ADMITTING/DISCHARGE DIAGNOSES: Uncontrolled Diabetes with Labile Blood Glucose levels Episode of Unresponsiveness 2/2 Hypoglycemia Seizure Leukocytosis, Fever ESRD on PD Hx of CAD s/p CABG, Peripheral Vascular Disease s/p B/L LE Angioplasty History of diastolic congestive heart failure COMPLICATIONS/CHIEF COMPLAINT: Hypoglycemia. HISTORY OF PRESENT ILLNESS: . 53-year-old male with past medical history of hypertension, dyslipidemia, diabetes mellitus, hypothyroidism, coronary artery disease status post CABG, diastolic congestive heart failure, end-stage renal disease on peritoneal dialysis, and peripheral vascular disease status post bilateral angioplasty of the lower extremities presented to the ER after he was found unresponsive by family. The extent of this HPI is limited given the patient's clinical condition. The patient's , who is at the bedside states that the patient recently had 6 teeth removed 2 days ago. Since then, his by mouth intake has been limited. The patient was found by his grandson on the couch and unresponsive. The patient's blood sugar level was noted to be 27. Also of note, the patient had noted to urinate on himself. There was no jerking activity of the limbs witnessed. Of note, the patient has had 5 episodes of hypoglycemic seizures over the last several years according to the patient's presenting in a similar fashion. In the ER, a CT scan of the head revealed no acute findings. The patient's mentation improved since normalization of his blood sugar levels. He was admitted to the hospitalist service for further evaluation and management. Uncontrolled Diabetes with Labile Blood Glucose levels Blood glucose levels better controlled at this time Insulin regimen has been titrated Cont Carb Consistent Diet Patient counseled to cut his insulin in half when his PO intake is decreased. Counseled to follow up with his PCP for further instructions for further titration of his regimen during this time. Episode of Unresponsiveness 2/2 Hypoglycemia Seizure, resolved The patient's mentation has improved this morning following improvement of blood glucose levels Leukocytosis, Fever, resolved WBC has normalized, and the patient has remained afebrile over the last 24 hrs CXR with no acute disease CT Abd/pel with no obvious acute intra-abdominal pathology Peritoneal fluid analysis noted with decrease/normalization of WBCs on repeat study from 08/17, fluid culture/Gram stain unrevealing--- however, patient denies any abdominal pain at this time. Unlikely to be 2/2 peritonitis. More likely 2/2 hypoglycemic event Blood cultures also unrevealing at this time Abx discontinued ESRD on PD Nephrology on board Hx of CAD s/p CABG, Peripheral Vascular Disease s/p B/L LE Angioplasty Cont ASA, Plavix, Statin, Coreg HTN, uncontrolled likely 2/2 Above Cont current regimen, Hydralazine added for PRN B/P control Dyslipidemia Continue statin Hypothyroidism Continue levothyroxine History of diastolic congestive heart failure Does not appear decompensated We will continue to monitor his volume status History of gout Continue Uloric DISCHARGE MEDICATIONS: Please see below. ALLERGIES: Please see below. PHYSICAL EXAMINATION ON DISCHARGE: VITAL SIGNS: Please see below. General Exam: Positive: Alert, Cooperative, No Acute Distress Eye Exam: Positive: PERRLA, Conjunctiva & lids normal; Negative: Sclera icteric, Ptosis ENT Exam: Positive: Atraumatic, Mucous membr. moist/pink, Other ENT (tooth extractions noted from upper right jaw area. No surrounding erythema, induration, or drainage noted from site.) Neck Exam: Negative: JVD Chest Exam: Positive: Clear to auscultation, Normal air movement Heart Exam: Positive: Rate Normal, Normal S1, Normal S2 Abdomen Exam: Positive: Soft, Other (+PD Catheter); Negative: Tenderness Extremity Exam: Negative: Tenderness, Swelling Neuro Exam: Positive: Other (moving all 4 extremities to turn himself in bed.) Psych Exam: Positive: Oriented x 3 LABORATORY DATA: Please see below. IMAGING: Supine portable chest x-ray: Single view. History: Diabetic ketoacidosis. Comparison study: May 19, 2018. Findings: EKG monitoring electrodes overlie the chest. Heart is not enlarged. Pulmonary vasculature is not increased. Median sternotomy wires are seen. The pleural angles are sharp. No infiltrate is seen. No significant bony abnormality. Impression: Prior sternotomy. No acute disease. CT Head without contrast HISTORY: Altered mental status COMPARISON: 05/19/2018 There is no intraparenchymal hemorrhage, acute infarct, mass or midline shift. The ventricular system and cortical sulci are dilated consistent with minimal volume loss. There is no extra cerebral collection. There is no fracture. The visualized sinuses are clear. IMPRESSION: Minimal volume loss. CT cervical spine without contrast HISTORY: Altered mental status COMPARISON: None There is no acute fracture or subluxation. Disc bulges are present at the C2-3 and C4-5 levels. A disc bulge with associated osteophyte formation is present at the C3-4 level. There is minimal narrowing of the spinal canal. Uncinate process hypertrophy is present at the C3-4 level. This produces minimal narrowing of the C3 neural foramina. There is no other disc bulge or herniation. The remaining neural foramina are patent. The C3-4 intervertebral disc is decreased in height consistent with disc degeneration. IMPRESSION: 1. There is no acute fracture or subluxation. 2. There is cervical spondylosis at the C2-3 through C4-5 levels. Clinical: Right lower quadrant pain. History of peritoneal dialysis. Technique: Axial noncontrast images from the lung bases to the pubic symphysis with coronal and sagittal re-formations. Comparison: 10/01/2017. Findings: Lung bases demonstrate chronic changes with minimal basilar atelectasis. Liver, spleen, pancreas, gallbladder, bilateral adrenal glands and kidneys are relatively normal / stable. Pelvis demonstrates normal bladder and age appropriate prostate/seminal vesicles. Peritoneal dialysis catheter and small amount of peritoneal fluid is appreciated which is nonspecific. Atherosclerotic disease involving the aorta and branch vessels including renovascular calcifications and calcifications of the seminal vesicles. No adenopathy. No free air. Musculoskeletal structures demonstrate degenerative changes including chronic spondylolysis without spondylolisthesis. Impression: 1. Small amount of intraperitoneal fluid is nonspecific given the evidence for peritoneal dialysis. 2. No obvious acute abdominopelvic pathology appreciated. 3. Atherosclerotic disease. 4. Minimal basilar atelectasis. PROGNOSIS: Fair ACTIVITY: As tolerated. DIET: Carb consistent diet DISCHARGE PLAN: DISPOSITION: Home, Self-Care. DISCHARGE INSTRUCTIONS: Follow with primary care physician within 7 days. Follow-up with nephrology as scheduled. Return to the ER for any acute emergencies. DISCHARGE CONDITION: Stable. TIME SPENT ON DISCHARGE: Greater than 30 minutes. Vital Signs/I&Os Vital Signs Date Time Temp Pulse Resp B/P (MAP) Pulse Ox O2 Delivery O2 Flow Rate FiO2 08/18/18 08:13 73 144/76 08/18/18 06:00 97.1 16 98 08/15/18 15:03 Nasal Cannula 3.0 I&O- Last 24 Hours up to 6 AM 08/18/18 05:59 Intake Total 11586 ml Output Total 90199 ml Balance 680 ml Laboratory Data Labs 24H Laboratory Tests 2 08/17/18 16:39: Bedside Glucose (Misc Panel) 263H 08/17/18 20:53: Bedside Glucose (Misc Panel) 210H 08/18/18 06:42: Nucleated Red Blood Cells % (auto) 0.0, Anion Gap 7L, Glomerular Filtration Rate 14.3L, Blood Urea Nitrogen 56H, Creatinine 4.61H, Sodium Level 138, Potassium Level 3.5, Chloride Level 101, Carbon Dioxide Level 30, Calcium Level 7.6L, Magnesium Level 2.2 CBC/BMP Laboratory Tests 08/18/18 06:42 Red Blood Count 3.90 L, Mean Corpuscular Volume 88.5, Mean Corpuscular Hemoglobin 31.0, Mean Corpuscular Hemoglobin Concent 35.1, Red Cell Distribution Width 12.3, Calcium Level 7.6 L FSBS Laboratory Tests Test 08/17/18 16:39 08/17/18 20:53 Range/Units Bedside Glucose (Misc Panel) 263 210 70-105 MG/DL Microbiology Microbiology 08/15/18 Blood Culture - Preliminary, Resulted No Growth after 48 hours. All Specime... 08/15/18 Blood Culture - Preliminary, Resulted No Growth after 48 hours. All Specime... 08/15/18 Blood Culture - Preliminary, Resulted No Growth after 72 hours. All specime... 08/15/18 Blood Culture - Preliminary, Resulted No Growth after 72 hours. All specime... 08/17/18 Gram Stain - Final, Resulted 08/17/18 Body Fluid Culture, Resulted Pending 08/16/18 Acid Fast Stain, Received Pending 08/16/18 Mycobacterial Culture, Received Pending 08/16/18 Fungal Smear, Received Pending 08/16/18 Fungal Culture, Received Pending 08/16/18 Gram Stain - Final, Complete 08/16/18 Body Fluid Culture - Final, Complete 08/16/18 Anaerobic Culture - Final, Complete Discharge Medications Scheduled Aspirin (Aspirin EC) 81 Mg Tabec, 81 MG PO QHS, (Reported) Atorvastatin Calcium (Atorvastatin Calcium) 20 Mg Tab, 20 MG PO QHS, (Reported) Carvedilol (Carvedilol) 25 Mg Tab, 25 MG PO BID, (Reported) Cinacalcet (Sensipar) 30 Mg Tab, 30 MG PO 3XW, (Reported) SATURDAY, SATURDAY, SATURDAY Clonidine HCl (Clonidine HCl) 0.1 Mg Tab, 0.1 MG PO BID, (Reported) Clopidogrel Bisulfate (Plavix) 75 Mg Tab, 75 MG PO DAILY, (Reported) Ergocalciferol (Vitamin D2) (Vitamin D2) 50,000 Unit Cap, 50,000 UNIT PO QWEEK, (Reported) SATURDAY Febuxostat (Uloric) 80 Mg Tab, 40 MG PO DAILY, (Reported) Insulin Human Lispro (Novolog) 100 U/Ml Inj, 1 DOSE SC ACHS, (Reported) PER SLIDING SCALE Insulin Human NPH (Novolin N) 1 Ml Susp, 45 UNITS SC QPM, (Reported) Insulin Human NPH (Novolin N) 1 Ml Susp, 10-12 UNITS SC DAILY, (Reported) Levothyroxine Sodium (Levothyroxine Sodium) 150 Mcg Tab, 150 MCG PO QHS, (Reported) Multivitamins (Thera M Plus Tablet) 1 Tab Tab, 1 TAB PO DAILY, (Reported) Torsemide (Torsemide) 20 Mg Tab, 20 MG PO BID, (Reported) Scheduled PRN Acetaminophen (Tylenol Extra Strength) 500 Mg Tablet, 1,000 MG PO TID PRN for PAIN, (Reported) Nitroglycerin (Nitrostat) 0.4 Mg Subl, 0.4 MG SL NITRO PRN for CHEST PAIN, (Reported) Allergies Coded Allergies: Gluten Flour (Verified Allergy, Unknown, 05/19/18) SAIDA Inhibitors (Verified Adverse Reaction, Intermediate, hyperkalemia, 08/15/18) oxycodone (Verified Adverse Reaction, Mild, gi upset/dizziness, 08/15/18) ALYSSIA WILCOX MD Aug 18, 2018 16:37
== END 2018-08-18 11:57 | disposition home or self-care (01) | DRG 638 ==
LOC: EDBD 14:20 → M ED 14:20 → M ED INP 16:50 → M PCU 22:13 → M ICU 22:22 → M MSPAV 08-17 14:32
PROVIDERS: ADMIT Internal Medicine; ATTEND Internal Medicine
DX: E11.649 Type 2 diabetes mellitus with hypoglycemia without coma (principal); G40.89 Other seizures; I50.32 Chronic diastolic (congestive) heart failure; I13.2 Hypertensive heart and chronic kidney disease with heart failure and with stage 5 chronic kidney disease, or end stage renal disease; N18.6 End stage renal disease; I25.10 Atherosclerotic heart disease of native coronary artery without angina pectoris; Z95.1 Presence of aortocoronary bypass graft; E11.40 Type 2 diabetes mellitus with diabetic neuropathy, unspecified; E78.5 Hyperlipidemia, unspecified; M10.30 Gout due to renal impairment, unspecified site; Z79.899 Other long term (current) drug therapy; Z79.82 Long term (current) use of aspirin; Z79.4 Long term (current) use of insulin; Z88.5 Allergy status to narcotic agent; Z88.8 Allergy status to other drugs, medicaments and biological substances; E11.21 Type 2 diabetes mellitus with diabetic nephropathy; E03.9 Hypothyroidism, unspecified; E87.6 Hypokalemia; N25.81 Secondary hyperparathyroidism of renal origin

== ENCOUNTER → 2018-09-05 | Outpatient (CLI) | payer OTHER ==
[~2018-09-05] MED LIST changes: +ACET-897 PO; +ISOVUE-370 76% 100ML VIAL (Q9967) As Ordered ONE
--- NOTE | 2018-09-05 10:36 | REP ---
CT ANGIOGRAPHY WITH IV CONTRAST: HISTORY: End-stage renal disease. Pre-transplant evaluation for kidney transplant. CT CONTRAST DOSE: 100 mL of intravenous Isovue [address] TECHNIQUE: Helical scanning is acquired. Axial 3 mm images are reformatted. Coronal and sagittal MPR images are generated. Oblique coronal images are generated parallel to the renal arteries bilaterally. Maximal intensity projection images are generated. NONVASCULAR CT FINDINGS: Median sternotomy wires are seen. There is mild diffuse intra-abdominal ascites likely associated with peritoneal dialysis. The peritoneal dialysis is visible projecting in the right lower quadrant peritoneal reflections. There are multiple small hypervascular nodules in the liver on this arterial phase acquisition. The largest of these is in the right lobe measuring 6 mm in diameter. These may be hemangiomas or other hypervascular liver nodules. No adrenal lesion. Vas deferens calcification is seen bilaterally. There is bilateral L5 spondylolysis without spondylolisthesis. The [place] kidneys enhance symmetrically are without evidence of mass. There is mild bilateral atrophy. Left renal length is 9.6 and the right kidney length is 9.[address] ANGIOGRAPHIC FINDINGS: The suprarenal abdominal aorta is unremarkable. There is mild to moderate atherosclerotic calcification in the infrarenal abdominal aorta. No aneurysm is seen. Celiac and superior mesenteric artery origins are unremarkable. Moderate plaquing is seen in the mid superior mesenteric artery. Calcification and plaquing are seen in the splenic artery. There are singular nonstenotic renal arteries bilaterally. Inferior mesenteric artery is patent. There is plaquing and stenosis of the inferior mesenteric artery just beyond its origin. Calcific plaquing is seen in the proximal common iliac arteries bilaterally left more so than right with approximately 50% stenosis of the common iliac artery on the left. There is calcific plaquing in the proximal internal iliac arteries, right more so than left but both of these vessels are patent. The external iliac arteries are widely patent bilaterally. Mild plaquing is seen in the proximal superficial femoral and profunda femoral arteries. No significant stenosis. IMPRESSION: Atherosclerotic calcific plaquing most pronounced in the common iliac artery on the left where there is 50% stenosis. Mild ascites related to peritoneal dialysis catheter. Multiple tiny hypervascular liver nodules question hemangiomas. Bilateral L5 spondylolysis without spondylolisthesis. Electronically Signed by Franco Frankel MD 09/05/2018 03:29 P
== END ==
LOC: M RAD 08:33
DX: Z01.818 Encounter for other preprocedural examination (principal); N18.6 End stage renal disease
CPT/HCPCS: 74174; Q9967

== ENCOUNTER 2018-10-08 14:01 | Emergency (ER) | payer MEDICARE, MEDICAID ==
[~2018-10-08] VITALS: Ht 172.7 cm; Wt 65.5 kg
[~2018-10-08 14:01] MED LIST changes: -ISOVUE-370 76% 100ML VIAL (Q9967) As Ordered ONE
--- NOTE | 2018-10-08 15:44 | REP ---
RIGHT WRIST, FOUR VIEWS: There is no evidence of an acute fracture, dislocation or intrinsic bone disease. Vascular calcifications are seen in the soft tissues. IMPRESSION: No fracture or dislocation. Electronically Signed by Kraig Hyatt MD 10/09/2018 12:35 P
[2018-10-08 15:55] VITALS: BP 192/92
--- NOTE | 2018-10-08 15:58 | REP ---
RIGHT HAND, FOUR VIEWS: There is no evidence of an acute fracture, dislocation or intrinsic bone disease. There are vascular calcifications in the soft tissues. IMPRESSION: No fracture or dislocation. Electronically Signed by Kraig Hyatt MD 10/09/2018 12:35 P
== END 2018-10-08 17:06 | disposition home or self-care (01) ==
LOC: M ED 14:01
DX: S60.211A Contusion of right wrist, initial encounter (principal); W22.8XXA Striking against or struck by other objects, initial encounter; Y92.099 Unspecified place in other non-institutional residence as the place of occurrence of the external cause; Y93.9 Activity, unspecified; Y99.9 Unspecified external cause status; R51 Headache; R56.9 Unspecified convulsions; E11.649 Type 2 diabetes mellitus with hypoglycemia without coma; I50.9 Heart failure, unspecified; I25.2 Old myocardial infarction; E78.00 Pure hypercholesterolemia, unspecified; I10 Essential (primary) hypertension; Z87.01 Personal history of pneumonia (recurrent); G47.30 Sleep apnea, unspecified; K90.0 Celiac disease; K31.84 Gastroparesis; K65.9 Peritonitis, unspecified; N18.6 End stage renal disease; Z99.2 Dependence on renal dialysis; N40.0 Benign prostatic hyperplasia without lower urinary tract symptoms; E03.9 Hypothyroidism, unspecified; K76.9 Liver disease, unspecified; F32.9 Major depressive disorder, single episode, unspecified; Z79.82 Long term (current) use of aspirin; Z79.4 Long term (current) use of insulin; Z79.899 Other long term (current) drug therapy; Z88.8 Allergy status to other drugs, medicaments and biological substances; Z88.5 Allergy status to narcotic agent; Z91.018 Allergy to other foods

== ENCOUNTER 2018-11-09 20:33 | Emergency (ER) | payer MEDICARE, MEDICAID ==
[2018-11-09] MEDS ORDERED: CARVedilol 12.5 MG TAB PO ONE (21:00)
[2018-11-09] MEDS ORDERED: cloNIDine 0.1 MG TAB PO ONE (21:00)
[2018-11-09 21:28] LABS: BASO # 0.1 10^3/uL (0.0-0.2); BASO % 1.8 % (0.0-1.0); EOS # 0.6 10^3/uL (0.0-0.50); EOS % 8.5 % (0.0-3.0); HEMATOCRIT 29.8 % (42.0-52.0); HEMOGLOBIN 10.3 g/dl (13.5-17.5); LYMPH # 1.1 10^3/uL (1.5-4.5); LYMPH % 16.9 % (24.0-44.0); MEAN CORPUSCULAR HEMOGLOBIN 29.5 pg (27.0-33.0); MEAN CORPUSCULAR HGB CONC 34.6 g/dl (32.0-36.5); MEAN CORPUSCULAR VOLUME 85.4 fl (80.0-96.0); MONO # 0.7 10^3/uL (0.0-0.8); MONO % 10.5 % (0.0-5.0); NEUTROPHILS # 4.2 10^3/uL (1.8-7.7); NEUTROPHILS % 62.3 % (36.0-66.0); PLATELET COUNT, AUTOMATED 255 10^3/uL (150-450); RED BLOOD COUNT 3.49 10^6/uL (4.30-6.10); WHITE BLOOD COUNT 6.7 10^3/uL (4.0-10.0)
[2018-11-09 21:41] LABS: INR 0.98; PROTHROMBIN TIME 12.7 SECONDS (11.8-14.0)
[2018-11-09 21:42] LABS: PARTIAL THROMBOPLASTIN TIME 27.8 SECONDS (25.0-38.4)
[2018-11-09 21:56] LABS: CALCIUM LEVEL 7.6 MG/DL (8.5-10.1); CREATININE FOR GFR 4.35 MG/DL (0.70-1.30); GLOMERULAR FILTRATION RATE 15.3 (>56); POTASSIUM SERUM 4.1 MEQ/L (3.5-5.1)
[2018-11-09 21:57] LABS: ALBUMIN 2.7 GM/DL (3.2-5.2); BILIRUBIN,DIRECT 0.1 MG/DL (0.0-0.2); BILIRUBIN,TOTAL 0.3 MG/DL (0.2-1.0); CK-MB VALUE MASS 8.5 NG/ML (<3.6); MB/CK RELATIVE INDEX 1.55 (< OR =4); TOTAL PROTEIN 5.6 GM/DL (6.4-8.2); TROPONIN I 0.02 NG/ML (< 0.10)
[2018-11-09] MEDS ORDERED: LABETALOL HCL 100 MG/20 ML VIAL IV STA (23:26)
[2018-11-10] MEDS ORDERED: cloNIDine 0.2 MG TAB PO ONE (02:45)
[2018-11-10 02:46] VITALS: BP 191/90
[2018-11-10 03:23] LABS: CK-MB VALUE MASS 5.8 NG/ML (<3.6); MB/CK RELATIVE INDEX 1.34 (< OR =4); TROPONIN I 0.02 NG/ML (< 0.10)
[2018-11-10 04:15] VITALS: BP 179/89
--- NOTE | 2018-11-10 20:19 | ECGEPIP ---
[facility] - ED Test Date: 2018-11-09 Pat Name: BRYAN AMBRIZ Department: Room: - Gender: Male News Clerk: JAVON : 1965 Requested By: MICHA Ellis Order Number: [id number] Reading MD: Alfred Moore Measurements Intervals [place] Rate: 78 P: 64 MD: 159 QRS: 36 QRSD: 94 T: 74 QT: 396 QTc: 453 Interpretive Statements SINUS RHYTHM POSSIBLE PRIOR INFERIOR INFARCT SIMILAR TO 08/15/18 Electronically Signed on 11-10-2018 20:19:08 EDT by Alfred Moore
--- NOTE | 2018-11-10 20:24 | ECGEPIP ---
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
--- NOTE | 2018-11-11 11:04 | REP ---
Chest, AP and lateral views, patient sitting: Comparison is 10/02/2017. The lung celaya are clear. The cardiac size is upper normal. There are sternotomy wires, unchanged. The jason, mediastinum, skeletal structures are unremarkable. Impression: There are no acute cardiopulmonary findings. Electronically Signed by Kraig Palmer MD 11/10/2018 07:00 A
== END 2018-11-10 04:37 | disposition home or self-care (01) ==
LOC: M ED 20:33
DX: N18.9 Chronic kidney disease, unspecified (principal); I11.0 Hypertensive heart disease with heart failure; R07.89 Other chest pain; E11.51 Type 2 diabetes mellitus with diabetic peripheral angiopathy without gangrene; I50.9 Heart failure, unspecified; E78.5 Hyperlipidemia, unspecified; I73.9 Peripheral vascular disease, unspecified; Z99.2 Dependence on renal dialysis; Z79.899 Other long term (current) drug therapy; Z79.890 Hormone replacement therapy; Z79.82 Long term (current) use of aspirin; Z88.5 Allergy status to narcotic agent; Z88.8 Allergy status to other drugs, medicaments and biological substances; Z91.018 Allergy to other foods

== ENCOUNTER 2018-12-07 17:46 | Emergency (ER) | payer MEDICARE, MEDICAID ==
[~2018-12-07] VITALS: Ht 172.7 cm; Wt 63.6 kg
[2018-12-07] MEDS: fentaNYL 100 MCG/2 ML INJECTION (J3010) IV PRN ×3 (18:31→20:59)
--- NOTE | 2018-12-07 18:40 | ECGEPIP ---
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
--- NOTE | 2018-12-07 18:46 | REPVR ---
PROCEDURE INFORMATION: Exam: CT Head Without Contrast Exam date and time: 12/07/2018 6:15 PM Clinical history: 53 years old, male; Injury or trauma; Fall; Initial encounter; Blunt trauma (contusions or hematomas); Consciousness not specified TECHNIQUE: Imaging protocol: Computed tomography of the head without contrast. Radiation optimization: All CT scans at this facility use at least one of these dose optimization techniques: automated exposure control; mA and/or kV adjustment per patient size (includes targeted exams where dose is matched to clinical indication); or iterative reconstruction. COMPARISON: CT Head without contrast 08/15/2018 2:38 PM FINDINGS: Brain: No intracranial mass, mass effect or midline shift. No acute intracranial hemorrhage. No CT evidence of acute cortical infarct. Ventricles: Ventricles, cisterns, and sulci are normal in size for age. Bones/joints: No calvarial fracture or destructive process. Sinuses: Imaged paranasal sinuses are clear. Ethmoid mucosal thickening or fluid is present. Mastoid air cells: Mastoid air cells are normally aerated. Orbits: Imaged orbits are unremarkable. Soft tissues: No focal extracranial soft tissue swelling. IMPRESSION: No acute or concerning focal intracranial abnormality. Electronically signed by: Srinivasa Castro On 12/07/2018 18:46:32 PM
--- NOTE | 2018-12-07 18:52 | REPVR ---
PROCEDURE INFORMATION: Exam: CT Cervical Spine Without Contrast Exam date and time: 12/07/2018 6:15 PM Clinical history: 53 years old, male; Injury or trauma; Fall; Initial encounter; Blunt trauma TECHNIQUE: Imaging protocol: Computed tomography images of the cervical spine without contrast. Radiation optimization: All CT scans at this facility use at least one of these dose optimization techniques: automated exposure control; mA and/or kV adjustment per patient size (includes targeted exams where dose is matched to clinical indication); or iterative reconstruction. COMPARISON: CT Spine,cervical w/o contrast 08/15/2018 2:38 PM FINDINGS: Vertebrae: No traumatic segmental malalignment of cervical spine or craniocervical junction. Vertebral body height is maintained at all levels. No acute fracture. No destructive or blastic cervical spine osseous lesion. Discs/Spinal canal/Neural foramina: Intervertebral disc height is decreased at multiple levels, with typical degenerative pattern and associated endplate, articular pillar and uncovertebral spurs. This is most significant at C3-4 where there is mild canal stenosis and bilateral osseous neural foraminal stenosis. No significant osseous canal or neural foraminal stenosis at the other levels Prevertebral Space: Prevertebral soft tissues demonstrate no asymmetry. Soft tissues: Unremarkable. Lungs: No concerning abnormality of the imaged lung apices. IMPRESSION: 1. No acute fracture or traumatic subluxation of the cervical spine. 2. Mild multilevel degenerative disc and articular pillar arthropathy, most significant at C3-4. Electronically signed by: Srinivasa Castro On 12/07/2018 18:52:06 PM
--- NOTE | 2018-12-07 19:00 | REPVR ---
PROCEDURE INFORMATION: Exam: XR Left Knee Exam date and time: 12/07/2018 6:01 PM Clinical history: 53 years old, male; Injury or trauma; Fall; Initial encounter; Abrasion; Knee; Left TECHNIQUE: Imaging protocol: XR Left knee. Views: 4 or more views. COMPARISON: CR Knee, complete 08/03/2012 4:09 PM FINDINGS: Bones/joints: No radiographic evidence of joint effusion. Bones are aligned normally with normal mineralization. No fracture, evidence of stress fracture or osteochondral lesion. Mild joint space narrowing and marginal osteophyte formation in all compartments. Soft tissues: No effacement of subcutaneous soft tissue planes. Vasculature: Vascular calcifications are noted. IMPRESSION: 1. No acute process. 2. Minimal tricompartmental degenerative osteoarthrosis of the knee. No significant progression since the prior radiographs from 2012 Electronically signed by: Srinivasa Castro On 12/07/2018 19:00:26 PM
--- NOTE | 2018-12-07 19:30 | REPVR ---
PROCEDURE INFORMATION: Exam: CT Left Lower Extremity Without Contrast, Knee Exam date and time: 12/07/2018 7:18 PM Clinical history: 53 years old, male; Injury or trauma; Fall; Initial encounter; Blunt trauma; Knee; Left; Injury date: Today; Injury details: Fell off ladder; Additional info: Fall, pain TECHNIQUE: Imaging protocol: CT of the Left lower extremity without contrast was performed. Exam focused on the knee. Radiation optimization: All CT scans at this facility use at least one of these dose optimization techniques: automated exposure control; mA and/or kV adjustment per patient size (includes targeted exams where dose is matched to clinical indication); or iterative reconstruction. COMPARISON: CT-Knee WITHOUT CONTRAST 08/03/2012 5:19 PM FINDINGS: Mild subcutaneous soft tissue swelling over the anterior aspect of the knee. No soft tissue defect or air and no evidence of foreign body. Small knee joint effusion with transudate density. No hemarthrosis or lipohemarthrosis. No distal thigh or proximal leg muscular hematoma. Normal osseous alignment. No acute fracture. No concerning osseous lesion. Joint spaces are maintained for age. Incidental vascular calcifications are noted IMPRESSION: No fracture, osseous malalignment or evidence of hemarthrosis. Minimal prepatellar subcutaneous soft tissue edema without organized hematoma Electronically signed by: Srinivasa Castro On 12/07/2018 19:30:10 PM
[2018-12-07 19:54] LABS: BASO # 0.1 10^3/uL (0.0-0.2); BASO % 1.6 % (0.0-1.0); EOS # 0.5 10^3/uL (0.0-0.5); EOS % 7.7 % (0.0-3.0); HEMATOCRIT 33.3 % (42.0-52.0); HEMOGLOBIN 11.2 g/dl (13.5-17.5); LYMPH # 1.3 10^3/uL (1.5-5.0); LYMPH % 20.9 % (24.0-44.0); MEAN CORPUSCULAR HEMOGLOBIN 29.9 pg (27.0-33.0); MEAN CORPUSCULAR HGB CONC 33.6 g/dl (32.0-36.5); MEAN CORPUSCULAR VOLUME 88.8 fl (80.0-96.0); MONO # 0.6 10^3/uL (0.0-0.8); MONO % 10.1 % (0.0-5.0); NEUTROPHILS # 3.7 10^3/uL (1.5-8.5); NEUTROPHILS % 59.5 % (36.0-66.0); PLATELET COUNT, AUTOMATED 247 10^3/uL (150-450); RED BLOOD COUNT 3.75 10^6/uL (4.30-6.10); WHITE BLOOD COUNT 6.2 10^3/uL (4.0-10.0)
[2018-12-07 20:05] LABS: INR 1.1; PARTIAL THROMBOPLASTIN TIME 28.6 SECONDS (25.0-38.4); PROTHROMBIN TIME 13.9 SECONDS (11.8-14.0)
[2018-12-07 20:15] LABS: ALBUMIN 3.1 GM/DL (3.2-5.2); ALT/SGPT 49 U/L (12-78); AMYLASE 62 U/L (25-115); BILIRUBIN,DIRECT 0.1 MG/DL (0.0-0.2); BILIRUBIN,TOTAL 0.5 MG/DL (0.2-1.0); CK-MB VALUE MASS 6.5 NG/ML (<3.6); CPK CREATINE PHOSPHOKINASE 820 U/L (39-308); ETHYL ALCOHOL (ETHANOL) 0.003 % (0.000-0.010); LIPASE 235 U/L (73-393); MB/CK RELATIVE INDEX 0.79 (< OR =4); TROPONIN I < 0.02 NG/ML (< 0.10)
[2018-12-07] MEDS ORDERED: PERCOCET 5MG/325MG TAB PO ONE (21:00)
[2018-12-07] MEDS ORDERED: OXYC1TAB23 PO (21:25)
[2018-12-07 21:26] VITALS: BP 180/92
[2018-12-07] MEDS ORDERED: OXYCODONE/APAP 5MG/325MG(BULK FOR ED) 1 TABLET PO ONE (21:30)
[2018-12-07 21:44] LABS: BLOOD UREA NITROGEN 53 MG/DL (7-18); CARBON DIOXIDE LEVEL 25 MEQ/L (21-32); CHLORIDE LEVEL 103 MEQ/L (98-107); CREATININE FOR GFR 4.86 MG/DL (0.70-1.30); GLOMERULAR FILTRATION RATE 13.4 (>56); GLUCOSE, FASTING 386 MG/DL (70-100); POTASSIUM SERUM 4.2 MEQ/L (3.5-5.1); SODIUM LEVEL 139 MEQ/L (136-145)
--- NOTE | 2018-12-08 07:48 | REP ---
Portable chest, 06:24 p.m., single AP view with the patient sitting: Comparison is 11/09/2018, AP and lateral views: The lung celaya are clear. Cardiac size is upper normal. The jason, mediastinum, skeletal structures are unremarkable. Sternotomy wires and mediastinal surgical clips are again noted, unchanged. Impression: No acute cardiopulmonary findings. Electronically Signed by Kraig Palmer MD 12/08/2018 07:40 A
== END 2018-12-07 21:36 | disposition home or self-care (01) ==
LOC: M ED 17:46 → EDBD 17:46 → M ED 21:36
DX: S80.02XA Contusion of left knee, initial encounter (principal); W17.89XA Other fall from one level to another, initial encounter; Y92.018 Other place in single-family (private) house as the place of occurrence of the external cause; M25.462 Effusion, left knee; E10.9 Type 1 diabetes mellitus without complications; E78.5 Hyperlipidemia, unspecified; N18.6 End stage renal disease; K90.0 Celiac disease; R56.9 Unspecified convulsions; Z79.899 Other long term (current) drug therapy; Z79.82 Long term (current) use of aspirin; Z79.4 Long term (current) use of insulin; Z79.01 Long term (current) use of anticoagulants; Z88.5 Allergy status to narcotic agent; Z88.8 Allergy status to other drugs, medicaments and biological substances; Z91.018 Allergy to other foods
CPT/HCPCS: 70450; 71045; 72125; 73564; 73700; 80048; 80076; 82150; 82550; 82553; 83605; 83690; 84484; 85025; 85610; 85730; 86850; 86900; 86901; 93005; 93041; 94760; 96374; 96376; 99285; G0480; J3010

== ENCOUNTER → 2019-01-02 | Outpatient (CLI) | payer MEDICARE, MEDICAID ==
[~2019-01-02] MED LIST changes: +OXYC1TAB23 PO
--- NOTE | 2019-01-02 09:54 | REP ---
MRI left knee without contrast: History: Contusion left knee. Comparison knee radiographs December 07, 2018. Comparison CT study December 07, 2018. A more remote prior CT study of the left knee August 03, 2012 showed a subtle lateral tibial plateau fracture. Technique: Axial, coronal, and sagittal imaging planes are utilized for T1, proton density, and T2-weighted scans obtained with and without fat saturation in the usual fashion. MRI findings: There is a fairly large area of marrow edema in the posterior aspect of the medial femoral condyle. Cortical and medullary bone signal intensity are otherwise normal. There is a small joint effusion. There is no evidence of overt fracture. There is a tiny Walker's cyst posteromedially in the popliteal soft tissues. There is some mild subcutaneous edema medially and laterally about the knee. Medial lateral patellar retinacular appear intact. Patellar and quadriceps tendons have an intact appearance. There is no evidence of anterior or posterior cruciate ligament disruption. Medial and lateral collateral ligaments have an intact appearance. There is no evidence of malalignment of the of the medial or lateral tibial plateau. No articular cartilage lesion is appreciated. There is subtle fraying of the inner free margin of the lateral meniscus. No other evidence of meniscal tear. Impression: Findings consistent with marrow contusion posterior aspect medial femoral condyle. There is subtle fraying of the inner free margin of the lateral meniscus at the meniscal level. Small joint effusion. No other evidence of internal derangement seen. Electronically Signed by Franco Frankel MD 01/02/2019 07:35 P
== END ==
LOC: M PLARAD 07:57
PROVIDERS: ATTEND Orthopaedic Surgery Sports Medicine
DX: M25.462 Effusion, left knee (principal); M71.22 Synovial cyst of popliteal space [Baker], left knee; S80.02XA Contusion of left knee, initial encounter

== ENCOUNTER 2019-03-12 12:15 | Emergency (ER) | payer MEDICARE, MEDICAID ==
[~2019-03-12] VITALS: Ht 172.7 cm; Wt 66.8 kg
--- NOTE | 2019-03-12 13:07 | REP ---
Clinical: Trauma . Technique: Internal rotation, external rotation, and Y view left shoulder . Findings: No acute fracture or dislocation. The acromioclavicular and glenohumeral joints are intact. No periarticular calcifications or degenerative changes are appreciated. Sub acromial space is normal. Surrounding soft tissues are unremarkable. Impression: Normal left shoulder radiographs. Electronically Signed by Cordell Mehta MD 03/12/2019 12:59 P
[2019-03-12] MEDS ORDERED: TORS20TA2 PO (13:15)
[2019-03-12] MEDS ORDERED: INSUDET SC (13:15)
[2019-03-12] MEDS ORDERED: RENV2TAB PO (13:15)
[2019-03-12] MEDS ORDERED: PERC5TAB12 PO (13:35)
[2019-03-12] MEDS ORDERED: PERCOCET 5MG/325MG TAB PO ONE (13:45)
[2019-03-12 13:51] VITALS: BP 160/95
--- NOTE | 2019-03-15 08:40 | ECGEPIP ---
[facility] - ED Test Date: 2019-03-12 Pat Name: BRYAN AMBRIZ Department: Room: - Gender: Male Trip Follower: CIERRA : 1965 Requested By: SIS LINTON PA-C. Order Number: [id number] Reading MD: Alfred Moore Measurements Intervals [place] Rate: 75 P: 75 TN: 172 QRS: 52 QRSD: 98 T: 69 QT: 402 QTc: 451 Interpretive Statements SINUS RHYTHM NSTTW ABNORMALITIES SIMILAR TO 12/07/18 Electronically Signed on 03-15-2019 8:40:32 EST by Alfred Moore
== END 2019-03-12 13:52 | disposition home or self-care (01) ==
LOC: M ED 12:15
DX: S46.002A Unspecified injury of muscle(s) and tendon(s) of the rotator cuff of left shoulder, initial encounter (principal); Y92.009 Unspecified place in unspecified non-institutional (private) residence as the place of occurrence of the external cause; Y93.89 Activity, other specified; Y99.9 Unspecified external cause status; I10 Essential (primary) hypertension; R94.31 Abnormal electrocardiogram [ECG] [EKG]; Z79.4 Long term (current) use of insulin; Z79.82 Long term (current) use of aspirin; Z79.899 Other long term (current) drug therapy; Z88.5 Allergy status to narcotic agent; Z88.8 Allergy status to other drugs, medicaments and biological substances; Z91.018 Allergy to other foods; Z95.1 Presence of aortocoronary bypass graft

== ENCOUNTER → 2019-03-25 | Outpatient (CLI) | payer MEDICARE, MEDICAID ==
[~2019-03-25] MED LIST changes: +INSUDET SC; +PERC5TAB12 PO; +RENV2TAB PO
--- NOTE | 2019-03-25 11:00 | REP ---
MRI LEFT SHOULDER WITHOUT CONTRAST: HISTORY: Pain in the left shoulder. Comparison radiographs are from March 12, 2019. TECHNIQUE: Axial, oblique coronal, and oblique sagittal imaging planes utilized. T1- and T2-weighted scans were obtained in the usual fashion with and without fat saturation. MRI FINDINGS: There is micrometallic artifact adjacent to the acromion process consistent with previous decompression surgery. There is minimal hypertrophy of the inferolateral aspect of the acromion process. AC joint is normally aligned. There is a tiny sliver of fluid in the AC joint. Glenohumeral articulation is normally aligned. There is subacromial subdeltoid bursal effusion visible most conspicuously on the T2-weighted oblique sagittal images. This is moderate in size. There is tendonitis/tendinosis change with swelling and increased signal intensity diffusely on the supraspinatus tendon on oblique coronal T1-weighted scans. There is partial thickness distal tendon insertion T2 hyperintense signal consistent with partial thickness distal supraspinatus cuff lesion. Biceps tendon is unremarkable. There is mild heterogeneous thickening and increased signal in the subscapularis tendon. Infraspinatus tendon is unremarkable. No anterior or posterior labral cartilage disruption is appreciated. The superior labral cartilage appears intact. No skeletal muscle atrophy or edema is appreciated. No soft tissue mass or cyst is observed. IMPRESSION: Postoperative changes adjacent to the acromion process with some residual spurring. Subacromial subdeltoid bursal effusion. Tendonitis/tendinosis in the distal supraspinatus and subscapularis tendons. Partial-thickness distal supraspinatus focus of T2 hyperintensity consistent with partial tear. Electronically Signed by Franco Frankel MD 03/25/2019 11:30 A
== END ==
LOC: M RAD 07:27
PROVIDERS: ATTEND Orthopaedic Surgery Sports Medicine
DX: M25.512 Pain in left shoulder (principal)

== ENCOUNTER → 2019-05-21 | Outpatient (CLI) | payer MEDICARE, MEDICAID ==
--- NOTE | 2019-05-21 09:05 | REP ---
Right quadrant sonography: History: Abnormal liver function studies. Comparison CT study September 05, 2018. Findings: Scanning through the right upper quadrant of the abdomen demonstrates a normal sized thin-walled gallbladder containing tiny mobile echogenic non-shadowing foci consistent with small stones. No pericholecystic fluid is seen. Common bile duct is normal measuring 0.5 cm in greatest diameter. Liver parenchyma is homogeneous. No focal liver mass lesion is seen. There is a trace amount of ascitic fluid. The patient has a peritoneal dialysis catheter. No right renal abnormality is noted. The right kidney measures 8.6 x 5.0 x 4.9 cm and is felt to be somewhat atrophic. Impression: Small non-shadowing echogenic foci in the gallbladder consistent with stones. Otherwise negative right upper quadrant sonography. Electronically Signed by Franco Frankel MD 05/21/2019 07:59 P
== END ==
LOC: M RAD 06:59
PROVIDERS: ATTEND Internal Medicine
DX: R94.5 Abnormal results of liver function studies (principal)

== ENCOUNTER → 2019-08-13 | Outpatient (REF) | payer MEDICARE, MEDICAID ==
[2019-08-13 11:30] LABS: APPEARANCE, BODY FLUID HAZY (CLEAR); PERITONEAL FL COLOR PALE YELLOW (COLORLESS); SOURCE, BODY FLUID PERITONEAL
== END ==
LOC: M LAB REF 10:44
PROVIDERS: ATTEND Internal Medicine Nephrology
DX: R88.0 Cloudy (hemodialysis) (peritoneal) dialysis effluent (principal)

== ENCOUNTER → 2019-08-21 | Outpatient (REF) | payer MEDICARE, MEDICAID ==
[2019-08-24 10:37] LABS: PERITONEAL DIALYSATE FL COLOR COLORLESS (COLORLESS); SOURCE, BODY FLUID PERITONEAL DIALYSATE
[2019-08-24 10:38] LABS: APPEARANCE, BODY FLUID HAZY (CLEAR)
== END ==
LOC: M LAB REF 10:06
PROVIDERS: ATTEND Internal Medicine Nephrology
DX: K65.9 Peritonitis, unspecified (principal)

== ENCOUNTER → 2019-12-10 | Outpatient (CLI) | payer MEDICARE, MEDICAID ==
[~2019-12-10] MED LIST changes: +AMLO1TAB24 PO; -AMLO5TAB6 PO; -ASPI81TA85 PO; +ASPI81TA86 PO; +CALC1CAP31 PO; +FEBU40TA4 PO
== END ==
LOC: M LABSMTC 10:48
PROVIDERS: ATTEND Anesthesiology
DX: Z01.812 Encounter for preprocedural laboratory examination (principal); Z20.828 Contact with and (suspected) exposure to other viral communicable diseases
CPT/HCPCS: C9803; U0003

== ENCOUNTER 2019-12-15 10:24 | Day surgery (SDC) | payer MEDICARE, MEDICAID ==
[~2019-12-15] VITALS: Ht 172.7 cm; Wt 62.6 kg
[~2019-12-15 10:24] MED LIST changes: -CALC1CAP31 PO; -FEBU40TA4 PO; +LR 1,000 ML IV ONE; +ceFAZolin SOD 2 GM in IV 1 EA IV ONE
[2019-12-15] MEDS ORDERED: MIDAZOLAM INJ 2MG/2ML VIAL (J2250 PER 1MG) As Ordered ONE (10:39)
[2019-12-15] MEDS ORDERED: fentaNYL 100 MCG/2 ML INJECTION (J3010) As Ordered ONE (10:40)
[2019-12-15] MEDS ORDERED: propofoL 200 MG/20 ML VIAL As Ordered ONE (10:54)
[2019-12-15] MEDS ORDERED: ROCURONIUM BROMIDE 50 MG/5 ML VIAL As Ordered ONE (10:54)
[2019-12-15] MEDS ORDERED: LIDOCAINE 2% 100MG/5ML SDV (FOR ANES.) As Ordered ONE (10:54)
[2019-12-15] MEDS ORDERED: dexameTHASONE 4 MG/ML 1ML VIAL (J1100 PER 1MG) As Ordered ONE (10:54)
[2019-12-15] MEDS ORDERED: HEPARIN SOD (PORCINE) 5000UNITS/ML 1ML VIAL/SYRINGE As Ordered ONE ×2 (12:02→12:08)
[2019-12-15] MEDS ORDERED: BUPIVACAINE HCL 0.25% 30ML VIAL As Ordered ONE (12:02)
[2019-12-15] MEDS ORDERED: ACETAMINOPHEN 1000MG 100ML IV BTL (OFIRMEV) (J0131 PER 10MG) As Ordered ONE (13:06)
[2019-12-15] MEDS ORDERED: METOCLOPRAMIDE INJ 10MG/2ML VIAL (J2765 PER 1) As Ordered ONE (13:07)
[2019-12-15] MEDS ORDERED: ONDANSETRON 4MG/2ML VIAL As Ordered ONE (13:07)
[2019-12-15] MEDS ORDERED: PHENYLephrine HCL 500 MCG/5 ML (100MCG/ML) SYRINGE (J2370) As Ordered ONE (13:35)
[2019-12-15] MEDS ORDERED: SUGAMMADEX SODIUM 500 MG/5 ML VIAL (BRIDION) As Ordered ONE (13:46)
[2019-12-15] MEDS ORDERED: LABETALOL 100MG/20ML VIAL As Ordered ONE ×2 (13:48→14:25)
[2019-12-15] MEDS: LABETALOL 100MG/20ML VIAL IV SCH ×3 (14:20→14:40)
[2019-12-15] MEDS ORDERED: fentaNYL 100 MCG/2 ML INJECTION (J3010) IV PRN (14:30)
[2019-12-15] MEDS ORDERED: ONDANSETRON 4MG/2ML VIAL IV PRN (14:30)
[2019-12-15] MEDS ORDERED: NS 1,000 ML IV SCH (14:30)
[2019-12-15] MEDS ORDERED: METOCLOPRAMIDE INJ 10MG/2ML VIAL (J2765 PER 1) IV PRN (14:30)
[2019-12-15] MEDS ORDERED: MEPERIDINE INJ 25 MG/ML VIAL (J2175) IV PRN (14:30)
[2019-12-15] MEDS ORDERED: oxyCODONE 5MG TAB PO PRN (14:30)
[2019-12-15] MEDS: hydrALAZINE 20MG/ML 1ML VIAL (J0360 PER 20MG) IV SCH ×2 (14:45→14:50)
[2019-12-15] MEDS ORDERED: hydrALAZINE 20MG/ML 1ML VIAL (J0360 PER 20MG) As Ordered ONE (14:47)
[2019-12-15] MEDS ORDERED: NORCO, ANEXSIA 5/325MG TABLET (HYDROcodone/ACETAMINOPHEN) PO PRN (15:30)
[2019-12-15] MEDS ORDERED: ACETAMINOPHEN TAB 650MG DOSE (2X325MG) PO PRN (15:30)
[2019-12-15 15:45] VITALS: BP 126/63
--- NOTE | 2019-12-22 15:14 | RO ---
DATE OF OPERATION: 12/15/2019 PREOPERATIVE DIAGNOSIS: End-stage renal disease for replacement of CAPD catheter. POSTOPERATIVE DIAGNOSIS: End-stage renal disease for replacement of CAPD catheter. PROCEDURE PERFORMED: Laparoscopy with placement of continuous ambulatory peritoneal dialysis catheter. SURGEON: Naresh Soto MD CUPOLA CHARGER: RAFAT Guevara (Shantelle was essential for assistance with management of the laparoscope as well as retraction during placement of the peritoneal dialysis catheter). ANESTHESIA: General. INDICATIONS FOR PROCEDURE: The patient is a 54-year-old man who has had a CAPD catheter placed over 2 years ago for end-stage renal disease. His peritoneal dialysis was working well but he developed peritonitis which did not resolve readily and required removal of his catheter. He has been performed hemodialysis via an implanted catheter and is now for replacement of a CAPD catheter. Because of his peritonitis he is for a laparoscopy to ensure that he does not have significant adhesions that would need to be addressed. OPERATIVE PROCEDURE: The patient was brought to the operating room and placed on the table in supine position. He was placed under general anesthesia. The patient's abdomen was prepped and draped in sterile fashion. 0.25% Marcaine was infiltrated at the site of his trocar placement. A site was selected in the left upper quadrant for insertion of a 5 mm port. Initially a short transverse incision was made and the Veress needle was inserted. After positive hanging drop test the abdomen was insufflated with CO2 gas. The 5 mm port was placed over a 5 mm scope and advanced through the abdominal wall without difficulty. The abdomen was inspected. There was a minimal amount of serous fluid noted within the abdomen. The liver was seen and appeared slightly darker than normal but otherwise normal. The visualized portions of the stomach and small and large bowel appeared normal. There was no evidence of hernia. There were no intraabdominal adhesions identified to interfere with his peritoneal dialysis. The scope was removed. I elected to use the trocar site as the point for his catheter placement. The abdomen was deflated. The trocar was removed. An incision was made transversely at this site approximately 3 cm in length. This was deepened to the rectus sheath and the rectus sheath was opened transversely. The muscle fibers were spread and the posterior sheath identified. The peritoneal dialysis catheter which was a Sukumar 62 cm double pledgeted pigtail catheter was then placed over a long stylet and advanced through the opening in the peritoneum and directed inferiorly. A suture of 2-0 Vicryl was placed to snug the fascia around the catheter and this was then tied around the catheter pledget to prevent retraction of the catheter. The pledget was placed between the muscle fibers and the anterior rectus sheath was closed with interrupted sutures of #0 Vicryl. The catheter was then tunneled through the subcutaneous tissues, first heading slightly medially and then inferior to exit slightly lower on the anterior abdominal wall through a small stab wound. The infusion port was attached to the end of the catheter. 1 liter of normal saline with 10,000 units of Heparin was then infused through the catheter with the patient in slight reverse Trendelenburg position. While the fluid was infusing the skin incision was closed with running subcuticular suture of 4-0 Vicryl. The saline bag was then dropped to the floor and by gravity siphon approximately 500-600 mL of the fluid returned readily and I then stopped the flow to leave a small amount of fluid within the abdomen. The catheter was disconnected from the bag and the catheter was filled with 1 mL of 5000 units per mL Heparin and approximately 1.4 mL of sterile saline. A clamp was applied to the catheter and the end of the catheter was plugged. The site was dressed with a Chlorhexidine Gluconate Op-Site and the catheter was then taped to the dressing. The patient tolerated the procedure well without apparent complication. He was awakened in the operating room, extubated and moved to the recovery room in stable condition. OCTAVIA
[2020-01-07] MEDS ORDERED: CALC1CAP31 PO (09:04)
[2020-01-07] MEDS ORDERED: FEBU40TA4 PO (09:04)
[2020-01-20] MEDS ORDERED: VITA50005 PO (09:16)
== END 2019-12-15 16:19 | disposition home or self-care (01) ==
LOC: M SDC 10:24
PROVIDERS: ATTEND Surgery
DX: N18.6 End stage renal disease (principal); Z99.2 Dependence on renal dialysis; E10.22 Type 1 diabetes mellitus with diabetic chronic kidney disease; Z79.4 Long term (current) use of insulin; Z79.82 Long term (current) use of aspirin; I15.0 Renovascular hypertension; E78.5 Hyperlipidemia, unspecified; I25.2 Old myocardial infarction; I50.32 Chronic diastolic (congestive) heart failure; Z79.01 Long term (current) use of anticoagulants; D64.9 Anemia, unspecified; G47.30 Sleep apnea, unspecified; E03.9 Hypothyroidism, unspecified; Z79.899 Other long term (current) drug therapy
CPT/HCPCS: 36415; 49324; 84132; C1750; J0131; J0360; J0690; J1644; J2250; J2370; J2405; J2765; J3010

== ENCOUNTER → 2020-01-11 | Outpatient (CLI) | payer MEDICARE, MEDICAID ==
[~2020-01-11] MED LIST changes: +CALC1CAP31 PO; +FEBU40TA4 PO; +LIDOCAINE 1% MDV 20ML VIAL As Ordered ONE; -LR 1,000 ML IV ONE; -ceFAZolin SOD 2 GM in IV 1 EA IV ONE
[2020-01-11 12:40] VITALS: BP 180/80
--- NOTE | 2020-01-13 12:11 | POST-OPPD ---
Postoperative Procedure Note Date Of Procedure: Jan 11, 2020 Time Of Procedure: 16:00 The PermCath site was prepped and draped in the usual sterile fashion. Lidocaine was used for local anesthesia. The catheter cuff was dissected out of the soft tissues using blunt dissection. The catheter was removed in it's entirety. Patient tolerated the procedure well, hemostasis achieved and a sterile dressing was applied to the site. This is the entire report of procedure. ARABELLA JON MD Jan 13, 2020 12:11
== END ==
LOC: M IRPRO 11:36
PROVIDERS: ATTEND Internal Medicine Nephrology
DX: N18.6 End stage renal disease (principal)

== ENCOUNTER → 2020-01-19 | Outpatient (CLI) | payer MEDICARE, MEDICAID ==
[~2020-01-19] MED LIST changes: -LIDOCAINE 1% MDV 20ML VIAL As Ordered ONE
== END ==
LOC: M LABSMTC 09:52
PROVIDERS: ATTEND Anesthesiology
DX: Z01.812 Encounter for preprocedural laboratory examination (principal); Z20.828 Contact with and (suspected) exposure to other viral communicable diseases

== ENCOUNTER → 2020-01-19 | Outpatient (CLI) | payer MEDICARE, MEDICAID ==
[~2020-01-19] MED LIST changes: +LIDOCAINE W/EPINEPHRINE 1% 20ML VIAL As Ordered ONE; +MIDAZOLAM INJ 2MG/2ML VIAL (J2250 PER 1MG) As Ordered ONE; +ceFAZolin 1GM VIAL (J0690 PER 500MG) As Ordered ONE; +fentaNYL 100 MCG/2 ML INJECTION (J3010) As Ordered ONE; +hydrALAZINE 20MG/ML 1ML VIAL (J0360 PER 20MG) As Ordered ONE
--- NOTE | 2020-01-19 11:46 | ROOPDOC ---
[facility] Report Of Operation Report of Operation DATE OF PROCEDURE: 01/19/20 PREPROCEDURE DIAGNOSES: End-stage renal disease requiring access for dialysis POSTPROCEDURE DIAGNOSES: Same PROCEDURE: 1. Ultrasound-guided access right internal jugular vein 2. Placement of a 23 cm tunneled right IJ PermCath SURGEON: Nathaniel Wang MD ANESTHESIA: Local anesthesia 18 mL lidocaine with epinephrine. Moderate intravenous conscious sedation was supervised by Dr. Wang. The patient was independently monitored by registered nurse assigned to the Department of radiology using automated blood pressure, EKG, and pulse oximetry. The detailed sedation record is permanently started in the hospital information system. The following is a brief sedation record: Start time 11:18, stop time 11:33, Versed 1 mg IV, fentanyl 50 g IV, hydralazine 10 mg IV, Ancef 2 g IV. INDICATION FOR PROCEDURE: This is a very pleasant 54-year-old gentleman who usually dialyzes with peritoneal dialysis but is having problems with his peritoneal dialysis catheter and requires a PermCath for hemodialysis. Risks benefits alternatives to a PermCath placement were explained and the patient was agreeable to proceed. Informed consent was obtained. INTERPRETATION: The PermCath is in good position with no kinks in the catheter and the tip freely mobile at the SVC right atrial junction. There is no pneumothorax. It is okay to use the catheter for dialysis. REPORT OF OPERATION: The patient was brought to the angiographic suite in stable condition. His right neck and chest were prepped and draped in a sterile fashion. A timeout was performed. Sedation was a ministered without complication. Local anesthesia was administered to the skin and subcutaneous tissue over the right neck and chest. A microneedle was used to access is jugular vein under ultrasound guidance. A wire was passed through this access needle was removed and a micro-sheath was placed. Small incision was made at the jugular access site. An O35 wire was advanced through the micro-sheath into the central system under fluoroscopic guidance. A small incision was made on the right lateral chest fingerbreadth distal to the clavicle. A 23 cm PermCath was tunneled from the right chest to the jugular access site until the cuff was within the subcutaneous tissue. We then performed 2 serial dilations over the jugular vein wire and a peel-away sheath was placed. The inner cannula and wire were removed in the tips the catheter were advanced through the peel-away sheath into the central system under fluoroscopic guidance. The peel-away sheath was removed. Both ports latrell back and flushed easily. The ports were heparin locked. Appropriate caps were placed. Final imaging showed the catheter to be in good position with no kinks, no pneumothorax, tip freely mobile at the SVC right atrial junction. We irrigated with saline at the 2 incisions and the jugular access site was closed with deep and superficial interrupted Monocryl sutures and Dermabond was placed at the skin. We then placed to Prolene sutures at the chest exit site and secured the catheter to the chest wall with traditional Prolene sutures. Sterile dressings were applied. The patient was then taken to recovery in stable condition. He did have severe hypertension prior to the procedure and during. He was given hydralazine with his sedation, but we will continue to give him hydralazine in recovery. If we are not able to give him some relief from his hypertension, we will suggest he go to the emergency room for evaluation. The patient has not had dialysis in several days and I suspect this largely is the reason for his hypertension. ESTIMATED BLOOD LOSS: Approximately 5 mL. COMPLICATIONS: None. PLAN: Okay to resume home diet and medications. Keep head up for the next 24 hours as much as possible to diminish venous pressure and chance of bleeding or bruising. Okay to use PermCath for dialysis. If patient requires long-term hemodialysis and does not resume peritoneal dialysis, we'll be happy to see him outpatient with the vein mapping to discuss options for fistula creation. We appreciate the opportunity to participate in the care of this patient. NATHANIEL WANG MD Jan 19, 2020 11:46
[2020-01-19 12:05] VITALS: BP 131/63
[2020-01-19 12:27] LABS: CREATININE FOR GFR 7.55 MG/DL (0.70-1.30); POTASSIUM SERUM 4.1 MEQ/L (3.5-5.1)
== END ==
LOC: M IRPRO 10:09
PROVIDERS: ATTEND Surgery Vascular Surgery
DX: N18.6 End stage renal disease (principal); I12.0 Hypertensive chronic kidney disease with stage 5 chronic kidney disease or end stage renal disease; E11.22 Type 2 diabetes mellitus with diabetic chronic kidney disease; Z01.812 Encounter for preprocedural laboratory examination; Z20.828 Contact with and (suspected) exposure to other viral communicable diseases
CPT/HCPCS: 36558; 80048; 99152; C1750; C1769; C1894; C9803; J0360; J0690; J1644; J2250; J3010

== ENCOUNTER → 2020-01-21 | Day surgery (SDC) | payer MEDICARE, MEDICAID ==
[~2020-01-21] VITALS: Ht 172.7 cm; Wt 64.9 kg
[~2020-01-21] MED LIST changes: +ACETAMINOPHEN 1000MG 100ML IV BTL (OFIRMEV) (J0131 PER 10MG) As Ordered ONE; +ACETAMINOPHEN TAB 650MG DOSE (2X325MG) PO PRN; +BUPIVACAINE HCL 0.25% 30ML VIAL As Ordered ONE; +HEPARIN SOD (PORCINE) 5000UNITS/ML 1ML VIAL/SYRINGE As Ordered ONE; +HYDROmorphone HCL 2 MG/ML 1ML VIAL (J1170) As Ordered ONE; +HumaLOG INSULIN (NovoLOG) PER UNIT As Ordered ONE; +HumaLOG INSULIN (NovoLOG) PER UNIT SC ONE; +LABETALOL 100MG/20ML VIAL As Ordered ONE; +LIDOCAINE 2% 100MG/5ML SDV (FOR ANES.) As Ordered ONE; -LIDOCAINE W/EPINEPHRINE 1% 20ML VIAL As Ordered ONE; +METOCLOPRAMIDE INJ 10MG/2ML VIAL (J2765 PER 1) As Ordered ONE; +MORPHINE 2 MG/ML 1ML VIAL (J2270) IV PRN; +NORCO, ANEXSIA 5/325MG TABLET (HYDROcodone/ACETAMINOPHEN) PO PRN; +NS 1,000 ML IV ONE; +NS 1,000 ML IV SCH; +ONDANSETRON 4MG/2ML VIAL As Ordered ONE; +ONDANSETRON 4MG/2ML VIAL IV PRN; +ROCURONIUM BROMIDE 50 MG/5 ML VIAL As Ordered ONE; +SUGAMMADEX SODIUM 500 MG/5 ML VIAL (BRIDION) As Ordered ONE; -ceFAZolin 1GM VIAL (J0690 PER 500MG) As Ordered ONE; +ceFAZolin SOD 2 GM in IV 1 EA IV ONE; +dexameTHASONE 4 MG/ML 1ML VIAL (J1100 PER 1MG) As Ordered ONE; +ePHEDrine SULFATE 25 MG/5 ML(5MG/ML) SYRINGE As Ordered ONE; -fentaNYL 100 MCG/2 ML INJECTION (J3010) As Ordered ONE; +fentaNYL 100 MCG/2 ML INJECTION (J3010) IV PRN; +fentaNYL 250 MCG/5 ML INJECTION (J3010) As Ordered ONE; -hydrALAZINE 20MG/ML 1ML VIAL (J0360 PER 20MG) As Ordered ONE; +oxyCODONE 5MG TAB PO PRN; +propofoL 200 MG/20 ML VIAL As Ordered ONE
[2020-01-21 16:05] VITALS: BP 179/89
--- NOTE | 2020-01-22 10:55 | RO ---
DATE OF OPERATION: 01/21/2020 PREOPERATIVE DIAGNOSIS: Poorly functional continuous ambulatory peritoneal dialysis catheter. POSTOPERATIVE DIAGNOSIS: Poorly functional continuous ambulatory peritoneal dialysis (CAPD) secondary to extensive omental adhesions to the catheter. PROCEDURE: Laparoscopy with lysis of adhesions and repositioning of the catheter with attachment to the anterior abdominal wall. SURGEON: Naresh Soto MD ACOUSTICAL ENGINEER: ANESTHESIA: General. INDICATIONS FOR PROCEDURE: The patient is a 54-year-old man on continuous ambulatory peritoneal dialysis for end-stage renal disease. He had a new catheter placed about a month ago and this had initially worked well but has now stopped draining effectively. He has had a temporary vascular catheter placed for hemodialysis and is now for laparoscopy and attention to his non-functional catheter. DESCRIPTION OF OPERATIVE PROCEDURE: The patient was brought to the operating room and placed on the table in a supine position. He was placed under general endotracheal anesthesia. The patient's abdomen was prepped and draped in a sterile fashion with the majority of the existing catheter prepped into the field. 0.25% Marcaine was infiltrated at the trocar sites as needed. A short transverse mid abdominal incision was made at about the level of the umbilicus. Veress needle was inserted and after a positive hanging drop test, the abdomen was inflated with carbon dioxide gas. After inflating the abdomen, a 5-mm port was placed over a 5-mm scope and advanced through the abdominal wall without difficulty. Initial examination showed the peritoneal dialysis catheter entering in the left upper quadrant and then extending directly superiorly and laterally into the lateral aspect of the left upper quadrant where it disappeared beneath the omentum. There was a minimal amount of free fluid in the lower portion of the abdomen. Otherwise, there were no significant adhesions and the bowel appeared normal. Two additional 5-mm ports were placed on the right, one above and one below the first port site. Graspers were inserted. The peritoneal dialysis catheter was grasped and elevated, and the entire pigtail portion of the catheter was found to be encased in omentum. As this was peeled away, it was clear that there were bits of the omentum protruding into the catheter through many, if not all, of the small perforations on the side of the catheter. The omentum was carefully peeled away with care not to damage the catheter. Several small bleeding points were cauterized. Once the catheter had been freed from the omentum, it was brought down into the lower portion of the abdomen. There was a small amount of clotted material in the lumen of the catheter. There were also several small fragments of fat that were adherent in the various perforations of the catheter. I initially worked to try to remove these intra-abdominally using graspers. Ultimately, the end of the catheter was delivered through the upper right-sided 5-mm port and this facilitated removing any additional debris from within the catheter or from within the perforations. The catheter was then reduced back into the abdomen. Because the hub of the catheter had not been prepped, the catheter was cut at a point just proximal to the hub where it was prepped and it was at this point that the catheter was flushed with sterile saline to ensure that the fenestrations of the catheter were open and that the catheter flushed well. The catheter was then clamped. I elected to create a tunnel in the preperitoneal tissues for fixating the catheter to the anterior abdominal wall directed toward the inferior aspect of the abdomen. I made a longitudinal incision near the midline overlying some preperitoneal fat. The peritoneum and preperitoneal tissues to the left of the midline were elevated along this path beginning just below the entry point of the catheter in the left upper quadrant and extending down about to the level of the umbilicus. Once there was a space beneath this preperitoneal flap, the catheter was laid into this space and then a SecureStrap tacking device was used to close the flap down over the catheter. Care was taken not to extend the flap below the beginning of the perforations in the catheter. Care was taken not to penetrate the catheter with the SecureStrap device. Hemostasis was ensured. One liter of sterile saline with 1000 units of heparin was then infused through the catheter after attaching a new metal hub to the end of it. The patient was then turned to a slight reverse Trendelenburg position. Catheter flowed easily. The gas was then evacuated from the abdomen and the ports were removed. There was a small amount of leakage of fluid form the lowest port site on the right. Catheter was allowed to drain by gravity siphon and approximately half of the fluid was withdrawn from the abdomen. The catheter was then flushed with 1 mL of 5000 units/mL heparin and 1.2 mL of sterile saline, and the catheter was then plugged. Subcutaneous tissues were closed with 4-0 Vicryl at each of the port sites. The skin edges were then approximated with buried 4-0 Vicryl sutures. Dermabond was applied to each of the port sites to seal the incisions. The catheter site was dressed with a split gauze and 2x2's were placed over each of the incisions. The patient tolerated the procedure well without apparent complication. He was awakened in the operating room, extubated and moved to the recovery room in stable condition. OCTAVIA
== END | disposition home or self-care (01) ==
LOC: M SDC 09:01
PROVIDERS: ATTEND Surgery
DX: T85.691A Other mechanical complication of intraperitoneal dialysis catheter, initial encounter (principal); N18.6 End stage renal disease; Z79.899 Other long term (current) drug therapy
CPT/HCPCS: 36415; 49325; 84132; J0131; J0690; J1100; J1170; J1644; J2250; J2405; J2765; J3010

== ENCOUNTER → 2020-04-21 | Outpatient (CLI) | payer MEDICARE, MEDICAID ==
[~2020-04-21] MED LIST changes: -ACETAMINOPHEN 1000MG 100ML IV BTL (OFIRMEV) (J0131 PER 10MG) As Ordered ONE; -ACETAMINOPHEN TAB 650MG DOSE (2X325MG) PO PRN; -BUPIVACAINE HCL 0.25% 30ML VIAL As Ordered ONE; -HEPARIN SOD (PORCINE) 5000UNITS/ML 1ML VIAL/SYRINGE As Ordered ONE; -HYDROmorphone HCL 2 MG/ML 1ML VIAL (J1170) As Ordered ONE; -HumaLOG INSULIN (NovoLOG) PER UNIT As Ordered ONE; -HumaLOG INSULIN (NovoLOG) PER UNIT SC ONE; -LABETALOL 100MG/20ML VIAL As Ordered ONE; -LIDOCAINE 2% 100MG/5ML SDV (FOR ANES.) As Ordered ONE; -METOCLOPRAMIDE INJ 10MG/2ML VIAL (J2765 PER 1) As Ordered ONE; -MIDAZOLAM INJ 2MG/2ML VIAL (J2250 PER 1MG) As Ordered ONE; -MORPHINE 2 MG/ML 1ML VIAL (J2270) IV PRN; -NORCO, ANEXSIA 5/325MG TABLET (HYDROcodone/ACETAMINOPHEN) PO PRN; -NS 1,000 ML IV ONE; -NS 1,000 ML IV SCH; -ONDANSETRON 4MG/2ML VIAL As Ordered ONE; -ONDANSETRON 4MG/2ML VIAL IV PRN; -ROCURONIUM BROMIDE 50 MG/5 ML VIAL As Ordered ONE; -SUGAMMADEX SODIUM 500 MG/5 ML VIAL (BRIDION) As Ordered ONE; -ceFAZolin SOD 2 GM in IV 1 EA IV ONE; -dexameTHASONE 4 MG/ML 1ML VIAL (J1100 PER 1MG) As Ordered ONE; -ePHEDrine SULFATE 25 MG/5 ML(5MG/ML) SYRINGE As Ordered ONE; -fentaNYL 100 MCG/2 ML INJECTION (J3010) IV PRN; -fentaNYL 250 MCG/5 ML INJECTION (J3010) As Ordered ONE; -oxyCODONE 5MG TAB PO PRN; -propofoL 200 MG/20 ML VIAL As Ordered ONE
[2020-04-21 08:10] LABS: BASO % 0.2 % (0.0-1.0); EOS # 0.2 10^3/uL (0.0-0.5); EOS % 1.5 % (0.0-3.0); HEMATOCRIT 30.2 % (42.0-52.0); HEMOGLOBIN 9.7 g/dl (13.5-17.5); LYMPH # 0.6 10^3/uL (1.5-5.0); LYMPH % 5.1 % (24.0-44.0); MEAN CORPUSCULAR HEMOGLOBIN 29.6 pg (27.0-33.0); MEAN CORPUSCULAR HGB CONC 32.1 g/dl (32.0-36.5); MEAN CORPUSCULAR VOLUME 92.1 fl (80.0-96.0); MONO # 0.9 10^3/uL (0.0-0.8); NEUTROPHILS # 9.6 10^3/uL (1.5-8.5); NEUTROPHILS % 83.5 % (36.0-66.0); PLATELET COUNT, AUTOMATED 531 10^3/uL (150-450); RED BLOOD COUNT 3.28 10^6/uL (4.30-6.10); WHITE BLOOD COUNT 11.4 10^3/uL (4.0-10.0)
[2020-04-21 08:38] LABS: APPEARANCE, URINE CLEAR (CLEAR); BACTERIA, URINE AUTO NEGATIVE (NEGATIVE); BILIRUBIN, URINE AUTO NEGATIVE (NEGATIVE); BLOOD, URINE BLOOD 1+ (NEGATIVE); COLOR, URINE STRAW (YELLOW); GLUCOSE, URINE (UA) AUTO 2+ mg/dL (NEGATIVE); KETONE, URINE AUTO NEGATIVE (NEGATIVE); LEUKOCYTE ESTERASE, URINE AUTO NEGATIVE (NEGATIVE); NITRITE, URINE AUTO NEGATIVE (NEGATIVE); PROTEIN, URINE AUTO NEGATIVE (NEGATIVE); RBC, URINE AUTO 5 /HPF (0-3); SPECIFIC GRAVITY URINE AUTO 1.005 (1.002-1.035); SQUAMOUS EPITHELIAL CELL UR AU 0 /HPF (0-6); UROBILINOGEN, URINE AUTO 0.2 mg/dL (0.0-2.0); WBC, URINE AUTO 3 /HPF (0-3)
[2020-04-21 08:40] LABS: TOTAL PROTEIN,RANDOM URINE 17.4 MG/DL (0.0-12.0)
[2020-04-21 09:07] LABS: ALBUMIN 3.1 GM/DL (3.2-5.2); CALCIUM LEVEL 9.2 MG/DL (8.5-10.1); CREATININE FOR GFR 2.28 MG/DL (0.70-1.30); MAGNESIUM LEVEL 1.7 MG/DL (1.8-2.4); PHOSPHORUS LEVEL 3.9 MG/DL (2.5-4.9); POTASSIUM SERUM 5.6 MEQ/L (3.5-5.1)
== END ==
LOC: M LAB 07:23
PROVIDERS: ATTEND Transplant Surgery
DX: N18.5 Chronic kidney disease, stage 5 (principal); D84.9 Immunodeficiency, unspecified; Z79.899 Other long term (current) drug therapy; Z94.0 Kidney transplant status

== ENCOUNTER → 2020-10-20 | Outpatient (REF) | payer MEDICARE, MEDICAID ==
[~2020-10-20] MED LIST changes: +ASPI-569 PO; -ASPI81TAEC PO; +ERGO500029 PO; +FERR324T21 PO; -FERR325T16 PO
== END ==
LOC: M LAB REF 13:44
PROVIDERS: ATTEND Internal Medicine Nephrology
DX: Z48.22 Encounter for aftercare following kidney transplant (principal)

== ENCOUNTER → 2020-11-24 | Outpatient (REF) | payer MEDICARE, MEDICAID | LOC: M LAB REF 13:07 | PROVIDERS: ATTEND Internal Medicine Nephrology | DX: Z48.22 Encounter for aftercare following kidney transplant (principal); E87.5 Hyperkalemia ==

== ENCOUNTER → 2020-12-22 | Outpatient (REF) | payer MEDICARE, MEDICAID | LOC: M LAB REF 12:55 | PROVIDERS: ATTEND Internal Medicine Nephrology | DX: Z48.22 Encounter for aftercare following kidney transplant (principal) ==

== ENCOUNTER → 2021-03-15 | Outpatient (CLI) | payer MEDICARE, MEDICAID | LOC: M LABSMTC 09:39 | PROVIDERS: ATTEND Pediatrics | DX: Z11.52 Encounter for screening for COVID-19 (principal); Z20.822 Contact with and (suspected) exposure to COVID-19 | CPT/HCPCS: C9803; U0003 ==

== ENCOUNTER 2021-03-23 01:27 | Inpatient (IN) | payer MEDICARE, MEDICAID ==
[~2021-03-23] VITALS: Ht 172.7 cm; Wt 67.8 kg
[~2021-03-23 01:27] MED LIST changes: +LOSA25TA13 PO; -LOSA25TA14 PO
[2021-03-23] MEDS ORDERED: dexameTHASONE 20MG/5ML VIAL (J1100 PER 1MG) IV ONE (01:50)
[2021-03-23] MEDS ORDERED: NS 1,000 ML IV ONE (01:50)
[2021-03-23 02:19] LABS: ABG HCO3 17.9 MEQ/L (22.0-26.0); ABG O2 SATURATION 94.8 % (95.0-99.0); ABG PARTIAL PRESSURE CO2 27.2 mmHg (35.0-45.0); ABG PARTIAL PRESSURE O2 78.2 mmHg (75.0-100.0); ABG STANDARD HCO3 20.3 MEQ/L (22.0-26.0); ABG TOTAL CO2 18.7 MEQ/L (22.0-29.0); ABG pH (ARTERIAL) 7.436 UNITS (7.350-7.450)
[2021-03-23 02:21] LABS: HEMATOCRIT 36.2 % (42.0-52.0); HEMOGLOBIN 12.2 g/dl (13.5-17.5); MEAN CORPUSCULAR HEMOGLOBIN 26.7 pg (27.0-33.0); MEAN CORPUSCULAR HGB CONC 33.7 g/dl (32.0-36.5); MEAN CORPUSCULAR VOLUME 79.2 fl (80.0-96.0); PLATELET COUNT, AUTOMATED 533 10^3/uL (150-450); RED BLOOD COUNT 4.57 10^6/uL (4.30-6.10); WHITE BLOOD COUNT 13.5 10^3/uL (4.0-10.0)
[2021-03-23] MEDS ORDERED: PIPERACILLIN/TAZOBACTAM SOD 3.375 GM in D5W MINI-BAG PLUS 50 ML IV ONE (02:30)
[2021-03-23 02:45] LABS: CK-MB VALUE MASS 1.6 NG/ML (<3.6); MB/CK RELATIVE INDEX 2.54 (< OR =4)
[2021-03-23 02:46] LABS: ATYPICAL LYMPH 3 % (0-5); CALCIUM LEVEL 7.2 MG/DL (8.5-10.1); CREATININE FOR GFR 2.06 MG/DL (0.70-1.30); GLOMERULAR FILTRATION RATE 35.9 (>56); LYMPHOCYTES 3 % (16-44); MONOCYTES 6 % (0-5); NEUTROPHILS 88 % (28-66); POTASSIUM SERUM 5.3 MEQ/L (3.5-5.1)
[2021-03-23 02:47] LABS: ALBUMIN 2.2 GM/DL (3.2-5.2); BILIRUBIN,DIRECT 0.5 MG/DL (0.0-0.2); BILIRUBIN,TOTAL 0.9 MG/DL (0.2-1.0); PLATELET CLUMPS SMALL AMT; PLATELET ESTIMATE NORMAL (NORMAL); SMUDGE CELLS 1+
[2021-03-23 02:48] LABS: BURR CELLS 1+; MICROCYTOSIS 1+
[2021-03-23 03:32] LABS: CK-MB VALUE MASS 1.5 NG/ML (<3.6); MB/CK RELATIVE INDEX 2.31 (< OR =4)
[2021-03-23] MEDS ORDERED: LEVALBUTEROL HFA 45MCG/ACT 15 GM INHALER INH PRN (06:20)
[2021-03-23] MEDS ORDERED: NS 1,000 ML IV SCH (06:20)
[2021-03-23] MEDS ORDERED: NITROGLYCERIN 0.4 MG SUBL TABLET SL PRN (07:00)
[2021-03-23] MEDS ORDERED: DEXTROSE 50% 50 ML SYRINGE IV PRN (07:00)
[2021-03-23] MEDS ORDERED: GLUCOSE 4GM CHEW TABLET PO PRN (07:00)
[2021-03-23] MEDS ORDERED: GLUCAGON INJ 1MG VIAL SC PRN (07:00)
[2021-03-23] MEDS ORDERED: ENVA200T PO (07:01)
[2021-03-23] MEDS ORDERED: ENVA1TAB4 PO (07:01)
[2021-03-23] MEDS ORDERED: FAMO20TA PO (07:01)
[2021-03-23] MEDS ORDERED: MYCO250C PO (07:01)
[2021-03-23] MEDS ORDERED: LOKE5PAK PO (07:01)
[2021-03-23] MEDS ORDERED: SYNT88TA2 PO (07:01)
[2021-03-23] MEDS ORDERED: INSUDET SC ×2 (07:01)
[2021-03-23] MEDS ORDERED: SYNT100T PO (07:01)
[2021-03-23] MEDS ORDERED: MINO2.5T PO (07:01)
[2021-03-23] MEDS ORDERED: AMLO1TAB25 PO (07:01)
[2021-03-23] MEDS ORDERED: DOCU100C16 PO (07:02)
[2021-03-23] MEDS ORDERED: PRED5TA PO (07:02)
[2021-03-23] MEDS ORDERED: HOME MED LIST COMPLETE! XX SCH (07:05)
[2021-03-23 07:31] LABS: HEMOGLOBIN 13.6 g/dl (13.5-17.5); MEAN CORPUSCULAR HEMOGLOBIN 26.9 pg (27.0-33.0); MEAN CORPUSCULAR VOLUME 79.1 fl (80.0-96.0); PLATELET COUNT, AUTOMATED 532 10^3/uL (150-450); RED BLOOD COUNT 5.06 10^6/uL (4.30-6.10); WHITE BLOOD COUNT 13.2 10^3/uL (4.0-10.0)
[2021-03-23 07:46] LABS: INR 1.13
[2021-03-23 07:47] LABS: PARTIAL THROMBOPLASTIN TIME 28.9 SECONDS (25.9-37.0)
[2021-03-23 08:00] VITALS: BP_SYST 122; BP_SYST 127; BP_DIAS 67; BP_DIAS 82; O2SAT 92
[2021-03-23] MEDS ORDERED: DOXYCYCLINE HYCLATE 100 MG in D5W MINI-BAG PLUS 100 ML IV ONE (08:00)
[2021-03-23 08:08] LABS: ATYPICAL LYMPH 1 % (0-5); LYMPHOCYTES 4 % (16-44); MONOCYTES 3 % (0-5); NEUTROPHILS 92 % (28-66); PLATELET ESTIMATE INCREASED (NORMAL)
[2021-03-23 08:09] LABS: MICROCYTOSIS 1+
[2021-03-23 08:10] LABS: BURR CELLS 1+
[2021-03-23 08:11] LABS: SMUDGE CELLS 1+
[2021-03-23 08:18] LABS: ALBUMIN 2.1 GM/DL (3.2-5.2); BILIRUBIN,TOTAL 0.9 MG/DL (0.2-1.0); C REACTIVE PROTEIN QUANTITATIV 15.9 MG/DL (0.00-0.30); CALCIUM LEVEL 7.6 MG/DL (8.5-10.1); CREATININE FOR GFR 2.04 MG/DL (0.70-1.30); GLOMERULAR FILTRATION RATE 36.3 (>56); MAGNESIUM LEVEL 2.8 MG/DL (1.8-2.4); POTASSIUM SERUM 5.4 MEQ/L (3.5-5.1); TOTAL PROTEIN 5.5 GM/DL (6.4-8.2)
[2021-03-23 08:44] LABS: CK-MB VALUE MASS 1.4 NG/ML (<3.6); MB/CK RELATIVE INDEX 1.94 (< OR =4)
[2021-03-23] MEDS: HumaLOG INSULIN (NovoLOG) PER UNIT SC SCH ×4 (08:57→20:37)
[2021-03-23] MEDS: cefTRIAXone SOD 1 GM in D5W MINI-BAG PLUS 50 ML IV SCH (08:58)
[2021-03-23] MEDS: FAMOTIDINE 20 MG TAB PO SCH ×2 (08:58→20:38)
[2021-03-23] MEDS: CLOPIDOGREL 75 MG TAB PO SCH (08:58)
[2021-03-23] MEDS ORDERED: LEVEMIR (INSULIN DETEMIR) 1 UNITS/0.01ML SC SCH ×2 (09:00→21:00)
[2021-03-23] MEDS: DOCUSATE SODIUM 100MG CAPSULE PO SCH ×2 (09:00→20:38)
[2021-03-23] MEDS: BARICITINIB 2MG TABLET (OLUMIANT) FOR EUA PO SCH (10:03)
[2021-03-23 12:00] VITALS: BP 124/58; O2SAT 93
[2021-03-23] MEDS ORDERED: REMDESIVIR 200 MG in NS 250 ML IV ONE (12:00)
[2021-03-23] MEDS: HEPARIN SOD (PORCINE) 5000UNITS/ML 1ML VIAL/SYRINGE SQ SCH ×2 (13:52→22:20)
[2021-03-23] MEDS ORDERED: SODIUM CHLORIDE 0.9% INJ 10 ML SYR IV ONE (14:00)
[2021-03-23] MEDS: SODIUM BICARBONATE 75 MEQ in NS 0.45% 1,000 ML IV SCH (15:41)
[2021-03-23 16:00] VITALS: BP 121/60; O2SAT 93
[2021-03-23 20:00] VITALS: BP 120/58; O2SAT 92
[2021-03-23] MEDS: ATORVASTATIN 20 MG TAB PO SCH (20:38)
[2021-03-23] MEDS: LEVOTHYROXINE 100MCG TABLET (0.1MG) PO SCH (20:38)
[2021-03-23] MEDS: LEVOTHYROXINE 88MCG TABLET (0.088 MG) PO SCH (20:38)
[2021-03-24] VITALS: BP 125/60; O2SAT 91
[2021-03-24] MEDS: SODIUM BICARBONATE 75 MEQ in NS 0.45% 1,000 ML IV SCH ×3 (02:17→22:47)
[2021-03-24 04:00] VITALS: BP 130/60; O2SAT 93
[2021-03-24 04:42] LABS: RED BLOOD COUNT 4.61 10^6/uL (4.30-6.10)
[2021-03-24 04:43] LABS: HEMATOCRIT 35.2 % (42.0-52.0); HEMOGLOBIN 12.4 g/dl (13.5-17.5); MEAN CORPUSCULAR HEMOGLOBIN 26.9 pg (27.0-33.0); MEAN CORPUSCULAR HGB CONC 35.2 g/dl (32.0-36.5); MEAN CORPUSCULAR VOLUME 76.4 fl (80.0-96.0)
[2021-03-24 05:08] LABS: PLATELET COUNT, AUTOMATED 765 10^3/uL (150-450)
[2021-03-24 05:17] LABS: LYMPHOCYTES 2 % (16-44); MONOCYTES 4 % (0-5); NEUTROPHILS 93 % (28-66); PLATELET ESTIMATE INCREASED (NORMAL)
[2021-03-24 05:18] LABS: MICROCYTOSIS 1+
[2021-03-24 05:20] LABS: BILIRUBIN,DIRECT 0.2 MG/DL (0.0-0.2); BILIRUBIN,TOTAL 0.4 MG/DL (0.2-1.0); CALCIUM LEVEL 7.7 MG/DL (8.5-10.1); CREATININE FOR GFR 1.74 MG/DL (0.70-1.30); GLOMERULAR FILTRATION RATE 43.6 (>56); MAGNESIUM LEVEL 2.8 MG/DL (1.8-2.4); POTASSIUM SERUM 4.9 MEQ/L (3.5-5.1); TOTAL PROTEIN 5.9 GM/DL (6.4-8.2)
[2021-03-24] MEDS: HEPARIN SOD (PORCINE) 5000UNITS/ML 1ML VIAL/SYRINGE SQ SCH ×3 (05:23→22:47)
[2021-03-24] MEDS: HumaLOG INSULIN (NovoLOG) PER UNIT SC SCH ×4 (06:52→20:43)
[2021-03-24 08:00] VITALS: BP 144/67; O2SAT 90
[2021-03-24] MEDS: cefTRIAXone SOD 1 GM in D5W MINI-BAG PLUS 50 ML IV SCH (08:33)
[2021-03-24] MEDS: dexameTHASONE 4 MG/ML 1ML VIAL (J1100 PER 1MG) IV SCH (08:34)
[2021-03-24] MEDS: CLOPIDOGREL 75 MG TAB PO SCH (08:34)
[2021-03-24] MEDS: DOCUSATE SODIUM 100MG CAPSULE PO SCH ×2 (08:34→20:43)
[2021-03-24] MEDS: BARICITINIB 2MG TABLET (OLUMIANT) FOR EUA PO SCH (08:34)
[2021-03-24] MEDS: FAMOTIDINE 20 MG TAB PO SCH ×2 (08:34→20:43)
[2021-03-24] MEDS ORDERED: CALCITRIOL 0.25 MCG CAP (S0169) PO SCH (09:00)
[2021-03-24] MEDS: REMDESIVIR 100 MG in NS 250 ML IV SCH (11:44)
[2021-03-24] MEDS: ENVARSUS 1 MG PO SCH (11:48)
[2021-03-24 12:00] VITALS: O2SAT 93
[2021-03-24] MEDS: SODIUM CHLORIDE 0.9% INJ 10 ML SYR IV SCH (13:08)
[2021-03-24 16:00] VITALS: BP 144/67; O2SAT 93
[2021-03-24 16:08] LABS: MYCOPLASMA PNEUMONIAE IgG 1364 U/mL (0-99); MYCOPLASMA PNEUMONIAE IgM <770 U/mL (0-769)
[2021-03-24] MEDS: SODIUM ZIRCONIUM CYCLOSILICATE 5 GM PO SCH (16:34)
[2021-03-24 20:00] VITALS: BP 125/60; O2SAT 92
[2021-03-24] MEDS: LEVEMIR (INSULIN DETEMIR) 1 UNITS/0.01ML SC SCH (20:42)
[2021-03-24] MEDS: ATORVASTATIN 20 MG TAB PO SCH (20:42)
[2021-03-24] MEDS: LEVOTHYROXINE 100MCG TABLET (0.1MG) PO SCH (20:43)
[2021-03-24] MEDS: LEVOTHYROXINE 88MCG TABLET (0.088 MG) PO SCH (20:43)
[2021-03-25] VITALS (8 sets, daily range): BP systolic 139–165; BP diastolic 65–75; O2SAT 90–95
[2021-03-25] MEDS: HEPARIN SOD (PORCINE) 5000UNITS/ML 1ML VIAL/SYRINGE SQ SCH ×3 (05:08→21:36)
[2021-03-25 05:36] LABS: HEMATOCRIT 36.6 % (42.0-52.0); HEMOGLOBIN 12.5 g/dl (13.5-17.5); MEAN CORPUSCULAR HEMOGLOBIN 26.7 pg (27.0-33.0); MEAN CORPUSCULAR HGB CONC 34.2 g/dl (32.0-36.5); PLATELET COUNT, AUTOMATED 868 10^3/uL (150-450); RED BLOOD COUNT 4.69 10^6/uL (4.30-6.10); WHITE BLOOD COUNT 16.2 10^3/uL (4.0-10.0)
[2021-03-25 05:37] LABS: ALBUMIN 2.1 GM/DL (3.2-5.2); BILIRUBIN,DIRECT 0.2 MG/DL (0.0-0.2); BILIRUBIN,TOTAL 0.4 MG/DL (0.2-1.0); CALCIUM LEVEL 7.8 MG/DL (8.5-10.1); CREATININE FOR GFR 1.65 MG/DL (0.70-1.30); GLOMERULAR FILTRATION RATE 46.3 (>56); MAGNESIUM LEVEL 2.6 MG/DL (1.8-2.4); POTASSIUM SERUM 5.4 MEQ/L (3.5-5.1); TOTAL PROTEIN 5.7 GM/DL (6.4-8.2)
[2021-03-25 05:39] LABS: INR 1.03; PROTHROMBIN TIME 13.9 SECONDS (12.7-14.5)
[2021-03-25 05:40] LABS: PARTIAL THROMBOPLASTIN TIME 32.3 SECONDS (25.9-37.0)
[2021-03-25 06:43] LABS: ATYPICAL LYMPH 1 % (0-5); LYMPHOCYTES 1 % (16-44); METAMYELOCYTES 1 % (0-0); MONOCYTES 8 % (0-5); NEUTROPHILS 83 % (28-66)
[2021-03-25 06:46] LABS: MICROCYTOSIS 1+; PLATELET CLUMPS SMALL AMT; PLATELET ESTIMATE INCREASED (NORMAL); SCHISTOCYTES 1+; SMUDGE CELLS 1+
[2021-03-25] MEDS: LEVEMIR (INSULIN DETEMIR) 1 UNITS/0.01ML SC SCH ×2 (08:38→21:36)
[2021-03-25] MEDS: cefTRIAXone SOD 1 GM in D5W MINI-BAG PLUS 50 ML IV SCH (08:38)
[2021-03-25] MEDS: HumaLOG INSULIN (NovoLOG) PER UNIT SC SCH ×4 (08:38→21:00)
[2021-03-25] MEDS: FAMOTIDINE 20 MG TAB PO SCH ×2 (08:39→21:35)
[2021-03-25] MEDS: CLOPIDOGREL 75 MG TAB PO SCH (08:39)
[2021-03-25] MEDS: BARICITINIB 2MG TABLET (OLUMIANT) FOR EUA PO SCH (08:39)
[2021-03-25] MEDS: dexameTHASONE 4 MG/ML 1ML VIAL (J1100 PER 1MG) IV SCH (08:39)
[2021-03-25] MEDS: ENVARSUS 1 MG PO SCH (08:40)
[2021-03-25] MEDS: DOCUSATE SODIUM 100MG CAPSULE PO SCH ×2 (09:00→21:35)
[2021-03-25] MEDS: DOXYCYCLINE HYCLATE 100 MG in D5W MINI-BAG PLUS 100 ML IV SCH ×2 (10:04→21:36)
[2021-03-25] MEDS: REMDESIVIR 100 MG in NS 250 ML IV SCH (13:12)
[2021-03-25] MEDS: SODIUM CHLORIDE 0.9% INJ 10 ML SYR IV SCH (13:12)
[2021-03-25] MEDS: LEVOTHYROXINE 100MCG TABLET (0.1MG) PO SCH (21:35)
[2021-03-25] MEDS: ATORVASTATIN 20 MG TAB PO SCH (21:35)
[2021-03-25] MEDS: LEVOTHYROXINE 88MCG TABLET (0.088 MG) PO SCH (21:35)
[2021-03-26] VITALS: O2SAT 95
[2021-03-26 04:00] VITALS: BP 167/78; O2SAT 92
[2021-03-26] MEDS: HEPARIN SOD (PORCINE) 5000UNITS/ML 1ML VIAL/SYRINGE SQ SCH (06:14)
[2021-03-26 07:00] LABS: APPEARANCE, URINE CLEAR (CLEAR); BACTERIA, URINE AUTO NEGATIVE (NEGATIVE); BILIRUBIN, URINE AUTO NEGATIVE (NEGATIVE); BLOOD, URINE BLOOD NEGATIVE (NEGATIVE); COLOR, URINE STRAW (YELLOW); GLUCOSE, URINE (UA) AUTO 1+ mg/dL (NEGATIVE); KETONE, URINE AUTO NEGATIVE (NEGATIVE); LEUKOCYTE ESTERASE, URINE AUTO NEGATIVE (NEGATIVE); NITRITE, URINE AUTO NEGATIVE (NEGATIVE); PROTEIN, URINE AUTO NEGATIVE (NEGATIVE); RBC, URINE AUTO 0 /HPF (0-3); SQUAMOUS EPITHELIAL CELL UR AU 0 /HPF (0-6); UROBILINOGEN, URINE AUTO 0.2 mg/dL (0.0-2.0); WBC, URINE AUTO 0 /HPF (0-3)
[2021-03-26 07:43] LABS: HEMATOCRIT 40.4 % (42.0-52.0); HEMOGLOBIN 12.7 g/dl (13.5-17.5); MEAN CORPUSCULAR HEMOGLOBIN 26.4 pg (27.0-33.0); MEAN CORPUSCULAR HGB CONC 31.4 g/dl (32.0-36.5); PLATELET COUNT, AUTOMATED 767 10^3/uL (150-450); RED BLOOD COUNT 4.81 10^6/uL (4.30-6.10); WHITE BLOOD COUNT 16.1 10^3/uL (4.0-10.0)
[2021-03-26 08:07] LABS: CREATININE FOR GFR 1.61 MG/DL (0.70-1.30); GLOMERULAR FILTRATION RATE 47.7 (>56); MAGNESIUM LEVEL 2.4 MG/DL (1.8-2.4); POTASSIUM SERUM 4.6 MEQ/L (3.5-5.1)
[2021-03-26 08:18] LABS: LYMPHOCYTES 4 % (16-44); METAMYELOCYTES 2 % (0-0); MONOCYTES 3 % (0-5); NEUTROPHILS 89 % (28-66); PLATELET ESTIMATE INCREASED (NORMAL)
[2021-03-26] MEDS ORDERED: CARVedilol 12.5 MG TAB PO SCH (09:00)
[2021-03-26] MEDS: LEVEMIR (INSULIN DETEMIR) 1 UNITS/0.01ML SC SCH (09:35)
[2021-03-26] MEDS: dexameTHASONE 4 MG/ML 1ML VIAL (J1100 PER 1MG) IV SCH (09:35)
[2021-03-26] MEDS: cefTRIAXone SOD 1 GM in D5W MINI-BAG PLUS 50 ML IV SCH (09:36)
[2021-03-26] MEDS: HumaLOG INSULIN (NovoLOG) PER UNIT SC SCH ×2 (09:36→12:43)
[2021-03-26] MEDS: CLOPIDOGREL 75 MG TAB PO SCH (09:37)
[2021-03-26] MEDS: FAMOTIDINE 20 MG TAB PO SCH (09:37)
[2021-03-26] MEDS: BARICITINIB 2MG TABLET (OLUMIANT) FOR EUA PO SCH (09:37)
[2021-03-26] MEDS: DOCUSATE SODIUM 100MG CAPSULE PO SCH (09:37)
[2021-03-26] MEDS: ENVARSUS 1 MG PO SCH (09:38)
[2021-03-26] MEDS: SODIUM ZIRCONIUM CYCLOSILICATE 5 GM PO SCH (09:41)
[2021-03-26] MEDS: DOXYCYCLINE HYCLATE 100 MG in D5W MINI-BAG PLUS 100 ML IV SCH (11:10)
[2021-03-26 11:11] VITALS: BP 170/78
[2021-03-26] MEDS ORDERED: DOXY-350 PO (11:42)
[2021-03-26] MEDS ORDERED: CEFD300C41 PO (11:42)
[2021-03-26 12:00] VITALS: BP 160/74
[2021-03-26 12:01] VITALS: O2SAT 94
[2021-03-26] MEDS: REMDESIVIR 100 MG in NS 250 ML IV SCH (12:43)
[2021-03-26] MEDS: SODIUM CHLORIDE 0.9% INJ 10 ML SYR IV SCH (13:40)
[2021-03-26] MEDS ORDERED: cloNIDine 0.1MG TABLET PO SCH (21:00)
== END 2021-03-26 14:10 | disposition home or self-care (01) | DRG 177 ==
LOC: M ED 01:27 → M ED INP 05:36 → ENRESERV 06:05 → M ICU 07:53 → M 4MAIN 03-25 15:40
PROVIDERS: ADMIT Family Medicine; ATTEND Internal Medicine
DX: U07.1 COVID-19 (principal); J12.82 Pneumonia due to coronavirus disease 2019; J18.9 Pneumonia, unspecified organism; J96.01 Acute respiratory failure with hypoxia; G93.41 Metabolic encephalopathy; N17.9 Acute kidney failure, unspecified; Z94.0 Kidney transplant status; E87.2 Acidosis; E87.3 Alkalosis; E87.1 Hypo-osmolality and hyponatremia; N25.81 Secondary hyperparathyroidism of renal origin; E87.5 Hyperkalemia; Z79.4 Long term (current) use of insulin; E10.9 Type 1 diabetes mellitus without complications; N40.0 Benign prostatic hyperplasia without lower urinary tract symptoms; D64.9 Anemia, unspecified; I25.10 Atherosclerotic heart disease of native coronary artery without angina pectoris; I25.2 Old myocardial infarction; Z95.1 Presence of aortocoronary bypass graft; Z79.899 Other long term (current) drug therapy; Z79.82 Long term (current) use of aspirin; Z88.8 Allergy status to other drugs, medicaments and biological substances; R56.9 Unspecified convulsions; E03.9 Hypothyroidism, unspecified

== ENCOUNTER → 2021-03-29 | Outpatient (REF) | payer MEDICARE, MEDICAID ==
[~2021-03-29] MED LIST changes: +AMLO1TAB25 PO; +CEFD300C41 PO; +DOCU100C16 PO; +DOXY-350 PO; +ENVA1TAB4 PO; +ENVA200T PO; +FAMO20TA PO; +LOKE5PAK PO; +MYCO250C PO; +PRED5TA PO
== END ==
LOC: EDBD → M LAB REF 12:54
PROVIDERS: ATTEND Nurse Practitioner Family
DX: Z48.22 Encounter for aftercare following kidney transplant (principal)

== ENCOUNTER → 2021-04-10 | Outpatient (CLI) | payer MEDICARE, MEDICAID | LOC: M RAD 10:23 | PROVIDERS: ATTEND Internal Medicine | DX: U07.1 COVID-19 (principal); M25.562 Pain in left knee ==

== ENCOUNTER → 2021-05-24 | Outpatient (CLI) | payer MEDICARE, MEDICAID | LOC: M RAD 10:20 | PROVIDERS: ATTEND Internal Medicine | DX: J18.9 Pneumonia, unspecified organism (principal) ==

== ENCOUNTER → 2021-06-02 | Outpatient (CLI) | payer OTHER | LOC: M RAD 12:49 | PROVIDERS: ATTEND Internal Medicine Nephrology | DX: Z01.818 Encounter for other preprocedural examination (principal) ==

== ENCOUNTER → 2021-06-16 | Outpatient (CLI) | payer MEDICARE, MEDICAID | LOC: M RAD 07:58 | PROVIDERS: ATTEND Internal Medicine | DX: U07.1 COVID-19 (principal) ==

== ENCOUNTER → 2021-07-13 | Outpatient (CLI) | payer MEDICARE, MEDICAID | LOC: M LAB 09:23 | PROVIDERS: ATTEND Physician Assistant | DX: E87.5 Hyperkalemia (principal) ==

== ENCOUNTER → 2021-08-03 | Outpatient (CLI) | payer MEDICARE, MEDICAID | LOC: M LAB 11:50 | PROVIDERS: ATTEND Internal Medicine Pulmonary Disease | DX: R91.8 Other nonspecific abnormal finding of lung field (principal) ==

== ENCOUNTER → 2021-09-04 | Outpatient (CLI) | payer MEDICARE, MEDICAID | LOC: M PLARAD 08:25 | PROVIDERS: ATTEND Internal Medicine Pulmonary Disease | DX: R91.8 Other nonspecific abnormal finding of lung field (principal) | CPT/HCPCS: 78815; A9552 ==

== ENCOUNTER → 2021-12-22 | Outpatient (CLI) | payer MEDICARE, MEDICAID | LOC: M RAD 06:55 | PROVIDERS: ATTEND Internal Medicine Pulmonary Disease | DX: R91.8 Other nonspecific abnormal finding of lung field (principal) ==

== ENCOUNTER 2022-05-04 16:25 | Emergency (ER) | payer MEDICARE, MEDICAID ==
[~2022-05-04] VITALS: Ht 172.7 cm; Wt 69.0 kg
[~2022-05-04 16:25] MED LIST changes: +CLOP75TA99 PO; -DOXY-350 PO; +DOXY-444 PO; -PLAV1TAB2 PO
[2022-05-04] MEDS ORDERED: LIDOCAINE 5% (LIDODERM) PATCH TD ONE (16:50)
[2022-05-04] MEDS ORDERED: CALC1CAP31 PO (17:02)
[2022-05-04] MEDS ORDERED: MYCO250C PO (17:02)
[2022-05-04] MEDS ORDERED: HYDR12.55 PO (17:02)
[2022-05-04] MEDS ORDERED: INSUDET SC ×2 (17:02)
[2022-05-04] MEDS ORDERED: ENVA1TAB4 PO (17:02)
[2022-05-04] MEDS ORDERED: LOKE5PAK PO (17:02)
[2022-05-04] MEDS ORDERED: ENVA200T PO (17:02)
[2022-05-04 17:11] LABS: BASO # 0.1 10^3/uL (0.0-0.2); BASO % 1.1 % (0.0-1.0); EOS # 0.2 10^3/uL (0.0-0.5); EOS % 2.3 % (0.0-3.0); HEMOGLOBIN 13.1 g/dl (13.5-17.5); LYMPH # 0.8 10^3/uL (1.5-5.0); LYMPH % 10.5 % (24.0-44.0); MEAN CORPUSCULAR HEMOGLOBIN 27.6 pg (27.0-33.0); MEAN CORPUSCULAR VOLUME 86.3 fl (80.0-96.0); MONO # 0.9 10^3/uL (0.0-0.8); MONO % 12.3 % (2.0-8.0); NEUTROPHILS # 5.4 10^3/uL (1.5-8.5); NEUTROPHILS % 72.5 % (36.0-66.0); PLATELET COUNT, AUTOMATED 265 10^3/uL (150-450); RED BLOOD COUNT 4.75 10^6/uL (4.30-6.10); WHITE BLOOD COUNT 7.5 10^3/uL (4.0-10.0)
[2022-05-04] MEDS ORDERED: ACETAMINOPHEN 325 MG TAB PO ONE (17:45)
[2022-05-04 17:50] LABS: ALBUMIN 4.1 G/DL (3.2-5.2); BILIRUBIN,DIRECT 0.2 MG/DL (<0.4); BILIRUBIN,TOTAL 0.7 MG/DL (0.3-1.2); CALCIUM LEVEL 10.4 MG/DL (8.5-10.1); CK-MB VALUE MASS 3.1 NG/ML (<3.6); CREATININE FOR GFR 1.46 MG/DL (0.70-1.30); FREE T4 1.45 NG/DL (0.89-1.76); GLOMERULAR FILTRATION RATE 53.2 (>56); MB/CK RELATIVE INDEX 1.71 (< OR =4); POTASSIUM SERUM 4.5 MMOL/L (3.5-5.1); THYROID STIMULATING HORMONE 0.728 uIU/ML (0.55-4.78); TOTAL PROTEIN 6.7 G/DL (5.7-8.2)
[2022-05-04] MEDS ORDERED: GI COCKTAIL 50ML BTL(HYOSCYAMINE/MAALOX/LIDOCAINE VISCOUS)(1:3:1) PO ONE (18:45)
[2022-05-04 18:52] LABS: CK-MB VALUE MASS 2.8 NG/ML (<3.6)
[2022-05-04 18:55] LABS: MB/CK RELATIVE INDEX 1.77 (< OR =4)
[2022-05-04 20:39] LABS: CK-MB VALUE MASS 1.6 NG/ML (<3.6)
[2022-05-04 20:40] LABS: MB/CK RELATIVE INDEX 1.22 (< OR =4)
[2022-05-04 21:12] VITALS: BP 169/72
== END 2022-05-04 21:18 | disposition home or self-care (01) ==
LOC: M ED 16:25
DX: R07.9 Chest pain, unspecified (principal); M54.6 Pain in thoracic spine; N18.9 Chronic kidney disease, unspecified; Z86.74 Personal history of sudden cardiac arrest; Z88.8 Allergy status to other drugs, medicaments and biological substances; Z94.0 Kidney transplant status; Z95.5 Presence of coronary angioplasty implant and graft; Z91.02 Food additives allergy status; Z79.1 Long term (current) use of non-steroidal anti-inflammatories (NSAID); Z79.82 Long term (current) use of aspirin; Z79.899 Other long term (current) drug therapy; Z79.01 Long term (current) use of anticoagulants

== ENCOUNTER → 2022-05-09 | Outpatient (CLI) | payer MEDICARE, MEDICAID ==
[~2022-05-09] MED LIST changes: +HYDR12.55 PO
[2022-05-09 16:53] LABS: HEMATOCRIT 42.7 % (42.0-52.0); HEMOGLOBIN 13.8 g/dl (13.5-17.5); MEAN CORPUSCULAR HEMOGLOBIN 27.8 pg (27.0-33.0); MEAN CORPUSCULAR HGB CONC 32.3 g/dl (32.0-36.5); MEAN CORPUSCULAR VOLUME 86.1 fl (80.0-96.0); PLATELET COUNT, AUTOMATED 281 10^3/uL (150-450); RED BLOOD COUNT 4.96 10^6/uL (4.30-6.10); WHITE BLOOD COUNT 6.3 10^3/uL (4.0-10.0)
[2022-05-09 17:34] LABS: BILIRUBIN,TOTAL 0.6 MG/DL (0.3-1.2); CALCIUM LEVEL 9.9 MG/DL (8.5-10.1); CHOLESTEROL RISK RATIO 2.72 (<5); CREATININE FOR GFR 1.41 MG/DL (0.70-1.30); GLOMERULAR FILTRATION RATE 55.4 (>56); HDL CHOLESTEROL 37.5 MG/DL (>40); POTASSIUM SERUM 4.8 MMOL/L (3.5-5.1); THYROID STIMULATING HORMONE 0.548 uIU/ML (0.55-4.78)
[2022-05-09 19:09] LABS: LDL CHOLESTEROL 42.9 MG/DL (<100); TOTAL PROTEIN 6.7 G/DL (5.7-8.2)
== END ==
LOC: M LAB 16:13
PROVIDERS: ATTEND Internal Medicine
DX: R07.89 Other chest pain (principal); E10.9 Type 1 diabetes mellitus without complications; E78.5 Hyperlipidemia, unspecified; E03.9 Hypothyroidism, unspecified; Z79.890 Hormone replacement therapy

== ENCOUNTER → 2022-05-17 | Outpatient (CLI) | payer MEDICARE, MEDICAID | LOC: M PLAIMG 10:24 | PROVIDERS: ATTEND Internal Medicine | DX: R07.89 Other chest pain (principal) ==

== ENCOUNTER 2022-06-16 17:06 | Inpatient (IN) | payer MEDICARE, MEDICAID ==
[~2022-06-16] VITALS: Ht 172.7 cm; Wt 68.5 kg
[2022-06-16 17:37] LABS: BASO # 0.1 10^3/uL (0.0-0.2); BASO % 0.6 % (0.0-1.0); EOS # 0.1 10^3/uL (0.0-0.5); EOS % 0.6 % (0.0-3.0); HEMATOCRIT 38.8 % (42.0-52.0); HEMOGLOBIN 12.6 g/dl (13.5-17.5); LYMPH # 0.9 10^3/uL (1.5-5.0); LYMPH % 6.3 % (24.0-44.0); MEAN CORPUSCULAR HEMOGLOBIN 27.9 pg (27.0-33.0); MEAN CORPUSCULAR HGB CONC 32.5 g/dl (32.0-36.5); MEAN CORPUSCULAR VOLUME 85.8 fl (80.0-96.0); MONO # 1.5 10^3/uL (0.0-0.8); MONO % 10.6 % (2.0-8.0); NEUTROPHILS # 11.3 10^3/uL (1.5-8.5); NEUTROPHILS % 81.1 % (36.0-66.0); PLATELET COUNT, AUTOMATED 292 10^3/uL (150-450); RED BLOOD COUNT 4.52 10^6/uL (4.30-6.10); WHITE BLOOD COUNT 13.9 10^3/uL (4.0-10.0)
[2022-06-16 17:52] LABS: INR 0.96; PARTIAL THROMBOPLASTIN TIME 27.5 SECONDS (24.8-34.2)
[2022-06-16] MEDS ORDERED: ACETAMINOPHEN 325 MG TAB PO ONE ×2 (18:00→18:15)
[2022-06-16 18:09] LABS: BILIRUBIN,DIRECT 0.2 MG/DL (<0.4); BILIRUBIN,TOTAL 0.6 MG/DL (0.3-1.2); CALCIUM LEVEL 9.3 MG/DL (8.5-10.1); CK-MB VALUE MASS 1.9 NG/ML (<3.6); CREATININE FOR GFR 1.53 MG/DL (0.70-1.30); GLOMERULAR FILTRATION RATE 50.4 (>56); MB/CK RELATIVE INDEX 0.72 (< OR =4); POTASSIUM SERUM 4.1 MMOL/L (3.5-5.1); TOTAL PROTEIN 6.5 G/DL (5.7-8.2)
[2022-06-16 19:13] LABS: CK-MB VALUE MASS 1.2 NG/ML (<3.6)
[2022-06-16 19:14] LABS: MB/CK RELATIVE INDEX 0.53 (< OR =4)
[2022-06-16] MEDS ORDERED: cefTRIAXone SOD 2 GM in D5W MINI-BAG PLUS 50 ML IV ONE (19:50)
[2022-06-16] MEDS ORDERED: NS 1,000 ML IV SCH (20:25)
[2022-06-16] MEDS ORDERED: BRIN8DRO OS (20:54)
[2022-06-16] MEDS ORDERED: TIMO0.5S29 OS (20:54)
[2022-06-16] MEDS ORDERED: HOME MED LIST COMPLETE! XX SCH (20:55)
[2022-06-16] MEDS: LEVEMIR (INSULIN DETEMIR) 1 UNITS/0.01ML SC SCH (21:00)
[2022-06-16] MEDS ORDERED: IPRATROPIUM 0.5MG/ALBUTEROL 2.5MG INH SOL UD 3ML (DUONEB) INH PRN (21:45)
[2022-06-16] MEDS ORDERED: VANCOMYCIN HCL 1,050 MG in IV FLUID PLACE HOLDER 1 EA IV SCH (21:45)
[2022-06-16] MEDS ORDERED: ACETAMINOPHEN TAB 650MG DOSE (2X325MG) PO PRN (21:45)
[2022-06-16] MEDS ORDERED: GLUCAGON INJ 1MG VIAL SC PRN (21:55)
[2022-06-16] MEDS ORDERED: DEXTROSE 50% 50ML SYRINGE IV PRN (21:55)
[2022-06-16] MEDS ORDERED: GLUCOSE 4GM CHEW TABLET PO PRN (21:55)
[2022-06-16] MEDS ORDERED: VANCOMYCIN HCL 750 MG, VIAL MATE ADAPTER 1 EACH in D5W 250 ML IV ONE ×2 (22:00→23:00)
[2022-06-16 22:23] VITALS: BP 138/60
[2022-06-16] MEDS: CARVedilol 12.5 MG TAB PO SCH (22:41)
[2022-06-16] MEDS: DOCUSATE SODIUM 100MG CAPSULE PO SCH (22:41)
[2022-06-16] MEDS: LEVOTHYROXINE 100MCG TABLET (0.1MG) PO SCH (22:50)
[2022-06-16] MEDS: LEVOTHYROXINE 88MCG TABLET (0.088 MG) PO SCH (22:50)
[2022-06-17] MEDS: PIPERACILLIN/TAZOBACTAM SOD 3.375 GM in D5W MINI-BAG PLUS 50 ML IV SCH ×5 (00:56→23:45)
[2022-06-17] MEDS ORDERED: ONDANSETRON 4MG 2ML VIAL IV PRN (02:35)
[2022-06-17 05:20] VITALS: BP 133/55
[2022-06-17] MEDS: HEPARIN SOD (PORCINE) 5000UNITS/ML 1ML VIAL/SYRINGE SC SCH ×3 (05:27→22:00)
[2022-06-17 06:49] LABS: BASO # 0.1 10^3/uL (0.0-0.2); BASO % 0.5 % (0.0-1.0); EOS # 0.2 10^3/uL (0.0-0.5); EOS % 1.2 % (0.0-3.0); HEMATOCRIT 38.8 % (42.0-52.0); HEMOGLOBIN 12.2 g/dl (13.5-17.5); LYMPH # 0.6 10^3/uL (1.5-5.0); LYMPH % 4.5 % (24.0-44.0); MEAN CORPUSCULAR HEMOGLOBIN 27.8 pg (27.0-33.0); MEAN CORPUSCULAR HGB CONC 31.4 g/dl (32.0-36.5); MEAN CORPUSCULAR VOLUME 88.4 fl (80.0-96.0); MONO # 1.4 10^3/uL (0.0-0.8); MONO % 10.1 % (2.0-8.0); NEUTROPHILS # 11.1 10^3/uL (1.5-8.5); NEUTROPHILS % 82.2 % (36.0-66.0); PLATELET COUNT, AUTOMATED 247 10^3/uL (150-450); RED BLOOD COUNT 4.39 10^6/uL (4.30-6.10); WHITE BLOOD COUNT 13.5 10^3/uL (4.0-10.0)
[2022-06-17 07:11] LABS: CALCIUM LEVEL 8.4 MG/DL (8.5-10.1); CREATININE FOR GFR 1.61 MG/DL (0.70-1.30); GLOMERULAR FILTRATION RATE 47.5 (>56); MAGNESIUM LEVEL 1.7 MG/DL (1.8-2.4); POTASSIUM SERUM 4.4 MMOL/L (3.5-5.1)
[2022-06-17] MEDS: INSULIN LISPRO (NovoLOG) PER UNIT SC SCH ×3 (08:37→17:46)
[2022-06-17] MEDS: LEVEMIR (INSULIN DETEMIR) 1 UNITS/0.01ML SC SCH ×2 (08:37→21:22)
[2022-06-17] MEDS: CLOPIDOGREL 75 MG TAB PO SCH (08:39)
[2022-06-17] MEDS: predniSONE 5 MG TAB PO SCH (08:39)
[2022-06-17] MEDS: hydroCHLOROthiazide 12.5 MG CAPSULE PO SCH (08:40)
[2022-06-17] MEDS: MYCOPHENOLATE MOFETIL 250 MG CAP (J7517) PO SCH ×2 (08:40→21:26)
[2022-06-17] MEDS: DOCUSATE SODIUM 100MG CAPSULE PO SCH ×2 (08:40→21:27)
[2022-06-17] MEDS: CARVedilol 12.5 MG TAB PO SCH ×2 (08:41→21:28)
[2022-06-17] MEDS ORDERED: TACROLIMUS 0.5MG CAP PO SCH (09:00)
[2022-06-17] MEDS ORDERED: TACROLIMUS PO SCH (09:00)
[2022-06-17] MEDS ORDERED: TACROLIMUS 1MG CAP PO SCH (09:00)
[2022-06-17 14:00] VITALS: BP 166/69
[2022-06-17 17:45] VITALS: BP 136/70
[2022-06-17] MEDS ORDERED: INSULIN LISPRO (NovoLOG) PER UNIT SC SCH (21:00)
[2022-06-17] MEDS ORDERED: ASPIRIN 81MG ENTERIC TABLET PO SCH (21:00)
[2022-06-17] MEDS ORDERED: ATORVASTATIN 20 MG TAB PO SCH (21:00)
[2022-06-17] MEDS: LEVOTHYROXINE 100MCG TABLET (0.1MG) PO SCH (21:26)
[2022-06-17] MEDS: LEVOTHYROXINE 88MCG TABLET (0.088 MG) PO SCH (21:27)
[2022-06-17 21:32] VITALS: BP 166/69
[2022-06-18] MEDS: HEPARIN SOD (PORCINE) 5000UNITS/ML 1ML VIAL/SYRINGE SC SCH (05:15)
[2022-06-18] MEDS: PIPERACILLIN/TAZOBACTAM SOD 3.375 GM in D5W MINI-BAG PLUS 50 ML IV SCH (05:44)
[2022-06-18 05:51] VITALS: BP 157/69
[2022-06-18 06:13] LABS: BASO % 0.4 % (0.0-1.0); EOS # 0.4 10^3/uL (0.0-0.5); EOS % 4.7 % (0.0-3.0); HEMATOCRIT 37.7 % (42.0-52.0); HEMOGLOBIN 12.2 g/dl (13.5-17.5); LYMPH # 0.6 10^3/uL (1.5-5.0); LYMPH % 7.3 % (24.0-44.0); MEAN CORPUSCULAR HEMOGLOBIN 28.2 pg (27.0-33.0); MEAN CORPUSCULAR HGB CONC 32.4 g/dl (32.0-36.5); MEAN CORPUSCULAR VOLUME 87.1 fl (80.0-96.0); MONO # 0.8 10^3/uL (0.0-0.8); MONO % 9.3 % (2.0-8.0); NEUTROPHILS # 6.5 10^3/uL (1.5-8.5); NEUTROPHILS % 77.7 % (36.0-66.0); PLATELET COUNT, AUTOMATED 256 10^3/uL (150-450); RED BLOOD COUNT 4.33 10^6/uL (4.30-6.10); WHITE BLOOD COUNT 8.3 10^3/uL (4.0-10.0)
[2022-06-18 06:47] LABS: ALBUMIN 3.2 G/DL (3.2-5.2); BILIRUBIN,TOTAL 0.4 MG/DL (0.3-1.2); CALCIUM LEVEL 8.8 MG/DL (8.5-10.1); CREATININE FOR GFR 1.61 MG/DL (0.70-1.30); GLOMERULAR FILTRATION RATE 47.5 (>56); MAGNESIUM LEVEL 1.9 MG/DL (1.8-2.4); POTASSIUM SERUM 4.4 MMOL/L (3.5-5.1); TOTAL PROTEIN 5.5 G/DL (5.7-8.2)
[2022-06-18] MEDS: INSULIN LISPRO (NovoLOG) PER UNIT SC SCH (07:56)
[2022-06-18] MEDS: LEVEMIR (INSULIN DETEMIR) 1 UNITS/0.01ML SC SCH (07:57)
[2022-06-18] MEDS: predniSONE 5 MG TAB PO SCH (07:57)
[2022-06-18] MEDS: DOCUSATE SODIUM 100MG CAPSULE PO SCH (07:59)
[2022-06-18] MEDS: hydroCHLOROthiazide 12.5 MG CAPSULE PO SCH (07:59)
[2022-06-18 08:00] VITALS: BP 152/69
[2022-06-18] MEDS: CLOPIDOGREL 75 MG TAB PO SCH (08:00)
[2022-06-18] MEDS: MYCOPHENOLATE MOFETIL 250 MG CAP (J7517) PO SCH (08:00)
[2022-06-18] MEDS: CARVedilol 12.5 MG TAB PO SCH (08:00)
[2022-06-18] MEDS ORDERED: AMOX500T PO (08:43)
[2022-06-18] MEDS ORDERED: MOXI1TAB PO (08:43)
[2022-06-18] MEDS ORDERED: CALCITRIOL 0.25 MCG CAP (S0169) PO SCH (09:00)
[2022-06-20 15:08] LABS: BODY FLUID CULTURE Not indicated. (.); LEGIONELLA ANTIGEN URINE Negative (Negative); ORGANISM ID Not indicated. (.); SPECIMEN SOURCE Urine (.); URINE STREP PNEUMONIAE ANTIGEN Negative (Negative)
== END 2022-06-18 11:35 | disposition home or self-care (01) | DRG 871 ==
LOC: EDBD 17:06 → M ED 17:06 → M ED INP 21:27 → M MS5PR 22:18
PROVIDERS: ADMIT Family Medicine; ATTEND Family Medicine
DX: A41.9 Sepsis, unspecified organism (principal); N18.6 End stage renal disease; J12.2 Parainfluenza virus pneumonia; I13.2 Hypertensive heart and chronic kidney disease with heart failure and with stage 5 chronic kidney disease, or end stage renal disease; Z94.0 Kidney transplant status; D84.9 Immunodeficiency, unspecified; Q60.0 Renal agenesis, unilateral; N25.81 Secondary hyperparathyroidism of renal origin; I50.9 Heart failure, unspecified; E10.22 Type 1 diabetes mellitus with diabetic chronic kidney disease; E03.9 Hypothyroidism, unspecified; Z88.8 Allergy status to other drugs, medicaments and biological substances; Z79.899 Other long term (current) drug therapy; Z79.82 Long term (current) use of aspirin; Z79.4 Long term (current) use of insulin; E78.5 Hyperlipidemia, unspecified; N40.0 Benign prostatic hyperplasia without lower urinary tract symptoms

== ENCOUNTER → 2022-07-26 | Outpatient (CLI) | payer MEDICARE, MEDICAID ==
[~2022-07-26] MED LIST changes: +AMOX500T PO; +BRIN8DRO OS; +TIMO0.5S20 OS
== END ==
LOC: M PLAIMG 11:21
PROVIDERS: ATTEND Internal Medicine Pulmonary Disease
DX: R91.8 Other nonspecific abnormal finding of lung field (principal)

== ENCOUNTER → 2022-08-29 | Outpatient (CLI) | payer MEDICARE, MEDICAID ==
[2022-08-29 10:45] LABS: HEMATOCRIT 43.4 % (42.0-52.0); HEMOGLOBIN 14.1 g/dl (13.5-17.5); MEAN CORPUSCULAR HEMOGLOBIN 28.1 pg (27.0-33.0); MEAN CORPUSCULAR HGB CONC 32.5 g/dl (32.0-36.5); MEAN CORPUSCULAR VOLUME 86.5 fl (80.0-96.0); PLATELET COUNT, AUTOMATED 247 10^3/uL (150-450); RED BLOOD COUNT 5.02 10^6/uL (4.30-6.10); WHITE BLOOD COUNT 5.9 10^3/uL (4.0-10.0)
[2022-08-29 11:06] LABS: HEMOGLOBIN A1c 7.1 % (4.0-6.0)
[2022-08-29 11:21] LABS: ALBUMIN 4.1 G/DL (3.2-5.2); BILIRUBIN,TOTAL 0.6 MG/DL (0.3-1.2); CALCIUM LEVEL 9.4 MG/DL (8.5-10.1); CHOLESTEROL RISK RATIO 2.21 (<5); CREATININE FOR GFR 1.62 MG/DL (0.70-1.30); HDL CHOLESTEROL 39.2 MG/DL (>40); LDL CHOLESTEROL 37.6 MG/DL (<100); NON-HDL-C 47.8 MG/DL; POTASSIUM SERUM 4.4 MMOL/L (3.5-5.1); TOTAL PROTEIN 6.4 G/DL (5.7-8.2)
[2022-08-29 11:22] LABS: THYROID STIMULATING HORMONE 0.049 uIU/ML (0.55-4.78)
== END ==
LOC: M LAB 10:12
PROVIDERS: ATTEND Internal Medicine
DX: E03.9 Hypothyroidism, unspecified (principal); I25.10 Atherosclerotic heart disease of native coronary artery without angina pectoris; E78.5 Hyperlipidemia, unspecified; E10.9 Type 1 diabetes mellitus without complications

== ENCOUNTER → 2022-12-05 | Outpatient (CLI) | payer MEDICARE, MEDICAID ==
[2022-12-05 12:01] LABS: THYROID STIMULATING HORMONE 0.576 uIU/ML (0.55-4.78)
[2022-12-05 12:02] LABS: ALBUMIN 3.9 G/DL (3.2-5.2); BILIRUBIN,TOTAL 0.7 MG/DL (0.3-1.2); CALCIUM LEVEL 9.6 MG/DL (8.5-10.1); CHOLESTEROL RISK RATIO 2.27 (<5); CREATININE FOR GFR 1.36 MG/DL (0.70-1.30); GLOMERULAR FILTRATION RATE 57.5 (>56); HDL CHOLESTEROL 42.7 MG/DL (>40); LDL CHOLESTEROL 39.9 MG/DL (<100); NON-HDL-C 54.3 MG/DL; POTASSIUM SERUM 4.8 MMOL/L (3.5-5.1); TOTAL PROTEIN 6.5 G/DL (5.7-8.2)
== END ==
LOC: M LAB 10:59
PROVIDERS: ATTEND Internal Medicine
DX: E78.5 Hyperlipidemia, unspecified (principal); E03.9 Hypothyroidism, unspecified; E10.9 Type 1 diabetes mellitus without complications

== ENCOUNTER → 2022-12-25 | Outpatient (CLI) | payer MEDICARE, MEDICAID | LOC: M PLAIMG 09:36 | PROVIDERS: ATTEND Internal Medicine Pulmonary Disease | DX: R91.8 Other nonspecific abnormal finding of lung field (principal) ==

== ENCOUNTER 2023-02-15 10:04 | Emergency (ER) | payer MEDICARE, MEDICAID ==
[~2023-02-15] VITALS: Ht 172.7 cm; Wt 65.9 kg
[~2023-02-15 10:04] MED LIST changes: +CEFD1CAP9 PO; -CEFD300C41 PO
[2023-02-15 10:06] VITALS: TEMP 97.6
[2023-02-15 12:17] LABS: BASO # 0.1 10^3/uL (0.0-0.2); BASO % 0.6 % (0.0-1.0); EOS # 0.1 10^3/uL (0.0-0.5); HEMATOCRIT 41.3 % (42.0-52.0); LYMPH # 0.8 10^3/uL (1.5-5.0); LYMPH % 6.8 % (24.0-44.0); MEAN CORPUSCULAR HEMOGLOBIN 29.6 pg (27.0-33.0); MEAN CORPUSCULAR HGB CONC 33.9 g/dl (32.0-36.5); MEAN CORPUSCULAR VOLUME 87.3 fl (80.0-96.0); MONO # 0.7 10^3/uL (0.0-0.8); MONO % 5.9 % (2.0-8.0); NEUTROPHILS # 10.5 10^3/uL (1.5-8.5); NEUTROPHILS % 85.3 % (36.0-66.0); PLATELET COUNT, AUTOMATED 245 10^3/uL (150-450); RED BLOOD COUNT 4.73 10^6/uL (4.30-6.10); WHITE BLOOD COUNT 12.3 10^3/uL (4.0-10.0)
[2023-02-15 12:27] LABS: INR 0.98; PROTHROMBIN TIME 12.7 SECONDS (12.5-14.5)
[2023-02-15 12:28] LABS: PARTIAL THROMBOPLASTIN TIME 26.7 SECONDS (24.8-34.2)
[2023-02-15 12:30] LABS: D-DIMER QUANT < 0.27 ug/mL (<0.5)
[2023-02-15 12:42] LABS: CALCIUM LEVEL 9.2 MG/DL (8.5-10.1); CK-MB VALUE MASS 1.9 NG/ML (<3.6); CREATININE FOR GFR 1.39 MG/DL (0.70-1.30); GLOMERULAR FILTRATION RATE 56.1 (>56); MB/CK RELATIVE INDEX 1.65 (< OR =4); POTASSIUM SERUM 4.6 MMOL/L (3.5-5.1)
[2023-02-15 13:30] VITALS: BP 153/69
[2023-02-15 13:34] VITALS: O2SAT 96
[2023-02-15] MEDS ORDERED: BENZ200C70 PO (13:34)
[2023-02-15] MEDS ORDERED: AMOX875T2 PO (13:34)
== END 2023-02-15 13:48 | disposition home or self-care (01) ==
LOC: M ED 10:04
DX: J40 Bronchitis, not specified as acute or chronic (principal); J32.9 Chronic sinusitis, unspecified; I13.0 Hypertensive heart and chronic kidney disease with heart failure and stage 1 through stage 4 chronic kidney disease, or unspecified chronic kidney disease; I50.9 Heart failure, unspecified; I25.2 Old myocardial infarction; Z86.718 Personal history of other venous thrombosis and embolism; Z94.0 Kidney transplant status; Z95.5 Presence of coronary angioplasty implant and graft; Z79.899 Other long term (current) drug therapy; Z11.52 Encounter for screening for COVID-19

== ENCOUNTER → 2023-03-25 | Outpatient (CLI) | payer MEDICARE, MEDICAID ==
[~2023-03-25] MED LIST changes: +AMOX875T2 PO; +BENZ200C70 PO
[2023-03-25 12:14] LABS: HEMOGLOBIN A1c 8.2 % (4.0-6.0)
[2023-03-25 12:24] LABS: THYROID STIMULATING HORMONE 0.803 uIU/ML (0.55-4.78)
[2023-03-25 12:25] LABS: ALBUMIN 4.3 G/DL (3.2-5.2); BILIRUBIN,TOTAL 0.9 MG/DL (0.3-1.2); CALCIUM LEVEL 9.6 MG/DL (8.5-10.1); CHOLESTEROL RISK RATIO 2.33 (<5); CREATININE FOR GFR 1.48 MG/DL (0.70-1.30); GLOMERULAR FILTRATION RATE 52.2 (>56); HDL CHOLESTEROL 43.3 MG/DL (>40); LDL CHOLESTEROL 37.5 MG/DL (<100); NON-HDL-C 57.7 MG/DL; POTASSIUM SERUM 5.3 MMOL/L (3.5-5.1); TOTAL PROTEIN 6.7 G/DL (5.7-8.2)
== END ==
LOC: M LAB 10:35
PROVIDERS: ATTEND Internal Medicine
DX: E03.9 Hypothyroidism, unspecified (principal); E78.5 Hyperlipidemia, unspecified; E10.9 Type 1 diabetes mellitus without complications

== ENCOUNTER 2023-04-01 11:04 | Emergency (ER) | payer MEDICARE, MEDICAID ==
[~2023-04-01] VITALS: Ht 172.7 cm; Wt 65.9 kg
[~2023-04-01 11:04] MED LIST changes: -OSEL75CA PO
[2023-04-01 12:17] LABS: BASO # 0.1 10^3/uL (0.0-0.2); BASO % 0.5 % (0.0-1.0); EOS # 0.1 10^3/uL (0.0-0.5); EOS % 1.3 % (0.0-3.0); HEMATOCRIT 42.9 % (42.0-52.0); HEMOGLOBIN 14.7 g/dl (13.5-17.5); LYMPH # 0.9 10^3/uL (1.5-5.0); LYMPH % 8.5 % (24.0-44.0); MEAN CORPUSCULAR HEMOGLOBIN 29.1 pg (27.0-33.0); MEAN CORPUSCULAR HGB CONC 34.3 g/dl (32.0-36.5); MEAN CORPUSCULAR VOLUME 84.8 fl (80.0-96.0); MONO # 0.7 10^3/uL (0.0-0.8); MONO % 6.3 % (2.0-8.0); NEUTROPHILS # 8.6 10^3/uL (1.5-8.5); PLATELET COUNT, AUTOMATED 270 10^3/uL (150-450); RED BLOOD COUNT 5.06 10^6/uL (4.30-6.10); WHITE BLOOD COUNT 10.4 10^3/uL (4.0-10.0)
[2023-04-01 12:37] LABS: INR 1.07; PROTHROMBIN TIME 13.6 SECONDS (12.5-14.5)
[2023-04-01 12:47] LABS: ALBUMIN 4.2 G/DL (3.2-5.2); BILIRUBIN,DIRECT 0.3 MG/DL (<0.4); BILIRUBIN,TOTAL 0.7 MG/DL (0.3-1.2); CALCIUM LEVEL 10.1 MG/DL (8.5-10.1); CREATININE FOR GFR 1.39 MG/DL (0.70-1.30); GLOMERULAR FILTRATION RATE 56.1 (>56); POTASSIUM SERUM 4.3 MMOL/L (3.5-5.1)
[2023-04-01 12:56] LABS: CK-MB VALUE MASS 1.7 NG/ML (<3.6); MB/CK RELATIVE INDEX 1.28 (< OR =4)
[2023-04-01 13:00] LABS: THYROID STIMULATING HORMONE 0.703 uIU/ML (0.55-4.78)
[2023-04-01] MEDS ORDERED: MORPHINE 2 MG/ML 1ML VIAL IV PRN (13:25)
[2023-04-01] MEDS ORDERED: ONDANSETRON 4MG 2ML VIAL IV ONE (13:25)
[2023-04-01] MEDS ORDERED: ISOVUE-370 76% 100ML VIAL As Ordered ONE (13:41)
[2023-04-01 13:51] LABS: MB/CK RELATIVE INDEX 0.86 (< OR =4)
[2023-04-01] MEDS ORDERED: OSELTAMIVIR PHOSPHATE 75 MG CAP (TAMIFLU) PO ONE (14:30)
[2023-04-01 15:46] LABS: CK-MB VALUE MASS < 1.0 NG/ML (<3.6)
[2023-04-01 15:47] LABS: CPK CREATINE PHOSPHOKINASE 86 U/L (46-171); MB/CK RELATIVE INDEX 1.16 (< OR =4)
[2023-04-01] MEDS ORDERED: OSEL75CA PO (15:49)
[2023-04-01 17:12] VITALS: BP 162/76; TEMP 98.4; O2SAT 98
== END 2023-04-01 17:16 | disposition home or self-care (01) ==
LOC: M ED 11:04
DX: J09.X2 Influenza due to identified novel influenza A virus with other respiratory manifestations (principal); E10.9 Type 1 diabetes mellitus without complications; I10 Essential (primary) hypertension; E78.5 Hyperlipidemia, unspecified; G47.33 Obstructive sleep apnea (adult) (pediatric); N40.0 Benign prostatic hyperplasia without lower urinary tract symptoms; F32.A Depression, unspecified; Z86.79 Personal history of other diseases of the circulatory system; Z91.02 Food additives allergy status; Z88.1 Allergy status to other antibiotic agents; Z79.2 Long term (current) use of antibiotics; Z79.4 Long term (current) use of insulin; Z79.52 Long term (current) use of systemic steroids; Z79.899 Other long term (current) drug therapy
CPT/HCPCS: 36415; 71045; 71046; 71275; 80048; 80076; 82550; 82553; 83690; 83880; 84443; 84484; 85025; 85610; 87040; 87486; 87581; 87633; 87798; 93005; 93041; 94760; 99285; Q9967

== ENCOUNTER → 2023-04-01 | Outpatient (CLI) | payer MEDICARE, MEDICAID ==
[~2023-04-01] MED LIST changes: +OSEL75CA PO
== END ==
LOC: M RAD 10:40
PROVIDERS: ATTEND Internal Medicine
DX: J01.90 Acute sinusitis, unspecified (principal)

== ENCOUNTER 2023-04-09 19:09 | Emergency (ER) | payer MEDICARE, MEDICAID ==
[~2023-04-09] VITALS: Ht 172.7 cm; Wt 63.3 kg
[~2023-04-09 19:09] MED LIST changes: -HYDR-3911 PO; +HYDR50TA46 PO; +OSEL75CA PO
[2023-04-09 19:18] VITALS: BP 179/77; TEMP 100.2; O2SAT 97
[2023-04-09] MEDS ORDERED: ACETAMINOPHEN TAB 650MG DOSE (2X325MG) PO ONE (19:25)
[2023-04-09] MEDS ORDERED: NS 1,900 ML in IV 1 EA IV ONE (19:25)
[2023-04-09] MEDS ORDERED: LEVALBUTEROL 1.25MG 0.5ML CONCENTRATE NEB NEB ONE (19:30)
[2023-04-09 19:46] LABS: BASO % 0.3 % (0.0-1.0); EOS % 0.4 % (0.0-3.0); HEMATOCRIT 40.1 % (42.0-52.0); HEMOGLOBIN 13.6 g/dl (13.5-17.5); LYMPH # 0.4 10^3/uL (1.5-5.0); LYMPH % 3.7 % (24.0-44.0); MEAN CORPUSCULAR HEMOGLOBIN 29.4 pg (27.0-33.0); MEAN CORPUSCULAR HGB CONC 33.9 g/dl (32.0-36.5); MEAN CORPUSCULAR VOLUME 86.6 fl (80.0-96.0); MONO # 0.7 10^3/uL (0.0-0.8); MONO % 6.5 % (2.0-8.0); NEUTROPHILS # 9.9 10^3/uL (1.5-8.5); NEUTROPHILS % 88.8 % (36.0-66.0); PLATELET COUNT, AUTOMATED 234 10^3/uL (150-450); RED BLOOD COUNT 4.63 10^6/uL (4.30-6.10); WHITE BLOOD COUNT 11.1 10^3/uL (4.0-10.0)
[2023-04-09 20:03] LABS: INR 1.04; PROTHROMBIN TIME 13.3 SECONDS (12.5-14.5)
[2023-04-09 20:04] LABS: PARTIAL THROMBOPLASTIN TIME 28.9 SECONDS (24.8-34.2)
[2023-04-09 20:19] LABS: CK-MB VALUE MASS < 1.0 NG/ML (<3.6)
[2023-04-09 20:21] LABS: ALBUMIN 3.5 G/DL (3.2-5.2); ALKALINE PHOSPHATASE 121 U/L (46-116); ALT/SGPT 26 U/L (7.0-40); AMYLASE 46 U/L (30-118); AST/SGOT 18 U/L (<34); BILIRUBIN,DIRECT 0.5 MG/DL (<0.4); BLOOD UREA NITROGEN 34 MG/DL (9-23); CALCIUM LEVEL 9.1 MG/DL (8.5-10.1); CARBON DIOXIDE LEVEL 19 MMOL/L (20-31); CHLORIDE LEVEL 99 MMOL/L (98-107); CPK CREATINE PHOSPHOKINASE 103 U/L (46-171); CREATININE FOR GFR 1.63 MG/DL (0.70-1.30); GLOMERULAR FILTRATION RATE 46.7 (>56); GLUCOSE, FASTING 365 MG/DL (60-100); MB/CK RELATIVE INDEX 0.97 (< OR =4); POTASSIUM SERUM 4.6 MMOL/L (3.5-5.1); SODIUM LEVEL 131 MMOL/L (136-145)
[2023-04-09 20:28] LABS: PROCALCITONIN 0.17 ng/ml
[2023-04-09 20:52] LABS: APPEARANCE, URINE HAZY (CLEAR); BACTERIA, URINE AUTO NEGATIVE (NEGATIVE); BILIRUBIN, URINE AUTO NEGATIVE (NEGATIVE); BLOOD, URINE BLOOD 1+ (NEGATIVE); COLOR, URINE YELLOW (YELLOW); GLUCOSE, URINE (UA) AUTO 3+ mg/dL (NEGATIVE); KETONE, URINE AUTO 1+ mg/dL (NEGATIVE); LEUKOCYTE ESTERASE, URINE AUTO NEGATIVE (NEGATIVE); NITRITE, URINE AUTO NEGATIVE (NEGATIVE); PROTEIN, URINE AUTO NEGATIVE (NEGATIVE); RBC, URINE AUTO 1 /HPF (0-3); SPECIFIC GRAVITY URINE AUTO 1.012 (1.002-1.035); SQUAMOUS EPITHELIAL CELL UR AU 0 /HPF (0-6); UROBILINOGEN, URINE AUTO 0.2 mg/dL (0.0-2.0); WBC, URINE AUTO 1 /HPF (0-3)
[2023-04-09 21:22] LABS: CK-MB VALUE MASS < 1.0 NG/ML (<3.6); CPK CREATINE PHOSPHOKINASE 105 U/L (46-171); MB/CK RELATIVE INDEX 0.95 (< OR =4)
== END 2023-04-09 22:41 | disposition home or self-care (01) ==
LOC: M ED 19:09
DX: R53.1 Weakness (principal); B97.4 Respiratory syncytial virus as the cause of diseases classified elsewhere; R00.0 Tachycardia, unspecified; Z91.02 Food additives allergy status; Z88.8 Allergy status to other drugs, medicaments and biological substances; Z79.82 Long term (current) use of aspirin; Z79.02 Long term (current) use of antithrombotics/antiplatelets; Z79.810 Long term (current) use of selective estrogen receptor modulators (SERMs); Z79.899 Other long term (current) drug therapy

== ENCOUNTER → 2023-04-24 | Outpatient (CLI) | payer MEDICARE, MEDICAID | LOC: M RAD 09:45 | PROVIDERS: ATTEND Nurse Practitioner Family | DX: R06.00 Dyspnea, unspecified (principal); N18.31 Chronic kidney disease, stage 3a; Z94.0 Kidney transplant status ==

== ENCOUNTER → 2023-04-24 | Outpatient (REF) | payer MEDICARE, MEDICAID | LOC: M LAB REF 17:32 | PROVIDERS: ATTEND Nurse Practitioner Family | DX: N18.31 Chronic kidney disease, stage 3a (principal); Z94.0 Kidney transplant status ==

== ENCOUNTER → 2023-05-02 | Outpatient (CLI) | payer MEDICARE, MEDICAID ==
[~2023-05-02] MED LIST changes: -HYDR-3910 PO; +HYDR25TA87 PO
== END ==
LOC: M RAD 11:05
PROVIDERS: ATTEND Nurse Practitioner Family
DX: J32.9 Chronic sinusitis, unspecified (principal); Z94.0 Kidney transplant status

== ENCOUNTER → 2023-05-12 | Outpatient (REF) | payer MEDICARE, MEDICAID | LOC: M LAB REF 10:44 | PROVIDERS: ATTEND Nurse Practitioner Family | DX: Z94.0 Kidney transplant status (principal) ==

== ENCOUNTER → 2023-06-18 | Outpatient (CLI) | payer MEDICARE, MEDICAID ==
[2023-06-18 12:40] LABS: BASO # 0.1 10^3/uL (0.0-0.2); BASO % 1.1 % (0.0-1.0); EOS # 0.1 10^3/uL (0.0-0.5); EOS % 1.6 % (0.0-3.0); HEMATOCRIT 40.9 % (42.0-52.0); LYMPH # 0.8 10^3/uL (1.5-5.0); LYMPH % 10.4 % (24.0-44.0); MEAN CORPUSCULAR HEMOGLOBIN 29.8 pg (27.0-33.0); MEAN CORPUSCULAR HGB CONC 34.2 g/dl (32.0-36.5); MONO # 0.6 10^3/uL (0.0-0.8); MONO % 8.1 % (2.0-8.0); NEUTROPHILS # 5.9 10^3/uL (1.5-8.5); NEUTROPHILS % 78.5 % (36.0-66.0); PLATELET COUNT, AUTOMATED 236 10^3/uL (150-450); WHITE BLOOD COUNT 7.5 10^3/uL (4.0-10.0)
[2023-06-18 13:02] LABS: HEMOGLOBIN A1c 7.7 % (4.0-6.0)
[2023-06-18 13:10] LABS: ALBUMIN 4.1 G/DL (3.2-5.2); ALKALINE PHOSPHATASE 104 U/L (46-116); ALT/SGPT 44 U/L (7.0-40); AST/SGOT 31 U/L (<34); BILIRUBIN,TOTAL 0.6 MG/DL (0.3-1.2); BLOOD UREA NITROGEN 32 MG/DL (9-23); CALCIUM LEVEL 9.3 MG/DL (8.5-10.1); CARBON DIOXIDE LEVEL 28 MMOL/L (20-31); CHLORIDE LEVEL 105 MMOL/L (98-107); CHOLESTEROL LEVEL 84 MG/DL (<200); CHOLESTEROL RISK RATIO 1.95 (<5); CREATININE FOR GFR 1.26 MG/DL (0.70-1.30); GLOMERULAR FILTRATION RATE > 60.0 (>56); GLUCOSE, FASTING 104 MG/DL (60-100); POTASSIUM SERUM 4.2 MMOL/L (3.5-5.1); SODIUM LEVEL 140 MMOL/L (136-145); TOTAL PROTEIN 6.5 G/DL (5.7-8.2); TRIGLYCERIDES LEVEL 70 MG/DL (<150)
[2023-06-18 13:13] LABS: THYROID STIMULATING HORMONE 0.737 uIU/ML (0.55-4.78)
== END ==
LOC: M LAB 12:06
PROVIDERS: ATTEND Internal Medicine
DX: E10.9 Type 1 diabetes mellitus without complications (principal); E78.5 Hyperlipidemia, unspecified; E03.9 Hypothyroidism, unspecified

== ENCOUNTER → 2023-07-24 | Outpatient (REF) | payer MEDICARE, MEDICAID ==
[~2023-07-24] MED LIST changes: +DOXY-440 PO; -DOXY-444 PO
== END ==
LOC: M LAB REF 13:15
PROVIDERS: ATTEND Nurse Practitioner Family
DX: N40.1 Benign prostatic hyperplasia with lower urinary tract symptoms (principal)

== ENCOUNTER → 2023-08-29 | Outpatient (CLI) | payer MEDICARE, MEDICAID | LOC: M RAD 10:05 | PROVIDERS: ATTEND Internal Medicine Pulmonary Disease | DX: R91.8 Other nonspecific abnormal finding of lung field (principal) ==

== ENCOUNTER → 2023-09-23 | Outpatient (CLI) | payer MEDICARE, MEDICAID ==
[2023-09-23 11:18] LABS: BASO # 0.1 10^3/uL (0.0-0.2); BASO % 0.8 % (0.0-1.0); EOS # 0.2 10^3/uL (0.0-0.5); EOS % 2.8 % (0.0-3.0); HEMATOCRIT 41.9 % (42.0-52.0); HEMOGLOBIN 13.8 g/dl (13.5-17.5); LYMPH # 0.8 10^3/uL (1.5-5.0); MEAN CORPUSCULAR HEMOGLOBIN 29.1 pg (27.0-33.0); MEAN CORPUSCULAR HGB CONC 32.9 g/dl (32.0-36.5); MEAN CORPUSCULAR VOLUME 88.2 fl (80.0-96.0); MONO # 0.6 10^3/uL (0.0-0.8); MONO % 9.3 % (2.0-8.0); NEUTROPHILS # 4.4 10^3/uL (1.5-8.5); NEUTROPHILS % 73.9 % (36.0-66.0); PLATELET COUNT, AUTOMATED 235 10^3/uL (150-450); RED BLOOD COUNT 4.75 10^6/uL (4.30-6.10)
[2023-09-23 11:42] LABS: ALBUMIN 3.9 G/DL (3.2-5.2); BILIRUBIN,TOTAL 0.8 MG/DL (0.3-1.2); CALCIUM LEVEL 9.3 MG/DL (8.5-10.1); CHOLESTEROL RISK RATIO 2.97 (<5); CREATININE FOR GFR 1.55 MG/DL (0.70-1.30); GLOMERULAR FILTRATION RATE 49.3 (>56); LDL CHOLESTEROL 72.4 MG/DL (<100); POTASSIUM SERUM 4.4 MMOL/L (3.5-5.1); TOTAL PROTEIN 6.3 G/DL (5.7-8.2)
[2023-09-23 11:44] LABS: THYROID STIMULATING HORMONE 1.522 uIU/ML (0.55-4.78)
[2023-09-23 12:46] LABS: HEMOGLOBIN A1c 6.9 % (4.0-6.0)
== END ==
LOC: M LAB 10:13
PROVIDERS: ATTEND Internal Medicine
DX: E03.9 Hypothyroidism, unspecified (principal); E78.5 Hyperlipidemia, unspecified; E10.9 Type 1 diabetes mellitus without complications

== ENCOUNTER 2023-09-26 14:51 | Emergency (ER) | payer MEDICARE, MEDICAID ==
[~2023-09-26] VITALS: Ht 172.7 cm; Wt 69.1 kg
[2023-09-26 14:52] VITALS: BP 172/68; TEMP 98.1; O2SAT 98
== END 2023-09-26 17:52 | disposition home or self-care (01) ==
LOC: M ED 14:51
DX: H11.32 Conjunctival hemorrhage, left eye (principal); I10 Essential (primary) hypertension; K90.0 Celiac disease; E78.5 Hyperlipidemia, unspecified; E10.9 Type 1 diabetes mellitus without complications; N18.9 Chronic kidney disease, unspecified; F32.A Depression, unspecified; Z86.79 Personal history of other diseases of the circulatory system; Z94.0 Kidney transplant status; Z91.02 Food additives allergy status; Z88.8 Allergy status to other drugs, medicaments and biological substances; Z79.4 Long term (current) use of insulin; Z79.899 Other long term (current) drug therapy; Z79.52 Long term (current) use of systemic steroids; Z79.2 Long term (current) use of antibiotics; Z79.82 Long term (current) use of aspirin

== ENCOUNTER → 2023-10-24 | Outpatient (REF) | payer MEDICARE, MEDICAID ==
[2023-10-24 19:11] LABS: ALBUMIN 4.2 G/DL (3.2-5.2); BILIRUBIN,DIRECT 0.3 MG/DL (<0.4); BILIRUBIN,TOTAL 0.7 MG/DL (0.3-1.2); TOTAL PROTEIN 6.6 G/DL (5.7-8.2)
== END ==
LOC: M LAB REF 17:25
PROVIDERS: ATTEND Nurse Practitioner Family
DX: N18.31 Chronic kidney disease, stage 3a (principal); Z48.22 Encounter for aftercare following kidney transplant

== ENCOUNTER → 2023-12-18 | Outpatient (CLI) | payer MEDICARE, MEDICAID ==
[2023-12-18 10:11] LABS: BASO # 0.1 10^3/uL (0.0-0.2); BASO % 0.8 % (0.0-1.0); EOS # 0.2 10^3/uL (0.0-0.5); EOS % 3.5 % (0.0-3.0); HEMATOCRIT 40.4 % (42.0-52.0); HEMOGLOBIN 13.4 g/dl (13.5-17.5); LYMPH # 0.9 10^3/uL (1.5-5.0); LYMPH % 14.2 % (24.0-44.0); MEAN CORPUSCULAR HEMOGLOBIN 29.1 pg (27.0-33.0); MEAN CORPUSCULAR HGB CONC 33.2 g/dl (32.0-36.5); MEAN CORPUSCULAR VOLUME 87.8 fl (80.0-96.0); MONO # 0.8 10^3/uL (0.0-0.8); MONO % 13.9 % (2.0-8.0); NEUTROPHILS # 4.1 10^3/uL (1.5-8.5); NEUTROPHILS % 67.3 % (36.0-66.0); PLATELET COUNT, AUTOMATED 208 10^3/uL (150-450); WHITE BLOOD COUNT 6.1 10^3/uL (4.0-10.0)
[2023-12-18 10:29] LABS: ALBUMIN 3.9 G/DL (3.2-5.2); BILIRUBIN,TOTAL 0.7 MG/DL (0.3-1.2); CALCIUM LEVEL 9.3 MG/DL (8.5-10.1); CHOLESTEROL RISK RATIO 2.47 (<5); CREATININE FOR GFR 1.46 MG/DL (0.70-1.30); GLOMERULAR FILTRATION RATE 52.8 (>56); HDL CHOLESTEROL 52.5 MG/DL (>40); LDL CHOLESTEROL 59.5 MG/DL (<100); NON-HDL-C 77.5 MG/DL; POTASSIUM SERUM 4.3 MMOL/L (3.5-5.1); TOTAL PROTEIN 6.7 G/DL (5.7-8.2)
[2023-12-18 10:33] LABS: THYROID STIMULATING HORMONE 1.59 uIU/ML (0.55-4.78)
[2023-12-18 11:09] LABS: HEMOGLOBIN A1c 7.7 % (4.0-6.0)
== END ==
LOC: M LAB 09:14
PROVIDERS: ATTEND Internal Medicine
DX: I25.10 Atherosclerotic heart disease of native coronary artery without angina pectoris (principal); E78.5 Hyperlipidemia, unspecified; E03.9 Hypothyroidism, unspecified; E10.9 Type 1 diabetes mellitus without complications

== ENCOUNTER → 2024-03-31 | Outpatient (CLI) | payer MEDICARE, MEDICAID ==
[~2024-03-31] MED LIST changes: +ATOR-398 PO; -LIPI80TA PO
[2024-03-31 11:15] LABS: HEMOGLOBIN A1c 7.9 % (4.0-6.0)
[2024-03-31 11:23] LABS: BILIRUBIN,TOTAL 0.7 MG/DL (0.3-1.2); CALCIUM LEVEL 9.2 MG/DL (8.5-10.1); CHOLESTEROL RISK RATIO 2.86 (<5); CREATININE FOR GFR 1.47 MG/DL (0.70-1.30); GLOMERULAR FILTRATION RATE 52.4 (>56); HDL CHOLESTEROL 44.3 MG/DL (>40); LDL CHOLESTEROL 63.7 MG/DL (<100); NON-HDL-C 82.7 MG/DL; POTASSIUM SERUM 4.7 MMOL/L (3.5-5.1); TOTAL PROTEIN 6.5 G/DL (5.7-8.2)
[2024-03-31 11:24] LABS: THYROID STIMULATING HORMONE 2.309 uIU/ML (0.55-4.78)
== END ==
LOC: M LAB 10:05
PROVIDERS: ATTEND Internal Medicine
DX: E03.9 Hypothyroidism, unspecified (principal); E78.5 Hyperlipidemia, unspecified; E10.9 Type 1 diabetes mellitus without complications

== ENCOUNTER → 2024-06-25 | Outpatient (CLI) | payer MEDICARE, MEDICAID | LOC: M RAD 07:22 | PROVIDERS: ATTEND Nurse Practitioner Family | DX: N18.31 Chronic kidney disease, stage 3a (principal); Z48.22 Encounter for aftercare following kidney transplant ==

== ENCOUNTER → 2024-07-01 | Outpatient (CLI) | payer MEDICARE, MEDICAID ==
[2024-07-01 11:09] LABS: BASO # 0.1 10^3/uL (0.0-0.2); BASO % 1.2 % (0.0-1.0); EOS # 0.2 10^3/uL (0.0-0.5); EOS % 2.2 % (0.0-3.0); HEMATOCRIT 42.7 % (42.0-52.0); HEMOGLOBIN 13.8 g/dl (13.5-17.5); LYMPH # 0.8 10^3/uL (1.5-5.0); LYMPH % 11.3 % (24.0-44.0); MEAN CORPUSCULAR HEMOGLOBIN 28.2 pg (27.0-33.0); MEAN CORPUSCULAR HGB CONC 32.3 g/dl (32.0-36.5); MEAN CORPUSCULAR VOLUME 87.1 fl (80.0-96.0); MONO # 0.7 10^3/uL (0.0-0.8); NEUTROPHILS # 5.1 10^3/uL (1.5-8.5); PLATELET COUNT, AUTOMATED 230 10^3/uL (150-450); WHITE BLOOD COUNT 6.7 10^3/uL (4.0-10.0)
[2024-07-01 11:21] LABS: HEMOGLOBIN A1c 7.4 % (4.0-6.0)
[2024-07-01 11:22] LABS: ALBUMIN 3.9 G/DL (3.2-5.2); BILIRUBIN,TOTAL 0.8 MG/DL (0.3-1.2); CALCIUM LEVEL 9.4 MG/DL (8.5-10.1); CHOLESTEROL RISK RATIO 2.17 (<5); CREATININE FOR GFR 1.51 MG/DL (0.70-1.30); GLOMERULAR FILTRATION RATE 52.9 (>56); HDL CHOLESTEROL 49.3 MG/DL (>40); LDL CHOLESTEROL 43.3 MG/DL (<100); NON-HDL-C 57.7 MG/DL; POTASSIUM SERUM 4.9 MMOL/L (3.5-5.1); TOTAL PROTEIN 6.6 G/DL (5.7-8.2)
[2024-07-01 11:24] LABS: THYROID STIMULATING HORMONE 2.536 uIU/ML (0.55-4.78)
== END ==
LOC: M LAB 10:24
PROVIDERS: ATTEND Internal Medicine
DX: I25.10 Atherosclerotic heart disease of native coronary artery without angina pectoris (principal); E78.5 Hyperlipidemia, unspecified; E03.9 Hypothyroidism, unspecified; E10.9 Type 1 diabetes mellitus without complications

== ENCOUNTER → 2024-07-02 | Outpatient (REF) | payer MEDICARE, MEDICAID | LOC: M LAB REF 17:36 | PROVIDERS: ATTEND Nurse Practitioner Family | DX: Z48.22 Encounter for aftercare following kidney transplant (principal) ==

== ENCOUNTER → 2024-10-22 | Outpatient (CLI) | payer MEDICARE, MEDICAID ==
[~2024-10-22] MED LIST changes: +BASA100I SC; +HYDR-3490 PO; +MENSCAP PO
== END ==
LOC: M PLAIMG 09:21
PROVIDERS: ATTEND Physician Assistant
DX: I50.32 Chronic diastolic (congestive) heart failure (principal); I27.29 Other secondary pulmonary hypertension; I08.1 Rheumatic disorders of both mitral and tricuspid valves

== ENCOUNTER → 2025-01-05 | Outpatient (CLI) | payer MEDICARE, MEDICAID ==
[2025-01-05 10:57] LABS: BASO # 0.1 10^3/uL (0.0-0.2); BASO % 0.9 % (0.0-1.0); EOS # 0.1 10^3/uL (0.0-0.5); EOS % 1.6 % (0.0-3.0); LYMPH # 0.7 10^3/uL (1.5-5.0); LYMPH % 8.1 % (24.0-44.0); MONO # 0.6 10^3/uL (0.0-0.8); MONO % 7.7 % (2.0-8.0); NEUTROPHILS # 6.7 10^3/uL (1.5-8.5); NEUTROPHILS % 81.5 % (36.0-66.0); PLATELET COUNT, AUTOMATED 238 10^3/uL (150-450)
[2025-01-05 11:15] LABS: ESTIMATED AVERAGE GLUCOSE 166.0 MG/DL (60-110)
[2025-01-05 11:25] LABS: ALT/SGPT 25.0 U/L (7.0-40); AST/SGOT 27.0 U/L (<34); CALCIUM LEVEL 9.5 MG/DL (8.5-10.1); CARBON DIOXIDE LEVEL 28.0 MMOL/L (20-31); CHLORIDE LEVEL 106.0 MMOL/L (98-107); CHOLESTEROL LEVEL 92.0 MG/DL (<200); CHOLESTEROL RISK RATIO 2.28 (<5); CREATININE FOR GFR 1.62 MG/DL (0.70-1.30); GLOMERULAR FILTRATION RATE 48.6 (>56); LDL CHOLESTEROL 33.3 MG/DL (<100); NON-HDL-C 51.7 MG/DL; POTASSIUM SERUM 4.8 MMOL/L (3.5-5.1); SODIUM LEVEL 144.0 MMOL/L (136-145); TRIGLYCERIDES LEVEL 92.0 MG/DL (<150)
== END ==
LOC: M LAB 10:02
PROVIDERS: ATTEND Internal Medicine
DX: E10.9 Type 1 diabetes mellitus without complications (principal); E78.5 Hyperlipidemia, unspecified; E03.9 Hypothyroidism, unspecified

== ENCOUNTER → 2025-01-07 | Outpatient (CLI) | payer MEDICARE, MEDICAID | LOC: M RAD 10:26 | PROVIDERS: ATTEND Nurse Practitioner Family | DX: M79.605 Pain in left leg (principal) ==

== ENCOUNTER 2025-03-07 15:29 | Emergency (ER) | payer MEDICARE, MEDICAID ==
[~2025-03-07] VITALS: Ht 172.7 cm; Wt 70.0 kg
[2025-03-07 16:34] LABS: BASO # 0.1 10^3/uL (0.0-0.2); BASO % 0.5 % (0.0-1.0); EOS # 0.1 10^3/uL (0.0-0.5); EOS % 0.5 % (0.0-3.0); LYMPH # 0.8 10^3/uL (1.5-5.0); LYMPH % 7.2 % (24.0-44.0); MONO # 0.8 10^3/uL (0.0-0.8); MONO % 7.5 % (2.0-8.0); NEUTROPHILS # 9.3 10^3/uL (1.5-8.5); NEUTROPHILS % 83.9 % (36.0-66.0); PLATELET COUNT, AUTOMATED 245 10^3/uL (150-450)
[2025-03-07] MEDS: ONDANSETRON 4MG/2ML VIAL IV ONE (16:41)
[2025-03-07 17:04] LABS: ALT/SGPT 32.0 U/L (7.0-40); AST/SGOT 28.0 U/L (<34); CALCIUM LEVEL 9.0 MG/DL (8.5-10.1); CARBON DIOXIDE LEVEL 20.0 MMOL/L (20-31); CHLORIDE LEVEL 105.0 MMOL/L (98-107); CREATININE FOR GFR 5.13 MG/DL (0.70-1.30); GLOMERULAR FILTRATION RATE 12.2 (>56); POTASSIUM SERUM 5.1 MMOL/L (3.5-5.1); SODIUM LEVEL 138.0 MMOL/L (136-145)
[2025-03-07] MEDS: LIDOCAINE 2% 5 ML JELLY UROJET TOP ONE (17:51)
[2025-03-07] MEDS: MORPHINE 4 MG/ML 1 ML VIAL IV ONE (17:52)
[2025-03-07] MEDS: ACETAMINOPHEN *IV* 1,000 MG in IV 1 EA IV ONE (17:58)
[2025-03-07] MEDS: NS (Normal Saline) 0.9% 1,000 ML IV ONE ×2 (17:59→19:37)
[2025-03-07 18:29] LABS: KETONE, URINE AUTO RFX NEGATIVE (NEGATIVE); LEUKOCYTE ESTERASE UR AUTO RFX NEGATIVE (NEGATIVE); NITRITE, URINE AUTO RFX NEGATIVE (NEGATIVE); RBC, URINE AUTO RFX 3 /HPF (0-3); SQUAM EPITHELIAL CELL UR AURFX 1 /HPF (0-6); WBC, URINE AUTO RFX 4 /HPF (0-3)
[2025-03-07] MEDS: PIPERACILLIN/TAZOBACTAM SOD 4.5 GM in DEXTROSE 5% (D5W) ADV/MINI-BAG 50 ML IV ONE (18:58)
[2025-03-07 20:30] VITALS: BP 140/65; O2SAT 97
[2025-03-07] MEDS ORDERED: DEXTROSE 50% 50 ML SYRINGE As Ordered ONE (20:53)
[2025-03-07] MEDS: DEXTROSE 50% 50 ML SYRINGE IV STA (20:55)
[2025-03-07 20:59] VITALS: TEMP 98.2
== END 2025-03-07 21:01 | disposition short-term general hospital (02) ==
LOC: M ED 15:29
DX: N39.0 Urinary tract infection, site not specified (principal); N19 Unspecified kidney failure; N13.30 Unspecified hydronephrosis; N26.1 Atrophy of kidney (terminal); I70.90 Unspecified atherosclerosis; E11.9 Type 2 diabetes mellitus without complications; I10 Essential (primary) hypertension; I25.2 Old myocardial infarction; E78.5 Hyperlipidemia, unspecified; F10.10 Alcohol abuse, uncomplicated; Z90.49 Acquired absence of other specified parts of digestive tract; Z91.02 Food additives allergy status; Z88.8 Allergy status to other drugs, medicaments and biological substances; Z79.82 Long term (current) use of aspirin; Z79.899 Other long term (current) drug therapy; Z79.02 Long term (current) use of antithrombotics/antiplatelets; Z79.52 Long term (current) use of systemic steroids; Z94.0 Kidney transplant status
CPT/HCPCS: 36415; 74176; 80047; 80048; 80076; 81001; 83605; 83690; 85025; 87040; 87486; 87581; 87633; 87798; 93005; 93041; 94760; 96365; 96375; 99285; J0134; J2405; J2543